=== PATIENT | male | born 1970 | race African-American/Black ===

== ENCOUNTER 2017-04-12 13:04 | Emergency (ER) | payer OTHER ==
[2017-04-12 13:10] VITALS: BP 145/93; PULSE 88; TEMP 98.5; BMI 51.1
--- NOTE | 2017-04-12 14:13 | PDOC ---
History of Present Illness - General Chief Complaint: Ear Problem Stated Complaint: EAR PROBLEM Time Seen by Provider: 04/12/17 13:57 History Source: Patient Exam Limitations: No Limitations - History of Present Illness Initial Comments: 04/12/17 14:08 And here with complaints of left ear fuzziness 2 days. Denies fevers, chills, runny nose or recent URI. States suffers from cerumen of systems and uses wash rag to try to disimpact ear. Timing/Duration: unsure Severity: mild Associated Symptoms: reports: denies symptoms Past History - Travel Traveled outside of the country in the last 30 days: No Close contact w/someone who was outside of country & ill: No - Past Medical History Allergies/Adverse Reactions: Allergies Allergy/AdvReac Type Severity Reaction Status Date / Time No Known Allergies Allergy Verified 04/12/17 13:06 Home Medications: Ambulatory Orders Albuterol Sulfate Inhaler - [Ventolin HFA Inhaler -] 2 inh PO Q4H PRN #1 inh 04/01 Carvedilol [Coreg -] 12.5 mg PO BID tablet 08/28/15 Furosemide Injection [Lasix Injection -] 40 mg IVPUSH BID@0600,1400 vial Heparin - 5,000 unit SQ TID vial 08/28/15 Polymyxin B Sulfate/Tmp [Polytrim Opthalmic Solution -] 1 drop OD Q3H drops Potassium Chloride [K-Dur -] 20 meq PO DAILY tablet.er 08/28/15 Anemia: No Asthma: No Cancer: No Cardiac Disorders: No CVA: No COPD: No CHF: No Dementia: No Diabetes: No GI Disorders: No Disorders: No HTN: Yes Hypercholesterolemia: No Liver Disease: No Seizures: No Thyroid Disease: No Other medical history: MORBIDE OBESTIY - Surgical History Abdominal Surgery: Yes (HERNIA 1997) Appendectomy: No Cardiac Surgery: No Cholecystectomy: No Lung Surgery: No Neurologic Surgery: No Orthopedic Surgery: No - Suicide/Smoking/Psychosocial Hx Smoking Status: No Smoking History: Never smoked Number of Cigarettes Smoked Daily: 0 Information on smoking cessation initiated: No Hx Alcohol Use: No Drug/Substance Use Hx: No Substance Use Type: None Hx Substance Use Treatment: No Review of Systems - Review of Systems Able to Perform ROS?: Yes Is the patient limited Venezuelan proficient: Yes Constitutional: Yes: Symptoms Reported, See HPI, Malaise HEENTM: Yes: Symptoms Reported, See HPI, Ear Pain, Ear Discharge Respiratory: Yes: See HPI. No: Symptoms reported, Cough Musculoskeletal: No: Symptoms Reported Integumentary: No: Symptoms Reported All Other Systems: Reviewed and Negative *Physical Exam - Vital Signs Last Vital Signs Temp Pulse Resp BP Pulse Ox 98.5 F 88 18 145/93 100 04/12/17 13:06 04/12/17 13:06 04/12/17 13:06 04/12/17 13:06 04/12/17 13:06 - Physical Exam General Appearance: Yes: Nourished, Appropriately Dressed. No: Apparent Distress HEENT: positive: EOMI, LUMZA, Normal ENT Inspection, Pharynx Normal. negative: TMs Normal (unable to visualize left TM due to cerumen no cysts) Neck: positive: Supple. negative: Tender, Lymphadenopathy (R), Lymphadenopathy (L) Respiratory/Chest: positive: Lungs Clear. negative: Chest Tender Gastrointestinal/Abdominal: positive: Soft. 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 Patient feels much improved *DC/Admit/Observation/Transfer Diagnosis at time of Disposition: Ceruminosis Qualifiers: Laterality: left Qualified Code(s): H61.22 - Impacted cerumen, left ear - Discharge Dispostion Disposition: HOME Condition at time of disposition: Stable Admit: No - Referrals Referrals: Jai Villegas MD [Primary Care Provider] - Philip Jackson MD [Staff Physician] - - Patient Instructions Printed Discharge Instructions: DI for Cerumen Impaction Additional Instructions: Do not use Q-tips, or any other small objects on the inner aspect of the ear canal - may only use Q-tips only on the outside to clean ears Ear wax may be packed by use of Q-tips to the inner canal and become hardened May use hydrogen peroxide 3 times a week to continued keep ear wax soft and able to expel Rinse in shower after hydrogen peroxide instillation to wash ear wax out [id number] preparations also assist in wax buildup Aloe up with private physician or ear nose and throat doctor as needed - Post Discharge Activity
== END 2017-04-12 14:33 | disposition home or self-care (01) ==
LOC: JERFT 13:04
PROC: 3E1B78Z Irrigation of Ear using Irrigating Substance, Via Natural or Artificial Opening (ICD-10-PCS; principal; 2017-04-12)
DX: H61.22 Impacted cerumen, left ear (principal); I10 Essential (primary) hypertension; E66.01 Morbid (severe) obesity due to excess calories; Z68.43 Body mass index [BMI] 50.0-59.9, adult
CPT/HCPCS: 99281-25

== ENCOUNTER 2018-12-05 11:06 | Inpatient (IN) | payer SELFPAY ==
[2018-12-05] MEDS: ALBUTEROL SO4 2.5/IPRATROPIUM 0.5 INH SOL 3 ML VIAL.NEB. NEB SCH (12:26)
[2018-12-05] MEDS ORDERED: ALBUTEROL SO4 2.5/IPRATROPIUM 0.5 INH SOL 3 ML VIAL.NEB. NEB ONE (12:30)
--- NOTE | 2018-12-05 12:56 | PDOC ---
History of Present Illness - General Chief Complaint: Shortness of Breath Stated Complaint: SOB Time Seen by Provider: 12/05/18 11:57 - History of Present Illness Initial Comments: Idris Carter is a 48yo man with a PMH of morbid obesity, HITESH on CPAP, obesity hypoventilation syndrome, HTN, ?COPD who presents with worsening CHURCH. He reports that he woke yesterday morning with acute onset of shortness of breath, particularly when he tries to walk. He is unable to state how far he can walk today compared to his baseline, but he says he has been getting more SOB than normal. He says that he has breathing problems at baseline and uses CPAP overnight but does not have any respiratory medications. When asked, he endorses having an albuterol MDI at home but has never used it. Mr Carter denies any fever, chills, chest pain, nausea/vomiting, weight change or worsening LE edema though he reports chronic BLE edema (left always worse than right). Mr Carter is additionally unclear on whether he takes his home medications regularly. Past History - Past Medical History Allergies/Adverse Reactions: Allergies Allergy/AdvReac Type Severity Reaction Status Date / Time No Known Allergies Allergy Verified 04/12/17 13:06 Home Medications: Ambulatory Orders Carvedilol [Coreg -] 12.5 mg PO BID tablet 08/28/15 Amlodipine Besylate 5 mg PO DAILY 12/05/18 Furosemide Injection [Lasix Injection -] 40 mg PO BID 12/05/18 Anemia: No Asthma: No Cancer: No Cardiac Disorders: No CVA: No COPD: No CHF: No Dementia: No Diabetes: No GI Disorders: No Disorders: No HTN: Yes Hypercholesterolemia: No Liver Disease: No Seizures: No Thyroid Disease: No - Surgical History Abdominal Surgery: Yes (HERNIA 1997) Appendectomy: No Cardiac Surgery: No Cholecystectomy: No Lung Surgery: No Neurologic Surgery: No Orthopedic Surgery: No - Immunization History Immunization Up to Date: No - Psycho Social/Smoking Cessation Hx Smoking Status: No Smoking History: Never smoked Have you smoked in the past 12 months: No Number of Cigarettes Smoked Daily: 0 Information on smoking cessation initiated: No Hx Alcohol Use: No Drug/Substance Use Hx: No Substance Use Type: None Hx Substance Use Treatment: No Review of Systems - Review of Systems Comments:: General: No fevers, no chills, no weight or appetite change, no malaise HEENT: No changes in vision, no changes in hearing, no congestion, no sore throat CV: No chest pain, no palpitations, + LE edema, + CHURCH Pulm: + SOB, +HITESH GI: No nausea or vomiting, no change in bowel habits, no melena : No frequency, no urgency, no dysuria Musc: No back pain, no joint swelling, no recent injury Skin: No rash, no lesions, no erythema Endo: No excessive thirst, no heat/cold intolerance Heme: No unusual bruising or bleeding, no swollen glands Neuro: No syncope, no numbness/tingling, no focal weakness Vasc: No claudication Psych: No recent change in mood, no SI or HI *Physical Exam - Vital Signs Last Vital Signs Temp Pulse Resp BP Pulse Ox 98.4 F 102 H 28 H 184/117 H 91 L 12/05/18 11:45 12/05/18 11:45 12/05/18 11:45 12/05/18 11:45 12/05/18 11:45 - Physical Exam Comments: General: Morbidly obese, in moderate distress HEENT: PERRL, EOMI, MMM, voice normal Cards: Mildly tachycardic, no murmur appreciated Pulm: Tachypnic on 3L by NC. Very distant lung sounds Abd: Soft, nontender, obese. Well healed midline scar Ext: 3+ BLE pitting edema, L>R. Moves all extremities. WWP Neuro: A&Ox3, CN grossly intact, normal speech, motor/sensory grossly intact and symmetric Psych: Mood appropriate to situation ED Treatment Course - LABORATORY CBC & Chemistry Diagram: 12/05/18 12:30 12/05/18 12:30 - RADIOLOGY Radiology Studies Ordered: Category Date Time Status CHEST X-RAY PORTABLE* [RAD] Stat Radiology 12/05/18 12:21 Ordered Medical Decision Making - Medical Decision Making 12/05/18 12:55 Idris Carter is a 48yo man with a PMH of morbid obesity, HITESH on CPAP, obesity hypoventilation syndrome, HTN, ?COPD who presents with worsening CHURCH that started acutely when he woke yesterday morning. - Ddx includes CHF exacerbation, COPD exacerbation, ACS, viral illness, worsening obesity hypoventilation, medication noncompliance - CBC, CMP, trop, BNP, CXR, EGK - Duoneb - Cardiac monitoring - Supplemental O2 - ABG to evaluate for significant hypoxia, hypercapnea 12/05/18 13:57 - CBC, CMP unremarkable. Trop negative - EKG with sinus tachycardia at 105, left axis, normal intervals, left anterior facicular block. No significant t-wave or ST changes - ABG to be completed - Given LE edema, tachycardia, and SOB, will obtain BLE duplex and d-dimer to evaluate for PE 12/05/18 16:57 - ABG with slight acidosis at pH 7.33, CO2 66, O2 59 on 3L suppelemtal O2 - D-dimer mildly elevated at 700 - Duplex pending - Plan to give lovenox empirically as CT cannot be completed. Pharmacy contacted for dosing 12/05/18 18:20 - Per pharmacy, lovenox dosing is baseld on actual body weight. 200mg lovenox ordered - 40mg IV lasix, 10mg IV labetalol ordered for HTN to 215/120. Outpatient pharmacy reports pt has not picked up his amlodipine 5mg since August, will give home dose - Will admit to telemetry due to hypoxia, possible V/Q scan 12/05/18 19:[address] out [address] to Dr Martell for the remainder of his ED care. Discussed with Elli Saravia and Emory Chavez PGY2 Discharge - Discharge Information Problems reviewed: Yes Clinical Impression/Diagnosis: Acute and chronic respiratory failure Qualifiers: Respiratory failure complication: hypoxia and hypercapnia Qualified Code(s): J96.21 - Acute and chronic respiratory failure with hypoxia Condition: Stable - Admission Yes - Follow up/Referral - Patient Discharge Instructions - Post Discharge Activity
--- NOTE | 2018-12-05 13:00 | PDOC ---
Documentation entered by Yolanda Nation SCRIBE, acting as scribe for Yury Saravia MD. Yury Saravia MD: This documentation has been prepared by the Rios ruibo Adrianna, SCRIBE, under my direction and personally reviewed by me in its entirety. I confirm that the documentation accurately reflects all work, treatment, procedures, and medical decision making performed by me. Attending Attestation - Resident Resident Name: KathyJeanette - ED Attending Attestation I have performed the following: I have examined & evaluated the patient, The case was reviewed & discussed with the resident, I agree w/resident's findings & plan, Exceptions are as noted - HPI HPI: The patient is a 48 year old male, with a significant PMH of morbid obesity, obstructive sleep apnea (wears CPAP at night at home ), obesity hypoventilation syndrome, and hypertension, who presents to the ED for evaluation of shortness of breath for 2 days. Patient reports feeling increasingly more short of breath yesterday. He notes he can typically walk one block before feeling short of breath, but yesterday could not walk for more than half a block. He endorses dyspnea on exertion (feels okay at rest) and orthopnea (needs to sleep with 2 pillows, no change in the past 2 days). He has bilateral lower extremity edema at baseline (L>R), but denies any increase in swelling. Patient reports mild chest pain yesterday that was brief and self-resolved. Patient measured his O2 and saw that it was low, so he came to the ED for further evaluation. Denies fever, chills, runny nose, productive cough, nausea, vomit, diarrhea, weight gain, or recent travel. Allergies: NKA, NKDA Surgical History: Abdominal hernia repair Social History: Denies EtOH, tobacco, or illicit drug use PCP: NOS - Physicial Exam PE: Vitals: Triage Vital signs reviewed General Appearance: +Morbidly obese. no acute distress, Cardiac: +Tachycardic. Regular rhythm, no murmurs, no rubs, no gallops, Lungs: +Breath sounds slightly decreased bilaterally, Abdomen: Soft, nondistended, normal bowel sounds, nontender to palpation Rectal: Exam deferred Extremities: +3+ pitting edema of the bilateral lower extremities, Full range of motion to all extremities, no cyanosis, clubbing, Skin: Warm and dry, no rashes or lesions, no petechiae Neuro: AOX3; Cranial Nerves 2-12 grossly c intact, Strength intact to all extremities Sensation intact to all extremities, Psych: normal mood, normal affect - Medical Decision Making 48 year old male, with history of morbid obesity, obstructive sleep apnea ( wears CPAP at night at home ), obesity hypoventilation syndrome, and hypertension, presents with shortness of breath for 2 days. Plan: labs, duo neb, chest X-Ray, EKG, reassess 12/05/18 16:46 Morbid obesity with hypoxia and hypoventilatory syndrome we will start patient on BiPAP d-dimer sent very mildly elevated low suspicion for PE patient unable to obtain CTA given weight can consider VQ scan tomorrow Heart Score/ECG Review - ECG Impressions Comment:: EKG performed at 11:21:56 demonstrates rate of 105bpm, sinus tachycardia with premature atrial complexes. Additional findings include: Possible left atrial enlargement, left anterior fascicular block ED Treatment Course - LABORATORY CBC & Chemistry Diagram: 12/07/18 06:10 12/07/18 06:10 - ADDITIONAL ORDERS Additional order review: Laboratory Results 12/05/18 12/05/18 12/05/18 14:00 14:00 12:30 D-Dimer 728 H Anticoagulation Therapy No Result Required. Puncture Site Right radial ABG pH 7.33 L ABG pCO2 at Pt Temp 66.5 H ABG pO2 at Pt Temp 59.0 L ABG HCO3 34.3 H ABG O2 Sat (Measured) 86.6 L ABG O2 Content 16.0 ABG Base Excess 6.6 H Ramses Test Positive O2 Delivery Device No Result Required. Oxygen Flow Rate No Vent Mode No Result Required. Vent Rate No Result Required. Mechanical Rate No Result Required. Pressure Support Vent No Result Required. Sodium 141 Potassium 3.9 Chloride 102 Carbon Dioxide 32 Anion Gap 7 L BUN 12.9 Creatinine 0.7 Est GFR (CKD-EPI)AfAm 127.53 Est GFR (CKD-EPI)NonAf 110.04 Random Glucose 91 Calcium 8.8 Magnesium Total Bilirubin 0.5 AST 21 ALT 20 Alkaline Phosphatase 91 Creatine Kinase Troponin I B-Natriuretic Peptide Total Protein 8.2 Albumin 3.4 12/05/18 12:30 D-Dimer Anticoagulation Therapy Puncture Site ABG pH ABG pCO2 at Pt Temp ABG pO2 at Pt Temp ABG HCO3 ABG O2 Sat (Measured) ABG O2 Content ABG Base Excess Ramses Test O2 Delivery Device Oxygen Flow Rate Vent Mode Vent Rate Mechanical Rate Pressure Support Vent Sodium Potassium Chloride Carbon Dioxide Anion Gap BUN Creatinine Est GFR (CKD-EPI)AfAm Est GFR (CKD-EPI)NonAf Random Glucose Calcium Magnesium 2.0 Total Bilirubin AST ALT Alkaline Phosphatase Creatine Kinase 129 Troponin I 0.02 B-Natriuretic Peptide 392.9 H Total Protein Albumin 12/05/18 12:30 RBC 6.01 H MCV 77.6 L MCHC 29.6 L RDW 17.0 H MPV 9.3 Neutrophils % 78.0 Lymphocytes % 13.5 D Monocytes % 6.6 Eosinophils % 1.2 D Basophils % 0.7 - RADIOLOGY Radiograph Interpretation: EXAM#: TYPE/EXAM: RESULT: [id number] RAD/CHEST X-RAY PORTABLE* Chest single view portable Indication: Shortness of breath Impression: Limited expiratory study as discussed above. Consider follow-up imaging with a better inspiratory effort. Reported By: Ravi Dailey MD 12/05/18 14:44 - Medications Given in the ED: ED Medications Discontinued Medications Generic Name Dose Route Start Last Admin Trade Name Freq PRN Reason Stop Dose Admin Albuterol/Ipratropium 1 amp 12/05/18 12:30 12/05/18 12:26 Duoneb - NEB 12/05/18 13:16 1 amp Q15M EUNICE Administration
[2018-12-05 13:01] LABS: BASO % 0.7 % (0-2.0); EOS % 1.2 % (0-4.5); HEMATOCRIT 46.6 % (35.4-49); HEMOGLOBIN 13.8 GM/dL (11.7-16.9); LYMPH % 13.5 % (8-40); MCHC 29.6 g/dl (32.0-35.9); MEAN CELL VOLUME 77.6 fl (80-96); MEAN PLT VOLUME 9.3 fl (7.5-11.1); MONO % 6.6 % (3.8-10.2); PLATELET COUNT 216 K/MM3 (134-434); RBC 6.01 M/mm3 (4.00-5.60); WHITE BLOOD COUNT 6.8 K/mm3 (4.0-10.0)
[2018-12-05 13:11] LABS: N-TERMINAL BNP 392.9 pg/ml (5-125)
[2018-12-05 13:15] LABS: ALBUMIN 3.4 g/dl (3.4-5.0); BILIRUBIN,TOTAL 0.5 mg/dL (0.2-1); BLOOD UREA NITROGEN 12.9 mg/dL (7-18); CALCIUM 8.8 mg/dL (8.5-10.1); CREATININE 0.7 mg/dL (0.55-1.3); POTASSIUM 3.9 mmol/L (3.5-5.1); TOT PROT 8.2 g/dl (6.4-8.2)
[2018-12-05 14:12] LABS: ARTERIAL BLD GAS O2 SATURATION 86.6 % (95-98); ARTERIAL BLOOD GAS BASE EXCESS 6.6 meq/l (-2-2); ARTERIAL BLOOD GAS PCO2 66.5 mmHg (35-45); ARTERIAL BLOOD GAS pH 7.33 (7.35-7.45)
[2018-12-05 14:17] LABS: ALLENS TEST POSITIVE
[2018-12-05] MEDS ORDERED: FUROSEMIDE 40 MG/4 ML INJECTABLE VIAL IVPUSH ONE (17:37)
[2018-12-05] MEDS ORDERED: LABETALOL HCL 5 MG/1 ML (100MG/20 ML VIAL) IVPUSH ONE (17:38)
[2018-12-05] MEDS ORDERED: amLODIPine BESYLATE 5 MG TABLET (FP) PO ONE (18:27)
[2018-12-05] MEDS ORDERED: ENOXAPARIN NA (PORCINE) 120 MG/0.8 ML DISP.SYRIN SQ SCH (18:30)
[2018-12-05] MEDS ORDERED: FUROSEMIDE 40 MG/4 ML INJECTABLE VIAL ONE (19:02)
[2018-12-05] MEDS ORDERED: ENOXAPARIN NA (PORCINE) 100 MG/1 ML DISP.SYRIN SQ ONE (19:02)
[2018-12-05] MEDS ORDERED: amLODIPine BESYLATE 5 MG TABLET (FP) ONE (19:02)
[2018-12-05] MEDS ORDERED: LABETALOL HCL 5 MG/1 ML (200MG/40ML VIAL) IVPB ONE (19:02)
--- NOTE | 2018-12-05 19:31 | PN ---
Teaching Attending Note Name of Resident: Marina Tate ATTENDING PHYSICIAN STATEMENT I saw and evaluated the patient. I reviewed the resident's note and discussed the case with the resident. I agree with the resident's findings and plan as documented. SUBJECTIVE: Patient is a 48 year old man with a PMH of Morbid obesity, Abdominal hernia repair, Obstructive sleep apnea (wears CPAP at night at home ), Obesity- hypoventilation syndrome, Intubated in 08/2015 (for respiratory failure) and Hypertension (nonadherent to medications) who presents to the ER with shortness of breath for 2 days. Patient reports feeling increasingly more short of breath yesterday. He notes he can typically walk one block before feeling short of breath, but yesterday could not walk for more than half a block. He has dyspnea on exertion (feels okay at rest) and orthopnea (needs to sleep with 2 pillows, no change in the past 2 days). He has bilateral lower extremity edema at baseline (L>R), but denies any increase in swelling. Patient reports mild chest pain yesterday that was brief and self-resolved. Patient measured his O2 and saw that it was low. Denies alcohol, tobacco, or illicit drug use. 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 Has FH of CVA and COPD. No obvious recent sick contacts. Denies fever, chills, runny nose, productive cough, nausea, vomit , diarrhea, weight gain, or recent travel. OBJECTIVE: Alert Vital Signs Period Temp Pulse Resp BP Sys/Deluca Pulse Ox Last 24 Hr 98.2 F-98.8 F 60-105 20-28 141-191/91-117 79-100 HEENT: No Jaundice, eye redness or discharge, PERRLA, EOMI. Normocephalic, atraumatic. External ears are normal and hearing is grossly intact. No nasal discharge. Neck: Supple, nontender. No palpable adenopathy or thyromegaly. No JVD Chest: Good effort. Diminished breath sounds. Clear to percussion. Heart: Regular. No S3, rub or murmur Abdomen: Not distended, soft, nontender and no HSM. No rebound or guarding. Normal bowel sounds. Ext: Peripheral pulses intact. Leg edema. Skin: Warm and dry. No petechiae, rash or ecchymosis. Neuro: Alert. Oriented x3. CN 2-12 grossly intact. Sensation grossly intact in all four extremities and DTR are symmetric. Psych: Appropriate mood and affect. Good insight. Current Medications Generic Name Dose Route Start Last Admin Trade Name Latonya PRN Reason Stop Dose Admin Enoxaparin Sodium 200 mg 12/05/18 18:30 12/05/18 19:15 Lovenox - SQ 200 mg ONCE EUNICE Administration Home Medications Medication Instructions Recorded Carvedilol [Coreg -] 12.5 mg PO BID tablet 08/28/15 Amlodipine Besylate 5 mg PO DAILY 12/05/18 Furosemide Injection [Lasix 40 mg PO BID 12/05/18 Injection -] Abnormal Lab Results 12/05/18 12/05/18 12/05/18 12:30 12:30 12:30 RBC 6.01 H MCV 77.6 L MCH 23.0 L MCHC 29.6 L RDW 17.0 H D-Dimer ABG pH ABG pCO2 at Pt Temp ABG pO2 at Pt Temp ABG HCO3 ABG O2 Sat (Measured) ABG Base Excess Anion Gap 7 L B-Natriuretic Peptide 392.9 H 12/05/18 12/05/18 14:00 14:00 RBC MCV MCH MCHC RDW D-Dimer 728 H ABG pH 7.33 L ABG pCO2 at Pt Temp 66.5 H ABG pO2 at Pt Temp 59.0 L ABG HCO3 34.3 H ABG O2 Sat (Measured) 86.6 L ABG Base Excess 6.6 H Anion Gap B-Natriuretic Peptide ASSESSMENT AND PLAN: 1. COPD exacerbation - Findings consistent with COPD associated with his OHS and HITESH. Needs confirmation with outpatient PFTs and sleep study. CXR shows cardiomegaly, wide mediastinum, pulmonary vascular congestion and obscured left costophrenic angle. Leg doppler scan didnot show DVT. ECHO from 08/25/15 showed normal LV size, normal LV systolic function and mild concentric LV hypertrophy; the right ventricle was not visualized. Will treat with duoneb/ventolin, solumedrol, symbicort and azithromycin and reduce O2 to 2L/min. EKG shows sinus tachycardia with PAC, LAE, LAFB and no changes of ischemia and initial troponin is negative. Started on full dose Lovenox by the ER staff for possible pulmonary embolism, pending V/Q scan (Patient too big for CT scan machine). Will consult pulmonary and strive to get V/Q scan early in the morning before continuing full dose lovenox. Leg edema may be related to venous stasis, increased vascular permeability and/or hypercarbia-induced renal salt retention. Will repeat ECHO and focus on appropriate care of his underlying pulmonary disease. In the meantime will encourage leg elevation, dietary salt restriction and possibly compression stockings. Will continue comprehensive care for all of patients comorbid conditions. 2. Hypertensive urgency - Patient got Lasix 40 mg IV, Labetalol 10 mg IV and Amlodipine 5 mg PO in the ER - BP improved to systolic of 160 mmHg. Will hold amlodipine and add HCTZ 12.5 q am and Minoxidil 5 mg bid and Lisinopril 20 mg HS. Revise regimen to ensure [id number] excellent BP control and corrections counselor patient on the injurious effects of uncontrolled hypertension. Nonpharmacologic measures to control hypertension like weight loss, salt restriction and exercise discussed. Importance of adherence to treatment regimen and attainment of normotension emphasized. 3. Morbid Obesity Counseled on the risks associated with obesity. Will provide patient all the necessary assistance, counseling and positive reinforcement to facilitate weight loss. Consult edge polisher. 4. DVT prophylaxis - On full dose Lovenox empirically for PE. 5. Advance directives - Full code
[2018-12-05] MEDS ORDERED: LABETALOL HCL INJECTION 1,000 MG in SODIUM CHLORIDE 800 ML IV SCH (20:15)
--- NOTE | 2018-12-05 21:17 | PDOC ---
*Physical Exam - Vital Signs Last Vital Signs Temp Pulse Resp BP Pulse Ox 98.4 F 81 28 H 162/100 92 L 12/05/18 11:45 12/05/18 21:13 12/05/18 20:50 12/05/18 21:13 12/05/18 20:50 ED Treatment Course - LABORATORY CBC & Chemistry Diagram: 12/05/18 12:30 12/05/18 12:30 - ADDITIONAL ORDERS Additional order review: Laboratory Results 12/05/18 12/05/18 12/05/18 14:00 14:00 12:30 D-Dimer 728 H Anticoagulation Therapy No Result Required. Puncture Site Right radial ABG pH 7.33 L ABG pCO2 at Pt Temp 66.5 H ABG pO2 at Pt Temp 59.0 L ABG HCO3 34.3 H ABG O2 Sat (Measured) 86.6 L ABG O2 Content 16.0 ABG Base Excess 6.6 H Ramses Test Positive O2 Delivery Device No Result Required. Oxygen Flow Rate No Vent Mode No Result Required. Vent Rate No Result Required. Mechanical Rate No Result Required. Pressure Support Vent No Result Required. Sodium 141 Potassium 3.9 Chloride 102 Carbon Dioxide 32 Anion Gap 7 L BUN 12.9 Creatinine 0.7 Est GFR (CKD-EPI)AfAm 127.53 Est GFR (CKD-EPI)NonAf 110.04 Random Glucose 91 Calcium 8.8 Magnesium Total Bilirubin 0.5 AST 21 ALT 20 Alkaline Phosphatase 91 Creatine Kinase Troponin I B-Natriuretic Peptide Total Protein 8.2 Albumin 3.4 12/05/18 12:30 D-Dimer Anticoagulation Therapy Puncture Site ABG pH ABG pCO2 at Pt Temp ABG pO2 at Pt Temp ABG HCO3 ABG O2 Sat (Measured) ABG O2 Content ABG Base Excess Ramses Test O2 Delivery Device Oxygen Flow Rate Vent Mode Vent Rate Mechanical Rate Pressure Support Vent Sodium Potassium Chloride Carbon Dioxide Anion Gap BUN Creatinine Est GFR (CKD-EPI)AfAm Est GFR (CKD-EPI)NonAf Random Glucose Calcium Magnesium 2.0 Total Bilirubin AST ALT Alkaline Phosphatase Creatine Kinase 129 Troponin I 0.02 B-Natriuretic Peptide 392.9 H Total Protein Albumin 12/05/18 12:30 RBC 6.01 H MCV 77.6 L MCHC 29.6 L RDW 17.0 H MPV 9.3 Neutrophils % 78.0 Lymphocytes % 13.5 D Monocytes % 6.6 Eosinophils % 1.2 D Basophils % 0.7 - Medications Given in the ED: ED Medications Discontinued Medications Generic Name Dose Route Start Last Admin Trade Name Latonya PRN Reason Stop Dose Admin Albuterol/Ipratropium 1 amp 12/05/18 12:30 12/05/18 12:26 Duoneb - NEB 12/05/18 13:16 1 amp Q15M EUNICE Administration Amlodipine Besylate 5 mg 12/05/18 18:27 12/05/18 19:15 Norvasc - PO 12/05/18 18:28 5 mg ONCE ONE Administration Furosemide 40 mg 12/05/18 17:37 12/05/18 19:15 Lasix Injection - IVPUSH 12/05/18 17:38 40 mg ONCE ONE Administration Labetalol HCl 1,000 mg/ Sodium 1,000 mls @ 120 mls/hr 12/05/18 20:15 21:13 Chloride IV 0 mg/min TITR EUNICE 0 mls/hr Infusion 2 MG/MIN Labetalol HCl 10 mg 12/05/18 17:38 12/05/18 19:15 Normodyne Injection - IVPUSH 12/05/18 17:39 10 mg ONCE ONE Administration Discharge - Discharge Information Problems reviewed: Yes Clinical Impression/Diagnosis: Acute and chronic respiratory failure Qualifiers: Respiratory failure complication: hypoxia and hypercapnia Qualified Code(s): J96.21 - Acute and chronic respiratory failure with hypoxia Condition: Stable - Follow up/Referral - Patient Discharge Instructions - Post Discharge Activity
[2018-12-05] MEDS ORDERED: ALBUTEROL SO4 2.5/IPRATROPIUM 0.5 INH SOL 3 ML VIAL.NEB. NEB PRN (21:48)
[2018-12-05] MEDS ORDERED: ALBUTEROL SO4 0.083% IH SOL 2.5 MG/3 ML VIAL.NEB. NEB PRN (21:48)
[2018-12-05] MEDS ORDERED: AZITHROMYCIN 250 MG TABLET PO ONE (21:51)
[2018-12-05] MEDS: LISINOPRIL 20 MG TABLET (FP) PO SCH ×2 (21:55→22:11)
[2018-12-05] MEDS ORDERED: methylPREDNISolone NA SUCC 40 MG/1 ML VIAL ONE (22:48)
[2018-12-05] MEDS ORDERED: AZITHROMYCIN 250 MG TABLET ONE (22:48)
[2018-12-05] MEDS: MINOXIDIL 2.5 MG TABLET PO SCH ×2 (22:54→22:59)
[2018-12-05] MEDS: methylPREDNISolone NA SUCC 40 MG/1 ML VIAL IVPUSH SCH (22:55)
[2018-12-05] MEDS: BUDESONIDE/FORMETEROL FUMARATE 160/4.5 mcg INHALER IH SCH (22:55)
--- NOTE | 2018-12-05 22:59 | HP ---
CHIEF COMPLAINT: SOB PCP: Dr. Villegas HISTORY OF PRESENT ILLNESS: Mr. Carter is a 48 year old man with a past medical history of morbid obesity (BMI 55.5kg), HITESH (has CPAP at home), obesity hypoventilation syndrome, HTN, and questionable COPD (patient denies carrying this diagnosis). The patient states that he woke up yesterday morning and felt more short of breath than usual. He was becoming short of breath walking down the path to his house and climbing the steps to enter his home, this is unusual for him. He is not short of breath at rest. The patient did not take any inhalers or medications to try and relieve his symptoms. Exertion makes the SOB worse and rest makes it better. The patient endorses having LE edema and orthopnea but states that there have been no changes in the amount of swelling in his legs or the number of pillows he uses to sleep. The patient states that 3 years ago he came to [facility] and was transferred to [place] to be evaluated for CHF and COPD, he reports that they "cleared" him of these diagnoses but can't recall what studies were done. He denies ever having a sleep study but acknowledges that we recommended he get one last time he was here. He reports Dr. Villegas had prescribed him an albuterol inhaler and amlodipine 5mg PO BID but he denies taking both of these medications. 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 ER course was notable for: (1) 10 IVpush Labetolol (2) 40 IVpush Lasix (3) EKG with sinus tachycardia (105) and premature atrial complexes, QTc 457, TWI in V1 V2 Recent Travel: denies PAST MEDICAL HISTORY: morbid obesity (BMI 55.5kg), HITESH (has CPAP at home), obesity hypoventilation syndrome, HTN, and questionable COPD (patient denies carrying this diagnosis) PAST SURGICAL HISTORY: ventral hernia repair in 1997 Social History: Smoking: denies, never smoked Alcohol: denies Drugs: denies Allergies No Known Allergies Allergy (Verified 04/12/17 13:06) HOME MEDICATIONS: Home Medications Medication Instructions Recorded Carvedilol [Coreg -] 12.5 mg PO BID tablet 08/28/15 Amlodipine Besylate 5 mg PO DAILY 12/05/18 Furosemide Injection [Lasix 40 mg PO BID 12/05/18 Injection -] REVIEW OF SYSTEMS CONSTITUTIONAL: Absent: fever, chills, diaphoresis, generalized weakness, malaise, loss of appetite, weight change HEENT: Absent: rhinorrhea, nasal congestion, throat pain, throat swelling, difficulty swallowing, mouth swelling, ear pain, eye pain, visual changes CARDIOVASCULAR: chest pain- patient reported CP but when asked to point to where points to L flank, states it was "throbbing" and self resolved Absent: syncope, palpitations, irregular heart rate, lightheadedness, peripheral edema RESPIRATORY: shortness of breath, dyspnea with exertion, orthopnea, Absent: cough, wheezing, stridor, hemoptysis GASTROINTESTINAL: Absent: abdominal pain, abdominal distension, nausea, vomiting, diarrhea, constipation, melena, hematochezia GENITOURINARY: Absent: dysuria, frequency, urgency, hesitancy, hematuria, flank pain, genital pain MUSCULOSKELETAL: Absent: myalgia, arthralgia, joint swelling, back pain, neck pain SKIN: Absent: rash, itching, pallor HEMATOLOGIC/IMMUNOLOGIC: Absent: easy bleeding, easy bruising, lymphadenopathy, frequent infections ENDOCRINE: Absent: unexplained weight gain, unexplained weight loss, heat intolerance, cold intolerance NEUROLOGIC: Absent: headache, focal weakness or paresthesias, dizziness, unsteady gait, seizure, mental status changes, bladder or bowel incontinence PSYCHIATRIC: Absent: anxiety, depression, suicidal or homicidal ideation, hallucinations. PHYSICAL EXAMINATION Vital Signs - 24 hr 12/05/18 12/05/18 12/05/18 11:12 11:18 11:45 Temperature 98.8 F 98.2 F 98.4 F Pulse Rate 60 105 H 102 H Pulse Rate [ 102 H Left Radial] Respiratory 20 20 28 H Rate Blood Pressure 141/91 191/117 H Blood Pressure 184/117 H [Left Arm] O2 Sat by Pulse 100 79 L 91 L Oximetry (%) 12/05/18 12/05/18 12/05/18 15:23 19:23 20:50 Temperature Pulse Rate Pulse Rate [ 91 H 92 H 91 H Left Radial] Respiratory 25 H 16 28 H Rate Blood Pressure Blood Pressure 188/122 H 215/122 H 195/110 H [Left Arm] O2 Sat by Pulse 91 L 92 L 92 L Oximetry (%) 12/05/18 12/05/18 12/05/18 21:02 21:13 22:37 Temperature Pulse Rate 87 82 Pulse Rate [ 75 Left Radial] Respiratory 19 Rate Blood Pressure 162/100 160/90 Blood Pressure 161/90 [Left Arm] O2 Sat by Pulse 93 L Oximetry (%) GENERAL: Awake, alert, and fully oriented, in no acute distress, breathing comfortably on 3LNC HEAD: Normal with no signs of trauma. EYES: Pupils equal, round and reactive to light, extraocular movements intact, sclera anicteric, conjunctiva clear. No lid lag. EARS, NOSE, THROAT: Ears normal, nares patent, oropharynx clear without exudates. Moist mucous membranes. NECK: Normal range of motion, supple without lymphadenopathy, JVD, or masses. LUNGS: Breath sounds equal, clear to auscultation bilaterally. No wheezes, and no crackles. No accessory muscle use. HEART: Regular rate and rhythm, normal S1 and S2 without murmur. ABDOMEN: Obese, Soft, nontender, not distended, normoactive bowel sounds, no guarding, no rebound, no masses, ventral midline scar MUSCULOSKELETAL: Normal range of motion at all joints. No bony deformities or tenderness. No CVA tenderness. UPPER EXTREMITIES: 2+ pulses, warm, well-perfused. No peripheral edema. Sensation intact bilaterally, 5/5 strength LOWER EXTREMITIES: 2+ pulses, warm, well-perfused. No calf tenderness.2+ peripheral edema to the knee, sensation intact bilaterally 5/5 strength bilaterally NEUROLOGICAL: Cranial nerves II-XII intact. Normal speech. PSYCHIATRIC: Cooperative. Good eye contact. Appropriate mood and affect. SKIN: Warm, dry, normal turgor, venous stasis changes and extremely dry skin on lower extremities Laboratory Results - last 24 hr 12/05/18 12/05/18 12/05/18 12:30 12:30 12:30 WBC 6.8 RBC 6.01 H Hgb 13.8 Hct 46.6 MCV 77.6 L MCH 23.0 L MCHC 29.6 L RDW 17.0 H Plt Count 216 MPV 9.3 Absolute Neuts (auto) 5.3 Neutrophils % 78.0 Lymphocytes % 13.5 D Monocytes % 6.6 Eosinophils % 1.2 D Basophils % 0.7 Nucleated RBC % 0 D-Dimer Anticoagulation Therapy Puncture Site ABG pH ABG pCO2 at Pt Temp ABG pO2 at Pt Temp ABG HCO3 ABG O2 Sat (Measured) ABG O2 Content ABG Base Excess Ramses Test O2 Delivery Device Oxygen Flow Rate Vent Mode Vent Rate Mechanical Rate Pressure Support Vent Sodium 141 Potassium 3.9 Chloride 102 Carbon Dioxide 32 Anion Gap 7 L BUN 12.9 Creatinine 0.7 Est GFR (CKD-EPI)AfAm 127.53 Est GFR (CKD-EPI)NonAf 110.04 Random Glucose 91 Calcium 8.8 Magnesium 2.0 Total Bilirubin 0.5 AST 21 ALT 20 Alkaline Phosphatase 91 Creatine Kinase 129 Troponin I 0.02 B-Natriuretic Peptide 392.9 H Total Protein 8.2 Albumin 3.4 12/05/18 12/05/18 14:00 14:00 WBC RBC Hgb Hct MCV MCH MCHC RDW Plt Count MPV Absolute Neuts (auto) Neutrophils % Lymphocytes % Monocytes % Eosinophils % Basophils % Nucleated RBC % D-Dimer 728 H Anticoagulation Therapy No Result Required. Puncture Site Right radial ABG pH 7.33 L ABG pCO2 at Pt Temp 66.5 H ABG pO2 at Pt Temp 59.0 L ABG HCO3 34.3 H ABG O2 Sat (Measured) 86.6 L ABG O2 Content 16.0 ABG Base Excess 6.6 H Ramses Test Positive O2 Delivery Device No Result Required. Oxygen Flow Rate No Vent Mode No Result Required. Vent Rate No Result Required. Mechanical Rate No Result Required. Pressure Support Vent No Result Required. Sodium Potassium Chloride Carbon Dioxide Anion Gap BUN Creatinine Est GFR (CKD-EPI)AfAm Est GFR (CKD-EPI)NonAf Random Glucose Calcium Magnesium Total Bilirubin AST ALT Alkaline Phosphatase Creatine Kinase Troponin I B-Natriuretic Peptide Total Protein Albumin Imaging: CXR - cardiomegaly, wide mediastinum, pulmonary vascular congestion and obscured left costophrenic angle. Doppler bilateral LE- no DVT ASSESSMENT/PLAN: Mr. Carter is a 48 year old man with a past medical history of morbid obesity ( BMI 55.5kg), HITESH (has CPAP at home), obesity hypoventilation syndrome, HTN, and questionable COPD (patient denies carrying this diagnosis) presenting with 2 days of SOB and dyspnea on exertion and also found to have hypertensive urgency on admission. #Shortness of breath- differential diagnosis includes COPD associated with hypercapnia from obesity hypoventilation syndrome vs. PE. Patient's ABG with evidence of hypoxia (pH 7.33, PaCO2 66.5, PaO2 59), PE less likely as the PaCO2 is elevated and you would expected it to be decreased however still on differential given the patients tachycardic, tachypneic and has an elevated D- dimer to 728. - will treat for COPD exacerbation - solumedrol IVpush 40 q6hr - duonebs QID - ventolin Q4 PRN - Symbicort 160/4.5 BID - azithromycin 500 mg once then 250 mg PO DAILY - Consult Pulm, appreciate recommendations - Started on full dose Lovenox by the ER staff for possible pulmonary embolism - Patient not able to get CTA due to body habitus, consider V/Q scan, pending results of scan will decide on dosing of Lovenox (whether to continue 200 BID), will defer to pulm for decision making - PFTs inpatient vs outpatient, will defer to pulm - will require sleep study outpatient - Reduce O2 to 2LNC # Hypertensive urgency- Patient poorly compliant with home BP meds, does not take Amlodipine. Patient does have close follow up with PCP but did not seem to understand why the amlodipine was prescribed and stated this is why he hadn't taken it. - In ED BPs were in the 190s/117 and patient got: Lasix 40 mg IV, Labetalol 10 mg IV and Amlodipine 5 mg PO, BP improved to systolic of 160 mmHg - EKG shows sinus tachycardia with PAC, LAE, LAFB and no changes of ischemia - Patient without chest pains, initial troponin is negative. - Minoxidil 5 mg PO BID - HCTZ 12.5 AM - Lisinopril 20 HS - HOLD amlodipine # Leg Edema- may be related to his venous stasis or related to hypercarbia- induced renal salt retention (hypercapnia can cause dilation of precapillary sphincters causing a fall in peripheral vascular resistance which then results in sodium retention by the kidneys in an attempt to restore the circulating volume). - Last echo was in 2015, showed normal LV size, normal LV systolic function and mild concentric LV hypertrophy; the right ventricle was not visualized. - repeat echo - leg elevation, dietary salt restriction #FEN replete lytes prn sodium restricted diet #PPx DVT- SCD's for now, patient was given 200SQ lovenox for empric tx of PE, will need to discuss with pulm in AM if this treatment should be continued. Dispo: admit to telemetry, full code Visit type - Emergency Visit Emergency Visit: Yes ED Registration Date: 12/05/18 Care time: The patient presented to the Emergency Department on the above date and was hospitalized for further evaluation of their emergent condition. - New Patient This patient is new to me today: Yes Date on this admission: 12/06/18 - Critical Care Critical Care patient: No ATTENDING PHYSICIAN STATEMENT I saw and evaluated the patient. I reviewed the resident's note and discussed the case with the resident. I agree with the resident's findings and plan as documented. SUBJECTIVE: OBJECTIVE: ASSESSMENT AND PLAN:
[2018-12-06 02:22] VITALS: BMI 63.0
[2018-12-06] MEDS: methylPREDNISolone NA SUCC 40 MG/1 ML VIAL IVPUSH SCH ×2 (02:47→09:42)
[2018-12-06] MEDS: FUROSEMIDE 40 MG TABLET (FP) PO SCH ×2 (06:16→13:33)
[2018-12-06] MEDS: ALBUTEROL SO4 2.5/IPRATROPIUM 0.5 INH SOL 3 ML VIAL.NEB. NEB SCH ×4 (08:00→20:49)
[2018-12-06 08:05] LABS: ALBUMIN 3.2 g/dl (3.4-5.0); BILIRUBIN,TOTAL 0.5 mg/dL (0.2-1); BLOOD UREA NITROGEN 13.3 mg/dL (7-18); CALCIUM 8.4 mg/dL (8.5-10.1); CREATININE 0.8 mg/dL (0.55-1.3); MAGNESIUM 2.2 mg/dL (1.8-2.4); PHOSPHOROUS 5.3 mg/dL (2.5-4.9); TOT PROT 8.1 g/dl (6.4-8.2)
[2018-12-06] MEDS ORDERED: PT OWN MED DRAWER 7, Y5N ONE (09:11)
[2018-12-06 09:19] LABS: BASO % 0.2 % (0-2.0); HEMATOCRIT 46.2 % (35.4-49); HEMOGLOBIN 13.8 GM/dL (11.7-16.9); LYMPH % 8.5 % (8-40); MCHC 29.8 g/dl (32.0-35.9); MEAN CELL VOLUME 77.4 fl (80-96); MEAN PLT VOLUME 9.2 fl (7.5-11.1); MONO % 1.2 % (3.8-10.2); NEUT % 90.1 % (42.8-82.8); PLATELET COUNT 204 K/MM3 (134-434); RBC 5.97 M/mm3 (4.00-5.60); RDW 17.1 % (11.9-15.9); WHITE BLOOD COUNT 6.7 K/mm3 (4.0-10.0)
[2018-12-06] MEDS: MINOXIDIL 2.5 MG TABLET PO SCH (09:42)
[2018-12-06] MEDS: BUDESONIDE/FORMETEROL FUMARATE 160/4.5 mcg INHALER IH SCH ×2 (09:45→21:23)
--- NOTE | 2018-12-06 09:58 | EKG ---
Test Reason : Blood Pressure : / mmHG Vent. Rate : 105 BPM Atrial Rate : 105 BPM P-R Int : 178 ms QRS Dur : 088 ms QT Int : 346 ms P-R-T Axes : 056 -52 074 degrees QTc Int : 457 ms POOR DATA QUALITY, INTERPRETATION MAY BE ADVERSELY AFFECTED SINUS TACHYCARDIA WITH PREMATURE ATRIAL COMPLEXES POSSIBLE LEFT ATRIAL ENLARGEMENT LEFT ANTERIOR FASCICULAR BLOCK ABNORMAL ECG WHEN COMPARED WITH ECG OF 23-AUG-2015 09:18, PREMATURE ATRIAL COMPLEXES ARE NOW PRESENT LEFT ANTERIOR FASCICULAR BLOCK IS NOW PRESENT Confirmed by ROS GERARD, TAWNY ([id number]) on 12/06/2018 9:58:12 AM Referred By: Confirmed By:TAWNY SOMMER MD
[2018-12-06] MEDS ORDERED: HYDROCHLOROTHIAZIDE 12.5 MG CAPSULE (FP) PO SCH (10:00)
[2018-12-06] MEDS ORDERED: ENOXAPARIN NA (PORCINE) 120 MG/0.8 ML DISP.SYRIN SQ SCH ×2 (10:00→12:45)
[2018-12-06] MEDS ORDERED: FLU VACCINE QUAD 60 MCG/0.5 ML (MDV 19-20) IM ONE (10:00)
[2018-12-06] MEDS ORDERED: AZITHROMYCIN 250 MG TABLET PO SCH (10:00)
--- NOTE | 2018-12-06 11:36 | PN ---
Progress Note (short form) - Note Progress Note: PULMONARY CONSULTATION DICTATED 12/06/18 IMP ACUTE ON CHRONIC HYPOXEMIC/HYPERCAPNEIC RESPIRATORY FAILURE ? COPD OHS HITESH HYPERTENSIVE URGENCY ? CHF MORBID OBESITY ELEVATED D-DIMER PLAN NIPPV O2 ECHO INHALED BRONCHODILATORS DVT PROPHYLAXIS TITRATE BP MEDS BARIATRIC SURGERY EVALUATION F/U ABGS OUTPATIENT PFTS DIURETICS DAILY WT Problem List - Problems (1) Acute on chronic respiratory failure with hypoxia and hypercapnia Code(s): J96.21 - ACUTE AND CHRONIC RESPIRATORY FAILURE WITH HYPOXIA; J96.22 - ACUTE AND CHRONIC RESPIRATORY FAILURE WITH HYPERCAPNIA (2) Acute on chronic diastolic (congestive) heart failure Code(s): I50.33 - ACUTE ON CHRONIC DIASTOLIC (CONGESTIVE) HEART FAILURE (3) [place] cardiac risk >20% in next 10 years Code(s): Z91.89 - OT PERSONAL RISK FACTORS, NOT ELSEWHERE CLASSIFIED (4) Morbid obesity with BMI of 50.0-59.9, adult Code(s): Z68.43 - BODY MASS INDEX (BMI) 50.0-59.9, ADULT (5) Obesity hypoventilation syndrome Code(s): E66.2 - MORBID (SEVERE) OBESITY WITH ALVEOLAR HYPOVENTILATION (6) Obstructive sleep apnea Code(s): G47.33 - OBSTRUCTIVE SLEEP APNEA (ADULT) (PEDIATRIC) (7) Hypertensive urgency Code(s): I16.0 - HYPERTENSIVE URGENCY (8) Hypertensive urgency Code(s): I16.0 - HYPERTENSIVE URGENCY
--- NOTE | 2018-12-06 12:41 | DS ---
Physical Exam: SUBJECTIVE: Patient seen and examined OBJECTIVE: Vital Signs Period Temp Pulse Resp BP Sys/Deluca Pulse Ox Last 24 Hr 97.7 F-98.2 F 75-118 16-28 145-215/90-122 90-93 PHYSICAL EXAM GENERAL: The patient is awake, alert, and fully oriented, in no acute distress. Appears comfortable on 4L NC HEAD: NC/AT EYES: sclera anicteric, conjunctiva clear. ENT: Ears normal, nares patent, oropharynx clear without exudates, moist mucous membranes. NECK: Trachea midline, full range of motion, supple. LUNGS: Breath sounds equal, clear to auscultation bilaterally, no wheezes, no crackles, no accessory muscle use. Distant lung sounds due to auscultation. Large, obese chest wall HEART: Regular rate and rhythm, S1, S2 without murmur, rub or gallop. ABDOMEN: large-obese abd, well-healed midline surgical scar, soft, nontender, nondistended, no guarding, no rebound. EXTREMITIES: 2+ pulses, warm, well-perfused, no edema. NEUROLOGICAL: Cranial nerves II through XII grossly intact. Normal speech. PSYCH: Normal mood, normal affect. SKIN: Warm, dry, normal turgor, no rashes or lesions noted. LABS Laboratory Results - last 24 hr 12/05/18 12/05/18 12/05/18 12:30 12:30 12:30 WBC 6.8 RBC 6.01 H Hgb 13.8 Hct 46.6 MCV 77.6 L MCH 23.0 L MCHC 29.6 L RDW 17.0 H Plt Count 216 MPV 9.3 Absolute Neuts (auto) 5.3 Neutrophils % 78.0 Lymphocytes % 13.5 D Monocytes % 6.6 Eosinophils % 1.2 D Basophils % 0.7 Nucleated RBC % 0 D-Dimer Anticoagulation Therapy Puncture Site ABG pH ABG pCO2 at Pt Temp ABG pO2 at Pt Temp ABG HCO3 ABG O2 Sat (Measured) ABG O2 Content ABG Base Excess Ramses Test O2 Delivery Device Oxygen Flow Rate Vent Mode Vent Rate Mechanical Rate Pressure Support Vent Sodium 141 Potassium 3.9 Chloride 102 Carbon Dioxide 32 Anion Gap 7 L BUN 12.9 Creatinine 0.7 Est GFR (CKD-EPI)AfAm 127.53 Est GFR (CKD-EPI)NonAf 110.04 Random Glucose 91 Hemoglobin A1c % Calcium 8.8 Phosphorus Magnesium 2.0 Total Bilirubin 0.5 AST 21 ALT 20 Alkaline Phosphatase 91 Creatine Kinase 129 Troponin I 0.02 B-Natriuretic Peptide 392.9 H Total Protein 8.2 Albumin 3.4 12/05/18 12/05/18 12/06/18 14:00 14:00 05:45 WBC 6.7 RBC 5.97 H Hgb 13.8 Hct 46.2 MCV 77.4 L MCH 23.0 L MCHC 29.8 L RDW 17.1 H Plt Count 204 MPV 9.2 Absolute Neuts (auto) 6.1 Neutrophils % 90.1 H Lymphocytes % 8.5 D Monocytes % 1.2 L D Eosinophils % 0.0 D Basophils % 0.2 Nucleated RBC % 0 D-Dimer 728 H Anticoagulation Therapy No Result Required. Puncture Site Right radial ABG pH 7.33 L ABG pCO2 at Pt Temp 66.5 H ABG pO2 at Pt Temp 59.0 L ABG HCO3 34.3 H ABG O2 Sat (Measured) 86.6 L ABG O2 Content 16.0 ABG Base Excess 6.6 H Ramses Test Positive O2 Delivery Device No Result Required. Oxygen Flow Rate No Vent Mode No Result Required. Vent Rate No Result Required. Mechanical Rate No Result Required. Pressure Support Vent No Result Required. Sodium Potassium Chloride Carbon Dioxide Anion Gap BUN Creatinine Est GFR (CKD-EPI)AfAm Est GFR (CKD-EPI)NonAf Random Glucose Hemoglobin A1c % Calcium Phosphorus Magnesium Total Bilirubin AST ALT Alkaline Phosphatase Creatine Kinase Troponin I B-Natriuretic Peptide Total Protein Albumin 12/06/18 12/06/18 05:45 05:45 WBC RBC Hgb Hct MCV MCH MCHC RDW Plt Count MPV Absolute Neuts (auto) Neutrophils % Lymphocytes % Monocytes % Eosinophils % Basophils % Nucleated RBC % D-Dimer Anticoagulation Therapy Puncture Site ABG pH ABG pCO2 at Pt Temp ABG pO2 at Pt Temp ABG HCO3 ABG O2 Sat (Measured) ABG O2 Content ABG Base Excess Ramses Test O2 Delivery Device Oxygen Flow Rate Vent Mode Vent Rate Mechanical Rate Pressure Support Vent Sodium 140 Potassium 4.0 Chloride 100 Carbon Dioxide 35 H Anion Gap 5 L BUN 13.3 Creatinine 0.8 Est GFR (CKD-EPI)AfAm 120.72 Est GFR (CKD-EPI)NonAf 104.16 Random Glucose 134 H Hemoglobin A1c % < 3.5 L Calcium 8.4 L Phosphorus 5.3 H Magnesium 2.2 Total Bilirubin 0.5 AST 11 L ALT 20 Alkaline Phosphatase 88 Creatine Kinase Troponin I B-Natriuretic Peptide Total Protein 8.1 Albumin 3.2 L HOSPITAL COURSE: 48M w/ pmh of HTN, morbid obesity (BMI 63.1kg), HITESH(nightly CPAP), obesity hypoventilation syndrome presented to [facility]ED for complaint of increasing SOB, worsened with exertion. Endorses history of normal stress test, normal PFTs. Has been prescribed albuterol inhaler and amlodipine, but does not use it. Presented at the ED w/ HR 102bpm, BP 184/117, RR 28, pO2 77% on RA, 91% on 3L. BP increased to 215/120 w/o change in symptoms. Given 40mg IV lasix, 10mg IV labetalol w/o much change. Blood pressure improved to SBP 160s after receiving furosemide 40mg x2, minoxidil, norvasc. ABG was 7.33/66.5/59/34.3/86.6/6.6; SOB was addressed with solumedrol, albuterol. Oxygenation improved to low 90s with 3-4L NC. [place] significant for D-Dimer 728, BNP 392.9. Inability to rule- out PE due to inability for CT scanner or VQ scanner unable to accommodate a > 350 lb male. Vitals still tachy to 100s, O2 ~low 90s on 4L NC. Lovenox 200mg BID for empiric treatment of possible Pulmonary Embolism. Discussed case with patient and Dr Berry for transfer to [facility] for HLOC. Date of Admission:12/05/18 Date of Discharge: 12/06/18 Minutes to complete discharge: 20 Discharge Summary Problems reviewed: Yes Reason For Visit: ACUTE RESPIRATORY FAILURE WITH HYPERCAPNIA, Current Active Problems Acute and chronic respiratory failure (Acute) Acute on chronic respiratory failure with hypoxia and hypercapnia (Acute) Hypertensive urgency (Acute) Hypertensive urgency (Acute) Condition: Stable - Instructions Referrals: Mounika Christie MD [Primary Care Provider] - - Home Medications Comprehensive Discharge Medication List: Ambulatory Orders Carvedilol [Coreg -] 12.5 mg PO BID tablet 08/28/15 Amlodipine Besylate 5 mg PO DAILY 10/22/19 Furosemide Injection [Lasix Injection -] 40 mg PO BID 12/05/18 Problem List - Problems (1) Acute and chronic respiratory failure Code(s): J96.20 - ACUTE AND CHR RESP FAILURE, UNSP W HYPOXIA OR HYPERCAPNIA Qualifiers: Respiratory failure complication: hypoxia and hypercapnia Qualified Code(s) : J96.21 - Acute and chronic respiratory failure with hypoxia; J96.22 - Acute and chronic respiratory failure with hypercapnia (2) Acute on chronic respiratory failure with hypoxia and hypercapnia Code(s): J96.21 - ACUTE AND CHRONIC RESPIRATORY FAILURE WITH HYPOXIA; J96.22 - ACUTE AND CHRONIC RESPIRATORY FAILURE WITH HYPERCAPNIA (3) Hypertensive urgency Code(s): I16.0 - HYPERTENSIVE URGENCY (4) Acute hypercapnic respiratory failure Code(s): J96.02 - ACUTE RESPIRATORY FAILURE WITH HYPERCAPNIA (5) Morbid obesity with BMI of 50.0-59.9, adult Code(s): Z68.43 - BODY MASS INDEX (BMI) 50.0-59.9, ADULT (6) Obesity hypoventilation syndrome Code(s): E66.2 - MORBID (SEVERE) OBESITY WITH ALVEOLAR HYPOVENTILATION (7) Obstructive sleep apnea Code(s): G47.33 - OBSTRUCTIVE SLEEP APNEA (ADULT) (PEDIATRIC) This patient is new to me today: Yes Date on this admission: 12/06/18 Emergency Visit: No Critical Care patient: No - Discharge Referral Referred to [facility] Med [facility].C[facility] No ATTENDING PHYSICIAN STATEMENT I saw and evaluated the patient. I reviewed the resident's note and discussed the case with the resident. I agree with the resident's findings and plan as documented. SUBJECTIVE: OBJECTIVE: ASSESSMENT AND PLAN:
--- NOTE | 2018-12-06 13:11 | ECHO ---
Name: KHADIJAH COLLINS Exam:Adult Echocardiogram Study Date: 12/06/2018 11:03 AM Age: 48 yrs Reason For Study: EVALUATE EF FOR CHF Height: 76 in Weight: 456 lb BSA: 3.1 m2 MMode/2D Measurements & Calculations IVSd: 1.3 cm Ao root diam: 3.1 cm LVIDd: 6.0 cm LA dimension: 3.9 cm LVIDs: 4.0 cm LVPWd: 1.3 cm EDV(Teich): 177.4 ml LVOT diam: 2.2 cm ESV(Teich): 70.6 ml Doppler Measurements & Calculations MV E max yonatan: 85.8 cm/sec Ao V2 max: 132.8 cm/sec MV A max yonatan: 69.7 cm/sec Ao max P.1 mmHg MV E/A: 1.2 MV dec time: 0.07 sec KIRSTEN(V,D): 1.6 cm2 LV V1 max P.2 mmHg TR max yonatan: 261.6 cm/sec LV V1 max: 54.0 cm/sec TR max P.8 mmHg Procedure A two-dimensional transthoracic echocardiogram with color flow and Doppler was performed. The study w as technically difficult with many images being suboptimal in quality. Left Ventricle The left ventricle is not well visualized. The left ventricle is mildly dilated. There is moderate co ncentric left ventricular hypertrophy. The left ventricular ejection fraction is normal. Regional wall motion abnormalities cannot be excluded due to limited visualization. Right Ventricle The right ventricle is not well visualized. Atria The left atrium is borderline dilated. The right atrium is borderline dilated. Mitral Valve The mitral valve is not well visualized. No significant mitral valve stenosis. There is trace to mild mitral regurgitation. Tricuspid Valve The tricuspid valve is not well visualized. There is no tricuspid stenosis. There is moderate tricusp id regurgitation. Right ventricular systolic pressure is elevated at 30-40mmHg. Aortic Valve The aortic valve is not well visualized. No hemodynamically significant valvular aortic stenosis. No aortic regurgitation is present. Pulmonic Valve The pulmonic valve is not well visualized. Great Vessels The aortic root is normal size. Pericardium/Pleura There is no pericardial effusion. Interpretation Summary The study was technically difficult with many images being suboptimal in quality. The left ventricle is not well visualized. The right ventricle is not well visualized. The left atrium is borderline dilated. The right atrium is borderline dilated. The left ventricle is mildly dilated. There is moderate concentric left ventricular hypertrophy. The left ventricular ejection fraction is normal. Regional wall motion abnormalities cannot be excluded due to limited visualization. There is moderate tricuspid regurgitation. Right ventricular systolic pressure is elevated at 30-40mmHg. There is trace to mild mitral regurgitation. MD Nahum Terry 12/06/2018 01:10 PM
--- NOTE | 2018-12-06 13:58 | PN ---
Teaching Attending Note Name of Resident: Momo Solisung ATTENDING PHYSICIAN STATEMENT I saw and evaluated the patient. I reviewed the resident's note and discussed the case with the resident. I agree with the resident's findings and plan as documented. SUBJECTIVE: Feels well. SOB improving. No chest pain/cough/sputum/hemoptysis. No fever/chills. OBJECTIVE: Afebrile, Hemodynamically Stable. Last Vital Signs Temp Pulse Resp BP Pulse Ox 98.1 F 118 H 20 149/104 H 90 L 12/06/18 09:41 12/06/18 09:41 12/06/18 09:41 12/06/18 09:41 12/06/18 09:00 HEENT - [place], Normocephalic. Heart - S1 S2, RRR Lungs - clear to auscultation, no wheeze. Abdomen- High BMI. Soft, non-tender. Bowel Sounds normal. Extremities - chronic venous stasis. Laboratory Results - last 24 hr 12/05/18 12/05/18 12/06/18 14:00 14:00 05:45 WBC 6.7 RBC 5.97 H Hgb 13.8 Hct 46.2 MCV 77.4 L MCH 23.0 L MCHC 29.8 L RDW 17.1 H Plt Count 204 MPV 9.2 Absolute Neuts (auto) 6.1 Neutrophils % 90.1 H Lymphocytes % 8.5 D Monocytes % 1.2 L D Eosinophils % 0.0 D Basophils % 0.2 Nucleated RBC % 0 D-Dimer 728 H Anticoagulation Therapy No Result Required. Puncture Site Right radial ABG pH 7.33 L ABG pCO2 at Pt Temp 66.5 H ABG pO2 at Pt Temp 59.0 L ABG HCO3 34.3 H ABG O2 Sat (Measured) 86.6 L ABG O2 Content 16.0 ABG Base Excess 6.6 H Ramses Test Positive O2 Delivery Device No Result Required. Oxygen Flow Rate No Vent Mode No Result Required. Vent Rate No Result Required. Mechanical Rate No Result Required. Pressure Support Vent No Result Required. Sodium Potassium Chloride Carbon Dioxide Anion Gap BUN Creatinine Est GFR (CKD-EPI)AfAm Est GFR (CKD-EPI)NonAf Random Glucose Hemoglobin A1c % Calcium Phosphorus Magnesium Total Bilirubin AST ALT Alkaline Phosphatase Total Protein Albumin 12/06/18 12/06/18 05:45 05:45 WBC RBC Hgb Hct MCV MCH MCHC RDW Plt Count MPV Absolute Neuts (auto) Neutrophils % Lymphocytes % Monocytes % Eosinophils % Basophils % Nucleated RBC % D-Dimer Anticoagulation Therapy Puncture Site ABG pH ABG pCO2 at Pt Temp ABG pO2 at Pt Temp ABG HCO3 ABG O2 Sat (Measured) ABG O2 Content ABG Base Excess Ramses Test O2 Delivery Device Oxygen Flow Rate Vent Mode Vent Rate Mechanical Rate Pressure Support Vent Sodium 140 Potassium 4.0 Chloride 100 Carbon Dioxide 35 H Anion Gap 5 L BUN 13.3 Creatinine 0.8 Est GFR (CKD-EPI)AfAm 120.72 Est GFR (CKD-EPI)NonAf 104.16 Random Glucose 134 H Hemoglobin A1c % < 3.5 L Calcium 8.4 L Phosphorus 5.3 H Magnesium 2.2 Total Bilirubin 0.5 AST 11 L ALT 20 Alkaline Phosphatase 88 Total Protein 8.1 Albumin 3.2 L Current Medications Generic Name Dose Route Start Last Admin Trade Name Freq PRN Reason Stop Dose Admin Albuterol Sulfate 1 amp 12/05/18 21:48 Ventolin 0.083% Nebulizer Soln - NEB Q4H PRN SHORT OF BREATH/WHEEZING Albuterol/Ipratropium 1 amp 12/06/18 08:00 12/06/18 11:40 Duoneb - NEB Not Given RQID EUNICE Budesonide/Formoterol Fumarate 2 puff 12/05/18 22:00 12/06/18 09:45 Symbicort 160/4.5mcg - IH 2 puff BID EUNICE Administration Carvedilol 12.5 mg 12/06/18 22:00 Coreg - PO BID EUNICE Enoxaparin Sodium 200 mg 12/06/18 12:45 Lovenox - SQ BID EUNICE Furosemide 40 mg 12/06/18 06:00 12/06/18 13:33 Lasix - PO 40 mg BID@0600,1400 EUNICE Administration Hydrochlorothiazide 12.5 mg 12/06/18 10:00 12/06/18 09:42 Hctz - PO 12.5 mg DAILY EUNICE Administration Lisinopril 20 mg 12/05/18 21:24 12/05/18 22:11 Prinivil PO 20 mg HS EUNICE Administration Home Medications Medication Instructions Recorded Carvedilol [Coreg -] 12.5 mg PO BID tablet 08/28/15 Amlodipine Besylate 5 mg PO DAILY 12/05/18 Furosemide Injection [Lasix 40 mg PO BID 12/05/18 Injection -] ASSESSMENT/PLAN: 48 year old male with past medical history of morbid obesity (BMI 55.5kg), HITESH ( has CPAP at home), OHS, HTN, presented with 2 day history of SOB and dyspnea on exertion, found to have uncontrolled HTN. 1. Acute Hypoxic/Hypercapneic Respiratory Failure secondary to OHS/HITESH - BiPAP ordered. DDIMER elevated - PE to be excluded (must be transferred as patient's weight exceed CT Scan and NM capablities here at [facility]). Weight 518lb. Initially treated for COPD exac - will discontinue steroid and Abx as there is no sign of bronchospasm or infection. Pulm following. Lovenox treatment dose pending exclusion of PE Echo - mild concentric LVH, RVSP 30-40mmHg Will need sleep study and Spirometry as out-patient with Pulm follow up. On 2L via NC. 2. Hypertensive Urgency Non-compliant with Amlodipine. apparently on Coreg and Lasix chronically Started on Minoxidil, HCTZ, Lisinopril on admission - will discontinue Minoxidil and HCTZ, and continue Coreg and Lasix. BP monitoring on Tele. 3.Chronic Venous Stasis Duplex LEs - no DVT. Continue Lasix Needs transfer to tertiary care center for definitive PE study as equipment at [facility] not weight-compatible.
--- NOTE | 2018-12-06 16:44 | PN ---
Physical Exam: SUBJECTIVE: Patient seen and examined NAEON. Denies SOB. NC @4L Tolerating diet OBJECTIVE: Vital Signs Period Temp Pulse Resp BP Sys/Deluca Pulse Ox Last 24 Hr 97.7 F-98.2 F 75-118 16-28 145-215/87-122 90-93 GENERAL: The patient is awake, alert, and fully oriented, in no acute distress. Appears comfortable on 4L NC HEAD: NC/AT EYES: sclera anicteric, conjunctiva clear. ENT: Ears normal, nares patent, oropharynx clear without exudates, moist mucous membranes. NECK: Trachea midline, full range of motion, supple. LUNGS: Breath sounds equal, clear to auscultation bilaterally, no wheezes, no crackles, no accessory muscle use. Distant lung sounds due to auscultation. Large, obese chest wall HEART: Regular rate and rhythm, S1, S2 without murmur, rub or gallop. ABDOMEN: large-obese abd, well-healed midline surgical scar, soft, nontender, nondistended, no guarding, no rebound. EXTREMITIES: 2+ pulses, warm, well-perfused, no edema. NEUROLOGICAL: Cranial nerves II through XII grossly intact. Normal speech. PSYCH: Normal mood, normal affect. SKIN: Warm, dry, normal turgor, no rashes or lesions noted. Laboratory Results - last 24 hr 12/06/18 12/06/18 12/06/18 05:45 05:45 05:45 WBC 6.7 RBC 5.97 H Hgb 13.8 Hct 46.2 MCV 77.4 L MCH 23.0 L MCHC 29.8 L RDW 17.1 H Plt Count 204 MPV 9.2 Absolute Neuts (auto) 6.1 Neutrophils % 90.1 H Lymphocytes % 8.5 D Monocytes % 1.2 L D Eosinophils % 0.0 D Basophils % 0.2 Nucleated RBC % 0 Sodium 140 Potassium 4.0 Chloride 100 Carbon Dioxide 35 H Anion Gap 5 L BUN 13.3 Creatinine 0.8 Est GFR (CKD-EPI)AfAm 120.72 Est GFR (CKD-EPI)NonAf 104.16 Random Glucose 134 H Hemoglobin A1c % < 3.5 L Calcium 8.4 L Phosphorus 5.3 H Magnesium 2.2 Total Bilirubin 0.5 AST 11 L ALT 20 Alkaline Phosphatase 88 Total Protein 8.1 Albumin 3.2 L Active Medications Generic Name Dose Route Start Last Admin Trade Name Freq PRN Reason Stop Dose Admin Albuterol Sulfate 1 amp 12/05/18 21:48 Ventolin 0.083% Nebulizer Soln - NEB Q4H PRN SHORT OF BREATH/WHEEZING Albuterol/Ipratropium 1 amp 12/06/18 08:00 12/06/18 15:31 Duoneb - NEB 1 amp RQID EUNICE Administration Budesonide/Formoterol Fumarate 2 puff 12/05/18 22:00 12/06/18 09:45 Symbicort 160/4.5mcg - IH 2 puff BID EUNICE Administration Carvedilol 12.5 mg 12/06/18 22:00 Coreg - PO BID EUNICE Enoxaparin Sodium 200 mg 12/06/18 12:45 Lovenox - SQ BID EUNICE Furosemide 40 mg 12/06/18 06:00 12/06/18 13:33 Lasix - PO 40 mg BID@0600,1400 EUNICE Administration Lisinopril 20 mg 12/05/18 21:24 12/05/18 22:11 Prinivil PO 20 mg HS EUNICE Administration ASSESSMENT/PLAN: 48M with PMH of HTN, morbid obesity (BMI 63.1kg), HITESH(nightly CPAP), obesity hypoventilation syndrome presenting with 2 days of SOB and dyspnea on exertion and also found to have hypertensive urgency on admission. #Acute Hypoxic Hypercarbic Respiratory Failure --likely 2/2 acute excerbation of obesity hypoventional syndrome vs PE --symptomatically > ABG (pH 7.33, PaCO2 66.5, PaO2 59) > D-dimer 728 > BNP 392 > CTA chest --unable to obtain as CT cannot accommodate >350lbs > VQ Scan --unable to obtain as VQ scanner cannot accommodate >350lbs - s/p tx for COPD exacerbation(solumedrol, duonebs, ventolin, Symbicort, azithromycin) --stopped as pt has no signs of COPD - Consult Pulm: --echo --inhaled bronchodilators --fu ABGs --daily weight --outpt PFTs --supplemental O2 PRN --bariatric sx consult - Lovenox 200mg BID --for empiric PE tx - will require sleep study outpatient # Hypertensive urgency --resolved > EKG: sinus tachy > ED BPs: 190s/117 > troponin <0.02 - ED: s/p Lasix 40 mg IV, Labetalol 10 mg IV and Amlodipine 5 mg PO, BP improved to systolic of 160 mmHg - Minoxidil 5 mg PO BID, HCTZ 12.5 AM --dc'd - carvedilol 12.5mg, Lisinopril 20 HS, Furosemide 40mg BID - HOLD amlodipine --pt has not been taking at home # Leg Edema-- likely chronic - Last echo was in 2015, showed normal LV size, normal LV systolic function and mild concentric LV hypertrophy; the right ventricle was not visualized. > Echo(12/06/18): suboptimal study, mildly dilated LV, mod LVH, LVEF norm, RVSP 30-40mmHg > Venous duplex: neg for DVT, 4.7cm Left popliteal fossa cyst - leg elevation, dietary salt restriction #FEN replete lytes prn sodium restricted diet #PPx - SCDs - lovenox 200mg BID --empiric PE tx Dispo: admit to telemetry, full code Problem List - Problems (1) Acute and chronic respiratory failure Code(s): J96.20 - ACUTE AND CHR RESP FAILURE, UNSP W HYPOXIA OR HYPERCAPNIA Qualifiers: Respiratory failure complication: hypoxia and hypercapnia Qualified Code(s) : J96.21 - Acute and chronic respiratory failure with hypoxia; J96.22 - Acute and chronic respiratory failure with hypercapnia (2) Acute on chronic respiratory failure with hypoxia and hypercapnia Code(s): J96.21 - ACUTE AND CHRONIC RESPIRATORY FAILURE WITH HYPOXIA; J96.22 - ACUTE AND CHRONIC RESPIRATORY FAILURE WITH HYPERCAPNIA (3) Hypertensive urgency Code(s): I16.0 - HYPERTENSIVE URGENCY (4) Acute hypercapnic respiratory failure Code(s): J96.02 - ACUTE RESPIRATORY FAILURE WITH HYPERCAPNIA (5) Morbid obesity with BMI of 50.0-59.9, adult Code(s): Z68.43 - BODY MASS INDEX (BMI) 50.0-59.9, ADULT (6) Obesity hypoventilation syndrome Code(s): E66.2 - MORBID (SEVERE) OBESITY WITH ALVEOLAR HYPOVENTILATION (7) Obstructive sleep apnea Code(s): G47.33 - OBSTRUCTIVE SLEEP APNEA (ADULT) (PEDIATRIC) Visit type - Emergency Visit Emergency Visit: No - New Patient This patient is new to me today: No - Critical Care Critical Care patient: No ATTENDING PHYSICIAN STATEMENT I saw and evaluated the patient. I reviewed the resident's note and discussed the case with the resident. I agree with the resident's findings and plan as documented. SUBJECTIVE: OBJECTIVE: ASSESSMENT AND PLAN:
[2018-12-06] MEDS: ENOXAPARIN NA (PORCINE) 100 MG/1 ML DISP.SYRIN SQ SCH (21:23)
[2018-12-06] MEDS: LISINOPRIL 20 MG TABLET (FP) PO SCH (21:23)
[2018-12-06] MEDS: CARVEDILOL 12.5 MG TABLET (FP) PO SCH (21:23)
[2018-12-07] MEDS: FUROSEMIDE 40 MG TABLET (FP) PO SCH ×2 (05:53→14:03)
[2018-12-07 06:54] LABS: HEMATOCRIT 42.7 % (35.4-49); HEMOGLOBIN 12.7 GM/dL (11.7-16.9); MCH 23.3 pg (25.7-33.7); MCHC 29.9 g/dl (32.0-35.9); MEAN CELL VOLUME 78.1 fl (80-96); MEAN PLT VOLUME 8.7 fl (7.5-11.1); PLATELET COUNT 211 K/MM3 (134-434); RBC 5.47 M/mm3 (4.00-5.60); RDW 16.5 % (11.9-15.9); WHITE BLOOD COUNT 7.9 K/mm3 (4.0-10.0)
[2018-12-07] MEDS: ALBUTEROL SO4 2.5/IPRATROPIUM 0.5 INH SOL 3 ML VIAL.NEB. NEB SCH ×4 (07:20→20:00)
[2018-12-07 07:38] LABS: BLOOD UREA NITROGEN 22.4 mg/dL (7-18); CALCIUM 8.1 mg/dL (8.5-10.1); CREATININE 1.1 mg/dL (0.55-1.3); MAGNESIUM 2.4 mg/dL (1.8-2.4); PHOSPHOROUS 5.1 mg/dL (2.5-4.9); POTASSIUM 3.9 mmol/L (3.5-5.1)
[2018-12-07 09:34] LABS: ARTERIAL BLD GAS O2 SATURATION 88.2 % (95-98); ARTERIAL BLOOD GAS BASE EXCESS 9.8 meq/l (-2-2); ARTERIAL BLOOD GAS PO2 58.5 mmHg (80-100); ARTERIAL BLOOD GAS pH 7.33 (7.35-7.45)
[2018-12-07 09:39] LABS: ALLENS TEST POSITIVE
[2018-12-07 09:41] LABS: ARTERIAL BLOOD GAS PCO2 75.6 mmHg (35-45)
[2018-12-07] MEDS: ENOXAPARIN NA (PORCINE) 100 MG/1 ML DISP.SYRIN SQ SCH ×2 (09:57→22:21)
[2018-12-07] MEDS: CARVEDILOL 12.5 MG TABLET (FP) PO SCH ×2 (09:57→22:21)
[2018-12-07] MEDS: BUDESONIDE/FORMETEROL FUMARATE 160/4.5 mcg INHALER IH SCH ×2 (09:58→22:22)
--- NOTE | 2018-12-07 12:40 | PN ---
Physical Exam: SUBJECTIVE: Patient seen and examined NAEON. Denies SOB, chest pain, palpitations. On NC 3L. OBJECTIVE: Vital Signs Period Temp Pulse Resp BP Sys/Deluca Pulse Ox Last 24 Hr 97.5 F-98.6 F 93-115 16-19 111-150/60-87 91-98 GENERAL: The patient is awake, alert, and fully oriented, in no acute distress. Appears comfortable on 3L NC, pulse ox 92% HEAD: NC/AT EYES: sclera anicteric, conjunctiva clear. ENT: Ears normal, nares patent, oropharynx clear without exudates, moist mucous membranes. NECK: Trachea midline, full range of motion, supple. LUNGS: Breath sounds equal, clear to auscultation bilaterally, no wheezes, no crackles, no accessory muscle use. Distant lung sounds due to auscultation of large, obese chest wall HEART: Regular rate and rhythm, S1, S2 without murmur, rub or gallop. ABDOMEN: large-obese abd, well-healed midline surgical scar, soft, nontender, nondistended, no guarding, no rebound. EXTREMITIES: 2+ pulses, warm, well-perfused, no edema. NEUROLOGICAL: Cranial nerves II through XII grossly intact. Normal speech. PSYCH: Normal mood, normal affect. SKIN: Warm, dry, normal turgor, no rashes or lesions noted. Laboratory Results - last 24 hr 12/07/18 12/07/18 12/07/18 06:10 06:10 09:10 WBC 7.9 RBC 5.47 Hgb 12.7 Hct 42.7 MCV 78.1 L MCH 23.3 L MCHC 29.9 L RDW 16.5 H Plt Count 211 MPV 8.7 Anticoagulation Therapy No Result Required. Puncture Site Right radial ABG pH 7.33 L ABG pCO2 at Pt Temp 75.6 H* ABG pO2 at Pt Temp 58.5 L ABG HCO3 38.5 H ABG O2 Sat (Measured) 88.2 L ABG O2 Content 15.9 ABG Base Excess 9.8 H Ramses Test Positive O2 Delivery Device N/c Oxygen Flow Rate 4l Vent Mode No Result Required. Vent Rate No Result Required. Mechanical Rate No Result Required. Pressure Support Vent No Result Required. Sodium 141 Potassium 3.9 Chloride 99 Carbon Dioxide 38 H Anion Gap 4 L BUN 22.4 H Creatinine 1.1 Est GFR (CKD-EPI)AfAm 90.24 Est GFR (CKD-EPI)NonAf 77.86 Random Glucose 107 H Calcium 8.1 L Phosphorus 5.1 H Magnesium 2.4 Active Medications Generic Name Dose Route Start Last Admin Trade Name Freq PRN Reason Stop Dose Admin Albuterol Sulfate 1 amp 12/05/18 21:48 Ventolin 0.083% Nebulizer Soln - NEB Q4H PRN SHORT OF BREATH/WHEEZING Albuterol/Ipratropium 1 amp 12/06/18 08:00 12/07/18 11:24 Duoneb - NEB 1 amp RQID EUNICE Administration Budesonide/Formoterol Fumarate 2 puff 12/05/18 22:00 12/07/18 09:58 Symbicort 160/4.5mcg - IH 2 puff BID EUNICE Administration Carvedilol 12.5 mg 12/06/18 22:00 12/07/18 09:57 Coreg - PO 12.5 mg BID EUNICE Administration Enoxaparin Sodium 200 mg 12/06/18 12:45 12/07/18 09:57 Lovenox - SQ 200 mg BID EUNICE Administration Furosemide 40 mg 12/06/18 06:00 12/07/18 05:53 Lasix - PO 40 mg BID@0600,1400 EUNICE Administration Lisinopril 20 mg 12/05/18 21:24 12/06/18 21:23 Prinivil PO 20 mg HS EUNICE Administration Vital Signs Temp 98.2 F 12/07/18 09:56 Pulse 97 H 12/07/18 09:56 Resp 19 12/07/18 09:56 BP 126/65 12/07/18 09:56 Pulse Ox 98 12/07/18 07:46 Intake & Output 12/06/18 12/07/18 12/07/18 23:59 11:59 23:59 Intake Total 700 100 Output Total 1050 400 Balance -350 -300 Weight 234.961 kg Intake: Oral 700 100 Output: Urine 1050 400 Void 1050 400 Other: Voiding Method Urinal Urinal Bowel Movement No ASSESSMENT/PLAN: 48M with PMH of HTN, morbid obesity (BMI 63.1kg), HITESH(nightly CPAP), obesity hypoventilation syndrome presenting with 2 days of SOB and dyspnea on exertion and also found to have hypertensive urgency on admission. #Acute Hypoxic Hypercarbic Respiratory Failure --likely 2/2 PE vs acute excerbation of obesity hypoventional syndrome --symptomatically improved > ABG(12/05/18): 7.33/66.5/59/34.3/86.6/6.6 > ABG(12/07/18): 7.33/75.6/58.5/38.5/88.2/9.8 --worsened hypercarbia, worsened hypoxia > D-dimer 728 > BNP 392 > CTA chest --unable to obtain as CT cannot accommodate >350lbs > VQ Scan --unable to obtain as VQ scanner cannot accommodate >350lbs - s/p tx for COPD exacerbation(solumedrol, duonebs, ventolin, Symbicort, azithromycin) --stopped as pt has no signs of COPD - Consult Pulm: --echo --inhaled bronchodilators --fu ABGs --daily weight --supplemental O2 PRN --bariatric sx consult --outpt PFTs - Lovenox 200mg BID --for empiric PE tx - will require sleep study outpatient # Hypertensive urgency --resolved > EKG: sinus tachy > ED BPs: 190s/117 > troponin <0.02 - ED: s/p Lasix 40 mg IV, Labetalol 10 mg IV and Amlodipine 5 mg PO, BP improved to systolic of 160 mmHg - Minoxidil 5 mg PO BID, HCTZ 12.5 AM --dc'd - carvedilol 12.5mg, Lisinopril 20 HS, Furosemide 40mg BID - HOLD amlodipine --pt has not been taking at home # Leg Edema-- likely chronic - Last echo was in 2015, showed normal LV size, normal LV systolic function and mild concentric LV hypertrophy; the right ventricle was not visualized. > Echo(12/06/18): suboptimal study, mildly dilated LV, mod LVH, LVEF norm, RVSP 30-40mmHg > Venous duplex: neg for DVT, 4.7cm Left popliteal fossa cyst - leg elevation, dietary salt restriction # Chronic Morbid Obesity(BMI 63) > HbA1c < 3.5 - counseled on calorie-restricted diet when resolution of acute issues - counseled on bariatric surgery #FEN replete lytes prn cardiac diet #PPx - SCDs - lovenox 200mg BID --empiric PE tx Dispo: admit to telemetry, full code Problem List - Problems (1) Acute and chronic respiratory failure Code(s): J96.20 - ACUTE AND CHR RESP FAILURE, UNSP W HYPOXIA OR HYPERCAPNIA Qualifiers: Respiratory failure complication: hypoxia and hypercapnia Qualified Code(s) : J96.21 - Acute and chronic respiratory failure with hypoxia; J96.22 - Acute and chronic respiratory failure with hypercapnia (2) Acute on chronic respiratory failure with hypoxia and hypercapnia Code(s): J96.21 - ACUTE AND CHRONIC RESPIRATORY FAILURE WITH HYPOXIA; J96.22 - ACUTE AND CHRONIC RESPIRATORY FAILURE WITH HYPERCAPNIA (3) Hypertensive urgency Code(s): I16.0 - HYPERTENSIVE URGENCY (4) Acute hypercapnic respiratory failure Code(s): J96.02 - ACUTE RESPIRATORY FAILURE WITH HYPERCAPNIA (5) Morbid obesity with BMI of 50.0-59.9, adult Code(s): Z68.43 - BODY MASS INDEX (BMI) 50.0-59.9, ADULT (6) Obesity hypoventilation syndrome Code(s): E66.2 - MORBID (SEVERE) OBESITY WITH ALVEOLAR HYPOVENTILATION (7) Obstructive sleep apnea Code(s): G47.33 - OBSTRUCTIVE SLEEP APNEA (ADULT) (PEDIATRIC) Visit type - Emergency Visit Emergency Visit: No - New Patient This patient is new to me today: No - Critical Care Critical Care patient: No ATTENDING PHYSICIAN STATEMENT I saw and evaluated the patient. I reviewed the resident's note and discussed the case with the resident. I agree with the resident's findings and plan as documented. SUBJECTIVE: OBJECTIVE: ASSESSMENT AND PLAN:
--- NOTE | 2018-12-07 13:13 | PN ---
Progress Note (short form) - Note Progress Note: PULMONARY States breathing is improving. Denies chest pain or palpitations. Vital Signs Period Temp Pulse Resp BP Sys/Deluca Pulse Ox Last 24 Hr 97.5 F-98.6 F 93-115 16-19 111-150/60-87 91-98 Intake & Output 12/04/18 12/05/18 12/06/18 12/07/18 23:59 23:59 23:59 23:59 Intake Total 1130 100 Output Total 700 1050 400 Balance -700 80 -300 Weight 206.838 kg 234.961 kg 234.961 kg Gen: NAD at rest Heart: RRR Lung: distant breath sounds Abd: soft, nontender Ext: + edema CBC, BMP 12/07/18 06:10 12/07/18 06:10 Active Medications Albuterol Sulfate (Ventolin 0.083% Nebulizer Soln -) 1 amp NEB Q4H PRN PRN Reason: SHORT OF BREATH/WHEEZING Albuterol/Ipratropium (Duoneb -) 1 amp NEB RQID [facility] Last Admin: 12/07/18 11:24 Dose: 1 amp Budesonide/Formoterol Fumarate (Symbicort 160/4.5mcg -) 2 puff IH BID [facility] Last Admin: 12/07/18 09:58 Dose: 2 puff Carvedilol (Coreg -) 12.5 mg PO BID [facility] Last Admin: 12/07/18 09:57 Dose: 12.5 mg Enoxaparin Sodium (Lovenox -) 200 mg SQ BID [facility] Last Admin: 12/07/18 09:57 Dose: 200 mg Furosemide (Lasix -) 40 mg PO BID@0600,1400 [facility] Last Admin: 12/07/18 05:53 Dose: 40 mg Lisinopril (Prinivil) 20 mg PO HS [facility] Last Admin: 12/06/18 21:23 Dose: 20 mg A/P Acute on likely Chronic Hypoxic and Hypercapneic Respiratory Failure Acute on Chronic Diastolic Heart Failure Pulmonary HTN Morbid Obesity Obesity Hypoventilation Syndrome/Obstructive Sleep Apnea HTN - continue lasix - monitor urine output, creatinine - clinical picture, echocardiogram, rapid improvement with diuresis more consistent with decompensated CHF with underlying OHS/pulmonary HTN - can d/c anticoagulation - outpt PFTs, weight loss
--- NOTE | 2018-12-07 13:41 | PN ---
Teaching Attending Note Name of Resident: Momo Michel ATTENDING PHYSICIAN STATEMENT I saw and evaluated the patient. I reviewed the resident's note and discussed the case with the resident. I agree with the resident's findings and plan as documented. SUBJECTIVE: Feels well. SOB improving. No chest pain/cough/sputum/hemoptysis. No fever/chills. OBJECTIVE: Afebrile, Hemodynamically Stable. Last Vital Signs Temp Pulse Resp BP Pulse Ox 98.2 F 97 H 19 126/65 92 L 12/07/18 09:56 12/07/18 09:56 12/07/18 09:56 12/07/18 09:56 12/07/18 09:00 Heart - S1 S2, RRR Lungs - clear to auscultation, no wheeze. Abdomen- High BMI. Soft, non-tender. Bowel Sounds normal. Extremities - chronic venous stasis. Laboratory Results - last 24 hr 12/07/18 12/07/18 12/07/18 06:10 06:10 09:10 WBC 7.9 RBC 5.47 Hgb 12.7 Hct 42.7 MCV 78.1 L MCH 23.3 L MCHC 29.9 L RDW 16.5 H Plt Count 211 MPV 8.7 Anticoagulation Therapy No Result Required. Puncture Site Right radial ABG pH 7.33 L ABG pCO2 at Pt Temp 75.6 H* ABG pO2 at Pt Temp 58.5 L ABG HCO3 38.5 H ABG O2 Sat (Measured) 88.2 L ABG O2 Content 15.9 ABG Base Excess 9.8 H Ramses Test Positive O2 Delivery Device N/c Oxygen Flow Rate 4l Vent Mode No Result Required. Vent Rate No Result Required. Mechanical Rate No Result Required. Pressure Support Vent No Result Required. Sodium 141 Potassium 3.9 Chloride 99 Carbon Dioxide 38 H Anion Gap 4 L BUN 22.4 H Creatinine 1.1 Est GFR (CKD-EPI)AfAm 90.24 Est GFR (CKD-EPI)NonAf 77.86 Random Glucose 107 H Calcium 8.1 L Phosphorus 5.1 H Magnesium 2.4 Current Medications Generic Name Dose Route Start Last Admin Trade Name Freq PRN Reason Stop Dose Admin Albuterol Sulfate 1 amp 12/05/18 21:48 Ventolin 0.083% Nebulizer Soln - NEB Q4H PRN SHORT OF BREATH/WHEEZING Albuterol/Ipratropium 1 amp 12/06/18 08:00 12/07/18 11:24 Duoneb - NEB 1 amp RQID EUNICE Administration Budesonide/Formoterol Fumarate 2 puff 12/05/18 22:00 12/07/18 09:58 Symbicort 160/4.5mcg - IH 2 puff BID EUNICE Administration Carvedilol 12.5 mg 12/06/18 22:00 12/07/18 09:57 Coreg - PO 12.5 mg BID EUNICE Administration Enoxaparin Sodium 200 mg 12/06/18 12:45 12/07/18 09:57 Lovenox - SQ 200 mg BID EUNICE Administration Furosemide 40 mg 12/06/18 06:00 12/07/18 05:53 Lasix - PO 40 mg BID@0600,1400 EUNICE Administration Lisinopril 20 mg 12/05/18 21:24 12/06/18 21:23 Prinivil PO 20 mg HS EUNICE Administration Home Medications Medication Instructions Recorded Carvedilol [Coreg -] 12.5 mg PO BID tablet 08/28/15 Furosemide [Lasix -] 40 mg PO BID 12/06/18 Lisinopril [Prinivil] 20 mg PO HS tablet 12/06/18 ASSESSMENT/PLAN: 48 year old male with past medical history of morbid obesity (BMI 55.5kg), HITESH ( has CPAP at home), OHS, HTN, presented with 2 day history of SOB and dyspnea on exertion, found to have uncontrolled HTN. 1. Acute Hypoxic/Hypercapneic Respiratory Failure secondary to acute diastolic CHF + Pul HTN + OHS/HITESH - uses BiPAP at night. DDIMER elevated - PE to be excluded (must be transferred as patient's weight exceed CT Scan and NM capablities here at [facility]). Weight 518lb. Initially treated for COPD exac - will discontinue steroid and Abx as there is no sign of bronchospasm or infection. Pulm following. Continue Lasix diuresis. Lovenox treatment dose pending exclusion of PE Echo - mild concentric LVH, RVSP 30-40mmHg Will need sleep study and Spirometry as out-patient with Pulm follow up. On 2L via NC. 2. Hypertensive Urgency Non-compliant with Amlodipine. On Coreg and Lasix chronically - will continue. Started on Minoxidil, HCTZ, Lisinopril on admission - will discontinue Minoxidil and HCTZ, and continue Coreg and Lasix. BP monitoring on Tele. Needs renal function and K check next week (after starting RE-I) 3.Chronic Venous Stasis Duplex LEs - no DVT. Continue Lasix 4. Morbid Obesity, BMI 63.1 - counselled re: consideration of Bariatric Surgery and lifestyle modification. Needs transfer to tertiary care center for definitive PE study as equipment at [facility] not weight-compatible.
[2018-12-07] MEDS: LISINOPRIL 20 MG TABLET (FP) PO SCH (22:21)
[2018-12-07 23:32] VITALS: BP 130/66; PULSE 97; TEMP 98.1
--- NOTE | 2018-12-11 18:50 | CONS ---
PULMONARY CONSULTATION DATE OF CONSULTATION: 12/06/2018 REFERRING PHYSICIAN: Mynor Mckeon MD HISTORY: Patient is a 48-year-old male with a past medical history of morbid obesity with a BMI of greater than 55, obstructive sleep apnea on CPAP, obesity hypoventilation syndrome, pulmonary hypertension, hypertension, questionable COPD, likely CHF, RV dysfunction. Admitted to [facility] on December 05, 2018, with increasing shortness of breath and dyspnea on exertion. Patient states he woke up the day prior to admission and felt more short of breath than usual. He said he was developing shortness of breath while walking down the path in his house and climbing stairs, which is unusual for him. He denied any chest pains or palpitations. The patient did not take any medications to try to relieve the symptoms. He states that his exercise exertion made his shortness of breath worse and that rest makes it better. There is also increasing lower extremity edema and orthopnea. He states that apparently 3 years ago he came to [facility] and transferred to [place] for CHF, COPD. Patient was admitted with the above. On admission, he was started on labetalol. He was noted to have hypertensive urgency and placed on IV Lasix. He was also placed on BiPAP. Patient is a nonsmoker. There is no history of occupational exposure to chemicals or fumes. PAST MEDICAL HISTORY: Again, includes hypertension, morbid obesity, obstructive sleep apnea, obesity hypoventilation syndrome, pulmonary hypertension, RV dysfunction. REVIEW OF SYSTEMS: Positive orthopnea, positive dyspnea, no chest pain, no palpitations, positive lower extremity edema. MEDICATIONS: Prinivil, hydrochlorothiazide, Lasix, Lovenox, and Coreg. PHYSICAL EXAMINATION: General: Patient is a morbidly obese male awake and alert in no acute distress. Vital Signs: He is afebrile. Blood pressure 130/66, respiratory rate is 20, weight is 518 pounds, O2 saturation is 94% on 4 L. HEENT: Normocephalic, atraumatic. Neck: Supple. Heart: Regular S1, S2. Chest: Diminished breath sounds bilaterally. Abdomen: Soft. Bowel sounds are positive. Extremities: Bilateral lower extremity edema. LABORATORIES: WBC 6.8, hemoglobin 13.8, hematocrit 46.6 with a platelet count of 216. Blood gas 7.33, PCO2 of 66, PO2 of 59, bicarbonate of 34, and a saturation of 86 on unknown quantity of oxygen. Chemistries: BUN 12, creatinine 0.9. BNP is 392. Chest x-ray: No infiltrates and no effusions. IMPRESSION: Acute on chronic hypoxemic, hypercapnic respiratory failure secondary to: 1. Obesity hypoventilation syndrome. 2. Likely congestive heart failure. 3. Hypertensive urgency. 4. Obstructive sleep apnea. 5. Questionable chronic obstructive pulmonary disease. 6. Morbid obesity. 7. Elevated D-dimer, nonspecific. PLAN: PPV as needed as well as hour of sleep. Supplemental O2. Echocardiogram. Inhaled bronchodilators. DVT prophylaxis. Titrate BP medications. Bariatric surgery evaluation. Follow up with arterial blood gases, diuretics, and daily weights. EVE BACH M.D. [id number]
== END 2018-12-07 23:43 | disposition short-term general hospital (02) | DRG 115 ==
LOC: JER 11:06 → JERBED 18:25 → J4S 12-06 01:44
PROVIDERS: ADMIT Internal Medicine
DX: G47.33 Obstructive sleep apnea (adult) (pediatric) (principal); E66.2 Morbid (severe) obesity with alveolar hypoventilation; I11.0 Hypertensive heart disease with heart failure; J96.21 Acute and chronic respiratory failure with hypoxia; J96.22 Acute and chronic respiratory failure with hypercapnia; I27.20 Pulmonary hypertension, unspecified; I16.0 Hypertensive urgency; Z68.44 Body mass index [BMI] 60.0-69.9, adult; I50.31 Acute diastolic (congestive) heart failure
CPT/HCPCS: 36415; 36600; 71045-TC-FY; 80048; 80053; 82550; 82803; 83036; 83735; 83880; 84100; 84484; 85025; 85027; 85379; 93005; 93010; 93306-TC; 93970-TC; 94640; 94660; 99285-25; J7030; Q2036

== ENCOUNTER 2019-03-15 10:42 | Inpatient (IN) | payer SELFPAY ==
--- NOTE | 2019-03-15 12:18 | PDOC ---
*Physical Exam - Vital Signs Last Vital Signs Temp Pulse Resp BP Pulse Ox 98.5 F 101 H 26 H 183/83 H 83 L 03/15/19 11:06 03/15/19 11:03/15/19 11:03/15/19 11:03/15/19 11:06 - Physical Exam General Appearance: Yes: Moderate Distress, Obese (Morbidly), Other (Patient on Bi-Pap) HEENT: positive: EOMI, LUZMA, Normal ENT Inspection, Normal Voice, Rhinorrhea. negative: Tonsillar Exudate Neck: positive: Supple. negative: Decreased range of motion Respiratory/Chest: positive: Respiratory Distress, Decreased Breath Sounds, Wheezing Cardiovascular: positive: Regular Rhythm, Regular Rate, S1, S2 Vascular Pulses: Dorsalis-Pedis (R): 1+, Doralis-Pedis (L): 1+ Gastrointestinal/Abdominal: positive: Normal Bowel Sounds, Soft Rectal Exam: positive: deferred Lymphatic: negative: Adenopathy Musculoskeletal: positive: Normal Inspection. negative: CVA Tenderness Extremity: positive: Normal Capillary Refill, Normal Inspection, Normal Range of Motion Integumentary: positive: Normal Color, Dry, Warm Neurologic: positive: nurses' association counselor II-XII NML intact, Fully Oriented, Alert, Normal Mood/ Affect, Normal Response, Motor Strength / ED Treatment Course - LABORATORY CBC & Chemistry Diagram: 03/15/19 12:00 03/15/19 12:00 Medical Decision Making - Medical Decision Making Idris Carter is a 48yo man with a PMH of morbid obesity, HITESH on CPAP, obesity hypoventilation syndrome, HTN, ?COPD who presents with respiratory distress and increased work of breathing, subjective body aches, chills, an states he thinks he has the flu and that it is making it very hard for him to walk or breath. Vital Signs Temp Pulse Resp BP Pulse Ox 98.5 F 101 H 26 H 183/83 H 83 L 03/15/19 11:03/15/19 11:03/15/19 11:03/15/19 11:03/15/19 11:06 DDx IBNLT: ACS, PNA, heart hailure, COPD exacerbation, Influenza, electrolyte/ metabolic disturbance, respiratory failure Plan: Labs, CXR, flu swab, Bipap, duoneb, ekg, re-assess Flu: Negative EKG: Sinus Tachycardia rate of 103, narrow complexes, normal axis, Right atrial hyprtrophy (P morphology in V1), no ST elevations or depressions, no Q waves, no evidence of A-fib, QTc 476, ND 176 CXR: Increased congestive changes Labs: Elevated BNP re-assessment: This patient's story seems very consistent with a heart failure exacerbation. 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 He presented today in respiratory distress with elevated BP, elevated BNP, swollen extremities, and increased fluid in his b/l lungs. Plan: Lasix, BiPap, admit to telemetry for heart failure as he is in respiratory distress much more so than baseline. Dispo: Telemetry - Spoke with Dr. Minler who accepts patient for admission Discharge - Discharge Information Problems reviewed: Yes Clinical Impression/Diagnosis: Morbid obesity, Respiratory distress Heart failure Qualifiers: Heart failure type: unspecified Heart failure chronicity: unspecified Qualified Code(s): I50.9 - Heart failure, unspecified Condition: Stable - Admission Yes - Follow up/Referral Referrals: ON STAFF,NOT [Primary Care Provider] - - Patient Discharge Instructions - Post Discharge Activity
[2019-03-15] MEDS ORDERED: ALBUTEROL SO4 2.5/IPRATROPIUM 0.5 INH SOL 3 ML VIAL.NEB. NEB ONE ×2 (12:20→13:08)
[2019-03-15] MEDS: ALBUTEROL SO4 2.5/IPRATROPIUM 0.5 INH SOL 3 ML VIAL.NEB. NEB SCH ×4 (12:26→13:14)
[2019-03-15 12:51] LABS: BILIRUBIN,TOTAL 0.5 mg/dL (0.2-1); BLOOD UREA NITROGEN 14.2 mg/dL (7-18); CALCIUM 7.6 mg/dL (8.5-10.1); CREATININE 0.8 mg/dL (0.55-1.3); POTASSIUM 3.5 mmol/L (3.5-5.1); TOT PROT 7.6 g/dl (6.4-8.2)
--- NOTE | 2019-03-15 12:59 | PDOC ---
Documentation entered by Nicola Meneses SCRIBE, acting as scribe for Radha Soto MD. Radha Soto MD: This documentation has been prepared by the Gideon rubio Nirvannie, SCRIBE, under my direction and personally reviewed by me in its entirety. I confirm that the documentation accurately reflects all work, treatment, procedures, and medical decision making performed by me. History of Present Illness - General Chief Complaint: Respiratory Distress Stated Complaint: COLD SYMPTOMS Time Seen by Provider: 03/15/19 11:25 - History of Present Illness Initial Comments: 03/15/19 12:14 The patient is a 48 year old male with a significant past medical history of morbid obesity, respiratory failure, HTN obstructive sleep apnea (wears CPAP at night at home ), obesity hypoventilation syndrome, who presents to the ED with SOB, cough with brown sputum for 7 days. He endorses body aches, chills, SOB with minimal exertion, and paroxysmal nocturnal dyspnea. Patient he was admitted on 12/05/18 for SOB and was transferred to [facility] for further evaluation and was discharged without any pertinent findings. He was admitted to [facility] 2012 in the ICU for an episode of bilateral pneumonia and experienced altered mental status. He denies any nausea, vomiting, chest pain, bowel/ urinary changes, and dizziness or lower extremity edema. Past History - Past Medical History Allergies/Adverse Reactions: Allergies Allergy/AdvReac Type Severity Reaction Status Date / Time No Known Allergies Allergy Verified 03/15/19 11:04 Home Medications: Ambulatory Orders Furosemide [Lasix -] 40 mg PO BID 12/06/18 Carvedilol [Coreg -] 25 mg PO BID 03/15/19 Lisinopril [Prinivil] 10 mg PO BID 03/15/19 Naproxen 500 mg PO BID 03/15/19 Anemia: No Asthma: No Cancer: No Cardiac Disorders: No CVA: No COPD: No CHF: No Dementia: No Diabetes: No GI Disorders: No Disorders: No HTN: Yes Hypercholesterolemia: No Liver Disease: No Seizures: No Thyroid Disease: No - Surgical History Abdominal Surgery: Yes (HERNIA 1997) Appendectomy: No Cardiac Surgery: No Cholecystectomy: No Lung Surgery: No Neurologic Surgery: No Orthopedic Surgery: No - Immunization History Immunization Up to Date: No - Psycho Social/Smoking Cessation Hx Smoking Status: No Smoking History: Unknown if ever smoked Have you smoked in the past 12 months: No Number of Cigarettes Smoked Daily: 0 Hx Alcohol Use: No Drug/Substance Use Hx: No Substance Use Type: None Hx Substance Use Treatment: No Review of Systems - Review of Systems Comments:: 03/15/19 12:34 GENERAL/CONSTITUTIONAL: + chills + body aches No weakness. HEAD, EYES, EARS, NOSE AND THROAT: No change in vision. No ear pain or discharge. No sore throat. CARDIOVASCULAR: +chest pain + shortness of breath +hypertension RESPIRATORY: +shortness of breath +cough with brown sputum, No wheezing, or hemoptysis. GASTROINTESTINAL: No nausea, vomiting, diarrhea or constipation. GENITOURINARY: No dysuria, frequency, or change in urination. MUSCULOSKELETAL: No joint or muscle swelling or pain. No neck or back pain. SKIN: No rash NEUROLOGIC: No headache, vertigo, loss of consciousness, or change in strength/ sensation. ENDOCRINE: No increased thirst. No abnormal weight change. HEMATOLOGIC/LYMPHATIC: No anemia, easy bleeding, or history of blood clots. ALLERGIC/IMMUNOLOGIC: No hives or skin allergy. *Physical Exam - Vital Signs Last Vital Signs Temp Pulse Resp BP Pulse Ox 98.5 F 101 H 26 H 183/83 H 83 L 03/15/19 11:06 03/15/19 11:06 03/15/19 11:06 03/15/19 11:06 03/15/19 11:06 - Physical Exam 03/15/19 12:35 GENERAL: + moderate respiratory distress, + speaking in 3-4 word sentences, Awake, alert, and fully oriented HEAD: No signs of trauma EYES: PERRLA, EOMI, sclera anicteric, conjunctiva clear ENT: Auricles normal inspection, hearing grossly normal, nares patent, oropharynx clear without exudates. Moist mucosa NECK: Normal ROM, supple, no lymphadenopathy, JVD, or masses LUNGS: +decreased breath sounds with diffuse wheezing with the at the apices, no crackles HEART: Regular rate and rhythm, normal S1 and S2, no murmurs, rubs or gallops EXTREMITIES: Normal range of motion, no edema. No clubbing or cyanosis. No cords, erythema, or tenderness NEUROLOGICAL: Cranial nerves II through XII grossly intact. SKIN: Warm, Dry, normal turgor, no rashes or lesions noted. ED Treatment Course - LABORATORY CBC & Chemistry Diagram: 03/16/19 05:40 03/16/19 05:40 - ADDITIONAL ORDERS Additional order review: Laboratory Results 03/15/19 03/15/19 12:00 12:00 Sodium 141 Potassium 3.5 Chloride 103 Carbon Dioxide 34 H Anion Gap 4 L BUN 14.2 Creatinine 0.8 Est GFR (CKD-EPI)AfAm 120.72 Est GFR (CKD-EPI)NonAf 104.16 Random Glucose 106 Calcium 7.6 L Total Bilirubin 0.5 AST 23 ALT 29 Alkaline Phosphatase 78 Creatine Kinase 327 H Troponin I 0.02 B-Natriuretic Peptide 532.8 H Total Protein 7.6 Albumin 3.0 L - RADIOLOGY Radiology Studies Ordered: Category Date Time Status CHEST X-RAY PORTABLE* [RAD] Stat Radiology 03/15/19 11:35 Completed - Medications Given in the ED: ED Medications Discontinued Medications Generic Name Dose Route Start Last Admin Trade Name Freq PRN Reason Stop Dose Admin Albuterol/Ipratropium 1 amp 03/15/19 11:45 03/15/19 12:28 Duoneb - NEB 03/15/19 12:31 1 amp Q15M EUNICE Administration Medical Decision Making - Critical Care Time Total Critical Care Time (minutes): 30 Critical Care Statement: The care of this patient involved high complexity decision making to prevent further life threatening deterioration of the patient 's condition and/or to evaluate & treat vital organ system(s) failure or risk of failure. - Medical Decision Making 03/15/19 12:55 pt presents to the Ed complaining of a 4 day history of worsening shortness of breath and cough productive of brown sputum. Extremely short of breath and hypoxic on ED arrival, without a baseline O2 requirement. Greatly improved on bipap. Differential includes PNA, flu, CHF, less likely sarcoid or other pulmonary disease. Will check labs and CXR, treat with nebs and reassess. Will admit to medicine for continued management. Discharge - Discharge Information Problems reviewed: Yes Clinical Impression/Diagnosis: Morbid obesity, Respiratory distress Heart failure Qualifiers: Heart failure type: unspecified Heart failure chronicity: unspecified Qualified Code(s): I50.9 - Heart failure, unspecified Condition: Stable - Admission Yes - Follow up/Referral - Patient Discharge Instructions - Post Discharge Activity
[2019-03-15] MEDS ORDERED: FUROSEMIDE 40 MG/4 ML INJECTABLE VIAL IVPUSH ONE (13:01)
[2019-03-15 13:08] LABS: INR 1.22 (0.83-1.09); PROTHROMBIN TIME (PATIENT) 14.4 SEC (9.7-13.0)
[2019-03-15] MEDS ORDERED: FUROSEMIDE 40 MG/4 ML INJECTABLE VIAL ONE (13:08)
[2019-03-15 13:11] LABS: ACTIVATED PTT 36.7 SECONDS (25.2-36.5)
[2019-03-15 13:37] LABS: BASO % 0.6 % (0-2.0); HEMATOCRIT 46.5 % (35.4-49); HEMOGLOBIN 13.8 GM/dL (11.7-16.9); LYMPH % 14.7 % (8-40); MCHC 29.6 g/dl (32.0-35.9); MEAN CELL VOLUME 77.8 fl (80-96); MEAN PLT VOLUME 9.6 fl (7.5-11.1); MONO % 10.3 % (3.8-10.2); NEUT % 74.4 % (42.8-82.8); PLATELET COUNT 206 K/MM3 (134-434); RBC 5.98 M/mm3 (4.00-5.60); RDW 17.1 % (11.9-15.9); WHITE BLOOD COUNT 7.5 K/mm3 (4.0-10.0)
--- NOTE | 2019-03-15 14:25 | CON.ID ---
Consult Consult Specialty:: infectious diseases Referred by:: Dr Bowie Reason for Consultation:: pneumonia - History of Present Illness Chief Complaint: sob History of Present Illness: The patient is a 48 year old male with a significant past medical history of morbid obesity, respiratory failure, HTN obstructive sleep apnea (reports compliance with CPAP at night at home), obesity hypoventilation syndrome, diastolic dysfunction, pulm HTN with h/o failure who presents to the ED with SOB , cough with brown sputum, body aches, chills, SOB with minimal exertion, orthopnea and paroxysmal nocturnal dyspnea. patient is currently on bipap - History Source History Provided By: Patient Limitations to Obtaining History: No Limitations - Past Medical History Cardio/Vascular: Yes: HTN Pulmonary: Yes: Sleep Apnea - Past Surgical History Past Surgical History: Yes: Hernia Repair - Alcohol/Substance Use Hx Alcohol Use: No History of Substance Use: reports: None - Smoking History Smoking history: Unknown if ever smoked Have you smoked in the past 12 months: No Aproximately how many cigarettes per day: 0 - Social History Usual Living Arrangement: Alone ADL: Independent History of Recent Travel: No Home Medications - Allergies Allergies/Adverse Reactions: Allergies Allergy/AdvReac Type Severity Reaction Status Date / Time No Known Allergies Allergy Verified 03/15/19 11:04 - Home Medications Home Medications: Ambulatory Orders Furosemide [Lasix -] 40 mg PO BID 12/06/18 Carvedilol [Coreg -] 25 mg PO BID 03/15/19 Lisinopril [Prinivil] 10 mg PO BID 03/15/19 Naproxen 500 mg PO BID 03/15/19 Review of Systems - Review of Systems Constitutional: reports: No Symptoms Eyes: reports: No Symptoms HENT: reports: No Symptoms Neck: reports: No Symptoms Cardiovascular: reports: No Symptoms Respiratory: reports: SOB, SOB on Exertion Gastrointestinal: reports: No Symptoms Genitourinary: reports: No Symptoms Musculoskeletal: reports: No Symptoms Integumentary: reports: No Symptoms Neurological: reports: No Symptoms Endocrine: reports: No Symptoms Hematology/Lymphatic: reports: No Symptoms Psychiatric: reports: No Symptoms Physical Exam Vital Signs: Vital Signs Temperature 98.5 F 03/15/19 11:06 Pulse Rate 101 H 03/15/19 11:06 Respiratory Rate 26 H 03/15/19 11:06 Blood Pressure 183/83 H 01/30/20 11:06 O2 Sat by Pulse Oximetry (%) 83 L 03/15/19 11:06 Constitutional: Yes: Calm, Mild Distress, Obese (morbid obesity) Eyes: Yes: Conjunctiva Clear HENT: Yes: Atraumatic, Normocephalic Neck: Yes: Supple, Trachea Midline Cardiovascular: Yes: Regular Rate and Rhythm Respiratory: Yes: On BiPap, Poor Air Entry (bases) Gastrointestinal: Yes: Normal Bowel Sounds, Soft Musculoskeletal: Yes: WNL Extremities: Yes: Other (dermatitis changes) Neurological: Yes: Alert, Oriented Psychiatric: Yes: Alert, Oriented Labs: CBC, BMP 03/15/19 12:00 03/15/19 12:00 Imaging - Results Chest X-ray: Report Reviewed, Image Reviewed Assessment/Plan Problem List - Problems (1) Acute on chronic diastolic (congestive) heart failure Code(s): I50.33 - ACUTE ON CHRONIC DIASTOLIC (CONGESTIVE) HEART FAILURE (2) Acute on chronic respiratory failure with hypoxia and hypercapnia Code(s): J96.21 - ACUTE AND CHRONIC RESPIRATORY FAILURE WITH HYPOXIA; J96.22 - ACUTE AND CHRONIC RESPIRATORY FAILURE WITH HYPERCAPNIA (3) Hypertensive urgency Code(s): I16.0 - HYPERTENSIVE URGENCY (4) Morbid obesity with BMI of 50.0-59.9, adult Code(s): Z68.43 - BODY MASS INDEX (BMI) 50.0-59.9, ADULT (5) Obesity hypoventilation syndrome Code(s): E66.2 - MORBID (SEVERE) OBESITY WITH ALVEOLAR HYPOVENTILATION (6) Obstructive sleep apnea Code(s): G47.33 - OBSTRUCTIVE SLEEP APNEA (ADULT) (PEDIATRIC) 7 r/o pneumonia plan close watch i am going to initiate abx if patient remains stable will deescalte them resp support rest as per the team
--- NOTE | 2019-03-15 14:39 | EKG ---
Test Reason : Blood Pressure : / mmHG Vent. Rate : 103 BPM Atrial Rate : 103 BPM P-R Int : 176 ms QRS Dur : 090 ms QT Int : 364 ms P-R-T Axes : 036 008 081 degrees QTc Int : 476 ms POOR DATA QUALITY, INTERPRETATION MAY BE ADVERSELY AFFECTED SINUS TACHYCARDIA POSSIBLE LEFT ATRIAL ENLARGEMENT BORDERLINE ECG WHEN COMPARED WITH ECG OF 05-DEC-2018 11:21, PREMATURE ATRIAL COMPLEXES ARE NO LONGER PRESENT LEFT ANTERIOR FASCICULAR BLOCK IS NO LONGER PRESENT Confirmed by VALENTÍN YADAV MD ([id number]) on 03/15/2019 2:39:02 PM Referred By: Confirmed By:VALENTÍN YADAV MD
[2019-03-15] MEDS ORDERED: CEFEPIME 1 GM/100 ML BAG IVPB ONE ×2 (15:45→15:47)
[2019-03-15] MEDS: CEFEPIME 1 GM in DEXTROSE 5%-WATER 100 ML IVPB SCH ×2 (15:54→20:37)
--- NOTE | 2019-03-15 17:26 | CON.CARD ---
Consult Consult Specialty:: Cardiology Referred by:: Hospitalist Medicine Reason for Consultation:: Dyspnea - History of Present Illness Chief Complaint: Dyspnea History of Present Illness: The patient is a 48 year old male with a significant past medical history of morbid obesity, respiratory failure, HTN obstructive sleep apnea (reports compliance with CPAP at night at home), obesity hypoventilation syndrome, diastolic dysfunction, pulm HTN with h/o failure who presents to the ED with SOB , cough with brown sputum, body aches, chills, SOB with minimal exertion, orthopnea and paroxysmal nocturnal dyspnea. - History Source History Provided By: Medical Record Limitations to Obtaining History: Clinical Condition - Past Medical History Cardio/Vascular: Yes: HTN Pulmonary: Yes: Sleep Apnea - Past Surgical History Past Surgical History: Yes: Hernia Repair - Alcohol/Substance Use Hx Alcohol Use: No History of Substance Use: reports: None - Smoking History Smoking history: Unknown if ever smoked Have you smoked in the past 12 months: No Aproximately how many cigarettes per day: 0 - Social History Usual Living Arrangement: Alone ADL: Independent History of Recent Travel: No Home Medications - Allergies Allergies/Adverse Reactions: Allergies Allergy/AdvReac Type Severity Reaction Status Date / Time No Known Allergies Allergy Verified 03/15/19 11:04 - Home Medications Home Medications: Ambulatory Orders Furosemide [Lasix -] 40 mg PO BID 12/06/18 Carvedilol [Coreg -] 25 mg PO BID 03/15/19 Lisinopril [Prinivil] 10 mg PO BID 03/15/19 Naproxen 500 mg PO BID 03/15/19 Review of Systems - Review of Systems Cardiovascular: reports: Edema Respiratory: reports: Exercise Intolerance, SOB on Exertion Vital Signs: Vital Signs Temperature 98.5 F 03/15/19 11:06 Pulse Rate 101 H 03/15/19 11:06 Respiratory Rate 26 H 03/15/19 11:06 Blood Pressure 183/83 H 03/15/19 11:06 O2 Sat by Pulse Oximetry (%) 94 L 03/15/19 16:52 Constitutional: Yes: No Distress, Calm Neck: Yes: Supple Respiratory: Yes: Regular, Diminished Gastrointestinal: Yes: Normal Bowel Sounds, Soft, Abdomen, Obese Cardiovascular: Yes: Regular Rate and Rhythm JVD: No Carotid Bruit: No Heart Sounds: Yes: S1, S2 Edema: Yes Edema: LLE: 2+, RLE: 2+ - Other Data Labs, Other Data: CBC, BMP 03/15/19 12:00 03/15/19 12:00 INR, PTT INR 1.22 (0.83-1.09) H 03/15/19 11:15 Troponin, BNP 03/15/19 03/15/19 12:00 12:00 Troponin I 0.02 B-Natriuretic Peptide 532.8 H Troponin, BNP 03/15/19 03/15/19 12:00 12:00 Troponin I 0.02 B-Natriuretic Peptide 532.[address] @ 103 LAE Prior Cardiac Procedures: Cardiac Catheterization Ejection Fraction %: LVEF > or = 40 % Imaging - Results Chest X-ray: Report Reviewed (Congestion, bilateral pleural effusion) Problem List - Problems (1) Acute on chronic diastolic (congestive) heart failure Code(s): I50.33 - ACUTE ON CHRONIC DIASTOLIC (CONGESTIVE) HEART FAILURE (2) Acute on chronic respiratory failure with hypoxia and hypercapnia Code(s): J96.21 - ACUTE AND CHRONIC RESPIRATORY FAILURE WITH HYPOXIA; J96.22 - ACUTE AND CHRONIC RESPIRATORY FAILURE WITH HYPERCAPNIA (3) Hypertensive urgency Code(s): I16.0 - HYPERTENSIVE URGENCY (4) Morbid obesity with BMI of 50.0-59.9, adult Code(s): Z68.43 - BODY MASS INDEX (BMI) 50.0-59.9, ADULT (5) Obesity hypoventilation syndrome Code(s): E66.2 - MORBID (SEVERE) OBESITY WITH ALVEOLAR HYPOVENTILATION (6) Obstructive sleep apnea Code(s): G47.33 - OBSTRUCTIVE SLEEP APNEA (ADULT) (PEDIATRIC) Assessment/Plan 11/26/2018 Echo: Mildly dilated cLVH normal LV fxn, mild TR RVSP 30-40 mmHg, tr- mild MR 08/18/2015 R&LHc: Nonobstructive CAD, severe pulm HTN, elevated LVEDP 27 mmHg, elevated pcwp 26 mmHg, PAP 58/25/40 1. Acute on likely Chronic Hypoxic and Hypercapneic Respiratory Failure 2. Acute on Chronic Diastolic Heart Failure with Pulmonary HTN and pleural effusions 3. Morbid Obesity 4. Obesity Hypoventilation Syndrome/Obstructive Sleep Apnea 5. HTN heart disease with urgency P:1. IV diuresis with monitor diuretic response, renal fxn and electrolytes 2. Carvedilol 25 bid, lasix 40 bid, lisinopril 10 bid, trilogy bipap, home O2, NSAIDs avoidance 3. Thank you for consultative opportunity
--- NOTE | 2019-03-15 18:50 | HP ---
48 year old AA Male h/o morbid obesity, HITESH/OHS on CPAP, HTN, HFpEF, chronic leg edema, presents with worsening SOB, productive cough and nocturnal dyspnea. Patient endorses having come up with a "chest cold" about 4-5 days ago, a/w cough, SOB, green-yellowish sputum production and subjective fever/chills, and this morning his SOB worsened and ET markedly reduced. Patient endorses compliance w/ CPAP machine for his HITESH/OHS, however has been drinking a lot of fluids over the past week. Patient endorses chronic leg edema, but is not wearing his compression stockings. Last admission was [facility] about 3 months ago, where he was treated for CHFE and ?PE was sent to [facility] for CTPE (due to our CT scan machine not accommodating him due to weight >350lbs) where they did not find pulmonary embolism. PE GA sitting up in bed, wearing BiPAP FFM, speaking in full sentences, morbidly obese HEENT NC/AT, no nasal flaring, neck supple, increased neck fat, EOMI Chest B/L crackles, distant breath sounds due to body habitus CVS S1, S2+, RRR, distant heart sounds Abd morbidly obese, grossly soft, NT, no guarding Ext 3+ tense, pitting edema without skin breaks or signs of infection, no calf tenderness Vital Signs - 24 hr 03/15/19 03/15/19 03/15/19 11:06 12:10 16:52 Temperature 98.5 F Pulse Rate 101 H Respiratory 26 H Rate Blood Pressure 183/83 H O2 Sat by Pulse 83 L 96 94 L Oximetry (%) 03/15/19 17:00 Temperature Pulse Rate Respiratory Rate Blood Pressure O2 Sat by Pulse 92 L Oximetry (%) Laboratory Results - last 24 hr 03/15/19 03/15/19 03/15/19 11:15 12:00 12:00 WBC 7.5 RBC 5.98 H Hgb 13.8 Hct 46.5 MCV 77.8 L MCH 23.0 L MCHC 29.6 L RDW 17.1 H Plt Count 206 MPV 9.6 D Absolute Neuts (auto) 5.6 Neutrophils % 74.4 Lymphocytes % 14.7 D Monocytes % 10.3 H D Eosinophils % 0.0 Basophils % 0.6 Nucleated RBC % 0 PT with INR 14.40 H INR 1.22 H PTT (Actin FS) 36.7 H Sodium 141 Potassium 3.5 Chloride 103 Carbon Dioxide 34 H Anion Gap 4 L BUN 14.2 Creatinine 0.8 Est GFR (CKD-EPI)AfAm 120.72 Est GFR (CKD-EPI)NonAf 104.16 Random Glucose 106 Lactic Acid Calcium 7.6 L Total Bilirubin 0.5 AST 23 ALT 29 Alkaline Phosphatase 78 Creatine Kinase 327 H Creatine Kinase Index 0.5 CK-MB (CK-2) 1.8 Troponin I 0.02 B-Natriuretic Peptide Total Protein 7.6 Albumin 3.0 L Influenza A (Rapid) Influenza B (Rapid) 03/15/19 03/15/19 03/15/19 12:00 12:00 12:00 WBC RBC Hgb Hct MCV MCH MCHC RDW Plt Count MPV Absolute Neuts (auto) Neutrophils % Lymphocytes % Monocytes % Eosinophils % Basophils % Nucleated RBC % PT with INR INR PTT (Actin FS) Sodium Potassium Chloride Carbon Dioxide Anion Gap BUN Creatinine Est GFR (CKD-EPI)AfAm Est GFR (CKD-EPI)NonAf Random Glucose Lactic Acid 0.8 Calcium Total Bilirubin AST ALT Alkaline Phosphatase Creatine Kinase Creatine Kinase Index CK-MB (CK-2) Troponin I B-Natriuretic Peptide 532.8 H Total Protein Albumin Influenza A (Rapid) Negative Influenza B (Rapid) Negative Home Medications Medication Instructions Recorded Furosemide [Lasix -] 40 mg PO BID 12/06/18 Carvedilol [Coreg -] 25 mg PO BID 03/15/19 Lisinopril [Prinivil] 10 mg PO BID 03/15/19 Naproxen 500 mg PO BID 03/15/19 Current Medications Generic Name Dose Route Start Last Admin Trade Name Freq PRN Reason Stop Dose Admin Carvedilol 25 mg 03/15/19 22:00 Coreg - PO BID EUNICE Furosemide 40 mg 03/16/19 06:00 Lasix Injection - IVPUSH BID@0600,1500 EUNICE Heparin Sodium (Porcine) 5,000 unit 03/15/19 22:00 Heparin - SQ TID EUNICE Cefepime HCl 1 gm/ Dextrose 100 mls @ 200 mls/hr 03/15/19 14:30 03/15/19 15: 54 IVPB 200 mls/hr Q8H-IV EUNICE Administration Protocol Azithromycin 500 mg in 250 mls @ 250 mls/hr 03/15/19 18:45 Zithromax 500mg Ivpb (Pre-Docked) IVPB DAILY [facility] Lisinopril 10 mg 03/16/19 10:00 Prinivil PO DAILY EUNICE A/P: 48 year old AA Male h/o morbid obesity, HITESH/OHS on CPAP, HTN, HFpEF, chronic leg edema, presents with worsening SOB, productive cough and nocturnal dyspnea and clinical features suggestive of CHFE with possible underlying PNA. Acute hypoxemic and hypercapneic respiratory failure requiring BiPAP secondary to underlying bilateral PNA, fluid overload state, may also be suboptimal BiPAP use for his HITESH/OHS Cont. Cefepime/Azithro in view of admission to [facility] within 90 days, send Flu/RSV/Legionella/Strep, sputum cx Cont. BiPAP PRN and BiPAP QHS ID consult: Dr Anthony Pulmonary consult: Dr Peters Diastolic heart failure with acute exacerbation IV Lasix 40mg BID, fluid restriction, Na restriction, last Echo technically difficult due to body habitus BNP 500s falsely low due to morbid obesity Restart BB, RE, monitor lytes Cardiology consult: Dr Whitehead HTN restart home BP meds HITESH/OHS Chronic retainer, serum HCO3 34, will eventually need PFTs for evaluation for restrictive lung disease due to body habitus BiPAP PRN and overnight, will eventually need bariatric weight loss surgery counseled patient on diet/exercise and calorie restriction Pulmonary evaluation DVT ppx: Lovenox SC FEN: no IVF, daily chem, Na restricted diet Visit type - Emergency Visit Emergency Visit: Yes ED Registration Date: 03/15/19 Care time: The patient presented to the Emergency Department on the above date and was hospitalized for further evaluation of their emergent condition. - New Patient This patient is new to me today: Yes Date on this admission: 03/15/19 - Critical Care Critical Care patient: No
[2019-03-15] MEDS ORDERED: AZITHROMYCIN IVPB 500 MG/250 ML BAG IVPB ONE (20:01)
[2019-03-15] MEDS: AZITHROMYCIN IVPB 500 MG/250 ML BAG IVPB SCH (20:10)
[2019-03-15] MEDS ORDERED: NITROGLYCERIN SUBLINGUAL 1/150 0.4 MG TAB SL ONE (20:19)
[2019-03-15] MEDS: CARVEDILOL 25 MG TABLET (FP) PO SCH (22:36)
[2019-03-15] MEDS: HEPARIN NA (PORCINE) 5,000 UNITS/ML 1ML VIAL SQ SCH (22:37)
[2019-03-16] MEDS ORDERED: DEXTROSE 5%-WATER 100 ML IVPB ONE ×2 (03:02→09:59)
[2019-03-16] MEDS ORDERED: CEFEPIME HCL 1 GM VIAL (RESTRICTED TO ID) ONE ×2 (03:02→09:58)
[2019-03-16] MEDS: CEFEPIME 1 GM in DEXTROSE 5%-WATER 100 ML IVPB SCH ×2 (03:23→10:14)
[2019-03-16] MEDS: HEPARIN NA (PORCINE) 5,000 UNITS/ML 1ML VIAL SQ SCH ×3 (06:52→22:33)
[2019-03-16] MEDS: FUROSEMIDE 40 MG/4 ML INJECTABLE VIAL IVPUSH SCH ×2 (06:52→15:10)
[2019-03-16 07:34] LABS: BASO % 0.6 % (0-2.0); EOS % 0.2 % (0-4.5); HEMATOCRIT 44.7 % (35.4-49); HEMOGLOBIN 13.1 GM/dL (11.7-16.9); LYMPH % 20.1 % (8-40); MCHC 29.2 g/dl (32.0-35.9); MEAN CELL VOLUME 78.7 fl (80-96); MEAN PLT VOLUME 9.3 fl (7.5-11.1); NEUT % 69.1 % (42.8-82.8); PLATELET COUNT 167 K/MM3 (134-434); RBC 5.68 M/mm3 (4.00-5.60); RDW 17.7 % (11.9-15.9)
[2019-03-16 08:08] LABS: ALBUMIN 2.7 g/dl (3.4-5.0); BILIRUBIN,TOTAL 0.5 mg/dL (0.2-1); BLOOD UREA NITROGEN 14.2 mg/dL (7-18); CALCIUM 7.6 mg/dL (8.5-10.1); CREATININE 0.7 mg/dL (0.55-1.3); POTASSIUM 3.6 mmol/L (3.5-5.1); TOT PROT 6.9 g/dl (6.4-8.2)
[2019-03-16] MEDS ORDERED: LISINOPRIL 10 MG TABLET (FP) PO SCH ×2 (10:00→22:00)
--- NOTE | 2019-03-16 10:01 | PN ---
Progress Note, Physician History of Present Illness: SOB, cough with brown sputum, SOB minimal exertion, orthopnea and paroxysmal nocturnal dyspnea slowly improving with diuresis. - Current Medication List Current Medications: Active Medications Carvedilol (Coreg -) 25 mg PO BID [facility] Last Admin: 03/15/19 22:36 Dose: 25 mg Furosemide (Lasix Injection -) 40 mg IVPUSH BID@0600,1500 [facility] Last Admin: 03/16/19 06:52 Dose: 40 mg Heparin Sodium (Porcine) (Heparin -) 5,000 unit SQ TID [facility] Last Admin: 03/16/19 06:52 Dose: 5,000 unit Cefepime HCl 1 gm/ Dextrose 100 mls @ 200 mls/hr IVPB Q8H-IV EUNICE; Protocol Last Admin: 03/16/19 03:23 Dose: 200 mls/hr Azithromycin (Zithromax 500mg Ivpb (Pre-Docked)) 500 mg in 250 mls @ 250 mls/ hr IVPB DAILY [facility] Last Admin: 03/15/19 20:10 Dose: 250 mls/hr Lisinopril (Prinivil) 10 mg PO DAILY [facility] - Objective Vital Signs: Vital Signs Temperature 98.1 F 03/16/19 02:00 Pulse Rate 72 03/16/19 05:53 Respiratory Rate 24 H 03/16/19 05:53 Blood Pressure 141/77 03/16/19 05:53 O2 Sat by Pulse Oximetry (%) 95 03/16/19 00:31 Constitutional: Yes: No Distress, Calm Neck: Yes: Supple Cardiovascular: Yes: Regular Rate and Rhythm, Other (Distant) Respiratory: Yes: Regular, Diminished, On Nasal O2 Gastrointestinal: Yes: Normal Bowel Sounds, Soft, Abdomen, Obese Edema: Yes Edema: LLE: 1+, RLE: 1+ Labs: CBC, BMP 03/16/19 05:40 03/16/19 05:40 INR, PTT INR 1.22 (0.83-1.09) H 03/15/19 11:15 - ....Imaging Chest X-ray: Report Reviewed (Bilateral pulmonary vascular congestion / pleural effusion / atelectasis) EKG: Report Reviewed (Tele: NSR) Problem List - Problems (1) Acute on chronic diastolic (congestive) heart failure Code(s): I50.33 - ACUTE ON CHRONIC DIASTOLIC (CONGESTIVE) HEART FAILURE (2) Acute on chronic respiratory failure with hypoxia and hypercapnia Code(s): J96.21 - ACUTE AND CHRONIC RESPIRATORY FAILURE WITH HYPOXIA; J96.22 - ACUTE AND CHRONIC RESPIRATORY FAILURE WITH HYPERCAPNIA (3) Hypertensive urgency Code(s): I16.0 - HYPERTENSIVE URGENCY (4) Morbid obesity with BMI of 50.0-59.9, adult Code(s): Z68.43 - BODY MASS INDEX (BMI) 50.0-59.9, ADULT (5) Obesity hypoventilation syndrome Code(s): E66.2 - MORBID (SEVERE) OBESITY WITH ALVEOLAR HYPOVENTILATION (6) Obstructive sleep apnea Code(s): G47.33 - OBSTRUCTIVE SLEEP APNEA (ADULT) (PEDIATRIC) Assessment/Plan 11/26/2018 Echo: Mildly dilated cLVH normal LV fxn, mild TR RVSP 30-40 mmHg, tr- mild MR 08/18/2015 R&LHc: Nonobstructive CAD, severe pulm HTN, elevated LVEDP 27 mmHg, elevated pcwp 26 mmHg, PAP 58/25/40 1. Acute on likely Chronic Hypoxic and Hypercapneic Respiratory Failure 2. Acute on Chronic Diastolic Heart Failure with Pulmonary HTN and pleural effusions 3. Morbid Obesity 4. Obesity Hypoventilation Syndrome/Obstructive Sleep Apnea 5. HTN heart disease with urgency P:1. IV diuresis with monitor diuretic response, renal fxn and electrolytes 2. Carvedilol 25 bid, lasix 40 bid, lisinopril 10 bid, trilogy bipap, home O2, NSAIDs avoidance 3. Monitor off abx 4. Eventual referral to bariatric surgery
[2019-03-16] MEDS: CARVEDILOL 25 MG TABLET (FP) PO SCH ×2 (10:14→22:32)
--- NOTE | 2019-03-16 11:36 | PN ---
Progress Note, Physician History of Present Illness: feels better breathing better on nasal canula - Current Medication List Current Medications: Active Medications Carvedilol (Coreg -) 25 mg PO BID [facility] Last Admin: 03/16/19 10:14 Dose: 25 mg Furosemide (Lasix Injection -) 40 mg IVPUSH BID@0600,1500 [facility] Last Admin: 03/16/19 06:52 Dose: 40 mg Heparin Sodium (Porcine) (Heparin -) 5,000 unit SQ TID [facility] Last Admin: 03/16/19 06:52 Dose: 5,000 unit Cefepime HCl 1 gm/ Dextrose 100 mls @ 200 mls/hr IVPB Q8H-IV [facility]; Protocol Last Admin: 03/16/19 10:14 Dose: 200 mls/hr Azithromycin (Zithromax 500mg Ivpb (Pre-Docked)) 500 mg in 250 mls @ 250 mls/ hr IVPB DAILY [facility] Last Admin: 03/15/19 20:10 Dose: 250 mls/hr Lisinopril (Prinivil) 10 mg PO DAILY [facility] Last Admin: 03/16/19 10:14 Dose: 10 mg - Objective Vital Signs: Vital Signs Temperature 98.1 F 03/16/19 02:00 Pulse Rate 72 03/16/19 05:53 Respiratory Rate 24 H 03/16/19 05:53 Blood Pressure 141/77 03/16/19 05:53 O2 Sat by Pulse Oximetry (%) 95 03/16/19 00:31 Constitutional: Yes: No Distress, Calm Cardiovascular: Yes: S1, S2 Respiratory: Yes: Regular, On BiPap, On Nasal O2, Poor Air Entry Gastrointestinal: Yes: Normal Bowel Sounds, Soft Musculoskeletal: Yes: WNL Extremities: Yes: WNL Neurological: Yes: Alert, Oriented Psychiatric: Yes: Alert, Oriented Labs: CBC, BMP 03/16/19 05:40 03/16/19 05:40 INR, PTT INR 1.22 (0.83-1.09) H 03/15/19 11:15 Assessment/Plan Problem List - Problems (1) Acute on chronic diastolic (congestive) heart failure Code(s): I50.33 - ACUTE ON CHRONIC DIASTOLIC (CONGESTIVE) HEART FAILURE (2) Acute on chronic respiratory failure with hypoxia and hypercapnia Code(s): J96.21 - ACUTE AND CHRONIC RESPIRATORY FAILURE WITH HYPOXIA; J96.22 - ACUTE AND CHRONIC RESPIRATORY FAILURE WITH HYPERCAPNIA (3) Hypertensive urgency Code(s): I16.0 - HYPERTENSIVE URGENCY (4) Morbid obesity with BMI of 50.0-59.9, adult Code(s): Z68.43 - BODY MASS INDEX (BMI) 50.0-59.9, ADULT (5) Obesity hypoventilation syndrome Code(s): E66.2 - MORBID (SEVERE) OBESITY WITH ALVEOLAR HYPOVENTILATION (6) Obstructive sleep apnea Code(s): G47.33 - OBSTRUCTIVE SLEEP APNEA (ADULT) (PEDIATRIC) 7 r/o pneumonia plan monitor off of abx await for cx report resp support rest as per the team
[2019-03-16] MEDS: AZITHROMYCIN IVPB 500 MG/250 ML BAG IVPB SCH (11:59)
--- NOTE | 2019-03-16 11:59 | PN ---
Teaching Attending Note Name of Resident: Yamilet Ruano ATTENDING PHYSICIAN STATEMENT I saw and evaluated the patient. I reviewed the resident's note and discussed the case with the resident. I agree with the resident's findings and plan as documented. SUBJECTIVE: Feeling less SOB. No CP/fever/chills. OBJECTIVE: Afebrile, Hemodynamically Stable. Last Vital Signs Temp Pulse Resp BP Pulse Ox 98.1 F 72 24 H 141/77 95 % on 2L via NC 03/16/19 02:00 03/16/19 05:53 03/16/19 05:53 03/16/19 05:53 03/16/19 00:31 HEENT - Atraumatic, Normocephalic. Heart - S1 S2, RRR Lungs - decreased air entry bilaterally, basal crackles. Abdomen - High BMI. Soft, non-tender. Bowel Sounds normal. Extremities - chronic edema/venous stasis with dermatitis and chronic skin changes. Laboratory Results - last 24 hr 03/15/19 03/15/19 03/15/19 11:15 12:00 12:00 WBC 7.5 RBC 5.98 H Hgb 13.8 Hct 46.5 MCV 77.8 L MCH 23.0 L MCHC 29.6 L RDW 17.1 H Plt Count 206 MPV 9.6 D Absolute Neuts (auto) 5.6 Neutrophils % 74.4 Lymphocytes % 14.7 D Monocytes % 10.3 H D Eosinophils % 0.0 Basophils % 0.6 Nucleated RBC % 0 PT with INR 14.40 H INR 1.22 H PTT (Actin FS) 36.7 H Sodium 141 Potassium 3.5 Chloride 103 Carbon Dioxide 34 H Anion Gap 4 L BUN 14.2 Creatinine 0.8 Est GFR (CKD-EPI)AfAm 120.72 Est GFR (CKD-EPI)NonAf 104.16 Random Glucose 106 Lactic Acid Calcium 7.6 L Iron TIBC Iron Saturation Unsaturated IBC Ferritin Total Bilirubin 0.5 AST 23 ALT 29 Alkaline Phosphatase 78 Creatine Kinase 327 H Creatine Kinase Index 0.5 CK-MB (CK-2) 1.8 Troponin I 0.02 B-Natriuretic Peptide Total Protein 7.6 Albumin 3.0 L Influenza A (Rapid) Influenza B (Rapid) RSV Rapid 03/15/19 03/15/19 03/15/19 12:00 12:00 12:00 WBC RBC Hgb Hct MCV MCH MCHC RDW Plt Count MPV Absolute Neuts (auto) Neutrophils % Lymphocytes % Monocytes % Eosinophils % Basophils % Nucleated RBC % PT with INR INR PTT (Actin FS) Sodium Potassium Chloride Carbon Dioxide Anion Gap BUN Creatinine Est GFR (CKD-EPI)AfAm Est GFR (CKD-EPI)NonAf Random Glucose Lactic Acid 0.8 Calcium Iron TIBC Iron Saturation Unsaturated IBC Ferritin Total Bilirubin AST ALT Alkaline Phosphatase Creatine Kinase Creatine Kinase Index CK-MB (CK-2) Troponin I B-Natriuretic Peptide 532.8 H Total Protein Albumin Influenza A (Rapid) Negative Influenza B (Rapid) Negative RSV Rapid 03/15/19 03/16/19 03/16/19 20:02 05:40 05:40 WBC 6.0 RBC 5.68 H Hgb 13.1 Hct 44.7 MCV 78.7 L MCH 23.0 L MCHC 29.2 L RDW 17.7 H Plt Count 167 MPV 9.3 Absolute Neuts (auto) 4.2 Neutrophils % 69.1 Lymphocytes % 20.1 D Monocytes % 10.0 Eosinophils % 0.2 D Basophils % 0.6 Nucleated RBC % 0 PT with INR INR PTT (Actin FS) Sodium 141 Potassium 3.6 Chloride 101 Carbon Dioxide 35 H Anion Gap 5 L BUN 14.2 Creatinine 0.7 Est GFR (CKD-EPI)AfAm 127.53 Est GFR (CKD-EPI)NonAf 110.04 Random Glucose 91 Lactic Acid Calcium 7.6 L Iron TIBC Iron Saturation Unsaturated IBC Ferritin Total Bilirubin 0.5 AST 17 ALT 24 Alkaline Phosphatase 70 Creatine Kinase Creatine Kinase Index CK-MB (CK-2) Troponin I B-Natriuretic Peptide Total Protein 6.9 Albumin 2.7 L Influenza A (Rapid) Influenza B (Rapid) RSV Rapid Negative 03/16/19 05:40 WBC RBC Hgb Hct MCV MCH MCHC RDW Plt Count MPV Absolute Neuts (auto) Neutrophils % Lymphocytes % Monocytes % Eosinophils % Basophils % Nucleated RBC % PT with INR INR PTT (Actin FS) Sodium Potassium Chloride Carbon Dioxide Anion Gap BUN Creatinine Est GFR (CKD-EPI)AfAm Est GFR (CKD-EPI)NonAf Random Glucose Lactic Acid Calcium Iron 26 L TIBC 254 Iron Saturation 10 L Unsaturated IBC 228 Ferritin 48.6 Total Bilirubin AST ALT Alkaline Phosphatase Creatine Kinase Creatine Kinase Index CK-MB (CK-2) Troponin I B-Natriuretic Peptide Total Protein Albumin Influenza A (Rapid) Influenza B (Rapid) RSV Rapid Current Medications Generic Name Dose Route Start Last Admin Trade Name Latonya PRN Reason Stop Dose Admin Carvedilol 25 mg 03/15/19 22:00 03/16/19 10:14 Coreg - PO 25 mg BID EUNICE Administration Furosemide 40 mg 03/16/19 06:00 03/16/19 06:52 Lasix Injection - IVPUSH 40 mg BID@0600,1500 [facility] Administration Heparin Sodium (Porcine) 5,000 unit 03/15/19 22:00 03/16/19 06:52 Heparin - SQ 5,000 unit TID EUNICE Administration Azithromycin 500 mg in 250 mls @ 250 mls/hr 03/15/19 18:45 03/15/19 20:10 Zithromax 500mg Ivpb (Pre-Docked) IVPB 250 mls/hr DAILY [facility] Administration Lisinopril 10 mg 03/16/19 10:00 03/16/19 10:14 Prinivil PO 10 mg DAILY [facility] Administration Home Medications Medication Instructions Recorded Furosemide [Lasix -] 40 mg PO BID 12/06/18 Carvedilol [Coreg -] 25 mg PO BID 03/15/19 Lisinopril [Prinivil] 10 mg PO BID 03/15/19 Naproxen 500 mg PO BID 03/15/19 ASSESSMENT/PLAN: 48 year old Male with morbid obesity, HITESH/OHS on CPAP, HTN, Chronic Diastolic CHF, chronic venous stasis/lymphedema, presents with worsening SOB, productive cough and orthopnea. 1. Acute Hypoxic and Hypercapneic Respiratory Failure secondary to Acute on Chronic Diastolic CHF Transitioned from BiPAP to O2 via NC. Continue IV lasix diuresis Nunez weight, IOs Cardiology following. Initial concern for underlying Pneumonia, seen by ID, Abx on hold pending further observation. Patient remains afebrile, without leukocytosis. Will monitor. Flu/RSV negative. Blood, Sputum Cx pending 2. HITESH/OHS - on BiPAP at night - continue. Pulmonary follow up as out-patient. 3. HTN - Continue Coreg, Lisinopril. 4. Morbid Obesity - offered referral for Bariatric Surgery. 5. Microcytosis. No anemia. No evidence of blood loss. Iron level 26/Iron sat 10 %. Will start Iron supplementation. Iron deficiency work up as an out-patient. DVT Px - Heparin SQ.
[2019-03-16] MEDS ORDERED: DOCUSATE SODIUM 100 MG CAPSULE (FP) PO PRN (12:29)
--- NOTE | 2019-03-16 13:33 | CON.PULM ---
Consult Consult Specialty:: PULM/CCM Referred by:: Hospitalist Reason for Consultation:: OSAS / SOB - History of Present Illness Chief Complaint: SOB History of Present Illness: 48 M, morbid obesity, HITESH/OHS on CPAP (details not known: sound like home testing was performed), (?) PE, HTN, HFpEF, and chronic leg edema. Admitted via the ER due to progressive SOB, productive cough and nocturnal dyspnea. No travel history or sick contacts. No hemoptysis. CXR: Bilateral pulmonary vascular congestion / pleural effusion / atelectasis - History Source History Provided By: Patient Limitations to Obtaining History: No Limitations - Past Medical History Cardio/Vascular: Yes: HTN Pulmonary: Yes: Bronchitis, Pneumonia, Pulmonary Embolus, Sleep Apnea. No: Asthma, Cancer, COPD, O2 Dependent, Previously Intubated, Pulmonary Fibrosis - Past Surgical History Past Surgical History: Yes: Hernia Repair - Alcohol/Substance Use Hx Alcohol Use: No History of Substance Use: reports: None - Smoking History Smoking history: Unknown if ever smoked Have you smoked in the past 12 months: No Aproximately how many cigarettes per day: 0 - Social History Usual Living Arrangement: Alone ADL: Independent History of Recent Travel: No Home Medications - Allergies Allergies/Adverse Reactions: Allergies Allergy/AdvReac Type Severity Reaction Status Date / Time No Known Allergies Allergy Verified 03/15/19 11:04 - Home Medications Home Medications: Ambulatory Orders Furosemide [Lasix -] 40 mg PO BID 12/06/18 Carvedilol [Coreg -] 25 mg PO BID 03/15/19 Lisinopril [Prinivil] 10 mg PO BID 03/15/19 Naproxen 500 mg PO BID 03/15/19 Review of Systems - Review of Systems Constitutional: reports: Malaise. denies: Chills, Fever, Night Sweats, Unintentional Wgt. Loss Eyes: reports: No Symptoms HENT: reports: No Symptoms Neck: reports: No Symptoms Cardiovascular: reports: Edema, Shortness of Breath. denies: Chest Pain, Palpitations Respiratory: reports: Cough, Orthopnea, Snoring, SOB, SOB on Exertion. denies: Hemoptysis, Wheezing Gastrointestinal: reports: No Symptoms Genitourinary: reports: No Symptoms Breasts: reports: No Symptoms Reported Musculoskeletal: reports: Back Pain Integumentary: reports: Pruritis Neurological: reports: No Symptoms Endocrine: reports: No Symptoms Hematology/Lymphatic: reports: No Symptoms Psychiatric: reports: No Symptoms Physical Exam Vital Sings: Vital Signs Temperature 98.1 F 03/16/19 02:00 Pulse Rate 80 03/16/19 10:00 Respiratory Rate 22 H 03/16/19 10:00 Blood Pressure 160/83 03/16/19 10:00 O2 Sat by Pulse Oximetry (%) 94 L 03/16/19 09:00 Constitutional: Yes: No Distress Eyes: Yes: Conjunctiva Clear, EOM Intact HENT: Yes: Atraumatic, Normocephalic Neck: Yes: Supple, Trachea Midline Cardiovascular: Yes: Regular Rate and Rhythm Respiratory: Yes: Cough, Diminished, On Nasal O2, Rales, Rhonchi, SOB, SOB on Exertion, Tachypnea. No: Accessory Muscle Use, Stridor, Wheezes ...Inspection: Yes: WNL ...Clubbing: No Gastrointestinal: Yes: Normal Bowel Sounds, Soft, Abdomen, Obese Renal/: Yes: WNL Musculoskeletal: Yes: WNL Extremities: Yes: Cool Edema: Yes Peripheral Pulses WNL: Yes Integumentary: Yes: Venous Stasis Changes Neurological: Yes: WNL, Alert, Oriented ...Motor Strength: WNL Psychiatric: Yes: WNL, Alert, Oriented Labs: CBC, BMP 03/16/19 05:40 03/16/19 05:40 Imaging - Results Chest X-ray: Report Reviewed, Image Reviewed Problem List - Problems (1) Pulmonary vascular congestion Code(s): R09.89 - OTH SYMPTOMS AND SIGNS INVOLVING THE CIRC AND RESP SYSTEMS (2) Atelectasis Code(s): J98.11 - ATELECTASIS (3) Morbid obesity Code(s): E66.01 - MORBID (SEVERE) OBESITY DUE TO EXCESS CALORIES (4) Hypertension Code(s): I10 - ESSENTIAL (PRIMARY) HYPERTENSION (5) Morbid obesity with BMI of 50.0-59.9, adult Code(s): Z68.43 - BODY MASS INDEX (BMI) 50.0-59.9, ADULT (6) Obesity hypoventilation syndrome Code(s): E66.2 - MORBID (SEVERE) OBESITY WITH ALVEOLAR HYPOVENTILATION (7) Obstructive sleep apnea Code(s): G47.33 - OBSTRUCTIVE SLEEP APNEA (ADULT) (PEDIATRIC) Assessment/Plan Agree with ID to monitor off ABX Supplemental O2 as needed Lasix NIPPV support QHS and PRN (support can be increased if needed) Daily weights Will follow Thank you. Dr Peters
--- NOTE | 2019-03-16 16:02 | PN ---
Physical Exam: SUBJECTIVE: Patient seen and examined. No acute events overnight. Patient denies chest pain, fevers, abd pain, sick contacts. OBJECTIVE: Vital Signs Period Temp Pulse Resp BP Sys/Deluca Pulse Ox Last 24 Hr 98.0 F-98.6 F 72-88 19-24 139-179/77-114 92-100 GENERAL: The patient is awake, alert, and fully oriented, in no acute distress. HEAD: Normal with no signs of trauma. EYES: EOMI, no scleral icterus ENT: MMM NECK: Trachea midline, full range of motion, supple. LUNGS: diminished breath sounds bilaterally, no wheezing, no accessory muscle use HEART: Regular rate and rhythm, S1, S2 without murmur, rub or gallop. ABDOMEN: Soft, nontender, nondistended, normoactive bowel sounds. morbidly obese EXTREMITIES: 2+ pulses, warm, well-perfused, no edema. NEUROLOGICAL: Normal speech, gait not observed. no facial droop PSYCH: Normal mood, normal affect. SKIN: Warm, dry, normal turgor, no rashes or lesions noted Laboratory Results - last 24 hr 03/15/19 03/16/19 03/16/19 20:02 05:40 05:40 WBC 6.0 RBC 5.68 H Hgb 13.1 Hct 44.7 MCV 78.7 L MCH 23.0 L MCHC 29.2 L RDW 17.7 H Plt Count 167 MPV 9.3 Absolute Neuts (auto) 4.2 Neutrophils % 69.1 Lymphocytes % 20.1 D Monocytes % 10.0 Eosinophils % 0.2 D Basophils % 0.6 Nucleated RBC % 0 Sodium 141 Potassium 3.6 Chloride 101 Carbon Dioxide 35 H Anion Gap 5 L BUN 14.2 Creatinine 0.7 Est GFR (CKD-EPI)AfAm 127.53 Est GFR (CKD-EPI)NonAf 110.04 Random Glucose 91 Calcium 7.6 L Iron TIBC Iron Saturation Unsaturated IBC Ferritin Total Bilirubin 0.5 AST 17 ALT 24 Alkaline Phosphatase 70 Total Protein 6.9 Albumin 2.7 L RSV Rapid Negative 03/16/19 05:40 WBC RBC Hgb Hct MCV MCH MCHC RDW Plt Count MPV Absolute Neuts (auto) Neutrophils % Lymphocytes % Monocytes % Eosinophils % Basophils % Nucleated RBC % Sodium Potassium Chloride Carbon Dioxide Anion Gap BUN Creatinine Est GFR (CKD-EPI)AfAm Est GFR (CKD-EPI)NonAf Random Glucose Calcium Iron 26 L TIBC 254 Iron Saturation 10 L Unsaturated IBC 228 Ferritin 48.6 Total Bilirubin AST ALT Alkaline Phosphatase Total Protein Albumin RSV Rapid Active Medications Generic Name Dose Route Start Last Admin Trade Name Latonya PRN Reason Stop Dose Admin Carvedilol 25 mg 03/15/19 22:00 03/16/19 10:14 Coreg - PO 25 mg BID EUNICE Administration Docusate Sodium 100 mg 03/16/19 12:29 Colace - PO BID PRN CONSTIPATION Ferrous Sulfate 325 mg 03/16/19 17:30 Feosol - PO BIDWM EUNICE Furosemide 40 mg 03/16/19 06:00 03/16/19 15:10 Lasix Injection - IVPUSH 40 mg BID@0600,1500 EUNICE Administration Heparin Sodium (Porcine) 5,000 unit 03/15/19 22:00 03/16/19 15:10 Heparin - SQ 5,000 unit TID EUNICE Administration Lisinopril 10 mg 03/16/19 22:00 Prinivil PO BID [facility] ASSESSMENT/PLAN: 48 year old AA Male h/o morbid obesity, HITESH/OHS on CPAP, HTN, HFpEF, chronic leg edema, presents with worsening SOB, productive cough and nocturnal dyspnea and clinical features suggestive of CHF with possible underlying PNA. #Acute Hypoxic and Hypercapneic respiratory failure 2/2 acute on chronic CHF - BiPAP overnight as needed - O2 nasal cannula as needed to maintain SpO2 >90% - monitor daily weights, I&Os - Cardiology consulted (Dr. Whitehead) - Coreg 25mg BID, Lisinopril 10mg BID - ID consulted (Dr. Anthony) - can monitor off abx - Flu/RSV negative - Blood, Sputum cx pending. negative to date #Microcytic anemia - Hgb within normal limits - Iron level at 26. Started on iron supplementation #HITESH/OHS - continue BiPAP at night as needed - Pulmonary consulted (Dr. Peters) #HTN - Coreg 25mg BID, Lisinopril 10mg BID - Patient on Lisinopril 20mg BID at home as per pharmacy #Morbid Obesity - Refer to Bariatric surgery on discharge #Prophylaxis - Heparin #FEN - monitor and replete as needed - no IVF indicated - sodium controlled diet #Disposition - continue IV diuresis Visit type - Emergency Visit Emergency Visit: Yes ED Registration Date: 03/15/19 Care time: The patient presented to the Emergency Department on the above date and was hospitalized for further evaluation of their emergent condition. - New Patient This patient is new to me today: Yes Date on this admission: 03/16/19 - Critical Care Critical Care patient: No ATTENDING PHYSICIAN STATEMENT I saw and evaluated the patient. I reviewed the resident's note and discussed the case with the resident. I agree with the resident's findings and plan as documented. SUBJECTIVE: OBJECTIVE: ASSESSMENT AND PLAN:
[2019-03-16] MEDS: FERROUS SO4 325 MG TABLET (FP) PO SCH (18:03)
[2019-03-16] MEDS ORDERED: LISINOPRIL 20 MG TABLET (FP) PO SCH (22:00)
[2019-03-16] MEDS ORDERED: CARVEDILOL 12.5 MG TABLET (FP) PO SCH (22:00)
[2019-03-16] MEDS: LISINOPRIL 10 MG TABLET (FP) PO SCH (22:32)
[2019-03-17] MEDS: HEPARIN NA (PORCINE) 5,000 UNITS/ML 1ML VIAL SQ SCH ×3 (06:05→21:02)
[2019-03-17] MEDS: FUROSEMIDE 40 MG/4 ML INJECTABLE VIAL IVPUSH SCH ×2 (06:05→14:04)
--- NOTE | 2019-03-17 09:46 | PN ---
Progress Note, Physician History of Present Illness: The patient is a 48 year old male with a significant past medical history of morbid obesity, respiratory failure, HTN obstructive sleep apnea (reports compliance with CPAP at night at home), obesity hypoventilation syndrome, diastolic dysfunction, pulm HTN with h/o failure who presents to the ED with SOB , cough with brown sputum, body aches, chills, SOB with minimal exertion, orthopnea and paroxysmal nocturnal dyspnea. - Current Medication List Current Medications: Active Medications Carvedilol (Coreg -) 25 mg PO BID [facility] Last Admin: 03/16/19 22:32 Dose: 25 mg Docusate Sodium (Colace -) 100 mg PO BID PRN PRN Reason: CONSTIPATION Ferrous Sulfate (Feosol -) 325 mg PO BIDWM [facility] Last Admin: 03/16/19 18:03 Dose: 325 mg Furosemide (Lasix Injection -) 40 mg IVPUSH BID@0600,1500 [facility] Last Admin: 03/17/19 06:05 Dose: 40 mg Heparin Sodium (Porcine) (Heparin -) 5,000 unit SQ TID [facility] Last Admin: 03/17/19 06:05 Dose: 5,000 unit Lisinopril (Prinivil) 10 mg PO BID [facility] Last Admin: 03/16/19 22:32 Dose: 10 mg - Objective Vital Signs: Vital Signs Temperature 98.1 F 03/17/19 06:00 Pulse Rate 85 03/17/19 06:00 Respiratory Rate 20 03/17/19 06:00 Blood Pressure 150/80 03/17/19 06:00 O2 Sat by Pulse Oximetry (%) 95 03/17/19 08:19 Eyes: Yes: WNL, Conjunctiva Clear, EOM Intact HENT: Yes: WNL, Atraumatic, Normocephalic Neck: Yes: WNL, Supple, Trachea Midline Cardiovascular: Yes: WNL, Regular Rate and Rhythm Respiratory: Yes: Diminished Gastrointestinal: Yes: WNL, Normal Bowel Sounds Genitourinary: Yes: WNL Musculoskeletal: Yes: WNL Extremities: Yes: WNL Edema: Yes Integumentary: Yes: WNL Neurological: Yes: WNL, Alert, Oriented ...Motor Strength: WNL Psychiatric: Yes: WNL Labs: CBC, BMP 03/16/19 05:40 03/16/19 05:40 INR, PTT INR 1.22 (0.83-1.09) H 03/15/19 11:15 Assessment/Plan - Problems (1) Acute on chronic diastolic (congestive) heart failure Code(s): I50.33 - ACUTE ON CHRONIC DIASTOLIC (CONGESTIVE) HEART FAILURE (2) Acute on chronic respiratory failure with hypoxia and hypercapnia Code(s): J96.21 - ACUTE AND CHRONIC RESPIRATORY FAILURE WITH HYPOXIA; J96.22 - ACUTE AND CHRONIC RESPIRATORY FAILURE WITH HYPERCAPNIA (3) Hypertensive urgency Code(s): I16.0 - HYPERTENSIVE URGENCY (4) Morbid obesity with BMI of 50.0-59.9, adult Code(s): Z68.43 - BODY MASS INDEX (BMI) 50.0-59.9, ADULT (5) Obesity hypoventilation syndrome Code(s): E66.2 - MORBID (SEVERE) OBESITY WITH ALVEOLAR HYPOVENTILATION (6) Obstructive sleep apnea Code(s): G47.33 - OBSTRUCTIVE SLEEP APNEA (ADULT) (PEDIATRIC) Assessment/Plan 11/26/2018 Echo: Mildly dilated cLVH normal LV fxn, mild TR RVSP 30-40 mmHg, tr- mild MR 08/18/2015 R&LHc: Nonobstructive CAD, severe pulm HTN, elevated LVEDP 27 mmHg, elevated pcwp 26 mmHg, PAP 58/25/40 1. Acute on likely Chronic Hypoxic and Hypercapneic Respiratory Failure 2. Acute on Chronic Diastolic Heart Failure with Pulmonary HTN and pleural effusions 3. Morbid Obesity 4. Obesity Hypoventilation Syndrome/Obstructive Sleep Apnea 5. HTN heart disease with urgency P:1. IV diuresis with monitor diuretic response, renal fxn and electrolytes 2. Carvedilol 25 bid, lasix 40 bid, lisinopril 10 bid, trilogy bipap, home O2, NSAIDs avoidance 3. Monitor off abx 4. Eventual referral to bariatric surgery 5. DVT PLX coverage for dr. Whitehead
[2019-03-17] MEDS: LISINOPRIL 10 MG TABLET (FP) PO SCH ×2 (10:23→21:02)
[2019-03-17] MEDS: FERROUS SO4 325 MG TABLET (FP) PO SCH ×2 (10:23→18:29)
[2019-03-17] MEDS: CARVEDILOL 25 MG TABLET (FP) PO SCH ×2 (10:23→21:02)
[2019-03-17] MEDS ORDERED: ALBUTEROL SO4 2.5/IPRATROPIUM 0.5 INH SOL 3 ML VIAL.NEB. NEB ONE (11:27)
--- NOTE | 2019-03-17 12:00 | PN ---
Teaching Attending Note Name of Resident: Aurelio Hawkins ATTENDING PHYSICIAN STATEMENT I saw and evaluated the patient. I reviewed the resident's note and discussed the case with the resident. I agree with the resident's findings and plan as documented. SUBJECTIVE: Improving, less dyspneic. No CP/fever/chills. OBJECTIVE: Afebrile, Hemodynamically Stable. Last Vital Signs Temp Pulse Resp BP Pulse Ox 98.0 F 87 20 159/78 93 L om 3L via NC 03/17/19 10:03/17/19 10:03/17/19 10:03/17/19 10:03/17/19 09:00 Heart - S1 S2, RRR Lungs - decreased air entry bilaterally, wheeze. Abdomen - High BMI. Soft, non-tender. Bowel Sounds normal. Extremities - chronic edema/venous stasis with dermatitis and chronic skin changes LEs. Current Medications Generic Name Dose Route Start Last Admin Trade Name Freq PRN Reason Stop Dose Admin Carvedilol 25 mg 03/16/19 22:00 03/17/19 10:23 Coreg - PO 25 mg BID EUNICE Administration Docusate Sodium 100 mg 03/16/19 12:29 Colace - PO BID PRN CONSTIPATION Ferrous Sulfate 325 mg 03/16/19 17:30 03/17/19 10:23 Feosol - PO 325 mg BIDWM EUNICE Administration Furosemide 40 mg 03/16/19 06:00 03/17/19 06:05 Lasix Injection - IVPUSH 40 mg BID@0600,1500 EUNICE Administration Heparin Sodium (Porcine) 5,000 unit 03/15/19 22:00 03/17/19 06:05 Heparin - SQ 5,000 unit TID EUNICE Administration Lisinopril 10 mg 03/16/19 22:00 03/17/19 10:23 Prinivil PO 10 mg BID EUNICE Administration Home Medications Medication Instructions Recorded Furosemide [Lasix -] 40 mg PO BID 12/06/18 Carvedilol [Coreg -] 12.5 mg PO BID 03/15/19 Lisinopril [Prinivil] 20 mg PO BID 03/15/19 ASSESSMENT/PLAN: 48 year old Male with morbid obesity, HITESH/OHS on CPAP, HTN, Chronic Diastolic CHF, chronic venous stasis/lymphedema, presents with worsening SOB, productive cough and orthopnea. 1. Acute Hypoxic and Hypercapneic Respiratory Failure secondary to Acute on Chronic Diastolic CHF Transitioned from BiPAP to O2 via NC. BiPAP at night Continue IV lasix diuresis. BD Nebs. Nunze weight, IOs Cardiology following. Initial concern for underlying Pneumonia, seen by ID, Abx on hold pending further observation. Patient remains afebrile, without leukocytosis. Will monitor. Flu/RSV negative. Blood, Sputum Cx negative. 2. HITESH/OHS - on BiPAP at night - continue. Pulmonary follow up as out-patient. 3. HTN - Continue Coreg, Lisinopril. 4. Morbid Obesity - offered referral for Bariatric Surgery. 5. Microcytosis. No anemia. No evidence of blood loss. Iron level 26/Iron sat 10 %. Started on Iron supplementation. Iron deficiency work up by GI as an out- patient. DVT Px - Heparin SQ.
[2019-03-17 12:10] LABS: HEMATOCRIT 46.3 % (35.4-49); HEMOGLOBIN 13.4 GM/dL (11.7-16.9); MCH 22.8 pg (25.7-33.7); MCHC 28.9 g/dl (32.0-35.9); MEAN PLT VOLUME 8.8 fl (7.5-11.1); PLATELET COUNT 225 K/MM3 (134-434); RBC 5.86 M/mm3 (4.00-5.60); WHITE BLOOD COUNT 5.5 K/mm3 (4.0-10.0)
[2019-03-17 12:35] LABS: BLOOD UREA NITROGEN 14.1 mg/dL (7-18); CALCIUM 8.2 mg/dL (8.5-10.1); CREATININE 0.7 mg/dL (0.55-1.3); MAGNESIUM 2.2 mg/dL (1.8-2.4); POTASSIUM 3.8 mmol/L (3.5-5.1)
--- NOTE | 2019-03-17 14:22 | PN ---
Physical Exam: SUBJECTIVE: Patient seen and examined at bedside. Feeling somewhat better OBJECTIVE: Vital Signs Period Temp Pulse Resp BP Sys/Deluca Pulse Ox Last 24 Hr 97.9 F-98.6 F 80-90 20-21 138-162/66-92 93-95 Gen: NAD, AAOx3, pulse ox 93% on 4L HEENT: NCAT, EMOI, moist membranes Cardio: rrr, normal s1s2, no mrg Pulm: late expiratory wheeze diffusely Abd: obese, soft, nontender Ext: 2+ edema b/l ? chronic Laboratory Results - last 24 hr 03/17/19 03/17/19 11:03 11:03 WBC 5.5 RBC 5.86 H Hgb 13.4 Hct 46.3 MCV 79.0 L MCH 22.8 L MCHC 28.9 L RDW 17.0 H Plt Count 225 D MPV 8.8 Sodium 140 Potassium 3.8 Chloride 93 L Carbon Dioxide 43 H Anion Gap 4 L BUN 14.1 Creatinine 0.7 Est GFR (CKD-EPI)AfAm 127.53 Est GFR (CKD-EPI)NonAf 110.04 Random Glucose 92 Calcium 8.2 L Magnesium 2.2 Active Medications Generic Name Dose Route Start Last Admin Trade Name Freq PRN Reason Stop Dose Admin Carvedilol 25 mg 03/16/19 22:00 03/17/19 10:23 Coreg - PO 25 mg BID EUNICE Administration Docusate Sodium 100 mg 03/16/19 12:29 Colace - PO BID PRN CONSTIPATION Ferrous Sulfate 325 mg 03/16/19 17:30 03/17/19 10:23 Feosol - PO 325 mg BIDWM EUNICE Administration Furosemide 40 mg 03/16/19 06:00 03/17/19 14:04 Lasix Injection - IVPUSH 40 mg BID@0600,1500 EUNICE Administration Heparin Sodium (Porcine) 5,000 unit 03/15/19 22:00 03/17/19 14:04 Heparin - SQ 5,000 unit TID EUNICE Administration Lisinopril 10 mg 03/16/19 22:00 03/17/19 10:23 Prinivil PO 10 mg BID EUNICE Administration ASSESSMENT/PLAN: Pt is a 48 y/o M with PMH morbid obesity, HITESH/OHS on CPAP, HTN, HFpEF, chronic leg edema, who presented with worsening SOB and cough. He is being treated for respiratory failure and acute on chronic CHF. Resp failure -on NC 4L (sat 93%) -breathing comfortably -persistent wheeze -nebs CHF -with b/l pedal edema -unclear if chronic due to body habitus -c/w lasix HITESH/[place]wick[place] -c/w bilevel HS HTN -c/w carvedelol, lisinopril Obesity -offered bariatric surgery -counseled on lifestyle DVT ppx -hep subQ Visit type - Emergency Visit Emergency Visit: No - New Patient This patient is new to me today: Yes Date on this admission: 03/17/19 - Critical Care Critical Care patient: No ATTENDING PHYSICIAN STATEMENT I saw and evaluated the patient. I reviewed the resident's note and discussed the case with the resident. I agree with the resident's findings and plan as documented. SUBJECTIVE: OBJECTIVE: ASSESSMENT AND PLAN:
--- NOTE | 2019-03-17 14:44 | PN ---
Progress Note (short form) - Note Progress Note: PULMONARY States breathing slightly better today. No chest pain or cough. Vital Signs Period Temp Pulse Resp BP Sys/Deluca Pulse Ox Last 24 Hr 97.9 F-98.1 F 80-90 20-20 138-162/66-92 93-95 Intake & Output 03/14/19 03/15/19 03/16/19 03/17/19 23:59 23:59 23:59 23:59 Intake Total 580 100 Output Total 2300 Balance -1720 100 Weight 232.149 kg 231.151 kg 227.477 kg Gen: NAD at rest Heart: RRR Lung: decreased breath sounds at the bases Abd: soft, nontender Ext: distal edema CBC, BMP 03/17/19 11:03 03/17/19 11:03 Active Medications Carvedilol (Coreg -) 25 mg PO BID [facility] Last Admin: 03/17/19 10:23 Dose: 25 mg Docusate Sodium (Colace -) 100 mg PO BID PRN PRN Reason: CONSTIPATION Ferrous Sulfate (Feosol -) 325 mg PO BIDWM [facility] Last Admin: 03/17/19 10:23 Dose: 325 mg Furosemide (Lasix Injection -) 40 mg IVPUSH BID@0600,1500 [facility] Last Admin: 03/17/19 14:04 Dose: 40 mg Heparin Sodium (Porcine) (Heparin -) 5,000 unit SQ TID [facility] Last Admin: 03/17/19 14:04 Dose: 5,000 unit Lisinopril (Prinivil) 10 mg PO BID [facility] Last Admin: 03/17/19 10:23 Dose: 10 mg A/P Acute on Chronic Hypoxic Respiratory Failure Acute on Chronic Diastolic Heart FAilure Pulmonary HTN Obstructive Sleep Apnea/Obesity Hypoventilation Syndrome Morbid Obesity HTN - continue lasix - monitor urine output, creatinine - O2 to keep SpO2 >90% - CPAP at night - DVT prophylaxis
--- NOTE | 2019-03-17 14:45 | PN ---
Progress Note, Physician History of Present Illness: Pt is alert, afebrile, appears comfortable. c/o SOB still but no distress noted. - Current Medication List Current Medications: Active Medications Carvedilol (Coreg -) [address] [facility] Last Admin: 03/17/19 10:23 Dose: 25 mg Docusate Sodium (Colace -) 100 mg PO BID PRN PRN Reason: CONSTIPATION Ferrous Sulfate (Feosol -) [address] [facility] Last Admin: 03/17/19 10:23 Dose: 325 mg Furosemide (Lasix Injection -) 40 mg IVPUSH BID@0600,1500 [facility] Last Admin: 03/17/19 14:04 Dose: 40 mg Heparin Sodium (Porcine) (Heparin -) 5,[address] [facility] Last Admin: 03/17/19 14:04 Dose: 5,000 unit Lisinopril (Prinivil) [address] [facility] Last Admin: 03/17/19 10:23 Dose: 10 mg - Objective Vital Signs: Vital Signs Temperature 98.0 F 03/17/19 10:00 Pulse Rate 87 03/17/19 10:00 Respiratory Rate 03/17/19 10:00 Blood Pressure 159/78 03/17/19 10:00 O2 Sat by Pulse Oximetry (%) 95 03/17/19 12:13 Constitutional: Yes: No Distress, Calm Eyes: Yes: Conjunctiva Clear Cardiovascular: Yes: Regular Rate and Rhythm Respiratory: Yes: Diminished (slightly), On Nasal O2 Gastrointestinal: Yes: Normal Bowel Sounds, Soft, Abdomen, Obese Genitourinary: Yes: WNL Extremities: Yes: WNL Integumentary: Yes: WNL Neurological: Yes: Alert, Oriented Labs: CBC, BMP 03/17/19 11:03 03/17/19 11:03 INR, PTT INR 1.22 (0.83-1.09) H 03/15/19 11:15 Laboratory Last Values WBC 5.5 K/mm3 (4.0-10.0) 03/17/19 11:03 RBC 5.86 M/mm3 (4.00-5.60) H 03/17/19 11:03 Hgb 13.4 GM/dL (11.7-16.9) 03/17/19 11:03 Hct 46.3 % (35.4-49) 03/17/19 11:03 MCV 79.0 fl (80-96) L 03/17/19 11:03 MCH 22.8 pg (25.7-33.7) L 03/17/19 11:03 MCHC 28.9 g/dl (32.0-35.9) L 03/17/19 11:03 RDW 17.0 % (11.9-15.9) H 03/17/19 11:03 Plt Count 225 K/MM3 (134-434) D 03/17/19 11:03 MPV 8.8 fl (7.5-11.1) 03/17/19 11:03 Absolute Neuts (auto) 4.2 K/mm3 (1.5-8.0) 03/16/19 05:40 Neutrophils % 69.1 % (42.8-82.8) 03/16/19 05:40 Lymphocytes % 20.1 % (8-40) D 03/16/19 05:40 Monocytes % 10.0 % (3.8-10.2) 03/16/19 05:40 Eosinophils % 0.2 % (0-4.5) D 03/16/19 05:40 Basophils % 0.6 % (0-2.0) 03/16/19 05:40 Nucleated RBC % 0 % (0-0) 03/16/19 05:40 PT with INR 14.40 SEC (9.7-13.0) H 03/15/19 11:15 INR 1.22 (0.83-1.09) H 03/15/19 11:15 PTT (Actin FS) 36.7 SECONDS (25.2-36.5) H 03/15/19 11:15 Sodium 140 mmol/L (136-145) 03/17/19 11:03 Potassium 3.8 mmol/L (3.5-5.1) 03/17/19 11:03 Chloride 93 mmol/L (98-107) L 03/17/19 11:03 Carbon Dioxide 43 mmol/L (21-32) H 03/17/19 11:03 Anion Gap 4 MMOL/L (8-16) L 03/17/19 11:03 BUN 14.1 mg/dL (7-18) 03/17/19 11:03 Creatinine 0.7 mg/dL (0.55-1.3) 03/17/19 11:03 Est GFR (CKD-EPI)AfAm 127.53 03/17/19 11:03 Est GFR (CKD-EPI)NonAf 110.04 03/17/19 11:03 Random Glucose 92 mg/dL (74-106) 03/17/19 11:03 Lactic Acid 0.8 mmol/L (0.4-2.0) 03/15/19 12:00 Calcium 8.2 mg/dL (8.5-10.1) L 03/17/19 11:03 Magnesium 2.2 mg/dL (1.8-2.4) 03/17/19 11:03 Iron 26 ug/dL (50-175) L 03/16/19 05:40 TIBC 254 ug/dL (250-450) 03/16/19 05:40 Iron Saturation 10 % (17.5-39) L 03/16/19 05:40 Unsaturated IBC 228 ug/dL (200-275) 03/16/19 05:40 Ferritin 48.6 ng/ml (8-388) 03/16/19 05:40 Total Bilirubin 0.5 mg/dL (0.2-1) 03/16/19 05:40 AST 17 U/L (15-37) 03/16/19 05:40 ALT 24 U/L (13-61) 03/16/19 05:40 Alkaline Phosphatase 70 U/L (45-117) 03/16/19 05:40 Creatine Kinase 327 U/L (26-308) H 03/15/19 12:00 Creatine Kinase Index 0.5 % (0.0-5.0) 03/15/19 12:00 CK-MB (CK-2) 1.8 ng/mL (0.5-3.6) 03/15/19 12:00 Troponin I 0.02 ng/ml (0.00-0.05) 03/15/19 12:00 B-Natriuretic Peptide 532.8 pg/ml (5-125) H 03/15/19 12:00 Total Protein 6.9 g/dl (6.4-8.2) 03/16/19 05:40 Albumin 2.7 g/dl (3.4-5.0) L 01/31/20 05:40 Influenza A (Rapid) Negative (Negative) 03/15/19 12:00 Influenza B (Rapid) Negative (Negative) 03/15/19 12:00 RSV Rapid Negative (Negative) 03/15/19 20:02 - ....Imaging Chest X-ray: Report Reviewed Assessment/Plan Acute respiratory failure Acute on Chronic CHF HTN Morbid obesity HITESH -- pt is alert, afebrile, without leukocytosis -- no acute distress noted -- continue monitor off of antibiotics
[2019-03-18] MEDS: HEPARIN NA (PORCINE) 5,000 UNITS/ML 1ML VIAL SQ SCH ×3 (05:16→22:10)
[2019-03-18] MEDS: FUROSEMIDE 40 MG/4 ML INJECTABLE VIAL IVPUSH SCH ×2 (05:17→14:29)
--- NOTE | 2019-03-18 09:56 | PN ---
Progress Note, Physician History of Present Illness: The patient is a 48 year old male with a significant past medical history of morbid obesity, respiratory failure, HTN obstructive sleep apnea (reports compliance with CPAP at night at home), obesity hypoventilation syndrome, diastolic dysfunction, pulm HTN with h/o failure who presents to the ED with SOB , cough with brown sputum, body aches, chills, SOB with minimal exertion, orthopnea and paroxysmal nocturnal dyspnea. - Current Medication List Current Medications: Active Medications Carvedilol (Coreg -) 25 mg PO BID [facility] Last Admin: 03/17/19 21:02 Dose: 25 mg Docusate Sodium (Colace -) 100 mg PO BID PRN PRN Reason: CONSTIPATION Ferrous Sulfate (Feosol -) 325 mg PO BIDWM [facility] Last Admin: 03/17/19 18:29 Dose: 325 mg Furosemide (Lasix Injection -) 40 mg IVPUSH BID@0600,1500 [facility] Last Admin: 03/18/19 05:17 Dose: 40 mg Heparin Sodium (Porcine) (Heparin -) 5,000 unit SQ TID [facility] Last Admin: 03/18/19 05:16 Dose: 5,000 unit Lisinopril (Prinivil) 10 mg PO BID [facility] Last Admin: 03/17/19 21:02 Dose: 10 mg - Objective Vital Signs: Vital Signs Temperature 98.0 F 03/18/19 06:46 Pulse Rate 70 03/18/19 06:46 Respiratory Rate 20 03/18/19 06:46 Blood Pressure 134/74 03/18/19 06:46 O2 Sat by Pulse Oximetry (%) 95 03/18/19 08:10 Eyes: Yes: WNL, Conjunctiva Clear, EOM Intact HENT: Yes: WNL, Atraumatic, Normocephalic Neck: Yes: WNL, Supple, Trachea Midline Cardiovascular: Yes: WNL, Regular Rate and Rhythm Respiratory: Yes: WNL, Regular, CTA Bilaterally Gastrointestinal: Yes: WNL, Normal Bowel Sounds Genitourinary: Yes: WNL Musculoskeletal: Yes: WNL Edema: Yes Integumentary: Yes: WNL Neurological: Yes: WNL, Alert, Oriented ...Motor Strength: WNL Psychiatric: Yes: WNL Labs: CBC, BMP 03/17/19 11:03 03/17/19 11:03 INR, PTT INR 1.22 (0.83-1.09) H 03/15/19 11:15 Assessment/Plan - Problems (1) Acute on chronic diastolic (congestive) heart failure Code(s): I50.33 - ACUTE ON CHRONIC DIASTOLIC (CONGESTIVE) HEART FAILURE (2) Acute on chronic respiratory failure with hypoxia and hypercapnia Code(s): J96.21 - ACUTE AND CHRONIC RESPIRATORY FAILURE WITH HYPOXIA; J96.22 - ACUTE AND CHRONIC RESPIRATORY FAILURE WITH HYPERCAPNIA (3) Hypertensive urgency Code(s): I16.0 - HYPERTENSIVE URGENCY (4) Morbid obesity with BMI of 50.0-59.9, adult Code(s): Z68.43 - BODY MASS INDEX (BMI) 50.0-59.9, ADULT (5) Obesity hypoventilation syndrome Code(s): E66.2 - MORBID (SEVERE) OBESITY WITH ALVEOLAR HYPOVENTILATION (6) Obstructive sleep apnea Code(s): G47.33 - OBSTRUCTIVE SLEEP APNEA (ADULT) (PEDIATRIC) Assessment/Plan 11/26/2018 Echo: Mildly dilated cLVH normal LV fxn, mild TR RVSP 30-40 mmHg, tr- mild MR 08/18/2015 R&LHc: Nonobstructive CAD, severe pulm HTN, elevated LVEDP 27 mmHg, elevated pcwp 26 mmHg, PAP 58/25/40 1. Acute on likely Chronic Hypoxic and Hypercapneic Respiratory Failure 2. Acute on Chronic Diastolic Heart Failure with Pulmonary HTN and pleural effusions 3. Morbid Obesity 4. Obesity Hypoventilation Syndrome/Obstructive Sleep Apnea 5. HTN heart disease with urgency P:1. IV diuresis with monitor diuretic response, renal fxn and electrolytes 2. Carvedilol 25 bid, lasix 40 bid, lisinopril 10 bid, trilogy bipap, home O2, NSAIDs avoidance 3. Monitor off abx 4. Eventual referral to bariatric surgery 5. DVT PLX coverage for dr. Whitehead
[2019-03-18] MEDS: CARVEDILOL 25 MG TABLET (FP) PO SCH ×2 (10:17→22:10)
[2019-03-18] MEDS: LISINOPRIL 10 MG TABLET (FP) PO SCH ×2 (10:17→22:10)
[2019-03-18] MEDS: FERROUS SO4 325 MG TABLET (FP) PO SCH ×2 (10:18→17:31)
--- NOTE | 2019-03-18 12:59 | PN ---
Progress Note (short form) - Note Progress Note: SUBJECTIVE: Improving, less dyspneic. No CP/fever/chills. OBJECTIVE: Afebrile, Hemodynamically Stable. Last Vital Signs Temp Pulse Resp BP Pulse Ox 98.0 F 70 20 134/74 95 03/18/19 06:46 03/18/19 06:46 03/18/19 06:46 03/18/19 06:46 03/18/19 08:10 Heart - S1 S2, RRR Lungs - air entry improved/wheeze improving. Abdomen - High BMI. Soft, non-tender. Bowel Sounds normal. Extremities - chronic edema/venous stasis with dermatitis and chronic skin changes LEs. Current Medications Generic Name Dose Route Start Last Admin Trade Name Freq PRN Reason Stop Dose Admin Carvedilol 25 mg 03/16/19 22:00 03/18/19 10:17 Coreg - PO 25 mg BID [facility] Administration Docusate Sodium 100 mg 03/16/19 12:29 03/18/19 10:17 Colace - PO 100 mg BID PRN Administration CONSTIPATION Ferrous Sulfate 325 mg 03/16/19 17:30 03/18/19 10:18 Feosol - PO 325 mg BIDWM [facility] Administration Furosemide 40 mg 03/16/19 06:00 03/18/19 05:17 Lasix Injection - IVPUSH 40 mg BID@0600,1500 [facility] Administration Heparin Sodium (Porcine) 5,000 unit 03/15/19 22:00 03/18/19 05:16 Heparin - SQ 5,000 unit TID [facility] Administration Lisinopril 10 mg 03/16/19 22:00 03/18/19 10:17 Prinivil PO 10 mg BID [facility] Administration Home Medications Medication Instructions Recorded Furosemide [Lasix -] 40 mg PO BID 12/06/18 Carvedilol [Coreg -] 12.5 mg PO BID 03/15/19 Lisinopril [Prinivil] 20 mg PO BID 03/15/19 ASSESSMENT/PLAN: 48 year old Male with morbid obesity, HITESH/OHS on CPAP, HTN, Chronic Diastolic CHF, chronic venous stasis/lymphedema, presents with worsening SOB, productive cough and orthopnea. 1. Acute Hypoxic and Hypercapneic Respiratory Failure secondary to Acute on Chronic Diastolic CHF Continue IV lasix diuresis. BD Nebs. 10lb weight loss recorded. Daily weight, I/Os Wean off O2. BiPAP at night Cardiology following. Initial concern for underlying Pneumonia, seen by ID, Abx on hold pending further observation. Patient remains afebrile, without leukocytosis. Will monitor. Flu/RSV negative. Blood/Sputum Cx negative. 2. HITESH/OHS - on BiPAP at night - continue. Pulmonary follow up as out-patient. 3. HTN - Continue Coreg, Lisinopril. 4. Morbid Obesity - offered referral for Bariatric Surgery. 5. Microcytosis. No anemia. No evidence of blood loss. Iron level 26/Iron sat 10 %. Started on Iron supplementation. Iron deficiency work up by GI as an out- patient. DVT Px - Heparin SQ. Visit type - Emergency Visit Emergency Visit: Yes ED Registration Date: 03/15/19 Care time: The patient presented to the Emergency Department on the above date and was hospitalized for further evaluation of their emergent condition. - New Patient This patient is new to me today: No - Critical Care Critical Care patient: No - Discharge Referral Referred to [facility] No
[2019-03-18 13:08] VITALS: BMI 61.0
--- NOTE | 2019-03-18 13:23 | PN ---
Progress Note (short form) - Note Progress Note: PULMONARY States breathing slightly better today. No chest pain or cough. Vital Signs Period Temp Pulse Resp BP Sys/Deluca Pulse Ox Last 24 Hr 97.4 F-99.5 F 70-83 20-22 134-152/63-75 95-96 Gen: NAD at rest Heart: RRR Lung: decreased breath sounds at the bases Abd: soft, nontender Ext: distal edema CBC, BMP 03/17/19 11:03 03/17/19 11:03 Active Medications Carvedilol (Coreg -) 25 mg PO BID [facility] Last Admin: 03/18/19 10:17 Dose: 25 mg Docusate Sodium (Colace -) 100 mg PO BID PRN PRN Reason: CONSTIPATION Last Admin: 03/18/19 10:17 Dose: 100 mg Ferrous Sulfate (Feosol -) 325 mg PO BIDWM [facility] Last Admin: 03/18/19 10:18 Dose: 325 mg Furosemide (Lasix Injection -) 40 mg IVPUSH BID@0600,1500 [facility] Last Admin: 03/18/19 05:17 Dose: 40 mg Heparin Sodium (Porcine) (Heparin -) 5,000 unit SQ TID [facility] Last Admin: 03/18/19 05:16 Dose: 5,000 unit Lisinopril (Prinivil) 10 mg PO BID [facility] Last Admin: 03/18/19 10:17 Dose: 10 mg A/P Acute on Chronic Hypoxic Respiratory Failure Acute on Chronic Diastolic Heart FAilure Pulmonary HTN Obstructive Sleep Apnea/Obesity Hypoventilation Syndrome Morbid Obesity HTN - continue lasix - monitor urine output, creatinine - O2 to keep SpO2 >90% - CPAP at night - DVT prophylaxis
--- NOTE | 2019-03-18 14:19 | PN ---
Progress Note, Physician History of Present Illness: Pt is alert and states he is less SOB than yesterday. Has no cough/CP. Yesterday had temp of 99.5F but has been afebrile since. - Current Medication List Current Medications: Active Medications Carvedilol (Coreg -) 25 mg PO BID [facility] Last Admin: 03/18/19 10:17 Dose: 25 mg Docusate Sodium (Colace -) 100 mg PO BID PRN PRN Reason: CONSTIPATION Last Admin: 03/18/19 10:17 Dose: 100 mg Ferrous Sulfate (Feosol -) 325 mg PO BIDWM [facility] Last Admin: 03/18/19 10:18 Dose: 325 mg Furosemide (Lasix Injection -) 40 mg IVPUSH BID@0600,1500 [facility] Last Admin: 03/18/19 05:17 Dose: 40 mg Heparin Sodium (Porcine) (Heparin -) 5,000 unit SQ TID [facility] Last Admin: 03/18/19 05:16 Dose: 5,000 unit Lisinopril (Prinivil) 10 mg PO BID [facility] Last Admin: 03/18/19 10:17 Dose: 10 mg - Objective Vital Signs: Vital Signs Temperature 97.9 F 03/18/19 10:00 Pulse Rate 86 03/18/19 10:00 Respiratory Rate 03/18/19 10:00 Blood Pressure 146/86 03/18/19 10:00 O2 Sat by Pulse Oximetry (%) 96 03/18/19 09:00 Constitutional: Yes: No Distress, Calm Eyes: Yes: Conjunctiva Clear Cardiovascular: Yes: Regular Rate and Rhythm Respiratory: Yes: Diminished Gastrointestinal: Yes: Normal Bowel Sounds, Soft, Abdomen, Obese Genitourinary: Yes: WNL Integumentary: Yes: WNL Neurological: Yes: Alert, Oriented Labs: CBC, BMP 03/17/19 11:03 03/17/19 11:03 INR, PTT INR 1.22 (0.83-1.09) H 03/15/19 11:15 Microbiology 03/15/19 11:15 Blood - Peripheral Venous Blood Culture - Preliminary NO GROWTH OBTAINED AFTER 72 HOURS, INCUBATION TO CONTINUE FOR 2 DAYS. 03/15/19 11:15 Blood - Peripheral Venous Blood Culture - Preliminary NO GROWTH OBTAINED AFTER 72 HOURS, INCUBATION TO CONTINUE FOR 2 DAYS. 03/16/19 17:59 Urine - Urine Clean Catch Legionella Antigen - Final 03/16/19 17:59 Urine - Urine Clean Catch Streptococcus pneumoniae Antigen ( M - Final Assessment/Plan Acute respiratory failure Acute on Chronic CHF HTN Morbid obesity HITESH -- pt with less SOB, without distress -- afebrile today -- continue monitor off of antibiotics
[2019-03-19] MEDS: HEPARIN NA (PORCINE) 5,000 UNITS/ML 1ML VIAL SQ SCH ×3 (05:57→22:26)
[2019-03-19] MEDS: FUROSEMIDE 40 MG/4 ML INJECTABLE VIAL IVPUSH SCH ×2 (05:57→16:00)
[2019-03-19 07:46] LABS: BASO % 0.6 % (0-2.0); EOS % 0.7 % (0-4.5); HEMATOCRIT 44.8 % (35.4-49); HEMOGLOBIN 13.2 GM/dL (11.7-16.9); LYMPH % 18.8 % (8-40); MCHC 29.5 g/dl (32.0-35.9); MEAN CELL VOLUME 77.9 fl (80-96); MEAN PLT VOLUME 8.6 fl (7.5-11.1); MONO % 8.7 % (3.8-10.2); NEUT % 71.2 % (42.8-82.8); PLATELET COUNT 236 K/MM3 (134-434); RBC 5.75 M/mm3 (4.00-5.60); RDW 16.7 % (11.9-15.9); WHITE BLOOD COUNT 5.5 K/mm3 (4.0-10.0)
[2019-03-19 07:54] LABS: BLOOD UREA NITROGEN 15.5 mg/dL (7-18); CALCIUM 8.4 mg/dL (8.5-10.1); CREATININE 0.7 mg/dL (0.55-1.3); POTASSIUM 3.9 mmol/L (3.5-5.1)
[2019-03-19] MEDS: LISINOPRIL 10 MG TABLET (FP) PO SCH ×2 (10:15→22:26)
[2019-03-19] MEDS: CARVEDILOL 25 MG TABLET (FP) PO SCH ×2 (10:15→22:26)
[2019-03-19] MEDS: FERROUS SO4 325 MG TABLET (FP) PO SCH ×2 (10:15→17:20)
--- NOTE | 2019-03-19 10:33 | PN ---
Progress Note, Physician Chief Complaint: Events noted Not in distress History of Present Illness: Patient was seen and examined. Awake and alert. Chart was reviewed Denies chest pain or palpitations Tolerating therapy. Denies shortness of breath this am - Current Medication List Current Medications: Active Medications Carvedilol (Coreg -) [address] [facility] Last Admin: 03/19/19 10:15 Dose: 25 mg Docusate Sodium (Colace -) 100 mg PO BID PRN PRN Reason: CONSTIPATION Last Admin: 03/18/19 10:17 Dose: 100 mg Ferrous Sulfate (Feosol -) [address] [facility] Last Admin: 03/19/19 10:15 Dose: 325 mg Furosemide (Lasix Injection -) 40 mg IVPUSH BID@0600,1500 [facility] Last Admin: 03/19/19 05:57 Dose: 40 mg Heparin Sodium (Porcine) (Heparin -) 5,[address] [facility] Last Admin: 03/19/19 05:57 Dose: 5,000 unit Lisinopril (Prinivil) [address] [facility] Last Admin: 03/19/19 10:15 Dose: 10 mg - Objective Vital Signs: Vital Signs Temperature 99.5 F 03/19/19 01:56 Pulse Rate 80 03/19/19 06:00 Respiratory Rate 20 03/19/19 06:00 Blood Pressure 153/90 03/19/19 06:00 O2 Sat by Pulse Oximetry (%) 92 L 03/18/19 21:00 Eyes: Yes: PERRL HENT: Yes: Atraumatic Neck: Yes: Supple Cardiovascular: Yes: Regular Rate and Rhythm, S1, S2 Respiratory: Yes: Diminished Gastrointestinal: Yes: Normal Bowel Sounds, Soft, Abdomen, Obese. No: Tenderness Edema: Yes Additional Findings/Remarks: - Review of Systems Constitutional: denies: Chills, Fever Cardiovascular: reports: Shortness of Breath. denies: Chest Pain, Palpitations Respiratory: reports: Cough, SOB, SOB on Exertion. denies: Hemoptysis, Orthopnea, PND Gastrointestinal: denies: Abdominal Pain, Constipation, Diarrhea, Melena, Nausea , Rectal Bleeding, Vomiting Musculoskeletal: denies: Back Pain, Joint Pain Neurological: denies: Dizziness, Headache, Seizure, Syncope Labs: CBC, BMP 03/19/19 05:20 02/03/20 05:20 Problem List - Problems (1) Morbid obesity Code(s): E66.01 - MORBID (SEVERE) OBESITY DUE TO EXCESS CALORIES (2) Acute and chronic respiratory failure Code(s): J96.20 - ACUTE AND CHR RESP FAILURE, UNSP W HYPOXIA OR HYPERCAPNIA Qualifiers: Respiratory failure complication: hypoxia and hypercapnia Qualified Code(s) : J96.21 - Acute and chronic respiratory failure with hypoxia; J96.22 - Acute and chronic respiratory failure with hypercapnia (3) Acute hypercapnic respiratory failure Code(s): J96.02 - ACUTE RESPIRATORY FAILURE WITH HYPERCAPNIA (4) Acute on chronic diastolic (congestive) heart failure Code(s): I50.33 - ACUTE ON CHRONIC DIASTOLIC (CONGESTIVE) HEART FAILURE (5) Acute on chronic respiratory failure with hypoxia and hypercapnia Code(s): J96.21 - ACUTE AND CHRONIC RESPIRATORY FAILURE WITH HYPOXIA; J96.22 - ACUTE AND CHRONIC RESPIRATORY FAILURE WITH HYPERCAPNIA (6) Hypertension Code(s): I10 - ESSENTIAL (PRIMARY) HYPERTENSION (7) Obesity hypoventilation syndrome Code(s): E66.2 - MORBID (SEVERE) OBESITY WITH ALVEOLAR HYPOVENTILATION (8) Obstructive sleep apnea Code(s): G47.33 - OBSTRUCTIVE SLEEP APNEA (ADULT) (PEDIATRIC) Assessment/Plan 1. Acute on Chronic Hypoxic and Hypercapneic Respiratory Failure 2. Acute on Chronic Diastolic Heart Failure with Pulmonary HTN and pleural effusions 3. Morbid Obesity 4. Obesity Hypoventilation Syndrome/Obstructive Sleep Apnea 5. HTN PLAN: 1. IV diuresis (IV Furosemide 40 mg BID) with monitor renal function and electrolytes 2. Carvedilol 25 mg BID and Lisinopril 10 mg BID 3. Bipap and home O2 4. Eventual referral to bariatric surgery Further plans are to follow Riley Ashby MD
--- NOTE | 2019-03-19 12:22 | PN ---
Progress Note (short form) - Note Progress Note: States breathing feels better today. No chest pain or cough. Did not use NIPPV overnight. Intake & Output 03/16/19 03/17/19 03/18/19 03/19/19 23:59 23:59 23:59 23:59 Intake Total 580 670 364 Output Total 2300 2200 400 1000 Balance -1720 -1530 -36 -1000 Weight 509 lb 9.6 oz 501 lb 8 oz 501 lb 498 lb 11.2 oz Last Vital Signs Temp Pulse Resp BP Pulse Ox 99.5 F 80 20 153/90 92 L 03/19/19 01:56 03/19/19 06:00 03/19/19 06:00 03/19/19 06:00 03/18/19 21:00 Active Medications Carvedilol (Coreg -) 25 mg PO BID [facility] Last Admin: 03/19/19 10:15 Dose: 25 mg Docusate Sodium (Colace -) 100 mg PO BID PRN PRN Reason: CONSTIPATION Last Admin: 03/18/19 10:17 Dose: 100 mg Ferrous Sulfate (Feosol -) 325 mg PO BIDWM [facility] Last Admin: 03/19/19 10:15 Dose: 325 mg Furosemide (Lasix Injection -) 40 mg IVPUSH BID@0600,1500 [facility] Last Admin: 03/19/19 05:57 Dose: 40 mg Heparin Sodium (Porcine) (Heparin -) 5,000 unit SQ TID [facility] Last Admin: 03/19/19 05:57 Dose: 5,000 unit Lisinopril (Prinivil) 10 mg PO BID [facility] Last Admin: 03/19/19 10:15 Dose: 10 mg Gen: NAD at rest Heart: RRR Lung: decreased breath sounds at the bases Abd: soft, nontender Ext: distal edema Laboratory Results - last 24 hr 03/19/19 03/19/19 05:20 05:20 WBC 5.5 RBC 5.75 H Hgb 13.2 Hct 44.8 MCV 77.9 L MCH 23.0 L MCHC 29.5 L RDW 16.7 H Plt Count 236 MPV 8.6 Absolute Neuts (auto) 3.9 Neutrophils % 71.2 Lymphocytes % 18.8 Monocytes % 8.7 Eosinophils % 0.7 D Basophils % 0.6 Nucleated RBC % 0 Sodium 141 Potassium 3.9 Chloride 91 L Carbon Dioxide 44 H Anion Gap 5 L BUN 15.5 Creatinine 0.7 Est GFR (CKD-EPI)AfAm 127.53 Est GFR (CKD-EPI)NonAf 110.04 Random Glucose 92 Calcium 8.4 L A/P Acute on Chronic Hypoxic Respiratory Failure Acute on Chronic Diastolic Heart FAilure Pulmonary HTN Obstructive Sleep Apnea/Obesity Hypoventilation Syndrome Morbid Obesity HTN - Lasix - monitor urine output, creatinine - O2 to keep SpO2 >90% - CPAP at night encouraged - DVT prophylaxis Dr Peters Problem List - Problems (1) Pulmonary vascular congestion Code(s): R09.89 - OTH SYMPTOMS AND SIGNS INVOLVING THE CIRC AND RESP SYSTEMS (2) Atelectasis Code(s): J98.11 - ATELECTASIS (3) Morbid obesity Code(s): E66.01 - MORBID (SEVERE) OBESITY DUE TO EXCESS CALORIES (4) Hypertension Code(s): I10 - ESSENTIAL (PRIMARY) HYPERTENSION (5) Morbid obesity with BMI of 50.0-59.9, adult Code(s): Z68.43 - BODY MASS INDEX (BMI) 50.0-59.9, ADULT (6) Obesity hypoventilation syndrome Code(s): E66.2 - MORBID (SEVERE) OBESITY WITH ALVEOLAR HYPOVENTILATION (7) Obstructive sleep apnea Code(s): G47.33 - OBSTRUCTIVE SLEEP APNEA (ADULT) (PEDIATRIC)
--- NOTE | 2019-03-19 12:29 | PN ---
Teaching Attending Note Name of Resident: Yamilet Ruano ATTENDING PHYSICIAN STATEMENT I saw and evaluated the patient. I reviewed the resident's note and discussed the case with the resident. I agree with the resident's findings and plan as documented. SUBJECTIVE: Improving, less dyspneic. No CP/fever/chills. OBJECTIVE: Afebrile, Hemodynamically Stable. Reported desaturation to mid-80s on RA. Last Vital Signs Temp Pulse Resp BP Pulse Ox 99.5 F 80 20 153/90 92 L 03/19/19 01:56 03/19/19 06:00 03/19/19 06:00 03/19/19 06:00 03/18/19 21:00 Heart - S1 S2, RRR Lungs - air entry improved/wheeze improved Abdomen - High BMI. Soft, non-tender. Bowel Sounds normal. Extremities - chronic edema/venous stasis with dermatitis and chronic skin changes LEs. Laboratory Results - last 24 hr 03/19/19 03/19/19 05:20 05:20 WBC 5.5 RBC 5.75 H Hgb 13.2 Hct 44.8 MCV 77.9 L MCH 23.0 L MCHC 29.5 L RDW 16.7 H Plt Count 236 MPV 8.6 Absolute Neuts (auto) 3.9 Neutrophils % 71.2 Lymphocytes % 18.8 Monocytes % 8.7 Eosinophils % 0.7 D Basophils % 0.6 Nucleated RBC % 0 Sodium 141 Potassium 3.9 Chloride 91 L Carbon Dioxide 44 H Anion Gap 5 L BUN 15.5 Creatinine 0.7 Est GFR (CKD-EPI)AfAm 127.53 Est GFR (CKD-EPI)NonAf 110.04 Random Glucose 92 Calcium 8.4 L Current Medications Generic Name Dose Route Start Last Admin Trade Name Freq PRN Reason Stop Dose Admin Carvedilol 25 mg 03/16/19 22:00 03/19/19 10:15 Coreg - PO 25 mg BID [facility] Administration Docusate Sodium 100 mg 03/16/19 12:29 03/18/19 10:17 Colace - PO 100 mg BID PRN Administration CONSTIPATION Ferrous Sulfate 325 mg 03/16/19 17:30 03/19/19 10:15 Feosol - PO 325 mg BIDWM [facility] Administration Furosemide 40 mg 03/16/19 06:00 03/19/19 05:57 Lasix Injection - IVPUSH 40 mg BID@0600,1500 [facility] Administration Heparin Sodium (Porcine) 5,000 unit 03/15/19 22:00 03/19/19 05:57 Heparin - SQ 5,000 unit TID [facility] Administration Lisinopril 10 mg 03/16/19 22:00 03/19/19 10:15 Prinivil PO 10 mg BID [facility] Administration Home Medications Medication Instructions Recorded Furosemide [Lasix -] 40 mg PO BID 12/06/18 Carvedilol [Coreg -] 12.5 mg PO BID 03/15/19 Lisinopril [Prinivil] 20 mg PO BID 03/15/19 ASSESSMENT/PLAN: 48 year old Male with morbid obesity, HITESH/OHS on CPAP, HTN, Chronic Diastolic CHF, chronic venous stasis/lymphedema, presents with worsening SOB, productive cough and orthopnea. 1. Acute Hypoxic and Hypercapneic Respiratory Failure secondary to Acute on Chronic Diastolic CHF On IV lasix diuresis. BD Nebs. 13lb weight loss recorded. Daily weight, I/Os BiPAP at night SpO2 mid-80s on RA reported - will repeat CXR and request Resp Tx for Pre-/post- SpO2. Cardiology following. Will discuss with Pulm re: plan for discharge home with increased home dose Lasix, with or without supplemental O2. Initial concern for underlying Pneumonia, seen by ID, Abx stopped. He remains afebrile, without leukocytosis. Will monitor. Flu/RSV negative. Blood/Sputum Cx negative. 2. HITESH/OHS - on BiPAP at night - continue. Pulmonary follow up as out-patient. 3. HTN - Continue Coreg, Lisinopril. 4. Morbid Obesity - offered referral for Bariatric Surgery. 5. Microcytosis. No anemia. No evidence of blood loss. Iron level 26/Iron sat 10 %. Started on Iron supplementation. Iron deficiency work up by GI as an out- patient. DVT Px - Heparin SQ.
--- NOTE | 2019-03-19 14:51 | PN ---
Physical Exam: SUBJECTIVE: Patient seen and examined. No acute events overnight. Patient states that he feels ok but still congested. Denies SOB, abd pain, chest pain, fever, chills. OBJECTIVE: Vital Signs Period Temp Pulse Resp BP Sys/Deluca Pulse Ox Last 24 Hr 98.2 F-99.5 F 80-92 20-20 139-154/82-90 80-92 GENERAL: The patient is awake, alert, and fully oriented, in no acute distress. HEAD: Normal with no signs of trauma. EYES: EOMI, no ptosis, no scleral icterus ENT: MMM NECK: Trachea midline, full range of motion, supple. LUNGS: difficulty to auscultate due to body habitus, decreased breath sounds on auscultation, no accessory muscle use HEART: RRR, Normal S1, S2. no murmur noted ABDOMEN: Soft, nontender, normoactive bowel sounds, no guarding. obese EXTREMITIES: 2+ pulses, warm, well-perfused, no edema. NEUROLOGICAL: Normal speech, gait not observed, no facial droop PSYCH: Normal mood, normal affect. SKIN: Warm, dry, normal turgor, no rashes or lesions noted Laboratory Results - last 24 hr 03/19/19 03/19/19 05:20 05:20 WBC 5.5 RBC 5.75 H Hgb 13.2 Hct 44.8 MCV 77.9 L MCH 23.0 L MCHC 29.5 L RDW 16.7 H Plt Count 236 MPV 8.6 Absolute Neuts (auto) 3.9 Neutrophils % 71.2 Lymphocytes % 18.8 Monocytes % 8.7 Eosinophils % 0.7 D Basophils % 0.6 Nucleated RBC % 0 Sodium 141 Potassium 3.9 Chloride 91 L Carbon Dioxide 44 H Anion Gap 5 L BUN 15.5 Creatinine 0.7 Est GFR (CKD-EPI)AfAm 127.53 Est GFR (CKD-EPI)NonAf 110.04 Random Glucose 92 Calcium 8.4 L Active Medications Generic Name Dose Route Start Last Admin Trade Name Freq PRN Reason Stop Dose Admin Carvedilol 25 mg 03/16/19 22:00 03/19/19 10:15 Coreg - PO 25 mg BID [facility] Administration Docusate Sodium 100 mg 03/16/19 12:29 03/18/19 10:17 Colace - PO 100 mg BID PRN Administration CONSTIPATION Ferrous Sulfate 325 mg 03/16/19 17:30 03/19/19 10:15 Feosol - PO 325 mg BIDWM [facility] Administration Furosemide 40 mg 03/16/19 06:00 03/19/19 05:57 Lasix Injection - IVPUSH 40 mg BID@0600,1500 [facility] Administration Heparin Sodium (Porcine) 5,000 unit 03/15/19 22:00 03/19/19 13:13 Heparin - SQ 5,000 unit TID [facility] Administration Lisinopril 10 mg 03/16/19 22:00 03/19/19 10:15 Prinivil PO 10 mg BID [facility] Administration ASSESSMENT/PLAN: 48 year old AA Male h/o morbid obesity, HITESH/OHS on CPAP, HTN, HFpEF, chronic leg edema, presents with worsening SOB, productive cough and nocturnal dyspnea and clinical features suggestive of CHF. #Acute Hypoxic and Hypercapneic respiratory failure 2/2 acute on chronic CHF - BiPAP overnight as needed - O2 nasal cannula as needed to maintain SpO2 >90% - monitor daily weights, I&Os - 13 lbs weight loss noted - Cardiology consulted (Dr. Whitehead) - Coreg 25mg BID, Lisinopril 10mg BID, Lasix 40mg IV BID - ID consulted (Dr. Anthony) - can monitor off abx. afebrile, WBC within normal limits - Flu/RSV negative - Blood, Sputum cx pending. negative to date - patient failed pre/post. Pre SpO2 - 82%, post SpO2 92% on 6L O2 #Microcytic anemia - Hgb within normal limits - Iron level at 26. Started on iron supplementation - outpatient GI workup for iron deficiency #HITESH/OHS - continue BiPAP at night as needed - Pulmonary consulted (Dr. Peters) - continue diuresis #HTN - Coreg 25mg BID, Lisinopril 10mg BID - Patient on Lisinopril 20mg BID at home as per pharmacy #Morbid Obesity - Refer to Bariatric surgery on discharge #Prophylaxis - Heparin #FEN - monitor and replete as needed - no IVF indicated - sodium controlled diet #Disposition - continue IV diuresis. Patient failed pre/post, will need home O2. As per social and political studies professor, patient does not have insurance and will be difficult to set up with high home O2 needs. Visit type - Emergency Visit Emergency Visit: Yes ED Registration Date: 03/15/19 Care time: The patient presented to the Emergency Department on the above date and was hospitalized for further evaluation of their emergent condition. - New Patient This patient is new to me today: No - Critical Care Critical Care patient: No ATTENDING PHYSICIAN STATEMENT I saw and evaluated the patient. I reviewed the resident's note and discussed the case with the resident. I agree with the resident's findings and plan as documented. SUBJECTIVE: OBJECTIVE: ASSESSMENT AND PLAN:
--- NOTE | 2019-03-19 16:12 | PN ---
Progress Note, Physician History of Present Illness: stable doing well on nasal canula says minimal cough - Current Medication List Current Medications: Active Medications Carvedilol (Coreg -) 25 mg PO BID [facility] Last Admin: 03/19/19 10:15 Dose: 25 mg Docusate Sodium (Colace -) 100 mg PO BID PRN PRN Reason: CONSTIPATION Last Admin: 03/18/19 10:17 Dose: 100 mg Ferrous Sulfate (Feosol -) 325 mg PO BIDWM [facility] Last Admin: 03/19/19 10:15 Dose: 325 mg Furosemide (Lasix Injection -) 40 mg IVPUSH BID@0600,1500 [facility] Last Admin: 03/19/19 05:57 Dose: 40 mg Heparin Sodium (Porcine) (Heparin -) 5,000 unit SQ TID [facility] Last Admin: 03/19/19 13:13 Dose: 5,000 unit Lisinopril (Prinivil) 10 mg PO BID [facility] Last Admin: 03/19/19 10:15 Dose: 10 mg - Objective Vital Signs: Vital Signs Temperature 98.2 F 03/19/19 14:20 Pulse Rate 86 03/19/19 14:20 Respiratory Rate 16 03/19/19 14:20 Blood Pressure 129/67 03/19/19 14:20 O2 Sat by Pulse Oximetry (%) 92 L 03/19/19 12:58 Constitutional: Yes: No Distress, Calm, Obese Cardiovascular: Yes: S1, S2 Respiratory: Yes: Regular, CTA Bilaterally, On BiPap, On Nasal O2 Gastrointestinal: Yes: Normal Bowel Sounds, Soft Musculoskeletal: Yes: WNL Extremities: Yes: WNL Psychiatric: Yes: Alert, Oriented Labs: CBC, BMP 03/19/19 05:20 03/19/19 05:20 INR, PTT INR 1.22 (0.83-1.09) H 03/15/19 11:15 Assessment/Plan Problem List - Problems (1) Acute on chronic diastolic (congestive) heart failure Code(s): I50.33 - ACUTE ON CHRONIC DIASTOLIC (CONGESTIVE) HEART FAILURE (2) Acute on chronic respiratory failure with hypoxia and hypercapnia Code(s): J96.21 - ACUTE AND CHRONIC RESPIRATORY FAILURE WITH HYPOXIA; J96.22 - ACUTE AND CHRONIC RESPIRATORY FAILURE WITH HYPERCAPNIA (3) Hypertensive urgency Code(s): I16.0 - HYPERTENSIVE URGENCY (4) Morbid obesity with BMI of 50.0-59.9, adult Code(s): Z68.43 - BODY MASS INDEX (BMI) 50.0-59.9, ADULT (5) Obesity hypoventilation syndrome Code(s): E66.2 - MORBID (SEVERE) OBESITY WITH ALVEOLAR HYPOVENTILATION (6) Obstructive sleep apnea Code(s): G47.33 - OBSTRUCTIVE SLEEP APNEA (ADULT) (PEDIATRIC) 7 r/o pneumonia plan continue current mgmt resp support rest as per the team
[2019-03-20] MEDS: FUROSEMIDE 40 MG/4 ML INJECTABLE VIAL IVPUSH SCH ×2 (06:49→15:27)
[2019-03-20] MEDS: HEPARIN NA (PORCINE) 5,000 UNITS/ML 1ML VIAL SQ SCH ×3 (06:49→22:13)
[2019-03-20] MEDS: FERROUS SO4 325 MG TABLET (FP) PO SCH ×2 (08:43→18:00)
[2019-03-20] MEDS: LISINOPRIL 10 MG TABLET (FP) PO SCH ×2 (09:19→22:13)
[2019-03-20] MEDS: CARVEDILOL 25 MG TABLET (FP) PO SCH ×2 (09:19→22:13)
[2019-03-20] MEDS ORDERED: FUROSEMIDE 40 MG/4 ML INJECTABLE VIAL IVPUSH ONE (10:30)
--- NOTE | 2019-03-20 10:54 | PN ---
Progress Note, Physician Chief Complaint: Events noted Not in distress History of Present Illness: Patient was seen and examined. Awake and alert. Chart was reviewed Denies chest pain or palpitations Tolerating therapy. Denies shortness of breath this am - Current Medication List Current Medications: Active Medications Carvedilol (Coreg -) 25 mg PO BID [facility] Last Admin: 03/20/19 09:19 Dose: 25 mg Docusate Sodium (Colace -) 100 mg PO BID PRN PRN Reason: CONSTIPATION Last Admin: 03/18/19 10:17 Dose: 100 mg Ferrous Sulfate (Feosol -) 325 mg PO BIDWM [facility] Last Admin: 03/20/19 08:43 Dose: 325 mg Furosemide (Lasix Injection -) 40 mg IVPUSH BID@0600,1500 [facility] Last Admin: 03/20/19 06:49 Dose: 40 mg Furosemide (Lasix Injection -) 40 mg IVPUSH ONCE ONE Stop: 03/20/19 10:31 Heparin Sodium (Porcine) (Heparin -) 5,000 unit SQ TID [facility] Last Admin: 03/20/19 06:49 Dose: 5,000 unit Lisinopril (Prinivil) 10 mg PO BID [facility] Last Admin: 03/20/19 09:19 Dose: 10 mg - Objective Vital Signs: Vital Signs Temperature 99.4 F 03/20/19 06:00 Pulse Rate 85 03/20/19 09:21 Respiratory Rate 20 03/20/19 09:21 Blood Pressure 161/78 03/20/19 09:21 O2 Sat by Pulse Oximetry (%) 93 L 03/20/19 09:00 HENT: Yes: Atraumatic Neck: Yes: Supple Cardiovascular: Yes: Regular Rate and Rhythm, S1, S2 Respiratory: Yes: Diminished Gastrointestinal: Yes: Normal Bowel Sounds, Soft, Abdomen, Obese. No: Tenderness Edema: Yes Additional Findings/Remarks: - Review of Systems Constitutional: denies: Chills, Fever Cardiovascular: reports: Shortness of Breath. denies: Chest Pain, Palpitations Respiratory: reports: Cough, SOB, SOB on Exertion. denies: Hemoptysis, Orthopnea, PND Gastrointestinal: denies: Abdominal Pain, Constipation, Diarrhea, Melena, Nausea , Rectal Bleeding, Vomiting Musculoskeletal: denies: Back Pain, Joint Pain Neurological: denies: Dizziness, Headache, Seizure, Syncope Labs: CBC, BMP 03/19/19 05:20 03/19/19 05:20 INR, PTT INR 1.22 (0.83-1.09) H 03/15/19 11:15 Problem List - Problems (1) Morbid obesity Code(s): E66.01 - MORBID (SEVERE) OBESITY DUE TO EXCESS CALORIES (2) Acute and chronic respiratory failure Code(s): J96.20 - ACUTE AND CHR RESP FAILURE, UNSP W HYPOXIA OR HYPERCAPNIA Qualifiers: Respiratory failure complication: hypoxia and hypercapnia Qualified Code(s) : J96.21 - Acute and chronic respiratory failure with hypoxia; J96.22 - Acute and chronic respiratory failure with hypercapnia (3) Acute hypercapnic respiratory failure Code(s): J96.02 - ACUTE RESPIRATORY FAILURE WITH HYPERCAPNIA (4) Acute on chronic diastolic (congestive) heart failure Code(s): I50.33 - ACUTE ON CHRONIC DIASTOLIC (CONGESTIVE) HEART FAILURE (5) Acute on chronic respiratory failure with hypoxia and hypercapnia Code(s): J96.21 - ACUTE AND CHRONIC RESPIRATORY FAILURE WITH HYPOXIA; J96.22 - ACUTE AND CHRONIC RESPIRATORY FAILURE WITH HYPERCAPNIA (6) Hypertension Code(s): I10 - ESSENTIAL (PRIMARY) HYPERTENSION (7) Obesity hypoventilation syndrome Code(s): E66.2 - MORBID (SEVERE) OBESITY WITH ALVEOLAR HYPOVENTILATION (8) Obstructive sleep apnea Code(s): G47.33 - OBSTRUCTIVE SLEEP APNEA (ADULT) (PEDIATRIC) Assessment/Plan 1. Acute on Chronic Hypoxic and Hypercapneic Respiratory Failure 2. Acute on Chronic Diastolic Heart Failure with Pulmonary HTN and pleural effusions 3. Morbid Obesity 4. Obesity Hypoventilation Syndrome/Obstructive Sleep Apnea 5. HTN PLAN: 1. Diuresis (Currently on IV Furosemide 40 mg BID, but may switch to PO 40 mg BID) with monitor renal function and electrolytes 2. Carvedilol 25 mg BID and Lisinopril 10 mg BID 3. Bipap and home O2 4. Eventual referral to bariatric surgery Further plans are to follow Riley Ashby MD
--- NOTE | 2019-03-20 14:21 | PN ---
Progress Note, Physician History of Present Illness: stable no new issues - Current Medication List Current Medications: Active Medications Carvedilol (Coreg -) 25 mg PO BID [facility] Last Admin: 03/20/19 09:19 Dose: 25 mg Docusate Sodium (Colace -) 100 mg PO BID PRN PRN Reason: CONSTIPATION Last Admin: 03/18/19 10:17 Dose: 100 mg Ferrous Sulfate (Feosol -) 325 mg PO BIDWM [facility] Last Admin: 03/20/19 08:43 Dose: 325 mg Furosemide (Lasix Injection -) 40 mg IVPUSH BID@0600,1500 [facility] Last Admin: 03/20/19 06:49 Dose: 40 mg Heparin Sodium (Porcine) (Heparin -) 5,000 unit SQ TID [facility] Last Admin: 03/20/19 13:24 Dose: 5,000 unit Lisinopril (Prinivil) 10 mg PO BID [facility] Last Admin: 03/20/19 09:19 Dose: 10 mg - Objective Vital Signs: Vital Signs Temperature 99.4 F 03/20/19 06:00 Pulse Rate 85 03/20/19 09:21 Respiratory Rate 20 03/20/19 09:21 Blood Pressure 161/78 03/20/19 09:21 O2 Sat by Pulse Oximetry (%) 93 L 03/20/19 09:00 Constitutional: Yes: No Distress, Calm, Obese Cardiovascular: Yes: S1, S2 Respiratory: Yes: On BiPap, On Nasal O2 Gastrointestinal: Yes: Normal Bowel Sounds, Soft Musculoskeletal: Yes: WNL Extremities: Yes: WNL Neurological: Yes: Alert, Oriented Psychiatric: Yes: Alert, Oriented Labs: CBC, BMP 03/19/19 05:20 03/19/19 05:20 INR, PTT INR 1.22 (0.83-1.09) H 03/15/19 11:15 Assessment/Plan Problem List - Problems (1) Acute on chronic diastolic (congestive) heart failure Code(s): I50.33 - ACUTE ON CHRONIC DIASTOLIC (CONGESTIVE) HEART FAILURE (2) Acute on chronic respiratory failure with hypoxia and hypercapnia Code(s): J96.21 - ACUTE AND CHRONIC RESPIRATORY FAILURE WITH HYPOXIA; J96.22 - ACUTE AND CHRONIC RESPIRATORY FAILURE WITH HYPERCAPNIA (3) Hypertensive urgency Code(s): I16.0 - HYPERTENSIVE URGENCY (4) Morbid obesity with BMI of 50.0-59.9, adult Code(s): Z68.43 - BODY MASS INDEX (BMI) 50.0-59.9, ADULT (5) Obesity hypoventilation syndrome Code(s): E66.2 - MORBID (SEVERE) OBESITY WITH ALVEOLAR HYPOVENTILATION (6) Obstructive sleep apnea Code(s): G47.33 - OBSTRUCTIVE SLEEP APNEA (ADULT) (PEDIATRIC) 7 r/o pneumonia plan continue current mgmt resp support rest as per the team
--- NOTE | 2019-03-20 14:44 | PN ---
Progress Note (short form) - Note Progress Note: States breathing feels better today. No chest pain or cough. Did not use NIPPV overnight. Intake & Output 03/17/19 03/18/19 03/19/19 03/20/19 23:59 23:59 23:59 23:59 Intake Total 670 364 400 310 Output Total 2200 400 3400 1600 Balance -1530 -36 -3000 -1290 Weight 501 lb 8 oz 501 lb 498 lb 11.2 oz 497 lb 12.8 oz Last Vital Signs Temp Pulse Resp BP Pulse Ox 99.4 F 85 20 161/78 93 L 03/20/19 06:00 03/20/19 09:21 03/20/19 09:21 03/20/19 09:21 03/20/19 09:00 Active Medications Carvedilol (Coreg -) 25 mg PO BID [facility] Last Admin: 03/20/19 09:19 Dose: 25 mg Docusate Sodium (Colace -) 100 mg PO BID PRN PRN Reason: CONSTIPATION Last Admin: 03/18/19 10:17 Dose: 100 mg Ferrous Sulfate (Feosol -) 325 mg PO BIDWM [facility] Last Admin: 03/20/19 08:43 Dose: 325 mg Furosemide (Lasix Injection -) 40 mg IVPUSH BID@0600,1500 [facility] Last Admin: 03/20/19 06:49 Dose: 40 mg Heparin Sodium (Porcine) (Heparin -) 5,000 unit SQ TID [facility] Last Admin: 03/20/19 13:24 Dose: 5,000 unit Lisinopril (Prinivil) 10 mg PO BID [facility] Last Admin: 03/20/19 09:19 Dose: 10 mg Gen: NAD at rest Heart: RRR Lung: decreased breath sounds at the bases Abd: soft, nontender Ext: distal edema A/P Acute on Chronic Hypoxic Respiratory Failure Acute on Chronic Diastolic Heart FAilure Pulmonary HTN Obstructive Sleep Apnea/Obesity Hypoventilation Syndrome Morbid Obesity HTN - Lasix - monitor urine output, creatinine - O2 to keep SpO2 >90% - CPAP at night encouraged - DVT prophylaxis - Patient qualifies for supplemental oxygen therapy Dr Peters Problem List - Problems (1) Pulmonary vascular congestion Code(s): R09.89 - OTH SYMPTOMS AND SIGNS INVOLVING THE CIRC AND RESP SYSTEMS (2) Atelectasis Code(s): J98.11 - ATELECTASIS (3) Morbid obesity Code(s): E66.01 - MORBID (SEVERE) OBESITY DUE TO EXCESS CALORIES (4) Hypertension Code(s): I10 - ESSENTIAL (PRIMARY) HYPERTENSION (5) Morbid obesity with BMI of 50.0-59.9, adult Code(s): Z68.43 - BODY MASS INDEX (BMI) 50.0-59.9, ADULT (6) Obesity hypoventilation syndrome Code(s): E66.2 - MORBID (SEVERE) OBESITY WITH ALVEOLAR HYPOVENTILATION (7) Obstructive sleep apnea Code(s): G47.33 - OBSTRUCTIVE SLEEP APNEA (ADULT) (PEDIATRIC)
--- NOTE | 2019-03-20 15:18 | PN ---
Physical Exam: SUBJECTIVE: Patient seen and examined. No acute events overnight. Discussed need for home O2 which patient agrees with. Denies chest pain, abd pain, SOB, chills, fever. OBJECTIVE: Vital Signs Period Temp Pulse Resp BP Sys/Deluca Pulse Ox Last 24 Hr 98.7 F-99.4 F 85-91 18-20 126-162/64-90 90-95 GENERAL: The patient is awake, alert, and fully oriented, in no acute distress. HEAD: Normal with no signs of trauma. EYES: EOMI, no ptosis, no scleral icterus ENT: MMM NECK: Trachea midline, full range of motion, supple. LUNGS: difficulty to auscultate due to body habitus, decreased breath sounds on auscultation, no accessory muscle use HEART: RRR, Normal S1, S2. no murmur noted ABDOMEN: Soft, nontender, normoactive bowel sounds, no guarding. obese EXTREMITIES: 2+ pulses, warm, well-perfused, no edema. NEUROLOGICAL: Normal speech, gait not observed, no facial droop PSYCH: Normal mood, normal affect. SKIN: Warm, dry, normal turgor, no rashes or lesions noted Active Medications Generic Name Dose Route Start Last Admin Trade Name Freq PRN Reason Stop Dose Admin Carvedilol 25 mg 03/16/19 22:00 03/20/19 09:19 Coreg - PO 25 mg BID [facility] Administration Docusate Sodium 100 mg 03/16/19 12:29 03/18/19 10:17 Colace - PO 100 mg BID PRN Administration CONSTIPATION Ferrous Sulfate 325 mg 03/16/19 17:30 03/20/19 08:43 Feosol - PO 325 mg BIDWM [facility] Administration Furosemide 40 mg 03/16/19 06:00 03/20/19 06:49 Lasix Injection - IVPUSH 40 mg BID@0600,1500 [facility] Administration Heparin Sodium (Porcine) 5,000 unit 03/15/19 22:00 03/20/19 13:24 Heparin - SQ 5,000 unit TID [facility] Administration Lisinopril 10 mg 03/16/19 22:00 03/20/19 09:19 Prinivil PO 10 mg BID [facility] Administration ASSESSMENT/PLAN: 48 year old AA Male h/o morbid obesity, HITESH/OHS on CPAP, HTN, HFpEF, chronic leg edema, presented with worsening SOB, productive cough and nocturnal dyspnea and clinical features suggestive of CHF. #Acute Hypoxic and Hypercapneic respiratory failure 2/2 acute on chronic CHF - BiPAP overnight as needed - O2 nasal cannula as needed to maintain SpO2 >90% - monitor daily weights, I&Os - 15 lbs weight loss noted - Cardiology consulted (Dr. Whitehead) - Coreg 25mg BID, Lisinopril 10mg BID, Lasix 40mg IV BID - Extra Lasix 40mg IV x1 given today - ID consulted (Dr. Anthony) - can monitor off abx. afebrile, WBC within normal limits - Flu/RSV negative - Blood, Sputum cx pending. negative to date - patient failed pre/post. Pre SpO2 - 82%, post SpO2 92% on 6L O2 #Microcytic anemia - Hgb within normal limits - Iron level at 26. Started on iron supplementation - outpatient GI workup for iron deficiency #HITESH/OHS - continue BiPAP at night as needed - Pulmonary consulted (Dr. Peters) - continue diuresis #HTN - Coreg 25mg BID, Lisinopril 10mg BID - Patient on Lisinopril 20mg BID at home as per pharmacy #Morbid Obesity - Refer to Bariatric surgery on discharge #Prophylaxis - Heparin #FEN - monitor and replete as needed - no IVF indicated - sodium controlled diet #Disposition - continue IV diuresis. Patient failed pre/post, will need home O2. As per social media content specialist, patient discussed home O2 setup with sales service representative from [facility] as patient does not have insurance Visit type - Emergency Visit Emergency Visit: Yes ED Registration Date: 03/15/19 Care time: The patient presented to the Emergency Department on the above date and was hospitalized for further evaluation of their emergent condition. - New Patient This patient is new to me today: No - Critical Care Critical Care patient: No ATTENDING PHYSICIAN STATEMENT I saw and evaluated the patient. I reviewed the resident's note and discussed the case with the resident. I agree with the resident's findings and plan as documented. SUBJECTIVE: OBJECTIVE: ASSESSMENT AND PLAN:
[2019-03-21] MEDS: FUROSEMIDE 40 MG/4 ML INJECTABLE VIAL IVPUSH SCH (06:30)
[2019-03-21] MEDS: HEPARIN NA (PORCINE) 5,000 UNITS/ML 1ML VIAL SQ SCH ×2 (06:30→13:56)
--- NOTE | 2019-03-21 07:45 | PN ---
Teaching Attending Note Name of Resident: Yamilet Ruano ATTENDING PHYSICIAN STATEMENT I saw and evaluated the patient. I reviewed the resident's note and discussed the case with the resident. I agree with the resident's findings and plan as documented. Considering [facility] [place] referral with Dr. Dillon; no new complaints 10 sys ROS done and negartive aside from HPI NAD AAO resting in bed HR wnl, +s1/2 NT ND +BS CN2-12 wnl, no FND MP-3, thick neck A/P: Continue on O2, pending pre and post. Stable off abx. Likely pickwickian conmponent. Symptoms improved. Can likely be discharged home within 24 hours. I agree with the resident note as documented.
--- NOTE | 2019-03-21 08:21 | PN ---
Teaching Attending Note Name of Resident: Yamilet Ruano ATTENDING PHYSICIAN STATEMENT I saw and evaluated the patient. I reviewed the resident's note and discussed the case with the resident. I agree with the resident's findings and plan as documented. Seen and examined; please see resident note for further historical information. I personally verified all [place]ppola historical information and exam findings. Personally interpreted all imaging and diagnostics and reviewed appropriate consults. I reviewed all labs and vital signs as per resident note and EMR as documented. I agree with the above assessment and plan unless supplemented by myself in the following. Continued on Lasix 40 mg twice daily, Coreg 25 twice daily lisinopril 10 mg twice daily. Being discharged home with BiPAP and home O2. He will require bariatric surgery evaluation as an outpatient by Dr. Nash which was made. He is complaint free this morning and is in good spirits and is anticipating discharge home. We discussed the matter with bilingual social worker and all services as detailed were made available. All of his questions were answered and he has benefited maximally from hospitalization. We will discharge him home. 10 item review of systems completed and is negative aside from as discussed in the subjective data in my own/the resident documentation. VS, labs, imaging reviewed NAD, AAO, resting comfortably in bed. RRR s1/2 no mgr Normal muscle tone, moves all 5 extremities with normal apparent strength Neck is supple, trachea midline, no sherrell LN Lungs CTAB with sym expansion NT ND +BS no sherrell organomegaly CN2-12 wnl; no FND NC AT EOMI PERRLA Normal mood, appropriate behavior, euthymic affect No skin breakdown or rashes noted Diagnostics reviewed from hospitalization, as detailed in the EMR. Agree with discharge planning and hospital course as per the resident note. Discharge home, full code
--- NOTE | 2019-03-21 09:01 | PN ---
Progress Note (short form) - Note Progress Note: States breathing feels overall better. No chest pain or cough. NIPPV was discontinued. Intake & Output 03/18/19 03/19/19 03/20/19 03/21/19 23:59 23:59 23:59 23:59 Intake Total 364 400 660 100 Output Total 400 3400 2000 500 Balance -36 -3000 -1340 -400 Weight 501 lb 498 lb 11.2 oz 497 lb 12.8 oz 491 lb Last Vital Signs Temp Pulse Resp BP Pulse Ox 98 F 98 H 20 148/70 95 03/21/19 06:00 03/21/19 06:00 03/21/19 06:00 03/21/19 06:00 03/20/19 23:15 Active Medications Carvedilol (Coreg -) 25 mg PO BID [facility] Last Admin: 03/20/19 22:13 Dose: 25 mg Docusate Sodium (Colace -) 100 mg PO BID PRN PRN Reason: CONSTIPATION Last Admin: 03/18/19 10:17 Dose: 100 mg Ferrous Sulfate (Feosol -) 325 mg PO BIDWM [facility] Last Admin: 03/20/19 18:00 Dose: 325 mg Furosemide (Lasix -) 40 mg PO BID@0600,1400 [facility] Heparin Sodium (Porcine) (Heparin -) 5,000 unit SQ TID [facility] Last Admin: 03/21/19 06:30 Dose: 5,000 unit Lisinopril (Prinivil) 10 mg PO BID [facility] Last Admin: 03/20/19 22:13 Dose: 10 mg Gen: NAD at rest Heart: RRR Lung: decreased breath sounds at the bases Abd: soft, nontender Ext: distal edema A/P Acute on Chronic Hypoxic Respiratory Failure Acute on Chronic Diastolic Heart FAilure Pulmonary HTN Obstructive Sleep Apnea/Obesity Hypoventilation Syndrome Morbid Obesity HTN - Lasix - monitor urine output, creatinine - O2 to keep SpO2 >90% - CPAP at night encouraged - DVT prophylaxis - Patient qualifies for supplemental oxygen therapy Dr Peters Problem List - Problems (1) Pulmonary vascular congestion Code(s): R09.89 - OTH SYMPTOMS AND SIGNS INVOLVING THE CIRC AND RESP SYSTEMS (2) Atelectasis Code(s): J98.11 - ATELECTASIS (3) Morbid obesity Code(s): E66.01 - MORBID (SEVERE) OBESITY DUE TO EXCESS CALORIES (4) Hypertension Code(s): I10 - ESSENTIAL (PRIMARY) HYPERTENSION (5) Morbid obesity with BMI of 50.0-59.9, adult Code(s): Z68.43 - BODY MASS INDEX (BMI) 50.0-59.9, ADULT (6) Obesity hypoventilation syndrome Code(s): E66.2 - MORBID (SEVERE) OBESITY WITH ALVEOLAR HYPOVENTILATION (7) Obstructive sleep apnea Code(s): G47.33 - OBSTRUCTIVE SLEEP APNEA (ADULT) (PEDIATRIC)
[2019-03-21] MEDS: LISINOPRIL 10 MG TABLET (FP) PO SCH (09:28)
[2019-03-21] MEDS: FERROUS SO4 325 MG TABLET (FP) PO SCH (09:28)
[2019-03-21] MEDS: CARVEDILOL 25 MG TABLET (FP) PO SCH (09:28)
--- NOTE | 2019-03-21 10:58 | DS ---
Physical Exam: SUBJECTIVE: Patient seen and examined. States that he has spoken with billing representative from [facility] regarding home O2. Explained follow up recommendations. No acute events overnight. OBJECTIVE: Vital Signs Period Temp Pulse Resp BP Sys/Deluca Pulse Ox Last 24 Hr 97 F-98.7 F 89-102 20-22 117-149/59-77 91-95 PHYSICAL EXAM GENERAL: The patient is awake, alert, and fully oriented, in no acute distress. HEAD: Normal with no signs of trauma. EYES: EOMI, no ptosis, no scleral icterus ENT: MMM NECK: Trachea midline, full range of motion, supple. LUNGS: difficulty to auscultate due to body habitus, decreased breath sounds on auscultation, no accessory muscle use HEART: RRR, Normal S1, S2. no murmur noted ABDOMEN: Soft, nontender, normoactive bowel sounds, no guarding. obese EXTREMITIES: 2+ pulses, warm, well-perfused, no edema. NEUROLOGICAL: Normal speech, gait not observed, no facial droop PSYCH: Normal mood, normal affect. SKIN: Warm, dry, normal turgor, no rashes or lesions noted LABS HOSPITAL COURSE: Date of Admission:03/15/19 Date of Discharge: 03/21/19 48 year old AA Male h/o morbid obesity, HITESH/OHS on CPAP, HTN, HFpEF, chronic leg edema, presented with worsening SOB, productive cough and nocturnal dyspnea and clinical features suggestive of CHF. Patient was started on IV Lasix 40mg BID with good effect. Noted to have a 15+ lb weight loss and improvement in his respiratory status. Patient was transitioned back to PO lasix. He was seen by ID and decision was made to monitor off abx due to low concern for bacterial infection. Negative for flu, RSV. Blood cultures negative. Pre, Post exam was done by Respiratory which patient failed and confirmed need for home O2. SpO2 on room air was 80% and patient required 6L O2 to get to 91% SpO2 post exercise. As patient does not have insurance he spoke with a billing representative from [facility] about self pay for home O2 which was arranged. Patient given follow up referrals for Dr. Trevino, GI, Aradavid, Bariatric surgery, Dr. Peters , Pulmonology and Dr. Whitehead, Cardiology. Iron levels noted to be low during admission and patient started on supplementation and given prescription to continue iron supplements. Stable for discharge with appropriate follow up instructions given. Minutes to complete discharge: 36 Discharge Summary Problems reviewed: Yes Reason For Visit: MORBID OBESITY,HEART FAILURE,RESP DISTRESS Current Active Problems Atelectasis (Acute) Pulmonary vascular congestion (Acute) Respiratory distress (Acute) Heart failure (Chronic) Morbid obesity (Chronic) Condition: Improved - Instructions Diet, Activity, Other Instructions: You presented to the hospital due to cough and shortness of breath. You were in respiratory distress secondary to exacerbation of heart failure. You were treated with IV Lasix with improvement as this helped excrete excess fluid from your body. You were seen by Pulmonology and Cardiology while admitted and we recommend following up with them after discharge. Your oxygen saturation on room air was noted to be low and you have been set up with home oxygen therapy. Medication changes: 1. START Iron supplements 325mg twice daily with meals for low iron levels. Iron supplements may cause constipation, you may use stool softeners to help with constipation. Follow up with the following physicians: 1. Please follow up with your primary care provider within one week of discharge for further management of your medical conditions and to discuss the oxygen therapy and medications you were started on while admitted. 2. Recommended to follow up with Dr. Nash, Bariatric surgery, within 1-2 weeks of discharge to discuss options to help you lose weight. 3. Recommended to follow up with Dr. Trevino, Gastroenterology within 1 week of discharge as you were found to have low iron levels when you were admitted. We recommend following up with gastroenterology for further workup as to why your iron levels are low. 4. Recommended to follow up with Dr. Peters, Pulmonology, within 1 week of discharge. 5. Recommended to follow up with Dr. Whitehead, Cardiology, within 1 week of discharge to discuss your cardiovascular health and medical conditions. Activity and Diet 1. Please monitor your diet as you need to consume a diet with less salt and fats. 2. Continue to use your CPAP machine at night. Continue all your other medications as prescribed Please return to the ER if you have any signs or symptoms of chest pain, shortness of breath, uncontrollable fever, chills, nausea, vomiting, numbness, tingling, or weakness in any part of your body, changes in vision, or slurred speech. Please return to the ER if symptoms persist, worsen, or new symptoms arise. Referrals: Vance Nash MD [Staff Physician] - ON STAFF,NOT [Primary Care Provider] - Nikhil Peters MD [Staff Physician] - Talha Whitehead MD [Staff Physician] - Disposition: HOME - Home Medications Comprehensive Discharge Medication List: Ambulatory Orders Furosemide [Lasix -] 40 mg PO BID 12/06/18 Carvedilol [Coreg -] 12.5 mg PO BID 03/15/19 Lisinopril [Prinivil] 20 mg PO BID 03/15/19 Ferrous Sulfate [Feosol] 325 mg PO BIDWM 30 Days #60 ud 03/21/19 This patient is new to me today: No Emergency Visit: Yes ED Registration Date: 03/15/19 Care time: The patient presented to the Emergency Department on the above date and was hospitalized for further evaluation of their emergent condition. Critical Care patient: No - Discharge Referral Referred to [facility] No ATTENDING PHYSICIAN STATEMENT I saw and evaluated the patient. I reviewed the resident's note and discussed the case with the resident. I agree with the resident's findings and plan as documented. SUBJECTIVE: OBJECTIVE: ASSESSMENT AND PLAN:
--- NOTE | 2019-03-21 11:28 | PN ---
Progress Note, Physician History of Present Illness: SOB, cough, orthopnea and paroxysmal nocturnal dyspnea resolved to baseline with diuresis. - Current Medication List Current Medications: Active Medications Carvedilol (Coreg -) 25 mg PO BID [facility] Last Admin: 03/21/19 09:28 Dose: 25 mg Docusate Sodium (Colace -) 100 mg PO BID PRN PRN Reason: CONSTIPATION Last Admin: 03/18/19 10:17 Dose: 100 mg Ferrous Sulfate (Feosol -) 325 mg PO BIDWM [facility] Last Admin: 03/21/19 09:28 Dose: 325 mg Furosemide (Lasix -) 40 mg PO BID@0600,1400 [facility] Heparin Sodium (Porcine) (Heparin -) 5,000 unit SQ TID [facility] Last Admin: 03/21/19 06:30 Dose: 5,000 unit Lisinopril (Prinivil) 10 mg PO BID [facility] Last Admin: 03/21/19 09:28 Dose: 10 mg - Objective Vital Signs: Vital Signs Temperature 98 F 03/21/19 06:00 Pulse Rate 102 H 03/21/19 08:45 Respiratory Rate 03/21/19 06:00 Blood Pressure 148/70 03/21/19 06:00 O2 Sat by Pulse Oximetry (%) 91 L 03/21/19 08:45 Constitutional: Yes: No Distress, Calm Neck: Yes: Supple Cardiovascular: Yes: Regular Rate and Rhythm Respiratory: Yes: Regular, Diminished, On Nasal O2 Gastrointestinal: Yes: Normal Bowel Sounds, Soft, Abdomen, Obese Edema: Yes Edema: LLE: Trace, RLE: Trace Labs: CBC, BMP 03/19/19 05:20 03/19/19 05:20 INR, PTT INR 1.22 (0.83-1.09) H 03/15/19 11:15 - ....Imaging EKG: Report Reviewed (Tele: SR) Problem List - Problems (1) Acute on chronic diastolic (congestive) heart failure Code(s): I50.33 - ACUTE ON CHRONIC DIASTOLIC (CONGESTIVE) HEART FAILURE (2) Acute on chronic respiratory failure with hypoxia and hypercapnia Code(s): J96.21 - ACUTE AND CHRONIC RESPIRATORY FAILURE WITH HYPOXIA; J96.22 - ACUTE AND CHRONIC RESPIRATORY FAILURE WITH HYPERCAPNIA (3) Hypertensive urgency Code(s): I16.0 - HYPERTENSIVE URGENCY (4) Morbid obesity with BMI of 50.0-59.9, adult Code(s): Z68.43 - BODY MASS INDEX (BMI) 50.0-59.9, ADULT (5) Obesity hypoventilation syndrome Code(s): E66.2 - MORBID (SEVERE) OBESITY WITH ALVEOLAR HYPOVENTILATION (6) Obstructive sleep apnea Code(s): G47.33 - OBSTRUCTIVE SLEEP APNEA (ADULT) (PEDIATRIC) Assessment/Plan 11/26/2018 Echo: Mildly dilated cLVH normal LV fxn, mild TR RVSP 30-40 mmHg, tr- mild MR 08/18/2015 R&LHc: Nonobstructive CAD, severe pulm HTN, elevated LVEDP 27 mmHg, elevated pcwp 26 mmHg, PAP 58/25/40 1. Acute on Chronic Hypoxic and Hypercapneic Respiratory Failure 2. Acute on Chronic Diastolic Heart Failure with Pulmonary HTN and pleural effusions 3. Morbid Obesity 4. Obesity Hypoventilation Syndrome/Obstructive Sleep Apnea 5. HTN PLAN: 1. Furosemide 40 mg po BID with monitor renal function and electrolytes 2. Carvedilol 25 mg BID and Lisinopril 10 mg BID 3. Bipap and home O2 4. Eventual referral to bariatric surgery 5. D/c planning with f/u in office
--- NOTE | 2019-03-21 13:12 | PN ---
Progress Note, Physician History of Present Illness: stable no new issues - Current Medication List Current Medications: Active Medications Carvedilol (Coreg -) 25 mg PO BID [facility] Last Admin: 03/21/19 09:28 Dose: 25 mg Docusate Sodium (Colace -) 100 mg PO BID PRN PRN Reason: CONSTIPATION Last Admin: 03/18/19 10:17 Dose: 100 mg Ferrous Sulfate (Feosol -) 325 mg PO BIDWM [facility] Last Admin: 03/21/19 09:28 Dose: 325 mg Furosemide (Lasix -) 40 mg PO BID@0600,1400 [facility] Heparin Sodium (Porcine) (Heparin -) 5,000 unit SQ TID [facility] Last Admin: 03/21/19 06:30 Dose: 5,000 unit Lisinopril (Prinivil) 10 mg PO BID [facility] Last Admin: 03/21/19 09:28 Dose: 10 mg - Objective Vital Signs: Vital Signs Temperature 98 F 03/21/19 09:00 Pulse Rate 85 03/21/19 09:00 Respiratory Rate 20 03/21/19 09:00 Blood Pressure 143/66 03/21/19 09:00 O2 Sat by Pulse Oximetry (%) 92 L 03/21/19 09:00 Constitutional: Yes: No Distress, Calm, Obese Cardiovascular: Yes: Regular Rate and Rhythm Respiratory: Yes: Regular, CTA Bilaterally, On Nasal O2 Gastrointestinal: Yes: Normal Bowel Sounds, Soft Musculoskeletal: Yes: WNL Extremities: Yes: WNL Psychiatric: Yes: Alert, Oriented Labs: CBC, BMP 03/19/19 05:20 03/19/19 05:20 INR, PTT INR 1.22 (0.83-1.09) H 03/15/19 11:15 Assessment/Plan Problem List - Problems (1) Acute on chronic diastolic (congestive) heart failure Code(s): I50.33 - ACUTE ON CHRONIC DIASTOLIC (CONGESTIVE) HEART FAILURE (2) Acute on chronic respiratory failure with hypoxia and hypercapnia Code(s): J96.21 - ACUTE AND CHRONIC RESPIRATORY FAILURE WITH HYPOXIA; J96.22 - ACUTE AND CHRONIC RESPIRATORY FAILURE WITH HYPERCAPNIA (3) Hypertensive urgency Code(s): I16.0 - HYPERTENSIVE URGENCY (4) Morbid obesity with BMI of 50.0-59.9, adult Code(s): Z68.43 - BODY MASS INDEX (BMI) 50.0-59.9, ADULT (5) Obesity hypoventilation syndrome Code(s): E66.2 - MORBID (SEVERE) OBESITY WITH ALVEOLAR HYPOVENTILATION (6) Obstructive sleep apnea Code(s): G47.33 - OBSTRUCTIVE SLEEP APNEA (ADULT) (PEDIATRIC) 7 r/o pneumonia plan continue current mgmt resp support rest as per the team
[2019-03-21 13:58] VITALS: BP 119/54; PULSE 86; TEMP 98.2
[2019-03-21] MEDS ORDERED: FUROSEMIDE 40 MG TABLET (FP) PO SCH (14:00)
== END 2019-03-21 15:07 | disposition home or self-care (01) | DRG 194 ==
LOC: JER 10:42 → JERBED 13:29 → J4W 21:32 → UNDODISIN 03-19 16:40
PROVIDERS: ATTEND Internal Medicine
DX: I11.0 Hypertensive heart disease with heart failure (principal); J96.21 Acute and chronic respiratory failure with hypoxia; I50.33 Acute on chronic diastolic (congestive) heart failure; J96.22 Acute and chronic respiratory failure with hypercapnia; I16.0 Hypertensive urgency; E66.01 Morbid (severe) obesity due to excess calories; Z68.43 Body mass index [BMI] 50.0-59.9, adult; G47.33 Obstructive sleep apnea (adult) (pediatric); I27.20 Pulmonary hypertension, unspecified; J98.11 Atelectasis; D50.9 Iron deficiency anemia, unspecified
CPT/HCPCS: 36415; 71045-TC-FY; 71046-TC-FY; 80048; 80053; 82550; 82553; 82728; 83540; 83550; 83605; 83735; 83880; 84484; 85025; 85027; 85610; 85730; 87040; 87804; 87807; 87899; 93005; 93010; 94640; 94660; 94761; 97116-GP; 97161-GP; 99285-25; J1644

== ENCOUNTER 2019-08-20 12:28 | Inpatient (IN) | payer SELFPAY ==
[2019-08-20 14:14] LABS: ARTERIAL BLD GAS O2 SATURATION 97.2 mmHg (95-98); ARTERIAL BLOOD GAS BASE EXCESS 2.1 mmol/L (-2-2); ARTERIAL BLOOD GAS PO2 112.4 mmHg (80-100)
--- NOTE | 2019-08-20 14:18 | PDOC ---
Attending Attestation - Resident Resident Name: Carmenza Andinohan - ED Attending Attestation I have performed the following: I have examined & evaluated the patient, The case was reviewed & discussed with the resident, I agree w/resident's findings & plan - HPI HPI: 08/20/19 14:19 49 year old AA Male h/o morbid obesity, HITESH/OHS on CPAP, HTN, HFpEF, chronic leg edema, presented with worsening SOB, and was found to be saturating in the 50s o n RA with a BP of 211/106. States he checked his oxygen sat at home and it was in the 50s-60, and no higher than 80, so he drove to the ED. At baseline, unable to lay flat in bed. Baseline has exercise tolerance of perhaps one block, now less than that. Does not weigh himself, but thinks he may have gained some weight since the beginning of the pandemic. Does not think his legs are more swollen than baseline. Denies f/c, cough, congestion, n/v, diarrhea, sick contacts, attendance at indoor gatherings, recent travel. Denies chest pain, blurry vision, or urinary symptoms. 08/20/19 16:24 - Physicial Exam PE: 08/20/19 14:14 General: awake and alert, mod respiratory distress, morbidly obese HEENT: NCAT, PERRL, EOMI, clear conjunctiva, anicteric, moist mucous membranes, clear oropharynx, no oral lesions.. Neck: neck supple, FROM Resp: mod respiratory distress, decreased breath sounds bilaterally, poor inspiratory effort, tachypneic. on NRB. CVS: RRR, no murmurs, 2+ peripheral pulses throughout, no peripheral edema Abdomen: soft, NTND, no rebound or guarding. obese. large vertical midline scar Back: nontender, normal inspection and ROM] MSK: no edema, HANSEN x4, ROM intact. No clubbing or cyanosis. normal bulk and tone. Extremities: no calf tenderness; enlarged BLE Neuro: alert, oriented appropriately; no focal neurologic deficits Skin: warm and well perfused, cap refill <2 sec, normal color for ethnicity. 08/20/19 16:25 08/20/19 16:26 - Critical Care Time Total Critical Care Time: 40 (acute respiratory failure) Critical Care Statement: The care of this patient involved high complexity decision making to prevent further life threatening deterioration of the patien t's condition and/or to evaluate & treat vital organ system(s) failure or risk of failure. - Medical Decision Making 08/20/19 14:15 Vital Signs Temp Pulse Resp BP Pulse Ox 99.0 F 82 30 H 211/106 H 92 L 08/20/19 12:29 08/20/19 12:29 08/20/19 12:29 08/20/19 12:29 08/20/19 12:29 vitals reviewed +hypertensive tachypneic sats initially 60s on RA placed on NRB, improved to >94% DDx SOB: ACS, PE, PTX, CHF, COPD exac, pulmonary edema, pleurisy, pneumonia, viral syndrome. effusion. anemia, electrolyte/metabolic derangements. Considered but clinically doubt based on HPI and PE: Low suspicion for pulmonary embolism or dissection. Interpreted by ED Physician: CXR (1 view): cardiiomegaly - pulmonary vascular congestion. bones appear intact and structures normal alignment, no free air under diaphragm, no pneumothorax. EKG NSR 98 bpm, no interval abnormalities, narrow QRS, ST and T wave segments and morphology normal. Nonspecific T wave abnormalities, unchanged from prior labs and lytes unremarkable. neg trop ABG with CO2 retention, co2 level 80s - needs bipap for ventilation. blow off CO2. covid testing IV lasix for diuresis, usually 40mg BID. will give lasix 40mg IV now. stable on playground monitor now. Plan for admit telemetry for CHF/fluid overload. r/o covid 19 08/20/19 16:28 Discharge - Discharge Information Problems reviewed: Yes Clinical Impression/Diagnosis: Pulmonary vascular congestion, Acute respiratory failure, Acute and chronic respiratory failure, CHF (congestive heart failure), Suspected COVID-19 virus infection Heart failure Qualifiers: Heart failure type: unspecified Heart failure chronicity: unspecified Qualified Code(s): I50.9 - Heart failure, unspecified Condition: Guarded - Admission Yes - Follow up/Referral - Patient Discharge Instructions - Post Discharge Activity
[2019-08-20] MEDS ORDERED: FUROSEMIDE 40 MG/4 ML INJECTABLE VIAL IVPUSH ONE (14:20)
[2019-08-20 14:38] LABS: PLATELET COUNT 207 K/MM3 (134-434); WHITE BLOOD COUNT 6.5 K/mm3 (4.0-10.0)
[2019-08-20 14:49] LABS: BASO % 0.6 % (0-2.0); EOS % 0.6 % (0-4.5); HEMATOCRIT 48.5 % (35.4-49); HEMOGLOBIN 13.9 GM/dL (11.7-16.9); LYMPH % 16.5 % (8-40); MCH 22.9 pg (25.7-33.7); MCHC 28.6 g/dl (32.0-35.9); MEAN CELL VOLUME 80.1 fl (80-96); MEAN PLT VOLUME 9.1 fl (7.5-11.1); NEUT % 74.3 % (42.8-82.8); RBC 6.05 M/mm3 (4.00-5.60); RDW 16.4 % (11.9-15.9)
[2019-08-20 14:55] LABS: INR 1.17 (0.83-1.09); PROTHROMBIN TIME (PATIENT) 13.8 SEC (9.7-13.0)
[2019-08-20 14:58] LABS: ACTIVATED PTT 31.4 SECONDS (25.2-36.5); VENOUS BASE EXCESS 4.6 mmol/L (-2-2); VENOUS O2 SATURATION 97.2 % (70-80); VENOUS PH 7.25 (7.310-7.410)
[2019-08-20 15:00] LABS: VENOUS PCO2 82.9 mmHg (38-52)
--- NOTE | 2019-08-20 15:10 | PDOC ---
History of Present Illness <Misty Ortiz - Last Filed: 08/20/19 16:29> - General History Source: Patient Exam Limitations: No Limitations - History of Present Illness Initial Comments: 49yo M w/P<H morbid obesity, HITESH on CPAP, HTN, HFpEF, OA, chronic leg edema who presented to the ED for several days of worsening shortness of breath, and was found to be saturating in the 50s on RA with a BP of 211/106. States he checked his oxygen sat at home and it was in the 50s-60, and no higher than 80, so he drove to the ED. At baseline, unable to lay flat in bed. Baseline has exercise tolerance of perhaps one block, now less than that. Does not weigh himself, but thinks he may have gained some weight since the beginning of the pandemic. Does not think his legs are more swollen than baseline. Denies f/c, cough, congestion, n/v, diarrhea, sick contacts, attendance at indoor gatherings, recent travel. Denies chest pain, blurry vision, or urinary symptoms. PMH: as above PSH: ventral hernia 1997 Meds: lisinopril 10mg daily, furosemide 40mg BID, carvedilol, ibuprofen. Allergies: none SH: never smoker, denies alc/drug use FH: non-contributory PCP: Jai Patel <Junito Andino - Last Filed: 08/20/19 18:34> - General Chief Complaint: Respiratory Stated Complaint: DIFFICULTY BREATHING Time Seen by Provider: 08/20/19 12:47 Past History <Misty Ortiz - Last Filed: 08/20/19 16:29> - Medical History Anemia: No Asthma: No Cancer: No Cardiac Disorders: No CVA: No COPD: No CHF: No Dementia: No Diabetes: No GI Disorders: No Disorders: No HTN: Yes Hypercholesterolemia: No Liver Disease: No Seizures: No Thyroid Disease: No - Surgical History Abdominal Surgery: Yes (HERNIA 1997) Appendectomy: No Cardiac Surgery: No Cholecystectomy: No Lung Surgery: No Neurologic Surgery: No Orthopedic Surgery: No - Immunization History Immunization Up to Date: No - Psycho-Social/Smoking History Smoking Status: No Smoking History: Unknown if ever smoked Have you smoked in the past 12 months: No Number of Cigarettes Smoked Daily: 0 - Substance Abuse Hx (Audit-C & DAST Scrn) How often the patient has a drink containing alcohol: Never Score: In Men: 4 or > Positive; In Women: 3 or > Positive: 0 Screen Result (Pos requires Nsg. Audit-10AR): Negative In the last yr the pt used illegal drug/Rx for NonMed reason: No Score: Yes response is considered Positive: 0 Screen Result (Positive result requires Nsg. DAST-10): Negative <Junito Andino - Last Filed: 08/20/19 18:34> - Medical History Allergies/Adverse Reactions: Allergies Allergy/AdvReac Type Severity Reaction Status Date / Time No Known Allergies Allergy Verified 03/15/19 11:04 Home Medications: Ambulatory Orders Furosemide [Lasix -] 40 mg PO BID 12/06/18 Ferrous Sulfate [Feosol] 325 mg PO BIDWM 30 Days #60 ud 03/21/19 Carvedilol 25 mg PO BID 08/20/19 Lisinopril 10 mg PO DAILY 08/20/19 Review of Systems - Review of Systems Constitutional: No: Chills, Fever HEENTM: No: Eye Pain, Blurred Vision Respiratory: Yes: Shortness of Breath. No: Cough Cardiac (ROS): No: Chest Pain, Chest Tightness ABD/GI: No: Nausea, Vomiting : No: Burning, Dysuria, Hematuria, Pain Musculoskeletal: No: Muscle Pain Integumentary: No: Rash Neurological: No: Headache Psychiatric: No: Anxiety, Depression Endocrine: No: Excessive Sweating <Junito Andino - Last Filed: 08/20/19 18:34> *Physical Exam - Vital Signs Last Vital Signs Temp Pulse Resp BP Pulse Ox 99.0 F 85 30 H 211/106 H 97 08/20/19 12:29 08/20/19 15:47 08/20/19 12:29 08/20/19 12:29 08/20/19 15:47 <Misty Ortiz - Last Filed: 08/20/19 16:29> - Vital Signs Last Vital Signs Temp Pulse Resp BP Pulse Ox 99.0 F 82 30 H 211/106 H 92 L 08/20/19 12:29 08/20/19 12:29 08/20/19 12:29 08/20/19 12:29 08/20/19 12:29 - Physical Exam General Appearance: Yes: Obese HEENT: positive: EOMI, LUZMA Neck: positive: Supple Respiratory/Chest: positive: Lungs Clear, Normal Breath Sounds, Respiratory Distress, Decreased Breath Sounds. negative: Crackles, Rhonchi, Wheezing Cardiovascular: positive: Regular Rhythm, Regular Rate Gastrointestinal/Abdominal: positive: Soft. negative: Tender Musculoskeletal: positive: Normal Inspection Extremity: positive: Pedal Edema (2+ LE edema b/l L>R at least to upper calf with chronic skin changes) Neurologic: positive: Fully Oriented, Alert <Junito Andino - Last Filed: 08/20/19 18:34> ED Treatment Course - LABORATORY CBC & Chemistry Diagram: 08/20/19 13:15 08/20/19 13:15 - ADDITIONAL ORDERS Additional order review: Laboratory Results 08/20/19 08/20/19 08/20/19 13:26 13:15 13:15 PT with INR INR PTT (Actin FS) Anticoagulation Therapy No Result Required. Puncture Site Left radial Patient Temperature No Result Required. ABG pH 7.250 L ABG pCO2 73.60 H* ABG pO2 112.4 H ABG HCO3 31.6 H ABG O2 Sat (Measured) 97.2 ABG O2 Content No Result Required. ABG Base Excess 2.1 H Ramses Test No Result Required. VBG pH 7.250 L POC VBG pCO2 82.9 H* POC VBG pO2 113.1 H VBG HCO3 35.5 H VBG O2 Sat (Raul) 97.2 H VBG Base Excess 4.6 H Patient On Oxygen Yes O2 Delivery Device No Result Required. Oxygen Flow Rate 100 Vent Mode No Result Required. Vent Rate No Result Required. Mechanical Rate No Result Required. PEEP No Result Required. Pressure Support Vent No Result Required. Sodium Potassium Chloride Carbon Dioxide Anion Gap BUN Creatinine Est GFR (CKD-EPI)AfAm Est GFR (CKD-EPI)NonAf Random Glucose Lactic Acid Calcium Ferritin Total Bilirubin Direct Bilirubin AST ALT Alkaline Phosphatase LD Total Creatine Kinase Troponin I C-Reactive Protein B-Natriuretic Peptide 423.6 H Total Protein Albumin 08/20/19 08/20/19 08/20/19 13:15 13:15 13:15 PT with INR 13.80 H INR 1.17 H PTT (Actin FS) 31.4 Anticoagulation Therapy Puncture Site Patient Temperature ABG pH ABG pCO2 ABG pO2 ABG HCO3 ABG O2 Sat (Measured) ABG O2 Content ABG Base Excess Ramses Test VBG pH POC VBG pCO2 POC VBG pO2 VBG HCO3 VBG O2 Sat (Raul) VBG Base Excess Patient On Oxygen O2 Delivery Device Oxygen Flow Rate Vent Mode Vent Rate Mechanical Rate PEEP Pressure Support Vent Sodium 145 Potassium 3.5 Chloride 102 Carbon Dioxide 34 H Anion Gap 8 BUN 14.0 Creatinine 0.9 Est GFR (CKD-EPI)AfAm 114.21 Est GFR (CKD-EPI)NonAf 98.54 Random Glucose 98 Lactic Acid 0.7 Calcium 8.3 L Ferritin 21.8 Total Bilirubin 0.8 Direct Bilirubin 0.2 AST 15 ALT 23 Alkaline Phosphatase 80 LD Total 259 H Creatine Kinase 118 Troponin I < 0.02 C-Reactive Protein 3.5 H B-Natriuretic Peptide Total Protein 7.9 Albumin 3.3 L 08/20/19 13:15 RBC 6.05 H MCV 80.1 MCHC 28.6 L RDW 16.4 H MPV 9.1 Neutrophils % 74.3 Lymphocytes % 16.5 Monocytes % 8.0 Eosinophils % 0.6 Basophils % 0.6 - Medications Given in the ED: ED Medications Discontinued Medications Generic Name Dose Route Start Last Admin Trade Name Freq PRN Reason Stop Dose Admin Furosemide 40 mg 08/20/19 14:20 08/20/19 14:24 Lasix Injection - IVPUSH 08/20/19 14:21 40 mg ONCE ONE Administration <Misty Ortiz - Last Filed: 08/20/19 16:29> - LABORATORY CBC & Chemistry Diagram: 08/20/19 13:15 08/20/19 13:15 - ADDITIONAL ORDERS Additional order review: Laboratory Results 08/20/19 08/20/19 08/20/19 13:26 13:15 13:15 PT with INR INR PTT (Actin FS) Anticoagulation Therapy No Result Required. Puncture Site Left radial Patient Temperature No Result Required. ABG pH 7.250 L ABG pCO2 73.60 H* ABG pO2 112.4 H ABG HCO3 31.6 H ABG O2 Sat (Measured) 97.2 ABG O2 Content No Result Required. ABG Base Excess 2.1 H Ramses Test No Result Required. VBG pH 7.250 L POC VBG pCO2 82.9 H* POC VBG pO2 113.1 H VBG HCO3 35.5 H VBG O2 Sat (Raul) 97.2 H VBG Base Excess 4.6 H Patient On Oxygen Yes O2 Delivery Device No Result Required. Oxygen Flow Rate 100 Vent Mode No Result Required. Vent Rate No Result Required. Mechanical Rate No Result Required. PEEP No Result Required. Pressure Support Vent No Result Required. Lactic Acid 0.7 08/20/19 13:15 PT with INR 13.80 H INR 1.17 H PTT (Actin FS) 31.4 Anticoagulation Therapy Puncture Site Patient Temperature ABG pH ABG pCO2 ABG pO2 ABG HCO3 ABG O2 Sat (Measured) ABG O2 Content ABG Base Excess Ramses Test VBG pH POC VBG pCO2 POC VBG pO2 VBG HCO3 VBG O2 Sat (Raul) VBG Base Excess Patient On Oxygen O2 Delivery Device Oxygen Flow Rate Vent Mode Vent Rate Mechanical Rate PEEP Pressure Support Vent Lactic Acid - Medications Given in the ED: ED Medications Discontinued Medications Generic Name Dose Route Start Last Admin Trade Name Freq PRN Reason Stop Dose Admin Furosemide 40 mg 08/20/19 14:20 08/20/19 14:24 Lasix Injection - IVPUSH 08/20/19 14:21 40 mg ONCE ONE Administration <Junito Andino - Last Filed: 08/20/19 18:34> Medical Decision Making - Critical Care Time Total Critical Care Time (minutes): 40 (acute respiratory failure) Critical Care Statement: The care of this patient involved high complexity decision making to prevent further life threatening deterioration of the patient's condition and/or to evaluate & treat vital organ system(s) failure or risk of failure. <Misty Ortiz - Last Filed: 08/20/19 16:29> - Medical Decision Making 49yo M w/P<H morbid obesity, HITESH on CPAP, HTN, HFpEF, OA, chronic leg edema who presented to the ED for several days of worsening shortness of breath, and was found to be saturating in the 50s on RA with a BP of 211/106. Sat quickly came up on non-rebreather, but CO2 was in 80s, so started on Bipap. Given history of HFpEF, chronic LE edema, and CXR findings, symptoms likely attributable to HF exacerbation. Differential also includes covid or other respiratory pathology. -EKG, CXR, labs -Bipap -furosemide 40mg IV -admit to tele Spoke to Dr. Donte Ford who accepted the admission EKG: no ischemic changes CXR: possible fluid overload and cardiomegaly Labs: CO2 retention on ABG -continue Bipap 08/20/19 18:33 <Junito Andino - Last Filed: 08/20/19 18:34> Discharge <Misty Ortiz - Last Filed: 08/20/19 16:29> - Discharge Information Problems reviewed: Yes - Admission Yes <Junito Andino - Last Filed: 08/20/19 18:34> - Discharge Information Clinical Impression/Diagnosis: Pulmonary vascular congestion, Acute respiratory failure, Acute and chronic respiratory failure, CHF (congestive heart failure), Suspected COVID-19 virus infection Heart failure Qualifiers: Heart failure type: unspecified Heart failure chronicity: unspecified Qualified Code(s): I50.9 - Heart failure, unspecified Condition: Guarded
--- NOTE | 2019-08-20 15:16 | EKG ---
Test Reason : Blood Pressure : / mmHG Vent. Rate : 098 BPM Atrial Rate : 098 BPM P-R Int : 182 ms QRS Dur : 098 ms QT Int : 356 ms P-R-T Axes : 017 112 -02 degrees QTc Int : 454 ms POOR DATA QUALITY, INTERPRETATION MAY BE ADVERSELY AFFECTED NORMAL SINUS RHYTHM POSSIBLE LEFT ATRIAL ENLARGEMENT RIGHT AXIS DEVIATION Poor R progresssion ABNORMAL ECG WHEN COMPARED WITH ECG OF 15-MAR-2019 11:15, [place] has changed Poor R progression now present Confirmed by Abimbola Tamayo ([id number]) on 08/20/2019 3:16:41 PM Referred By: Confirmed By:Abimbola Tamayo
[2019-08-20 15:51] LABS: LDH 259 U/L (87-246)
[2019-08-20 15:52] LABS: ALBUMIN 3.3 g/dl (3.4-5.0); ALK PHOS 80 U/L (45-117); ANION GAP 8 MMOL/L (8-16); BILIRUBIN,DIRECT 0.2 mg/dL (0.0-0.2); BILIRUBIN,TOTAL 0.8 mg/dL (0.2-1); CALCIUM 8.3 mg/dL (8.5-10.1); CHLORIDE 102 mmol/L (98-107); CO2 34 mmol/L (21-32); CREATININE 0.9 mg/dL (0.55-1.3); GLUCOSE,RANDOM 98 mg/dL (74-106); POTASSIUM 3.5 mmol/L (3.5-5.1); SGOT/AST 15 U/L (15-37); SGPT/ALT 23 U/L (13-61); SODIUM 145 mmol/L (136-145); TOT PROT 7.9 g/dl (6.4-8.2)
[2019-08-20] MEDS ORDERED: ENOXAPARIN NA (PORCINE) 40 MG/0.4 ML DISP.SYRIN SQ SCH (16:39)
[2019-08-20] MEDS ORDERED: FUROSEMIDE 40 MG/4 ML INJECTABLE VIAL ONE (16:44)
[2019-08-20] MEDS ORDERED: ENOXAPARIN NA (PORCINE) 40 MG/0.4 ML DISP.SYRIN SQ ONE (16:44)
--- NOTE | 2019-08-20 17:05 | HP ---
CHIEF COMPLAINT: worsening sob, hypoxia PCP: Dr. Villegas HISTORY OF PRESENT ILLNESS: 49 AA Male h/o morbid obesity, HITESH/OHS on CPAP, HTN, HFpEF, chronic leg edema, presents with worsening SOB, and was found to be saturating in the 50s on RA with a BP of 211/106. Pt states he has been worsening sob for the past 2-3 days, and has noticed that his home pulse ox levels have been fluctuating between 30s- 50s. Of note, he was recently hospitalized on Feb 2019 for acute CHF exacerbation and was supposed to have home oxygen set up, however due to insurance issues, he never received the oxygen. He was also advised to follow up with cardio and pulm but was not able to do so either. Pt states he has been compliant with his medications, and has "for the most part" been using his CPAP at night. Also admits to some weight gain and worsening LE edema, L > R. Denies campos/d, n/v, chest pain, abd pain, urinary/bowel symptoms. ER course was notable for: (1) Initial BP 211/106, RR 30, satting ~50s on RA; Placed on NRB then BiPaP with improvement to 97% (2) ABG showed pH 7.25, pCO2 73.6, pO2 112.4 (post O2 therapy) (3) IV Lasix 40 given x1 Recent Travel: Denies PAST MEDICAL HISTORY: As per HPI PAST SURGICAL HISTORY: ventral hernia repair (1997) Social History: Smoking: Denies Alcohol: Denies Drugs: Denies Family History: Brother: DM Allergies No Known Allergies Allergy (Verified 03/15/19 11:04) HOME MEDICATIONS: Home Medications Medication Instructions Recorded Furosemide [Lasix -] 40 mg PO BID 12/06/18 Ferrous Sulfate [Feosol] 325 mg PO BIDWM 30 Days #60 ud 03/21/19 Carvedilol 25 mg PO BID 08/20/19 Lisinopril 10 mg PO DAILY 08/20/19 REVIEW OF SYSTEMS CONSTITUTIONAL: Absent: fever, chills, diaphoresis, generalized weakness, malaise, loss of appetite, weight change HEENT: Absent: rhinorrhea, nasal congestion, throat pain, throat swelling, difficulty swallowing, mouth swelling, ear pain, eye pain, visual changes CARDIOVASCULAR: peripheral edema, L >R Absent: chest pain, syncope, palpitations, irregular heart rate, lightheadedness, RESPIRATORY: shortness of breath, dyspnea with exertion Absent: cough, orthopnea, wheezing, stridor, hemoptysis GASTROINTESTINAL: Absent: abdominal pain, abdominal distension, nausea, vomiting, diarrhea, constipation, melena, hematochezia GENITOURINARY: Absent: dysuria, frequency, urgency, hesitancy, hematuria, flank pain, genital pain MUSCULOSKELETAL: Absent: myalgia, arthralgia, joint swelling, back pain, neck pain SKIN: Absent: rash, itching, pallor HEMATOLOGIC/IMMUNOLOGIC: Absent: easy bleeding, easy bruising, lymphadenopathy, frequent infections ENDOCRINE: Absent: unexplained weight gain, unexplained weight loss, heat intolerance, cold intolerance NEUROLOGIC: Absent: headache, focal weakness or paresthesias, dizziness, unsteady gait, seizure, mental status changes, bladder or bowel incontinence PSYCHIATRIC: Absent: anxiety, depression, suicidal or homicidal ideation, hallucinations. PHYSICAL EXAMINATION Vital Signs - 24 hr 08/20/19 08/20/19 12:29 15:47 Temperature 99.0 F Pulse Rate 82 85 Respiratory 30 H Rate Blood Pressure 211/106 H O2 Sat by Pulse 92 L 97 Oximetry (%) GENERAL: Lethargic, in NAD. Easily arousable to verbal stimuli. AAOx3. HEENT: AT/NC. EOMI. MMM. NECK: No JVD. LUNGS: Decreased breath sounds throughout; mild bibasilar crackles noted. No wheezes noted. HEART: RRR. Normal S1, S2. No murmurs noted. ABDOMEN: Morbidly obese. Soft, NT/ND. Normoactive BS in all 4 Q's. No rebound tenderness/guarding. MUSCULOSKELETAL: Normal range of motion at all joints. No bony deformities or tenderness. No CVA tenderness. EXTREMITIES: 2+ pitting edema b/l. NEUROLOGICAL: Cranial nerves II-XII intact. Normal speech. PSYCHIATRIC: Cooperative. Good eye contact. Appropriate mood and affect. SKIN: Warm, dry, normal turgor, no rashes or lesions noted, normal capillary refill. Laboratory Results - last 24 hr 08/20/19 08/20/19 08/20/19 13:15 13:15 13:15 WBC 6.5 RBC 6.05 H Hgb 13.9 Hct 48.5 MCV 80.1 MCH 22.9 L MCHC 28.6 L RDW 16.4 H Plt Count 207 MPV 9.1 Absolute Neuts (auto) 4.8 Neutrophils % 74.3 Lymphocytes % 16.5 Monocytes % 8.0 Eosinophils % 0.6 Basophils % 0.6 Nucleated RBC % 0 PT with INR 13.80 H INR 1.17 H PTT (Actin FS) 31.4 Anticoagulation Therapy Puncture Site Patient Temperature ABG pH ABG pCO2 ABG pO2 ABG HCO3 ABG O2 Sat (Measured) ABG O2 Content ABG Base Excess Ramses Test VBG pH POC VBG pCO2 POC VBG pO2 VBG HCO3 VBG O2 Sat (Raul) VBG Base Excess Patient On Oxygen O2 Delivery Device Oxygen Flow Rate Vent Mode Vent Rate Mechanical Rate PEEP Pressure Support Vent Sodium 145 Potassium 3.5 Chloride 102 Carbon Dioxide 34 H Anion Gap 8 BUN 14.0 Creatinine 0.9 Est GFR (CKD-EPI)AfAm 114.21 Est GFR (CKD-EPI)NonAf 98.54 Random Glucose 98 Lactic Acid Calcium 8.3 L Ferritin 21.8 Total Bilirubin 0.8 Direct Bilirubin 0.2 AST 15 ALT 23 Alkaline Phosphatase 80 LD Total 259 H Creatine Kinase 118 Troponin I < 0.02 C-Reactive Protein 3.5 H B-Natriuretic Peptide Total Protein 7.9 Albumin 3.3 L 08/20/19 08/20/19 08/20/19 13:15 13:15 13:15 WBC RBC Hgb Hct MCV MCH MCHC RDW Plt Count MPV Absolute Neuts (auto) Neutrophils % Lymphocytes % Monocytes % Eosinophils % Basophils % Nucleated RBC % PT with INR INR PTT (Actin FS) Anticoagulation Therapy Puncture Site Patient Temperature ABG pH ABG pCO2 ABG pO2 ABG HCO3 ABG O2 Sat (Measured) ABG O2 Content ABG Base Excess Ramses Test VBG pH 7.250 L POC VBG pCO2 82.9 H* POC VBG pO2 113.1 H VBG HCO3 35.5 H VBG O2 Sat (Raul) 97.2 H VBG Base Excess 4.6 H Patient On Oxygen O2 Delivery Device Oxygen Flow Rate Vent Mode Vent Rate Mechanical Rate PEEP Pressure Support Vent Sodium Potassium Chloride Carbon Dioxide Anion Gap BUN Creatinine Est GFR (CKD-EPI)AfAm Est GFR (CKD-EPI)NonAf Random Glucose Lactic Acid 0.7 Calcium Ferritin Total Bilirubin Direct Bilirubin AST ALT Alkaline Phosphatase LD Total Creatine Kinase Troponin I C-Reactive Protein B-Natriuretic Peptide 423.6 H Total Protein Albumin 08/20/19 13:26 WBC RBC Hgb Hct MCV MCH MCHC RDW Plt Count MPV Absolute Neuts (auto) Neutrophils % Lymphocytes % Monocytes % Eosinophils % Basophils % Nucleated RBC % PT with INR INR PTT (Actin FS) Anticoagulation Therapy No Result Required. Puncture Site Left radial Patient Temperature No Result Required. ABG pH 7.250 L ABG pCO2 73.60 H* ABG pO2 112.4 H ABG HCO3 31.6 H ABG O2 Sat (Measured) 97.2 ABG O2 Content No Result Required. ABG Base Excess 2.1 H Ramses Test No Result Required. VBG pH POC VBG pCO2 POC VBG pO2 VBG HCO3 VBG O2 Sat (Raul) VBG Base Excess Patient On Oxygen Yes O2 Delivery Device No Result Required. Oxygen Flow Rate 100 Vent Mode No Result Required. Vent Rate No Result Required. Mechanical Rate No Result Required. PEEP No Result Required. Pressure Support Vent No Result Required. Sodium Potassium Chloride Carbon Dioxide Anion Gap BUN Creatinine Est GFR (CKD-EPI)AfAm Est GFR (CKD-EPI)NonAf Random Glucose Lactic Acid Calcium Ferritin Total Bilirubin Direct Bilirubin AST ALT Alkaline Phosphatase LD Total Creatine Kinase Troponin I C-Reactive Protein B-Natriuretic Peptide Total Protein Albumin ASSESSMENT/PLAN: 49 AA Male h/o morbid obesity, HITESH/OHS on CPAP, HTN, HFpEF, chronic leg edema, presents with worsening SOB, and was found to be hypoxic and hypertensive, admitted for acute CHF exacerbation. #Acute Hypoxic/Hypercapneic Respiratory Failure; likely multifactorial 2/2 acute CHF exacerbation, OHS/HITESH -Initial O2 ~50s, improved to 97% on NIPPV; will cont NIPPV. Repeat ABG in AM -ABG showed pH 7.25, with elevated pCO2 73.6 likely 2/2 respiratory acidosis given OHS/HITESH, noncompliance with BiPAP -CXR showed +pulmonary congestion; IV Lasix 40 mg given x1 -Cardio consulted -Pulm consulted -Will continue with IV Lasix 40 mg IV BID -Echo ordered -Admit to tele -Daily weights/monitor I&Os #HITESH/OHS; Cont NIPPV at night. Pulm consulted. Will need outpatient pulm follow up upon d/c. #HTN; Uncontrolled. Cont home meds: Coreg 25 BID, will increase home Lisinopril to 10 BID (pt states he takes 10 QD, however he was discharged on 20 BID during last admission) -Cont to monitor BP #Prophylaxis DVT: Lovenox #FEN -no IVf -recheck lytes in AM -Sodium-controlled diet Dispo -admit to tele -COVID test pending Visit type - Emergency Visit Emergency Visit: Yes ED Registration Date: 08/20/19 Care time: The patient presented to the Emergency Department on the above date and was hospitalized for further evaluation of their emergent condition. - New Patient This patient is new to me today: No - Critical Care Critical Care patient: No ATTENDING PHYSICIAN STATEMENT I saw and evaluated the patient. I reviewed the resident's note and discussed the case with the resident. I agree with the resident's findings and plan as documented. SUBJECTIVE: OBJECTIVE: ASSESSMENT AND PLAN:
--- NOTE | 2019-08-20 17:26 | PN ---
Teaching Attending Note Name of Resident: Adelaida Diane ATTENDING PHYSICIAN STATEMENT I saw and evaluated the patient. I reviewed the resident's note and discussed the case with the resident. I agree with the resident's findings and plan as documented. SUBJECTIVE: HISTORY OF PRESENT ILLNESS: 49 AA Male h/o morbid obesity, HITESH/OHS on CPAP, HTN, HFpEF, chronic leg edema, presents with worsening SOB, and was found to be saturating in the 50s on RA with a BP of 211/106. Pt states he has been worsening sob for the past 2-3 days, and has noticed that his home pulse ox levels have been fluctuating between 30s- 50s. Of note, he was recently hospitalized on Feb 2019 for acute CHF exacerbation and was supposed to have home oxygen set up, however due to insurance issues, he never received the oxygen. He was also advised to follow up with cardio and pulm but was not able to do so either. Pt states he has been compliant with his medications, and has "for the most part" been using his CPAP at night. Also admits to some weight gain and worsening LE edema, L > R. Denies campos/d, n/v, chest pain, abd pain, urinary/bowel symptoms. OBJECTIVE:/e is comfortable nad alwert awake oriented 3, neck supple no jvd cvs s1/s2/0 chest bibasilar craackles, distant breath sounds abd soft nt no bs+ ext 2 + edema, neuro non focal, ASSESSMENT AND PLAN: 49 AA Male h/o morbid obesity, HITESH/OHS on CPAP, HTN, HFpEF, chronic leg edema, presents with worsening SOB, and was found to be hypoxic and hypertensive, admitted for acute CHF exacerbation. 1.Acute Hypoxic/Hypercapneic Respiratory Failure; likely multifactorial 2/2 acute CHF exacerbation, OHS/HITESH -o2 in 50s improved with bipap, and also with lasix, -ABG showed pH 7.25, with elevated pCO2, likely 2/2 respiratory acidosis mild pulm congestion on the cxr, -Cardio consulted -Pulm consulted -Will continue with IV Lasix 40 mg IV BID supplement K , -Echo ordered -Admit to tele -Daily weights/monitor I&Os 2.HITESH/OHS; Cont NIPPV at night. 3. HTN; Uncontrolled. Cont home meds: Coreg 25 BID, will increase home Lisinopril to 20 BID -Cont to monitor BP ox
[2019-08-20] MEDS ORDERED: POTASSIUM CHLORIDE TABS 20 MEQ TABLET.ER (FP) PO SCH (17:45)
[2019-08-20] MEDS ORDERED: POTASSIUM CHLORIDE TABS 20 MEQ TABLET.ER (FP) PO ONE (18:05)
[2019-08-20 19:02] LABS: ARTERIAL BLD GAS O2 SATURATION 81.2 mmHg (95-98); ARTERIAL BLOOD GAS BASE EXCESS 4.8 mmol/L (-2-2); ARTERIAL BLOOD GAS PO2 54.2 mmHg (80-100); ARTERIAL BLOOD GAS pH 7.247 (7.350-7.450)
[2019-08-20 19:04] LABS: ALLENS TEST POSITIVE
[2019-08-20 20:26] LABS: EPI CELLS 7 /uL (0-25.1); HYALINE CASTS 1 /uL (0-3.1); PH,URINE 5.5 (5.0-8.0); URINE APPEARANCE CLEAR; URINE BACTERIA 31 /uL (0-1359); URINE BILIRUBIN NEGATIVE (NEGATIVE); URINE COLOR YELLOW; URINE GLUCOSE (UA) NEGATIVE (NEGATIVE); URINE KETONE NEGATIVE (NEGATIVE); URINE LEUK ESTERASE NEGATIVE (NEGATIVE); URINE NITRITE NEGATIVE (NEGATIVE); URINE PROTEIN 2+ (NEGATIVE); URINE RBC 6 /uL (0-23.9); URINE WBC 4 /uL (0-25.8)
[2019-08-20] MEDS ORDERED: LISINOPRIL 10 MG TABLET (FP) PO SCH (22:00)
[2019-08-20] MEDS ORDERED: CARVEDILOL 25 MG TABLET (FP) PO SCH (22:00)
[2019-08-20] MEDS ORDERED: LISINOPRIL 20 MG TABLET (FP) PO SCH (22:00)
[2019-08-21] MEDS ORDERED: FUROSEMIDE 40 MG/4 ML INJECTABLE VIAL IVPUSH SCH ×2 (06:00→14:00)
[2019-08-21 06:54] LABS: BASO % 0.4 % (0-2.0); EOS % 0.1 % (0-4.5); HEMATOCRIT 48.9 % (35.4-49); HEMOGLOBIN 13.8 GM/dL (11.7-16.9); LYMPH % 12.7 % (8-40); MCH 23.3 pg (25.7-33.7); MCHC 28.3 g/dl (32.0-35.9); MEAN CELL VOLUME 82.6 fl (80-96); MONO % 7.5 % (3.8-10.2); NEUT % 79.3 % (42.8-82.8); PLATELET COUNT 211 K/MM3 (134-434); RBC 5.92 M/mm3 (4.00-5.60); RDW 17.3 % (11.9-15.9); WHITE BLOOD COUNT 7.9 K/mm3 (4.0-10.0)
--- NOTE | 2019-08-21 07:03 | PN ---
Progress Note (short form) - Note Progress Note: Rapid response called overhead at 0643. Team arrived at bedside. Pt found to be responsive only to painful stimuli, sternal rub. Pt was offered BiPAP overnight but refused, was placed on 6L NC. Vitals: O2 92% on 6L NC, 133/83, HR 71, 98.8F Physical Exam: Gen: A&O x 0 Lung: Diminished breath sounds B/L CV: RRR Extremities: Significant leg edema Plan: Likely secondary to hypercapnic respiratory failure. -Started on BiPAP -O2 improved to 95% -Fingerstick glucose 151 -ABG ordered -CBC, CMP stat ordered - D-dimer stat ordered - Suggested to start on remdesevir; COVID pending -ICU consulted and accepted -Transferred to ICU
[2019-08-21 07:18] LABS: ALBUMIN 3.3 g/dl (3.4-5.0); BILIRUBIN,TOTAL 0.6 mg/dL (0.2-1); CALCIUM 8.4 mg/dL (8.5-10.1); CREATININE 0.9 mg/dL (0.55-1.3); MAGNESIUM 2.6 mg/dL (1.8-2.4); PHOSPHOROUS 6.6 mg/dL (2.5-4.9); POTASSIUM 3.8 mmol/L (3.5-5.1); TOT PROT 8.1 g/dl (6.4-8.2)
--- NOTE | 2019-08-21 07:32 | PN ---
Progress Note (short form) - Note Progress Note: PULMONARY CONSULTATION DICTATED 08/21/19
--- NOTE | 2019-08-21 07:34 | CONSULT ---
Consultation: REQUESTING PROVIDER: Dr. Licona CONSULT REQUEST: We have been asked to medically evaluate this patient for respiratory failure. HISTORY OF PRESENT ILLNESS: Pt is a 49 y/o male with morbid obesity, HITESH/OHS on CPAP, HTN, HFpEF, and chronic leg edema who presented to [facility] yesterday after 2-3 days shortness of breath and being hypoxic to 50s at home. He was admitted for acute hypoxic/hypcapneic respiratory failure. Today, pt was found somnolent, only responsive to sternal rub after being on NC overnight and refusing BiPAP. A rapid response was called, and pt was started on BiPAP. We were asked to evaluate pt for respiratory failure. REVIEW OF SYSTEMS: unable to assess given pt's lethargy PHYSICAL EXAMINATION Vital Signs - 24 hr 08/20/19 08/20/19 08/20/19 12:29 15:47 18:05 Temperature 99.0 F Pulse Rate 82 85 Pulse Rate [ 68 Left Radial] Respiratory 30 H 20 Rate Blood Pressure 211/106 H Blood Pressure 172/97 H [Right Arm] O2 Sat by Pulse 95 97 100 Oximetry (%) 08/20/19 08/20/19 08/20/19 20:05 21:00 22:00 Temperature 98.4 F Pulse Rate 85 Pulse Rate [ Left Radial] Respiratory 20 20 Rate Blood Pressure 156/105 H Blood Pressure [Right Arm] O2 Sat by Pulse 98 99 98 Oximetry (%) 08/21/19 08/21/19 08/21/19 00:45 02:00 06:00 Temperature 98.1 F 98.0 F Pulse Rate 88 79 Pulse Rate [ Left Radial] Respiratory 19 18 Rate Blood Pressure 169/99 141/95 Blood Pressure [Right Arm] O2 Sat by Pulse 99 Oximetry (%) GENERAL: Somnolent, responsive to sternal rub. HEAD: Normal with no signs of trauma. EYES: Pupils equal, round and reactive to light, extraocular movements intact, conjunctiva clear. EARS, NOSE, THROAT: Ears normal, nares patent, moist mucous membranes. NECK: No JVD. LUNGS: Clear to auscultation anteriorly. No accessory muscle use. on BiPAP. HEART: Regular rate and rhythm, no murmur appreciated. ABDOMEN: Obese, soft, nontender, not distended, normoactive bowel sounds. UPPER EXTREMITIES: Warm, well-perfused. No peripheral edema. LOWER EXTREMITIES: Warm, well-perfused. +1 pitting edema to mid shins b/l. NEUROLOGICAL: Unable to assess. PSYCHIATRIC: Unable to assess. SKIN: Warm, dry, normal turgor. Laboratory Results - last 24 hr 08/20/19 08/20/19 08/20/19 13:15 13:15 13:15 WBC 6.5 RBC 6.05 H Hgb 13.9 Hct 48.5 MCV 80.1 MCH 22.9 L MCHC 28.6 L RDW 16.4 H Plt Count 207 MPV 9.1 Absolute Neuts (auto) 4.8 Neutrophils % 74.3 Lymphocytes % 16.5 Monocytes % 8.0 Eosinophils % 0.6 Basophils % 0.6 Nucleated RBC % 0 PT with INR 13.80 H INR 1.17 H PTT (Actin FS) 31.4 Anticoagulation Therapy Puncture Site Patient Temperature ABG pH ABG pCO2 ABG pO2 ABG HCO3 ABG O2 Sat (Measured) ABG O2 Content ABG Base Excess Ramses Test VBG pH POC VBG pCO2 POC VBG pO2 VBG HCO3 VBG O2 Sat (Raul) VBG Base Excess Patient On Oxygen O2 Delivery Device Oxygen Flow Rate Vent Mode Vent Rate Mechanical Rate PEEP Pressure Support Vent Sodium 145 Potassium 3.5 Chloride 102 Carbon Dioxide 34 H Anion Gap 8 BUN 14.0 Creatinine 0.9 Est GFR (CKD-EPI)AfAm 114.21 Est GFR (CKD-EPI)NonAf 98.54 POC Glucometer Random Glucose 98 Lactic Acid Calcium 8.3 L Ferritin 21.8 Total Bilirubin 0.8 Direct Bilirubin 0.2 AST 15 ALT 23 Alkaline Phosphatase 80 LD Total 259 H Creatine Kinase 118 Troponin I < 0.02 C-Reactive Protein 3.5 H B-Natriuretic Peptide Total Protein 7.9 Albumin 3.3 L Urine Color Urine Appearance Urine pH Ur Specific [place] Urine Protein Urine Glucose (UA) Urine Ketones Urine Blood Urine Nitrite Urine Bilirubin Urine Urobilinogen Ur Leukocyte Esterase Urine WBC (Auto) Urine RBC (Auto) Urine Casts (Auto) U Epithel Cells (Auto) Urine Bacteria (Auto) 08/20/19 08/20/19 08/20/19 13:15 13:15 13:15 WBC RBC Hgb Hct MCV MCH MCHC RDW Plt Count MPV Absolute Neuts (auto) Neutrophils % Lymphocytes % Monocytes % Eosinophils % Basophils % Nucleated RBC % PT with INR INR PTT (Actin FS) Anticoagulation Therapy Puncture Site Patient Temperature ABG pH ABG pCO2 ABG pO2 ABG HCO3 ABG O2 Sat (Measured) ABG O2 Content ABG Base Excess Ramses Test VBG pH 7.250 L POC VBG pCO2 82.9 H* POC VBG pO2 113.1 H VBG HCO3 35.5 H VBG O2 Sat (Raul) 97.2 H VBG Base Excess 4.6 H Patient On Oxygen O2 Delivery Device Oxygen Flow Rate Vent Mode Vent Rate Mechanical Rate PEEP Pressure Support Vent Sodium Potassium Chloride Carbon Dioxide Anion Gap BUN Creatinine Est GFR (CKD-EPI)AfAm Est GFR (CKD-EPI)NonAf POC Glucometer Random Glucose Lactic Acid 0.7 Calcium Ferritin Total Bilirubin Direct Bilirubin AST ALT Alkaline Phosphatase LD Total Creatine Kinase Troponin I C-Reactive Protein B-Natriuretic Peptide 423.6 H Total Protein Albumin Urine Color Urine Appearance Urine pH Ur Specific [place] Urine Protein Urine Glucose (UA) Urine Ketones Urine Blood Urine Nitrite Urine Bilirubin Urine Urobilinogen Ur Leukocyte Esterase Urine WBC (Auto) Urine RBC (Auto) Urine Casts (Auto) U Epithel Cells (Auto) Urine Bacteria (Auto) 08/20/19 08/20/19 08/20/19 13:26 18:43 20:05 WBC RBC Hgb Hct MCV MCH MCHC RDW Plt Count MPV Absolute Neuts (auto) Neutrophils % Lymphocytes % Monocytes % Eosinophils % Basophils % Nucleated RBC % PT with INR INR PTT (Actin FS) Anticoagulation Therapy No Result Required. No Result Required. Puncture Site Left radial Right radial Patient Temperature No Result Required. No Result Required. ABG pH 7.250 L 7.247 L ABG pCO2 73.60 H* 83.20 H* ABG pO2 112.4 H 54.2 L ABG HCO3 31.6 H 35.4 H ABG O2 Sat (Measured) 97.2 81.2 L ABG O2 Content No Result Required. No Result Required. ABG Base Excess 2.1 H 4.8 H Ramses Test No Result Required. Positive VBG pH POC VBG pCO2 POC VBG pO2 VBG HCO3 VBG O2 Sat (Raul) VBG Base Excess Patient On Oxygen Yes Yes O2 Delivery Device No Result Required. N/c Oxygen Flow Rate 100 6 lpm Vent Mode No Result Required. No Result Required. Vent Rate No Result Required. No Result Required. Mechanical Rate No Result Required. No Result Required. PEEP No Result Required. No Result Required. Pressure Support Vent No Result Required. No Result Required. Sodium Potassium Chloride Carbon Dioxide Anion Gap BUN Creatinine Est GFR (CKD-EPI)AfAm Est GFR (CKD-EPI)NonAf POC Glucometer Random Glucose Lactic Acid Calcium Ferritin Total Bilirubin Direct Bilirubin AST ALT Alkaline Phosphatase LD Total Creatine Kinase Troponin I C-Reactive Protein B-Natriuretic Peptide Total Protein Albumin Urine Color Yellow Urine Appearance Clear Urine pH 5.5 Ur Specific [place] 1.016 Urine Protein 2+ H Urine Glucose (UA) Negative Urine Ketones Negative Urine Blood Negative Urine Nitrite Negative Urine Bilirubin Negative Urine Urobilinogen 1.0 Ur Leukocyte Esterase Negative Urine WBC (Auto) 4 Urine RBC (Auto) 6 Urine Casts (Auto) 1 U Epithel Cells (Auto) 7 Urine Bacteria (Auto) 31 08/20/19 08/21/19 20:15 06:47 WBC RBC Hgb Hct MCV MCH MCHC RDW Plt Count MPV Absolute Neuts (auto) Neutrophils % Lymphocytes % Monocytes % Eosinophils % Basophils % Nucleated RBC % PT with INR INR PTT (Actin FS) Anticoagulation Therapy Puncture Site Patient Temperature ABG pH ABG pCO2 ABG pO2 ABG HCO3 ABG O2 Sat (Measured) ABG O2 Content ABG Base Excess Ramses Test VBG pH POC VBG pCO2 POC VBG pO2 VBG HCO3 VBG O2 Sat (Raul) VBG Base Excess Patient On Oxygen O2 Delivery Device Oxygen Flow Rate Vent Mode Vent Rate Mechanical Rate PEEP Pressure Support Vent Sodium Potassium Chloride Carbon Dioxide Anion Gap BUN Creatinine Est GFR (CKD-EPI)AfAm Est GFR (CKD-EPI)NonAf POC Glucometer 151 Random Glucose Lactic Acid Calcium Ferritin Total Bilirubin Direct Bilirubin AST ALT Alkaline Phosphatase LD Total Creatine Kinase 121 Troponin I < 0.02 C-Reactive Protein B-Natriuretic Peptide Total Protein Albumin Urine Color Urine Appearance Urine pH Ur Specific [place] Urine Protein Urine Glucose (UA) Urine Ketones Urine Blood Urine Nitrite Urine Bilirubin Urine Urobilinogen Ur Leukocyte Esterase Urine WBC (Auto) Urine RBC (Auto) Urine Casts (Auto) U Epithel Cells (Auto) Urine Bacteria (Auto) Active Medications Generic Name Dose Route Start Last Admin Trade Name Freq PRN Reason Stop Dose Admin Carvedilol 25 mg 08/20/19 22:00 08/20/19 22:32 Coreg - PO 25 mg BID EUNICE Administration Chlorhexidine Gluconate 1 applic 07/07/20 22:00 Hibiclens For Decolonization - TP HS EUNICE Enoxaparin Sodium 40 mg 08/20/19 16:39 08/20/19 17:27 Lovenox - SQ 40 mg DAILY EUNICE Administration Furosemide 40 mg 08/21/19 06:00 Lasix Injection - IVPUSH BID@0600,1400 EUNICE Lisinopril 20 mg 08/20/19 22:00 08/20/19 22:32 Prinivil PO 20 mg BID EUNICE Administration Mupirocin 1 applic 08/21/19 10:00 Bactroban Ointment (For Decolonization) - NS 08/26/19 09:59 BID EUNICE Potassium Chloride 20 meq 08/20/19 17:45 08/20/19 18:07 K-Dur - PO 20 meq DAILY EUNICE Administration ASSESSMENT/PLAN: Pt is a 49 y/o male with morbid obesity, HITESH/OHS on CPAP, HTN, HFpEF, and chronic leg edema who presented to [facility] yesterday after 2-3 days shortness of breath and being hypoxic to 50s at home. He was admitted for acute hypoxic/hypcapneic respiratory failure. Today, pt was found somnolent, only responsive to sternal rub after being on NC overnight and refusing BiPAP. A rapid response was called, and pt was started on BiPAP. We were asked to evaluate pt for respiratory failure. #neuro -minimally responsive at rapid response but improved mentation after BiPAP -monitor status #cardio -hemodynamically stable -HFpEF -uncontrolled HTN -carvedilol BID -Lasix 40mg IV BID -lisinopril 20MG BID -spironolactone 25mg bid -echo -cardiology following #pulm -acute hypoxic/hypercapneic respiratory failure -HITESH/OHS on CPAP at night -pt became obtunded after refusing BiPAP overnight, was placed on BiPAP after calling rapid response -mentating better, continue BiPAP -d-dimer ordered -CXR -COVID pending -albuterol Q4H PRN #renal -hyperphosphatemia -hypermagnesemia -normal Cr -potassium supplement -monitor labs DVT Ppx Lovenox FEN no standing IV fluids monitor Phos, Mg NPO except meds, consider advancing diet tomorrow when more alert Dispo: ICU We will continue to follow the patient. Thank you for this consultative opportunity. FULL CODE Visit type - Emergency Visit Emergency Visit: Yes ED Registration Date: 08/20/19 Care time: The patient presented to the Emergency Department on the above date and was hospitalized for further evaluation of their emergent condition. - New Patient This patient is new to me today: Yes Date on this admission: 08/21/19 - Critical Care Critical Care patient: Yes Total Critical Care Time (in minutes): 40 Critical Care Statement: The care of this patient involved high complexity decision making to prevent further life threatening deterioration of the patient's condition and/or to evaluate & treat vital organ system(s) failure or risk of failure. ATTENDING PHYSICIAN STATEMENT I saw and evaluated the patient. I reviewed the resident's note and discussed the case with the resident. I agree with the resident's findings and plan as documented. SUBJECTIVE: OBJECTIVE: ASSESSMENT AND PLAN:
[2019-08-21 07:54] LABS: ARTERIAL BLD GAS O2 SATURATION 91.6 mmHg (95-98); ARTERIAL BLOOD GAS BASE EXCESS 2.3 mmol/L (-2-2); ARTERIAL BLOOD GAS PO2 90.8 mmHg (80-100)
[2019-08-21 07:57] LABS: ALLENS TEST POSITIVE
[2019-08-21 07:58] LABS: VENT RATE 24
[2019-08-21 08:02] LABS: ARTERIAL BLOOD GAS pH 7.053 (7.350-7.450)
[2019-08-21 08:05] LABS: ALBUMIN 3.3 g/dl (3.4-5.0); ALK PHOS 86 U/L (45-117); ANION GAP 7 MMOL/L (8-16); BILIRUBIN,TOTAL 0.5 mg/dL (0.2-1); CALCIUM 8.3 mg/dL (8.5-10.1); CHLORIDE 101 mmol/L (98-107); CO2 36 mmol/L (21-32); CREATININE 0.9 mg/dL (0.55-1.3); GLUCOSE,RANDOM 133 mg/dL (74-106); MAGNESIUM 2.6 mg/dL (1.8-2.4); PHOSPHOROUS 6.6 mg/dL (2.5-4.9); POTASSIUM 3.8 mmol/L (3.5-5.1); SGOT/AST 17 U/L (15-37); SGPT/ALT 23 U/L (13-61); SODIUM 144 mmol/L (136-145); TOT PROT 8.1 g/dl (6.4-8.2)
--- NOTE | 2019-08-21 08:10 | PN ---
Physical Exam: SUBJECTIVE: Patient seen and examined OBJECTIVE: Vital Signs Period Temp Pulse Resp BP Sys/Deluca Pulse Ox Last 24 Hr 98.0 F-99.0 F 68-88 18-30 141-211/95-106 92-100 GENERAL: The patient is awake, alert, and fully oriented, in no acute distress. HEAD: Normal with no signs of trauma. EYES: PERRL, extraocular movements intact, sclera anicteric, conjunctiva clear. No ptosis. ENT: Ears normal, nares patent, oropharynx clear without exudates, moist mucous membranes. NECK: Trachea midline, full range of motion, supple. LUNGS: Breath sounds equal, clear to auscultation bilaterally, no wheezes, no crackles, no accessory muscle use. HEART: Regular rate and rhythm, S1, S2 without murmur, rub or gallop. ABDOMEN: Soft, nontender, nondistended, normoactive bowel sounds, no guarding, no rebound, no hepatosplenomegaly, no masses. EXTREMITIES: 2+ pulses, warm, well-perfused, no edema. NEUROLOGICAL: Cranial nerves II through XII grossly intact. Normal speech, gait not observed. PSYCH: Normal mood, normal affect. SKIN: Warm, dry, normal turgor, no rashes or lesions noted Laboratory Results - last 24 hr 08/20/19 08/20/19 08/20/19 13:15 13:15 13:15 WBC 6.5 RBC 6.05 H Hgb 13.9 Hct 48.5 MCV 80.1 MCH 22.9 L MCHC 28.6 L RDW 16.4 H Plt Count 207 MPV 9.1 Absolute Neuts (auto) 4.8 Neutrophils % 74.3 Lymphocytes % 16.5 Monocytes % 8.0 Eosinophils % 0.6 Basophils % 0.6 Nucleated RBC % 0 PT with INR 13.80 H INR 1.17 H PTT (Actin FS) 31.4 Anticoagulation Therapy Puncture Site Patient Temperature ABG pH ABG pCO2 ABG pO2 ABG HCO3 ABG O2 Sat (Measured) ABG O2 Content ABG Base Excess Ramses Test VBG pH POC VBG pCO2 POC VBG pO2 VBG HCO3 VBG O2 Sat (Raul) VBG Base Excess Patient On Oxygen O2 Delivery Device Oxygen Flow Rate Vent Mode Vent Rate Mechanical Rate PEEP Pressure Support Vent Sodium 145 Potassium 3.5 Chloride 102 Carbon Dioxide 34 H Anion Gap 8 BUN 14.0 Creatinine 0.9 Est GFR (CKD-EPI)AfAm 114.21 Est GFR (CKD-EPI)NonAf 98.54 POC Glucometer Random Glucose 98 Lactic Acid Calcium 8.3 L Phosphorus Magnesium Ferritin 21.8 Total Bilirubin 0.8 Direct Bilirubin 0.2 AST 15 ALT 23 Alkaline Phosphatase 80 LD Total 259 H Creatine Kinase 118 Troponin I < 0.02 C-Reactive Protein 3.5 H B-Natriuretic Peptide Total Protein 7.9 Albumin 3.3 L Urine Color Urine Appearance Urine pH Ur Specific [place] Urine Protein Urine Glucose (UA) Urine Ketones Urine Blood Urine Nitrite Urine Bilirubin Urine Urobilinogen Ur Leukocyte Esterase Urine WBC (Auto) Urine RBC (Auto) Urine Casts (Auto) U Epithel Cells (Auto) Urine Bacteria (Auto) 08/20/19 08/20/19 08/20/19 13:15 13:15 13:15 WBC RBC Hgb Hct MCV MCH MCHC RDW Plt Count MPV Absolute Neuts (auto) Neutrophils % Lymphocytes % Monocytes % Eosinophils % Basophils % Nucleated RBC % PT with INR INR PTT (Actin FS) Anticoagulation Therapy Puncture Site Patient Temperature ABG pH ABG pCO2 ABG pO2 ABG HCO3 ABG O2 Sat (Measured) ABG O2 Content ABG Base Excess Ramses Test VBG pH 7.250 L POC VBG pCO2 82.9 H* POC VBG pO2 113.1 H VBG HCO3 35.5 H VBG O2 Sat (Raul) 97.2 H VBG Base Excess 4.6 H Patient On Oxygen O2 Delivery Device Oxygen Flow Rate Vent Mode Vent Rate Mechanical Rate PEEP Pressure Support Vent Sodium Potassium Chloride Carbon Dioxide Anion Gap BUN Creatinine Est GFR (CKD-EPI)AfAm Est GFR (CKD-EPI)NonAf POC Glucometer Random Glucose Lactic Acid 0.7 Calcium Phosphorus Magnesium Ferritin Total Bilirubin Direct Bilirubin AST ALT Alkaline Phosphatase LD Total Creatine Kinase Troponin I C-Reactive Protein B-Natriuretic Peptide 423.6 H Total Protein Albumin Urine Color Urine Appearance Urine pH Ur Specific [place] Urine Protein Urine Glucose (UA) Urine Ketones Urine Blood Urine Nitrite Urine Bilirubin Urine Urobilinogen Ur Leukocyte Esterase Urine WBC (Auto) Urine RBC (Auto) Urine Casts (Auto) U Epithel Cells (Auto) Urine Bacteria (Auto) 08/20/19 08/20/19 08/20/19 13:26 18:43 20:05 WBC RBC Hgb Hct MCV MCH MCHC RDW Plt Count MPV Absolute Neuts (auto) Neutrophils % Lymphocytes % Monocytes % Eosinophils % Basophils % Nucleated RBC % PT with INR INR PTT (Actin FS) Anticoagulation Therapy No Result Required. No Result Required. Puncture Site Left radial Right radial Patient Temperature No Result Required. No Result Required. ABG pH 7.250 L 7.247 L ABG pCO2 73.60 H* 83.20 H* ABG pO2 112.4 H 54.2 L ABG HCO3 31.6 H 35.4 H ABG O2 Sat (Measured) 97.2 81.2 L ABG O2 Content No Result Required. No Result Required. ABG Base Excess 2.1 H 4.8 H Ramses Test No Result Required. Positive VBG pH POC VBG pCO2 POC VBG pO2 VBG HCO3 VBG O2 Sat (Raul) VBG Base Excess Patient On Oxygen Yes Yes O2 Delivery Device No Result Required. N/c Oxygen Flow Rate 100 6 lpm Vent Mode No Result Required. No Result Required. Vent Rate No Result Required. No Result Required. Mechanical Rate No Result Required. No Result Required. PEEP No Result Required. No Result Required. Pressure Support Vent No Result Required. No Result Required. Sodium Potassium Chloride Carbon Dioxide Anion Gap BUN Creatinine Est GFR (CKD-EPI)AfAm Est GFR (CKD-EPI)NonAf POC Glucometer Random Glucose Lactic Acid Calcium Phosphorus Magnesium Ferritin Total Bilirubin Direct Bilirubin AST ALT Alkaline Phosphatase LD Total Creatine Kinase Troponin I C-Reactive Protein B-Natriuretic Peptide Total Protein Albumin Urine Color Yellow Urine Appearance Clear Urine pH 5.5 Ur Specific [place] 1.016 Urine Protein 2+ H Urine Glucose (UA) Negative Urine Ketones Negative Urine Blood Negative Urine Nitrite Negative Urine Bilirubin Negative Urine Urobilinogen 1.0 Ur Leukocyte Esterase Negative Urine WBC (Auto) 4 Urine RBC (Auto) 6 Urine Casts (Auto) 1 U Epithel Cells (Auto) 7 Urine Bacteria (Auto) 31 08/20/19 08/21/19 08/21/19 20:15 05:32 05:32 WBC 7.9 RBC 5.92 H Hgb 13.8 Hct 48.9 MCV 82.6 MCH 23.3 L MCHC 28.3 L RDW 17.3 H Plt Count 211 MPV 9.0 Absolute Neuts (auto) 6.2 Neutrophils % 79.3 Lymphocytes % 12.7 D Monocytes % 7.5 Eosinophils % 0.1 D Basophils % 0.4 Nucleated RBC % 1 H PT with INR INR PTT (Actin FS) Anticoagulation Therapy Puncture Site Patient Temperature ABG pH ABG pCO2 ABG pO2 ABG HCO3 ABG O2 Sat (Measured) ABG O2 Content ABG Base Excess Ramses Test VBG pH POC VBG pCO2 POC VBG pO2 VBG HCO3 VBG O2 Sat (Raul) VBG Base Excess Patient On Oxygen O2 Delivery Device Oxygen Flow Rate Vent Mode Vent Rate Mechanical Rate PEEP Pressure Support Vent Sodium 145 Potassium 3.8 Chloride 101 Carbon Dioxide 39 H Anion Gap 5 L BUN 16.0 Creatinine 0.9 Est GFR (CKD-EPI)AfAm 114.21 Est GFR (CKD-EPI)NonAf 98.54 POC Glucometer Random Glucose 134 H Lactic Acid Calcium 8.4 L Phosphorus 6.6 H Magnesium 2.6 H Ferritin Total Bilirubin 0.6 Direct Bilirubin AST 15 ALT 23 Alkaline Phosphatase 86 LD Total Creatine Kinase 121 Troponin I < 0.02 C-Reactive Protein B-Natriuretic Peptide Total Protein 8.1 Albumin 3.3 L Urine Color Urine Appearance Urine pH Ur Specific [place] Urine Protein Urine Glucose (UA) Urine Ketones Urine Blood Urine Nitrite Urine Bilirubin Urine Urobilinogen Ur Leukocyte Esterase Urine WBC (Auto) Urine RBC (Auto) Urine Casts (Auto) U Epithel Cells (Auto) Urine Bacteria (Auto) 08/21/19 08/21/19 08/21/19 05:32 06:47 07:00 WBC RBC Hgb Hct MCV MCH MCHC RDW Plt Count MPV Absolute Neuts (auto) Neutrophils % Lymphocytes % Monocytes % Eosinophils % Basophils % Nucleated RBC % PT with INR INR PTT (Actin FS) Anticoagulation Therapy No Result Required. Puncture Site Right radial Patient Temperature No Result Required. ABG pH 7.053 L* ABG pCO2 138.90 H* ABG pO2 90.8 ABG HCO3 37.8 H ABG O2 Sat (Measured) 91.6 L ABG O2 Content No Result Required. ABG Base Excess 2.3 H Ramses Test Positive VBG pH POC VBG pCO2 POC VBG pO2 VBG HCO3 VBG O2 Sat (Raul) VBG Base Excess Patient On Oxygen Yes O2 Delivery Device Bipap Oxygen Flow Rate 60% Vent Mode No Result Required. Vent Rate 24 Mechanical Rate No Result Required. PEEP No Result Required. Pressure Support Vent 22/10 Sodium 144 Potassium 3.8 Chloride 101 Carbon Dioxide 36 H Anion Gap 7 L BUN 16.0 Creatinine 0.9 Est GFR (CKD-EPI)AfAm 114.21 Est GFR (CKD-EPI)NonAf 98.54 POC Glucometer 151 Random Glucose 133 H Lactic Acid Calcium 8.3 L Phosphorus 6.6 H Magnesium 2.6 H Ferritin Total Bilirubin 0.5 Direct Bilirubin AST 17 ALT 23 Alkaline Phosphatase 86 LD Total Creatine Kinase 108 Troponin I < 0.02 C-Reactive Protein B-Natriuretic Peptide Total Protein 8.1 Albumin 3.3 L Urine Color Urine Appearance Urine pH Ur Specific [place] Urine Protein Urine Glucose (UA) Urine Ketones Urine Blood Urine Nitrite Urine Bilirubin Urine Urobilinogen Ur Leukocyte Esterase Urine WBC (Auto) Urine RBC (Auto) Urine Casts (Auto) U Epithel Cells (Auto) Urine Bacteria (Auto) Active Medications Generic Name Dose Route Start Last Admin Trade Name Freq PRN Reason Stop Dose Admin Carvedilol 25 mg 08/20/19 22:00 08/20/19 22:32 Coreg - PO 25 mg BID EUNICE Administration Chlorhexidine Gluconate 1 applic 08/21/19 22:00 Hibiclens For Decolonization - TP HS EUNICE Enoxaparin Sodium 40 mg 08/20/19 16:39 08/20/19 17:27 Lovenox - SQ 40 mg DAILY EUNICE Administration Furosemide 40 mg 08/21/19 06:00 Lasix Injection - IVPUSH BID@0600,1400 EUNICE Lisinopril 20 mg 08/20/19 22:00 08/20/19 22:32 Prinivil PO 20 mg BID EUNICE Administration Mupirocin 1 applic 08/21/19 10:00 Bactroban Ointment (For Decolonization) - NS 08/26/19 09:59 BID EUNICE Potassium Chloride 20 meq 08/20/19 17:45 08/20/19 18:07 K-Dur - PO 20 meq DAILY EUNICE Administration ASSESSMENT/PLAN: ATTENDING PHYSICIAN STATEMENT I saw and evaluated the patient. I reviewed the resident's note and discussed the case with the resident. I agree with the resident's findings and plan as documented. SUBJECTIVE: OBJECTIVE: ASSESSMENT AND PLAN:
[2019-08-21] MEDS ORDERED: FUROSEMIDE 40 MG/4 ML INJECTABLE VIAL ONE (09:07)
[2019-08-21] MEDS ORDERED: FUROSEMIDE 40 MG/4 ML INJECTABLE VIAL IVPUSH ONE (09:21)
[2019-08-21] MEDS: LISINOPRIL 20 MG TABLET (FP) PO SCH ×2 (09:36→21:07)
[2019-08-21] MEDS: CARVEDILOL 25 MG TABLET (FP) PO SCH ×2 (09:36→21:07)
[2019-08-21] MEDS: ENOXAPARIN NA (PORCINE) 40 MG/0.4 ML DISP.SYRIN SQ SCH (09:41)
[2019-08-21] MEDS: MUPIROCIN 2% TOPICAL OINTMENT FOR DECOLONIZATION NS SCH ×2 (09:41→21:08)
[2019-08-21 09:57] LABS: ARTERIAL BLD GAS O2 SATURATION 81.7 mmHg (95-98); ARTERIAL BLOOD GAS BASE EXCESS 1.9 mmol/L (-2-2); ARTERIAL BLOOD GAS PO2 60.6 mmHg (80-100)
[2019-08-21 10:00] LABS: VENT MODE ST; VENT RATE 26
[2019-08-21] MEDS ORDERED: MUPIROCIN 2% TOPICAL OINTMENT FOR DECOLONIZATION NS SCH (10:00)
[2019-08-21] MEDS ORDERED: POTASSIUM CHLORIDE TABS 20 MEQ TABLET.ER (FP) PO SCH (10:00)
--- NOTE | 2019-08-21 12:15 | PN ---
Teaching Attending Note Name of Resident: Didi Paz ATTENDING PHYSICIAN STATEMENT I saw and evaluated the patient. I reviewed the resident's note and discussed the case with the resident. I agree with the resident's findings and plan as documented. SUBJECTIVE: Pt seen and examined in the ICU. Remains on BiPAP, somnolent but arousable. Falls asleep easily. No fevers recorded. OBJECTIVE: Vital Signs Period Temp Pulse Resp BP Sys/Deluca Pulse Ox Last 24 Hr 96.6 F-99.0 F 68-88 12-30 129-211/73-106 92-100 Intake & Output 08/18/19 08/19/19 08/20/19 08/21/19 23:59 23:59 23:59 23:59 Intake Total 250 Output Total 1100 Balance -850 Weight 243.488 kg 225.3 kg Gen: somnolent but arousable on BiPAP Heart: RRR Lung: distant breath sounds Abd: soft, nontender Ext: + edema CBC, BMP 08/21/19 05:32 08/21/19 05:32 ABG Results ABG pH 7.150 (7.350-7.450) L* 08/21/19 09:30 ABG HCO3 34.9 mmol/L (22-27) H 08/21/19 09:30 ABG O2 Sat (Measured) 81.7 mmHg (95-98) L 08/21/19 09:30 ABG O2 Content No Result Required. 08/21/19 09:30 ABG Base Excess 1.9 mmol/L (-2-2) 08/21/19 09:30 Active Medications Carvedilol (Coreg -) 25 mg PO BID COUNT INCLUDES THE [facility] Last Admin: 08/21/19 09:36 Dose: Not Given Documented by: Chlorhexidine Gluconate (Hibiclens For Decolonization -) 1 applic TP HS COUNT INCLUDES THE [facility] Enoxaparin Sodium (Lovenox -) 40 mg SQ DAILY COUNT INCLUDES THE [facility] Last Admin: 08/21/19 09:41 Dose: 40 mg Documented by: Furosemide (Lasix Injection -) 40 mg IVPUSH BID@0600,1400 EUNICE Lisinopril (Prinivil) 20 mg PO BID COUNT INCLUDES THE [facility] Last Admin: 08/21/19 09:36 Dose: Not Given Documented by: Mupirocin (Bactroban Ointment (For Decolonization) -) 1 applic NS BID COUNT INCLUDES THE [facility] Stop: 08/26/19 09:59 Last Admin: 08/21/19 09:41 Dose: 1 applic Documented by: Potassium Chloride (K-Dur -) 20 meq PO DAILY COUNT INCLUDES THE [facility] Last Admin: 08/21/19 09:36 Dose: Not Given Documented by: ASSESSMENT AND PLAN: Acute on Chronic Hypoxic and Hypercapneic Respiratory Failure Acute on Chronic Diastolic Heart Failure Pulmonary HTN Morbid Obesity HITESH/OHS HTN - IV lasix - monitor urine output, creatinine - received empiric antibiotics - f/u cultures, serologies - O2 to keep SpO2 88-92% - inhaled bronchodilators - BiPAP - monitor ABG - DVT prophylaxis - continue ICU monitoring for tenuous respiratory status critical care time spent in reviewing chart, evaluating patient and formulating plan 35 min
--- NOTE | 2019-08-21 13:18 | CON.CARD ---
Cardiology Consult (text) - Consultation Consultation Note: Chief Complaint: Events noted, notes reviewed, patient seen earlier today in the intensive care unit upon transfer from telemetry for altered mental status/unre sponsiveness, most likely related to acute hypercapnic respiratory failure, patient currently is on a BiPAP- lethargic but arousable History of Present Illness: Seen and examined in the ICU. Full consult dictated Medications: Current Medications Generic Name Dose Route Start Last Admin Trade Name Frerenae PRN Reason Stop Dose Admin Carvedilol 25 mg 08/21/19 10:00 08/21/19 09:36 Coreg - PO Not Given BID EUNICE Chlorhexidine Gluconate 1 applic 08/21/19 22:00 Hibiclens For Decolonization - TP HS EUNICE Enoxaparin Sodium 40 mg 08/21/19 10:00 08/21/19 09:41 Lovenox - SQ 40 mg DAILY EUNICE Administration Furosemide 40 mg 08/21/19 09:19 Lasix Injection - IVPUSH BID@0600,1400 EUNICE Lisinopril 20 mg 08/21/19 10:00 08/21/19 09:36 Prinivil PO Not Given BID EUNICE Mupirocin 1 applic 08/21/19 10:00 08/21/19 09:41 Bactroban Ointment (For Decolonization) - NS 08/26/19 09:59 1 applic BID EUNICE Administration Potassium Chloride 20 meq 08/21/19 10:00 08/21/19 09:36 K-Dur - PO Not Given DAILY EUNICE Review of Systems - Review of Systems Constitutional: denies: Fever or Chills Cardiovascular: As noted above Respiratory: denies: Cough or Sputum Production Gastrointestinal: denies: Nausea, Vomiting, Diarrhea, Constipation, Abdominal Pain Neurological: denies: Headaches Vital Signs: Last Vital Signs Temp Pulse Resp BP Pulse Ox 96.6 F L 75 11 161/89 96 08/21/19 10:00 08/21/19 12:00 08/21/19 12:00 08/21/19 12:00 08/21/19 12:35 Last Vital Signs Temp Pulse Resp BP Pulse Ox 97.7 F 74 20 164/77 98 08/21/19 06:00 08/21/19 06:00 08/21/19 06:00 08/21/19 06:00 08/21/19 04:50 Intake & Output 08/18/19 08/19/19 08/20/19 08/21/19 23:59 23:59 23:59 23:59 Intake Total 10 Balance 10 Weight 210 lb 210 lb Neck: Supple Negative JVD No Bruit Respiratory: Diminished breath sounds at the bases bilaterally Cardiovascular: S1 S2 Regular Rate and Rhythm Gastrointestinal: Soft Benign Normal Bowel Sounds Ext: 1-2+ Bilateral Edema, Chronic Venous Stasis Changes Labs: CBC, BMP 08/21/19 05:32 08/21/19 05:32 Troponin, BNP 08/20/19 08/20/19 08/20/19 13:15 13:15 20:15 Troponin I < 0.02 < 0.02 B-Natriuretic Peptide 423.6 H 08/21/19 05:32 Troponin I < 0.02 B-Natriuretic Peptide Hepatic Panel Total Bilirubin 0.5 mg/dL (0.2-1) 08/21/19 05:32 Total Bilirubin 0.6 mg/dL (0.2-1) 08/21/19 05:32 Direct Bilirubin 0.2 mg/dL (0.0-0.2) 08/20/19 13:15 AST 15 U/L (15-37) 08/21/19 05:32 AST 17 U/L (15-37) 08/21/19 05:32 ALT 23 U/L (13-61) 08/21/19 05:32 ALT 23 U/L (13-61) 08/21/19 05:32 Alkaline Phosphatase 86 U/L (45-117) 08/21/19 05:32 Alkaline Phosphatase 86 U/L (45-117) 08/21/19 05:32 Albumin 3.3 g/dl (3.4-5.0) L 08/21/19 05:32 Albumin 3.3 g/dl (3.4-5.0) L 08/21/19 05:32 INR, PTT INR 1.17 (0.83-1.09) H 08/20/19 13:15 ABG Results ABG pH 7.150 (7.350-7.450) L* 08/21/19 09:30 ABG HCO3 34.9 mmol/L (22-27) H 08/21/19 09:30 ABG O2 Sat (Measured) 81.7 mmHg (95-98) L 08/21/19 09:30 ABG O2 Content No Result Required. 08/21/19 09:30 ABG Base Excess 1.9 mmol/L (-2-2) 08/21/19 09:30 Assessment/Plan ASSESSMENT: 1. Acute on chronic hypoxic/hypercapnic respiratory failure 2. Acute on chronic class II-III [place] Heart [employer] classification left ventricular failure related to diastolic left ventricular dysfunction 3. Coronary artery disease angina pectoris 4. Hypertensive cardiovascular disease with history of hypertensive urgency 5. Obstructive sleep apnea 6. Obesity hypoventilation syndrome with pulmonary hypertension 7. Morbid obesity PLAN: 1. Continue Coreg 2. Continue Lisinopril and dose titration as needed and as tolerated 3. Continue IV Lasix therapy with close monitoring of renal function and electrolytes 4. Recommend the addition of Aldactone therapy with close monitoring of renal function and electrolytes 5. BiPAP management as per the critical care team 6. Eventual outpatient follow-up in our office post discharge Stephen Gerber M.D.
[2019-08-21] MEDS: FUROSEMIDE 40 MG/4 ML INJECTABLE VIAL IVPUSH SCH (14:20)
--- NOTE | 2019-08-21 17:49 | CONS ---
DATE OF CONSULTATION: 08/21/2019 REQUESTING PHYSICIAN: Hospitalist Service. CHIEF COMPLAINT: Respiratory distress evaluation of cardiovascular status. HISTORY OF PRESENT ILLNESS: A 49-year-old morbidly obese man of - [place] descent known to our service from a recent hospitalization, known history of coronary artery disease, angina pectoris, diastolic left ventricular dysfunction with chronic class 1 to 2 [place] Heart Association classification left ventricular failure, hypertensive cardiovascular disease with intermittent hypertensive urgency, advanced obstructive sleep apnea, obesity, hypoventilation syndrome with pulmonary hypertension, who presented to [facility] with increasing dyspnea and increasing bilateral lower extremity edema. Patient in addition reported orthopnea but denied any past nocturnal dyspnea. Early a.m. this morning, patient had acute respiratory distress and was transferred to the intensive care unit. Seen with BiPAP in position, lethargic, but easily arousable. PAST MEDICAL HISTORY: Coronary artery disease, angina pectoris, diastolic left ventricular dysfunction with chronic class 1 to 2 [place] Heart [employer] classification left ventricular failure, hypertensive cardiovascular disease, advanced obstructive sleep apnea, obesity hypoventilation syndrome with pulmonary hypertension. SOCIAL HISTORY: Denies smoking. FAMILY HISTORY: Positive coronary artery disease. ALLERGIES: None reported. MEDICATION: Medical therapy currently includes: 1. Coreg 25 mg twice a day. 2. Lovenox 40 mg subcutaneously once daily. 3. Lasix 40 mg IV push twice daily. 4. Lisinopril 20 mg twice daily. 5. Potassium 20 mEq once daily. REVIEW OF SYSTEMS: Head and neck: Denies headache, photophobia, blurring of vision. Respiratory: No cough or sputum production. Cardiovascular: As noted above. Gastrointestinal: No nausea, vomiting, diarrhea, abdominal discomfort. Genitourinary: No symptoms reported. Musculoskeletal: No symptoms reported. PHYSICAL EXAMINATION: Vital signs: Blood pressure is 161/89 mmHg, respiratory rate is 75 beats per minute. Head/Neck: Pupils equally reactive to light and accommodation. Extraocular muscles are intact. Anicteric sclerae. JVD cannot be elicited. Chest: Diminished breath sounds at the bases bilaterally. Cardiovascular: S1, S2 regular. Distant. No murmurs appreciated. Abdomen: Protuberant. Soft, benign. Normoactive bowel sounds. Extremities: 1 to 2+ bilateral edema. Chronic venous stasis changes were noted. LABORATORY: CBC revealed a white cell count of 7.9, hemoglobin 13.8, platelet count 211. Basic metabolic profile revealed sodium 145, potassium 3.8, BUN 16, creatinine 0.9, glucose 134. Troponin less than 0.02, BNP 423.6. ASSESSMENT: 1. Acute on chronic hypoxic, hypercapnic respiratory failure related to number 2. 2. Acute on chronic class 2 to 3 [place] Heart Association classification left ventricular failure related to diastolic left ventricular dysfunction. 3. Coronary artery disease, angina pectoris. 4. Hypertensive cardiovascular disease with history of hypertensive urgency. 5. Advanced obstructive sleep apnea. 6. Advanced obesity hypoventilation syndrome with pulmonary hypertension. 7. Morbid obesity. RECOMMENDATION: 1. Continue Coreg therapy. 2. Continue lisinopril therapy and dose titration as needed and as tolerated. 3. Continue intravenous Lasix therapy with close monitoring of renal function, electrolytes. 4. Recommend the addition of Aldactone therapy with close monitoring of renal function and electrolytes, potassium supplementation therapy discontinuation. 5. BiPAP management as per the critical care team. 6. Eventual followup in our office post discharge for additional outpatient cardiovascular evaluation. Thank you for the kind referral. LUIS ANTONIO CHEN M.D. [id number] MTDD
--- NOTE | 2019-08-21 18:21 | ECHO ---
Version: 1 Name: KHADIJAH COLLINS Exam: Adult Echocardiogram Study Date: 08/21/2019, 2:31 PM Age: 49 Years MMode/2D Measurements & Calculations IVSd: 1.64 cm LVIDs: 4.3 cm LVIDd: 6.1 cm LVPWd: 1.56 cm ACS: 2.6 cm Ao root diam: 4.0 cm LVOT diam: 2.7 cm LA dimension: 3.9 cm Doppler Measurements & Calculations MV E max jarrett: 69.1 cm/sec Med E/e': 12.3 MV A max jarrett: 61.2 cm/sec Med Peak E' Jarrett: 5.6 cm/sec MV E/A: 1.13 Lat E/e': 16.1 Lat Peak E' Jarrett: 4.3 cm/sec Ao max P.4 mmHg KIRSTEN(I,D): 3.7 cm Ao mean P.5 mmHg LV V1 mean: 40.4 cm/sec Ao V2 max: 104.5 cm/sec LV V1 mean P.76 mmHg Left Ventricle Mild to moderate concentric LVH with normal LV function. EF 58%. Right Ventricle The right ventricle is normal in size and function. Atria Normal left and right atrial size and function. Mitral Valve The mitral valve is normal in structure and function. Tricuspid Valve The tricuspid valve is normal in structure and function. Aortic Valve The aortic valve is normal in structure and function. Pulmonic Valve The pulmonic valve is normal in structure and function. Great Vessels The aortic root is normal size. Pericardium/Pleura There is no pericardial effusion. Tech Comments TDS due to morbid obesity. Scanned supine, on BiPAP. Summary Statements Mild to moderate concentric LVH with normal LV function. EF 58%. The right ventricle is normal in size and function. Normal left and right atrial size and function. The mitral valve is normal in structure and function. The tricuspid valve is normal in structure and function. The aortic valve is normal in structure and function. MD Jai Espinal 08/21/2019, 6:21 PM Ordering Physician: Adelaida Diane Referring Physician: ADELAIDA DIANE Performed By: Catina Yun
[2019-08-21] MEDS: SPIRONOLACTONE 25 MG TABLET PO SCH (21:07)
[2019-08-21] MEDS: CHLORHEXIDINE GLUCONATE 4% CLEANSER FOR DECOLONIZATION TP SCH (21:08)
[2019-08-21] MEDS ORDERED: CHLORHEXIDINE GLUCONATE 4% CLEANSER FOR DECOLONIZATION TP SCH (22:00)
[2019-08-21] MEDS ORDERED: ALBUTEROL SO4 0.083% IH SOL 2.5 MG/3 ML VIAL.NEB. NEB PRN (22:08)
[2019-08-22] MEDS: FUROSEMIDE 40 MG/4 ML INJECTABLE VIAL IVPUSH SCH ×2 (05:53→14:30)
[2019-08-22 06:34] LABS: BASO % 0.3 % (0-2.0); EOS % 0.1 % (0-4.5); HEMOGLOBIN 13.5 GM/dL (11.7-16.9); MCH 23.3 pg (25.7-33.7); MCHC 28.8 g/dl (32.0-35.9); MEAN CELL VOLUME 80.8 fl (80-96); MEAN PLT VOLUME 8.5 fl (7.5-11.1); MONO % 7.6 % (3.8-10.2); PLATELET COUNT 174 K/MM3 (134-434); RBC 5.82 M/mm3 (4.00-5.60); RDW 16.6 % (11.9-15.9); WHITE BLOOD COUNT 8.2 K/mm3 (4.0-10.0)
[2019-08-22 07:03] LABS: ALBUMIN 2.8 g/dl (3.4-5.0); BILIRUBIN,TOTAL 0.6 mg/dL (0.2-1); CALCIUM 8.1 mg/dL (8.5-10.1); CREATININE 0.8 mg/dL (0.55-1.3); MAGNESIUM 2.1 mg/dL (1.8-2.4); PHOSPHOROUS 3.8 mg/dL (2.5-4.9); POTASSIUM 3.4 mmol/L (3.5-5.1)
[2019-08-22] MEDS ORDERED: POTASSIUM CHLORIDE ORAL LIQUID 20 MEQ/15 ML PO ONE (08:11)
[2019-08-22] MEDS: KCL 10 MEQ IVPB 10 MEQ/100 ML INFUS.BAG IVPB SCH ×3 (09:09→12:44)
[2019-08-22] MEDS: SPIRONOLACTONE 25 MG TABLET PO SCH ×2 (10:10→21:46)
[2019-08-22] MEDS: ENOXAPARIN NA (PORCINE) 40 MG/0.4 ML DISP.SYRIN SQ SCH (10:11)
[2019-08-22] MEDS: CARVEDILOL 25 MG TABLET (FP) PO SCH ×2 (10:13→21:45)
[2019-08-22] MEDS ORDERED: PT OWN MED DRAWER 7, Y5N ONE (10:13)
[2019-08-22] MEDS: MUPIROCIN 2% TOPICAL OINTMENT FOR DECOLONIZATION NS SCH ×2 (10:14→21:46)
[2019-08-22] MEDS: LISINOPRIL 20 MG TABLET (FP) PO SCH ×2 (10:14→21:46)
--- NOTE | 2019-08-22 11:41 | PN ---
Teaching Attending Note Name of Resident: Digna Jorgensen ATTENDING PHYSICIAN STATEMENT I saw and evaluated the patient. I reviewed the resident's note and discussed the case with the resident. I agree with the resident's findings and plan as documented. SUBJECTIVE: Pt seen and examined in the ICU. Mental status improving, now on HFOT. No fevers recorded. Diuresed well with lasix yesterday. OBJECTIVE: Vital Signs Period Temp Pulse Resp BP Sys/Deluca Pulse Ox Last 24 Hr 96.8 F-98.5 F 75-98 11-20 130-172/79-94 87-96 Intake & Output 08/19/19 08/20/19 08/21/19 08/22/19 23:59 23:59 23:59 23:59 Intake Total 300 10 Output Total 4250 900 Balance -3950 -890 Weight 243.488 kg 233 kg 233 kg Gen: more alert, awake Heart: RRR Lung: distant breath sounds Abd: soft, nontender Ext: + edema CBC, BMP 08/22/19 06:13 08/22/19 06:13 Active Medications Albuterol Sulfate (Ventolin 0.083% Nebulizer Soln -) 1 amp NEB Q6H PRN PRN Reason: SHORT OF BREATH/WHEEZING Carvedilol (Coreg -) 25 mg PO BID [facility] Last Admin: 08/22/19 10:13 Dose: 25 mg Documented by: Chlorhexidine Gluconate (Hibiclens For Decolonization -) 1 applic TP HS [facility] Last Admin: 08/21/19 21:08 Dose: 1 applic Documented by: Enoxaparin Sodium (Lovenox -) 40 mg SQ DAILY [facility] Last Admin: 08/22/19 10:11 Dose: 40 mg Documented by: Furosemide (Lasix Injection -) 40 mg IVPUSH BID@0600,1400 [facility] Last Admin: 08/22/19 05:53 Dose: 40 mg Documented by: Potassium Chloride (Potassium Chloride 10 Meq Premix Ivpb -) 10 meq in 100 mls @ 100 mls/hr IVPB Q60M [facility] Stop: 08/22/19 12:29 Last Admin: 08/22/19 09:09 Dose: 100 mls/hr Documented by: Lisinopril (Prinivil) 20 mg PO BID [facility] Last Admin: 08/22/19 10:14 Dose: 20 mg Documented by: Mupirocin (Bactroban Ointment (For Decolonization) -) 1 applic NS BID [facility] Stop: 08/26/19 09:59 Last Admin: 08/22/19 10:14 Dose: 1 applic Documented by: Spironolactone (Aldactone -) 25 mg PO BID [facility] Last Admin: 08/22/19 10:10 Dose: 25 mg Documented by: ASSESSMENT AND PLAN: Acute on Chronic Hypoxic and Hypercapneic Respiratory Failure Acute on Chronic Diastolic Heart Failure Pulmonary HTN Morbid Obesity HITESH/OHS HTN - continue lasix, aldactone - monitor urine output, creatinine - replete lytes - received empiric antibiotics - f/u cultures, serologies - O2 to keep SpO2 88-92% - inhaled bronchodilators - BiPAP as needed - monitor ABG - DVT prophylaxis - can monitor on telemetry
--- NOTE | 2019-08-22 13:24 | PN ---
Progress Note, Physician History of Present Illness: Mental status improving, now on HFOT, Bipap overnight. No fevers recorded. Diuresed well with lasix and spironolactone with improvement in BP control. - Current Medication List Current Medications: Active Medications Albuterol Sulfate (Ventolin 0.083% Nebulizer Soln -) 1 amp NEB Q6H PRN PRN Reason: SHORT OF BREATH/WHEEZING Carvedilol (Coreg -) 25 mg PO BID [facility] Last Admin: 08/22/19 10:13 Dose: 25 mg Documented by: Chlorhexidine Gluconate (Hibiclens For Decolonization -) 1 applic TP HS [facility] Last Admin: 08/21/19 21:08 Dose: 1 applic Documented by: Enoxaparin Sodium (Lovenox -) 40 mg SQ DAILY [facility] Last Admin: 08/22/19 10:11 Dose: 40 mg Documented by: Furosemide (Lasix Injection -) 40 mg IVPUSH BID@0600,1400 [facility] Last Admin: 08/22/19 05:53 Dose: 40 mg Documented by: Lisinopril (Prinivil) 20 mg PO BID [facility] Last Admin: 08/22/19 10:14 Dose: 20 mg Documented by: Mupirocin (Bactroban Ointment (For Decolonization) -) 1 applic NS BID [facility] Stop: 08/26/19 09:59 Last Admin: 08/22/19 10:14 Dose: 1 applic Documented by: Spironolactone (Aldactone -) 25 mg PO BID [facility] Last Admin: 08/22/19 10:10 Dose: 25 mg Documented by: - Objective Vital Signs: Vital Signs Temperature 97.6 F 08/22/19 12:00 Pulse Rate 85 08/22/19 12:00 Respiratory Rate 93 H 08/22/19 12:00 Blood Pressure 136/110 H 08/22/19 12:00 O2 Sat by Pulse Oximetry (%) 95 08/22/19 08:15 Constitutional: Yes: No Distress, Calm Neck: Yes: Supple Cardiovascular: Yes: Regular Rate and Rhythm Respiratory: Yes: On BiPap, SOB Gastrointestinal: Yes: Normal Bowel Sounds, Soft, Abdomen, Obese Edema: Yes Labs: CBC, BMP 08/22/19 06:13 08/22/19 06:13 INR, PTT INR 1.17 (0.83-1.09) H 08/20/19 13:15 - ....Imaging Chest X-ray: Report Reviewed (Bilateral congestion mildly improved) EKG: Report Reviewed (Tele: SR) Problem List - Problems (1) Acute on chronic diastolic (congestive) heart failure Code(s): I50.33 - ACUTE ON CHRONIC DIASTOLIC (CONGESTIVE) HEART FAILURE (2) Acute on chronic respiratory failure with hypoxia and hypercapnia Code(s): J96.21 - ACUTE AND CHRONIC RESPIRATORY FAILURE WITH HYPOXIA; J96.22 - ACUTE AND CHRONIC RESPIRATORY FAILURE WITH HYPERCAPNIA (3) Hypertensive urgency Code(s): I16.0 - HYPERTENSIVE URGENCY (4) Morbid obesity with BMI of 50.0-59.9, adult Code(s): Z68.43 - BODY MASS INDEX (BMI) 50.0-59.9, ADULT (5) Obesity hypoventilation syndrome Code(s): E66.2 - MORBID (SEVERE) OBESITY WITH ALVEOLAR HYPOVENTILATION (6) Obstructive sleep apnea Code(s): G47.33 - OBSTRUCTIVE SLEEP APNEA (ADULT) (PEDIATRIC) Assessment/Plan 08/21/2019 Echo: Mild-mod cLVH with LVEF 58%, normal RV size and fxn 1. Acute on chronic hypoxic/hypercapnic respiratory failure 2. Acute on chronic class II-III [place] [employer] classification left ventricular failure related to diastolic left ventricular dysfunction 3. Coronary artery disease angina pectoris 4. Hypertensive cardiovascular disease with history of hypertensive urgency 5. Obstructive sleep apnea 6. Obesity hypoventilation syndrome with pulmonary hypertension 7. Morbid obesity PLAN: 1. Continue Coreg 25 bid 2. Continue Lisinopril 20 bid dose titration as tolerated 3. Continue IV Lasix therapy with close monitoring of renal function and electrolytes 4. Agree with addition of Aldactone 25 bid with close monitoring of renal function and electrolytes 5. BiPAP and HFO2 as per the critical care team 6. Eventual outpatient follow-up in our office post discharge 7. DVT prophylaxis
--- NOTE | 2019-08-22 14:00 | PN ---
Physical Exam: TRANSFER NOTE SUBJECTIVE: Patient seen and examined, was on Bipap overnight. Is occasionally on high flow but tends to desaturates down to the high 80s. Otherwise he is speaking in full sentences and would like to eat and drink. Urine output 4250 OBJECTIVE: Vital Signs Period Temp Pulse Resp BP Sys/Deluca Pulse Ox Last 24 Hr 96.8 F-98.5 F 78-98 15-93 130-172/79-110 87-96 GENERAL: Somnolent, responsive to sternal rub. HEAD: Normal with no signs of trauma. EYES: Pupils equal, round and reactive to light, extraocular movements intact, conjunctiva clear. EARS, NOSE, THROAT: Ears normal, nares patent, moist mucous membranes. NECK: No JVD. LUNGS: Clear to auscultation anteriorly. No accessory muscle use. on BiPAP. HEART: Regular rate and rhythm, no murmur appreciated. ABDOMEN: Obese, soft, nontender, not distended, normoactive bowel sounds. UPPER EXTREMITIES: Warm, well-perfused. No peripheral edema. LOWER EXTREMITIES: Warm, well-perfused. +1 pitting edema to mid shins b/l. NEUROLOGICAL: Unable to assess. PSYCHIATRIC: Unable to assess. SKIN: Warm, dry, normal turgor. Laboratory Results - last 24 hr 08/22/19 08/22/19 06:13 06:13 WBC 8.2 RBC 5.82 H Hgb 13.5 Hct 47.0 MCV 80.8 MCH 23.3 L MCHC 28.8 L RDW 16.6 H Plt Count 174 MPV 8.5 Absolute Neuts (auto) 7.0 Neutrophils % 85.0 H Lymphocytes % 7.0 L D Monocytes % 7.6 Eosinophils % 0.1 Basophils % 0.3 Nucleated RBC % 0 Sodium 146 H Potassium 3.4 L Chloride 97 L Carbon Dioxide 44 H Anion Gap 5 L BUN 15.0 Creatinine 0.8 Est GFR (CKD-EPI)AfAm 119.88 Est GFR (CKD-EPI)NonAf 103.43 Random Glucose 83 Calcium 8.1 L Phosphorus 3.8 Magnesium 2.1 Total Bilirubin 0.6 AST 14 L ALT 20 Alkaline Phosphatase 75 Total Protein 7.0 Albumin 2.8 L Active Medications Generic Name Dose Route Start Last Admin Trade Name Freq PRN Reason Stop Dose Admin Albuterol Sulfate 1 amp 08/21/19 22:08 Ventolin 0.083% Nebulizer Soln - NEB Q6H PRN SHORT OF BREATH/WHEEZING Carvedilol 25 mg 08/21/19 10:00 08/22/19 10:13 Coreg - PO 25 mg BID EUNICE Administration Chlorhexidine Gluconate 1 applic 08/21/19 22:00 08/21/19 21:08 Hibiclens For Decolonization - TP 1 applic HS EUNICE Administration Enoxaparin Sodium 40 mg 08/21/19 10:00 08/22/19 10:11 Lovenox - SQ 40 mg DAILY EUNICE Administration Furosemide 40 mg 08/21/19 09:19 08/22/19 05:53 Lasix Injection - IVPUSH 40 mg BID@0600,1400 EUNICE Administration Lisinopril 20 mg 08/21/19 10:00 08/22/19 10:14 Prinivil PO 20 mg BID EUNICE Administration Mupirocin 1 applic 08/21/19 10:00 08/22/19 10:14 Bactroban Ointment (For Decolonization) - NS 08/26/19 09:59 1 applic BID EUNICE Administration Spironolactone 25 mg 08/21/19 22:00 08/22/19 10:10 Aldactone - PO 25 mg BID EUNICE Administration ASSESSMENT/PLAN: 49 y/o male with PMHx morbid obesity, HITESH/OHS on CPAP, HTN, HFpEF, and chronic leg edema who presented to [facility] after 2-3 days shortness of breath and being hypoxic to 50s at home. He was admitted for acute hypoxic/hypcapneic respiratory failure. Pt was admitted to [facility], and shortly after found somnolent, only responsive to sternal rub after refusing Bipap. A rapid response was called, pt was placed on BiPAP and transferred to the ICU. ABG revealed respiratory acidosis with hypercarbia. Patient's mental status improved on Bipap. patient continued all of his home cardiac meds; patient was evaluated by cardiology and started on spironolactone. Echo was completed (EF 58%, please refer to report). Patient's HTN has improved, and other VS have Vital signs have remained stable. Electrolytes were repleted. Patient is stable for transfer to [facility]. Visit type - Emergency Visit Emergency Visit: Yes ED Registration Date: 08/20/19 Care time: The patient presented to the Emergency Department on the above date and was hospitalized for further evaluation of their emergent condition. - New Patient This patient is new to me today: No - Critical Care Critical Care patient: Yes Total Critical Care Time (in minutes): 36 Critical Care Statement: The care of this patient involved high complexity decision making to prevent further life threatening deterioration of the patient's condition and/or to evaluate & treat vital organ system(s) failure or risk of failure. ATTENDING PHYSICIAN STATEMENT I saw and evaluated the patient. I reviewed the resident's note and discussed the case with the resident. I agree with the resident's findings and plan as documented. SUBJECTIVE: OBJECTIVE: ASSESSMENT AND PLAN:
[2019-08-22] MEDS: CHLORHEXIDINE GLUCONATE 4% CLEANSER FOR DECOLONIZATION TP SCH (21:46)
[2019-08-23] MEDS: FUROSEMIDE 40 MG/4 ML INJECTABLE VIAL IVPUSH SCH ×2 (06:24→14:30)
[2019-08-23 09:05] LABS: BASO % 0.4 % (0-2.0); EOS % 0.3 % (0-4.5); HEMATOCRIT 46.2 % (35.4-49); HEMOGLOBIN 13.3 GM/dL (11.7-16.9); LYMPH % 11.6 % (8-40); MCHC 28.8 g/dl (32.0-35.9); MEAN CELL VOLUME 79.8 fl (80-96); MEAN PLT VOLUME 8.5 fl (7.5-11.1); MONO % 8.7 % (3.8-10.2); PLATELET COUNT 197 K/MM3 (134-434); RBC 5.79 M/mm3 (4.00-5.60); RDW 16.4 % (11.9-15.9); WHITE BLOOD COUNT 6.4 K/mm3 (4.0-10.0)
[2019-08-23 09:35] LABS: ALBUMIN 2.9 g/dl (3.4-5.0); ALK PHOS 74 U/L (45-117); BILIRUBIN,TOTAL 0.8 mg/dL (0.2-1); BLOOD UREA NITROGEN 17.7 mg/dL (7-18); CALCIUM 8.4 mg/dL (8.5-10.1); CHLORIDE 91 mmol/L (98-107); CREATININE 0.9 mg/dL (0.55-1.3); GLUCOSE,RANDOM 135 mg/dL (74-106); MAGNESIUM 2.1 mg/dL (1.8-2.4); PHOSPHOROUS 3.7 mg/dL (2.5-4.9); POTASSIUM 3.8 mmol/L (3.5-5.1); SGOT/AST 14 U/L (15-37); SGPT/ALT 17 U/L (13-61); SODIUM 142 mmol/L (136-145); TOT PROT 7.2 g/dl (6.4-8.2)
[2019-08-23 09:36] LABS: ANION GAP 6 MMOL/L (8-16); CO2 > 45 mmol/L (21-32)
--- NOTE | 2019-08-23 09:43 | PN ---
Progress Note, Physician History of Present Illness: Mental status improving, now on HFOT with 50% FiO2, Bipap overnight. No fevers recorded. Diuresed well with lasix and spironolactone with improvement in BP control. - Current Medication List Current Medications: Active Medications Albuterol Sulfate (Ventolin 0.083% Nebulizer Soln -) 1 amp NEB Q6H PRN PRN Reason: SHORT OF BREATH/WHEEZING Carvedilol (Coreg -) 25 mg PO BID [facility] Last Admin: 08/22/19 21:45 Dose: 25 mg Documented by: Chlorhexidine Gluconate (Hibiclens For Decolonization -) 1 applic TP HS [facility] Last Admin: 08/22/19 21:46 Dose: 1 applic Documented by: Enoxaparin Sodium (Lovenox -) 40 mg SQ DAILY [facility] Last Admin: 08/22/19 10:11 Dose: 40 mg Documented by: Furosemide (Lasix Injection -) 40 mg IVPUSH BID@0600,1400 [facility] Last Admin: 08/23/19 06:24 Dose: 40 mg Documented by: Lisinopril (Prinivil) 20 mg PO BID [facility] Last Admin: 08/22/19 21:46 Dose: 20 mg Documented by: Mupirocin (Bactroban Ointment (For Decolonization) -) 1 applic NS BID [facility] Stop: 08/26/19 09:59 Last Admin: 08/22/19 21:46 Dose: 1 applic Documented by: Spironolactone (Aldactone -) 25 mg PO BID [facility] Last Admin: 08/22/19 21:46 Dose: 25 mg Documented by: - Objective Vital Signs: Vital Signs Temperature 98.6 F 08/22/19 22:00 Pulse Rate 78 08/23/19 06:00 Respiratory Rate 23 H 08/23/19 06:00 Blood Pressure 145/78 08/23/19 06:00 O2 Sat by Pulse Oximetry (%) 94 L 08/23/19 08:30 Constitutional: Yes: No Distress, Calm Neck: Yes: Supple Cardiovascular: Yes: Regular Rate and Rhythm Respiratory: Yes: SOB, Other (HFO2) Gastrointestinal: Yes: Normal Bowel Sounds, Soft, Abdomen, Obese Edema: Yes Edema: LLE: Trace, RLE: Trace Integumentary: Yes: Venous Stasis Changes Labs: CBC, BMP 08/23/19 08:48 08/23/19 08:48 INR, PTT INR 1.17 (0.83-1.09) H 08/20/19 13:15 - ....Imaging EKG: Report Reviewed Problem List - Problems (1) Acute on chronic diastolic (congestive) heart failure Code(s): I50.33 - ACUTE ON CHRONIC DIASTOLIC (CONGESTIVE) HEART FAILURE (2) Acute on chronic respiratory failure with hypoxia and hypercapnia Code(s): J96.21 - ACUTE AND CHRONIC RESPIRATORY FAILURE WITH HYPOXIA; J96.22 - ACUTE AND CHRONIC RESPIRATORY FAILURE WITH HYPERCAPNIA (3) Hypertensive urgency Code(s): I16.0 - HYPERTENSIVE URGENCY (4) Morbid obesity with BMI of 50.0-59.9, adult Code(s): Z68.43 - BODY MASS INDEX (BMI) 50.0-59.9, ADULT (5) Obesity hypoventilation syndrome Code(s): E66.2 - MORBID (SEVERE) OBESITY WITH ALVEOLAR HYPOVENTILATION (6) Obstructive sleep apnea Code(s): G47.33 - OBSTRUCTIVE SLEEP APNEA (ADULT) (PEDIATRIC) Assessment/Plan 08/21/2019 Echo: Mild-mod cLVH with LVEF 58%, normal RV size and fxn 1. Acute on chronic hypoxic/hypercapnic respiratory failure 2. Acute on chronic class II-III [place] [employer] classification left ventricular failure related to diastolic left ventricular dysfunction 3. Coronary artery disease angina pectoris 4. Hypertensive cardiovascular disease with history of hypertensive urgency 5. Obstructive sleep apnea 6. Obesity hypoventilation syndrome with pulmonary hypertension 7. Morbid obesity PLAN: 1. Continue Coreg 25 bid and Lisinopril 20 bid dose with titration as tolerated 2. Continue IV diuresis and Aldactone 25 bid with close monitoring of renal function and electrolytes 3. BiPAP and HFO2, O2 to keep SpO2 88-92%, BD as needed per the critical care team 5. Eventual outpatient follow-up in our office post discharge 6. DVT prophylaxis
[2019-08-23] MEDS: ENOXAPARIN NA (PORCINE) 40 MG/0.4 ML DISP.SYRIN SQ SCH (09:55)
[2019-08-23] MEDS: SPIRONOLACTONE 25 MG TABLET PO SCH ×2 (09:55→22:57)
[2019-08-23] MEDS: LISINOPRIL 20 MG TABLET (FP) PO SCH ×2 (09:55→22:57)
[2019-08-23] MEDS: MUPIROCIN 2% TOPICAL OINTMENT FOR DECOLONIZATION NS SCH ×2 (09:56→22:57)
[2019-08-23] MEDS: CARVEDILOL 25 MG TABLET (FP) PO SCH ×2 (09:56→22:57)
--- NOTE | 2019-08-23 10:44 | PN ---
Teaching Attending Note Name of Resident: Digna Jorgensen ATTENDING PHYSICIAN STATEMENT I saw and evaluated the patient. I reviewed the resident's note and discussed the case with the resident. I agree with the resident's findings and plan as documented. SUBJECTIVE: Pt seen and examined in the ICU. Mental status continues to improve, on HFOT with 50% FiO2. No fevers recorded. Diuresing well with lasix yesterday. OBJECTIVE: Vital Signs Period Temp Pulse Resp BP Sys/Deluca Pulse Ox Last 24 Hr 97.6 F-98.7 F 78-95 15-23 92-145/53-110 93-95 Intake & Output 08/20/19 08/21/19 08/22/19 08/23/19 23:59 23:59 23:59 23:59 Intake Total 486 912 4593 Output Total 4250 3700 1250 Balance -3950 -3290 990 Weight 243.488 kg 233 kg 232.693 kg 231 kg Gen: more alert, awake Heart: RRR Lung: distant breath sounds Abd: soft, nontender Ext: + edema CBC, BMP 08/23/19 08:48 08/23/19 08:48 Active Medications Albuterol Sulfate (Ventolin 0.083% Nebulizer Soln -) 1 amp NEB Q6H PRN PRN Reason: SHORT OF BREATH/WHEEZING Carvedilol (Coreg -) 25 mg PO BID [facility] Last Admin: 08/23/19 09:56 Dose: 25 mg Documented by: Chlorhexidine Gluconate (Hibiclens For Decolonization -) 1 applic TP HS [facility] Last Admin: 08/22/19 21:46 Dose: 1 applic Documented by: Enoxaparin Sodium (Lovenox -) 40 mg SQ DAILY [facility] Last Admin: 08/23/19 09:55 Dose: 40 mg Documented by: Furosemide (Lasix Injection -) 40 mg IVPUSH BID@0600,1400 [facility] Last Admin: 08/23/19 06:24 Dose: 40 mg Documented by: Lisinopril (Prinivil) 20 mg PO BID [facility] Last Admin: 08/23/19 09:55 Dose: 20 mg Documented by: Mupirocin (Bactroban Ointment (For Decolonization) -) 1 applic NS BID [facility] Stop: 08/26/19 09:59 Last Admin: 08/23/19 09:56 Dose: 1 applic Documented by: Spironolactone (Aldactone -) 25 mg PO BID [facility] Last Admin: 08/23/19 09:55 Dose: 25 mg Documented by: ASSESSMENT AND PLAN: Acute on Chronic Hypoxic and Hypercapneic Respiratory Failure Acute on Chronic Diastolic Heart Failure Pulmonary HTN Morbid Obesity HITESH/OHS HTN - continue lasix, aldactone - monitor urine output, creatinine - replete lytes - received empiric antibiotics - O2 to keep SpO2 88-92% - inhaled bronchodilators - BiPAP as needed - DVT prophylaxis - can monitor on telemetry
--- NOTE | 2019-08-23 11:02 | PN ---
Problem List - Problems (1) Acute on chronic diastolic (congestive) heart failure Code(s): I50.33 - ACUTE ON CHRONIC DIASTOLIC (CONGESTIVE) HEART FAILURE (2) Acute on chronic respiratory failure with hypoxia and hypercapnia Code(s): J96.21 - ACUTE AND CHRONIC RESPIRATORY FAILURE WITH HYPOXIA; J96.22 - ACUTE AND CHRONIC RESPIRATORY FAILURE WITH HYPERCAPNIA (3) Hypertensive urgency Code(s): I16.0 - HYPERTENSIVE URGENCY (4) Morbid obesity with BMI of 50.0-59.9, adult Code(s): Z68.43 - BODY MASS INDEX (BMI) 50.0-59.9, ADULT (5) Obesity hypoventilation syndrome Code(s): E66.2 - MORBID (SEVERE) OBESITY WITH ALVEOLAR HYPOVENTILATION (6) Obstructive sleep apnea Code(s): G47.33 - OBSTRUCTIVE SLEEP APNEA (ADULT) (PEDIATRIC)
--- NOTE | 2019-08-23 14:28 | HOSP ---
Subjective - Review of Symptoms Events since last encounter: ACCEPTANCE NOTE Pt accepted for transfer from ICU to telemetry. He was seen and assessed at bedside on tele. Pt is awake and alert, in stable condition. Currently on high flow, satting in the 90's. Will cont to follow. Physical Examination Vital Signs: Vital Signs Temperature 98.1 F 08/23/19 14:00 Pulse Rate 86 08/23/19 14:00 Respiratory Rate 18 08/23/19 14:00 Blood Pressure 115/68 08/23/19 14:00 O2 Sat by Pulse Oximetry (%) 93 L 08/23/19 12:04 Labs: CBC, BMP 08/23/19 08:48 08/23/19 08:48 Visit type - Emergency Visit Emergency Visit: Yes ED Registration Date: 08/20/19 Care time: The patient presented to the Emergency Department on the above date and was hospitalized for further evaluation of their emergent condition. - New Patient This patient is new to me today: No - Critical Care Critical Care patient: No
[2019-08-23] MEDS: CHLORHEXIDINE GLUCONATE 4% CLEANSER FOR DECOLONIZATION TP SCH (22:57)
[2019-08-23] MEDS: ALBUTEROL SO4 0.083% IH SOL 2.5 MG/3 ML VIAL.NEB. NEB PRN (23:45)
[2019-08-24 07:12] LABS: BASO % 0.9 % (0-2.0); EOS % 0.9 % (0-4.5); HEMATOCRIT 45.7 % (35.4-49); HEMOGLOBIN 13.2 GM/dL (11.7-16.9); LYMPH % 15.8 % (8-40); MCH 23.2 pg (25.7-33.7); MCHC 28.9 g/dl (32.0-35.9); MEAN CELL VOLUME 80.3 fl (80-96); MEAN PLT VOLUME 8.3 fl (7.5-11.1); MONO % 10.5 % (3.8-10.2); NEUT % 71.9 % (42.8-82.8); PLATELET COUNT 190 K/MM3 (134-434); RBC 5.69 M/mm3 (4.00-5.60); RDW 15.9 % (11.9-15.9); WHITE BLOOD COUNT 5.1 K/mm3 (4.0-10.0)
[2019-08-24] MEDS: FUROSEMIDE 40 MG/4 ML INJECTABLE VIAL IVPUSH SCH ×2 (07:22→13:43)
[2019-08-24 07:34] LABS: ALBUMIN 2.7 g/dl (3.4-5.0); ALK PHOS 67 U/L (45-117); BILIRUBIN,TOTAL 1.1 mg/dL (0.2-1); BLOOD UREA NITROGEN 18.6 mg/dL (7-18); CALCIUM 8.3 mg/dL (8.5-10.1); CHLORIDE 90 mmol/L (98-107); CREATININE 0.8 mg/dL (0.55-1.3); GLUCOSE,RANDOM 108 mg/dL (74-106); MAGNESIUM 2.4 mg/dL (1.8-2.4); PHOSPHOROUS 3.7 mg/dL (2.5-4.9); POTASSIUM 3.9 mmol/L (3.5-5.1); SGOT/AST 11 U/L (15-37); SGPT/ALT 16 U/L (13-61); SODIUM 141 mmol/L (136-145)
[2019-08-24 07:36] LABS: ANION GAP 7 MMOL/L (8-16); CO2 > 45 mmol/L (21-32)
--- NOTE | 2019-08-24 07:48 | PN ---
Progress Note, Physician History of Present Illness: pulmonary alert,feeling better,sob improving on hfot,o2 sat 95% - Current Medication List Current Medications: Active Medications Albuterol Sulfate (Ventolin 0.083% Nebulizer Soln -) 1 amp NEB Q6H PRN PRN Reason: SHORT OF BREATH/WHEEZING Last Admin: 08/23/19 23:45 Dose: 1 amp Documented by: Carvedilol (Coreg -) 25 mg PO BID [facility] Enoxaparin Sodium (Lovenox -) 40 mg SQ DAILY [facility] Furosemide (Lasix Injection -) 40 mg IVPUSH BID@0600,1400 [facility] Last Admin: 08/24/19 07:22 Dose: 40 mg Documented by: Lisinopril (Prinivil) 20 mg PO BID [facility] Spironolactone (Aldactone -) 25 mg PO BID [facility] - Objective Vital Signs: Vital Signs Temperature 97.5 F L 08/24/19 02:00 Pulse Rate 70 08/24/19 05:27 Respiratory Rate 20 08/24/19 05:27 Blood Pressure 129/76 08/24/19 05:27 O2 Sat by Pulse Oximetry (%) 92 L 08/23/19 20:42 Constitutional: Yes: Calm, Obese Eyes: Yes: WNL HENT: Yes: WNL Neck: Yes: WNL Cardiovascular: Yes: Regular Rate and Rhythm, S1, S2 Respiratory: Yes: Diminished Gastrointestinal: Yes: Normal Bowel Sounds, Soft, Abdomen, Obese Extremities: Yes: WNL Edema: Yes Labs: CBC, BMP 08/24/19 06:40 08/24/19 06:40 INR, PTT INR 1.17 (0.83-1.09) H 08/20/19 13:15 Problem List - Problems (1) Acute and chronic respiratory failure Code(s): J96.20 - ACUTE AND CHR RESP FAILURE, UNSP W HYPOXIA OR HYPERCAPNIA Qualifiers: (2) Pulmonary vascular congestion Code(s): R09.89 - OTH SYMPTOMS AND SIGNS INVOLVING THE CIRC AND RESP SYSTEMS (3) Acute on chronic diastolic (congestive) heart failure Code(s): I50.33 - ACUTE ON CHRONIC DIASTOLIC (CONGESTIVE) HEART FAILURE (4) Acute on chronic respiratory failure with hypoxia and hypercapnia Code(s): J96.21 - ACUTE AND CHRONIC RESPIRATORY FAILURE WITH HYPOXIA; J96.22 - ACUTE AND CHRONIC RESPIRATORY FAILURE WITH HYPERCAPNIA (5) Respiratory distress Code(s): R06.03 - ACUTE RESPIRATORY DISTRESS (6) Morbid obesity with BMI of 50.0-59.9, adult Code(s): Z68.43 - BODY MASS INDEX (BMI) 50.0-59.9, ADULT (7) Obesity hypoventilation syndrome Code(s): E66.2 - MORBID (SEVERE) OBESITY WITH ALVEOLAR HYPOVENTILATION (8) Obstructive sleep apnea Code(s): G47.33 - OBSTRUCTIVE SLEEP APNEA (ADULT) (PEDIATRIC) Assessment/Plan ASSESSMENT AND PLAN: Acute on Chronic Hypoxic and Hypercapneic Respiratory Failure Acute on Chronic Diastolic Heart Failure Pulmonary HTN Morbid Obesity HITESH/OHS HTN - continue lasix, aldactone - monitor urine output, creatinine - replete lytes - received empiric antibiotics - O2 to keep SpO2 88-92% - inhaled bronchodilators - BiPAP as needed - DVT prophylaxis - abg - bariatric surgery evaluation DR BACH
[2019-08-24] MEDS: SPIRONOLACTONE 25 MG TABLET PO SCH ×2 (09:09→22:02)
[2019-08-24] MEDS: LISINOPRIL 20 MG TABLET (FP) PO SCH ×2 (09:09→22:02)
[2019-08-24] MEDS: ENOXAPARIN NA (PORCINE) 40 MG/0.4 ML DISP.SYRIN SQ SCH (09:10)
[2019-08-24] MEDS: CARVEDILOL 25 MG TABLET (FP) PO SCH ×2 (09:10→22:01)
[2019-08-24] MEDS ORDERED: MUPIROCIN 2% TOPICAL OINTMENT FOR DECOLONIZATION NS SCH (10:00)
--- NOTE | 2019-08-24 10:06 | PN ---
Progress Note (short form) - Note Progress Note: Transferred to [facility]; no acute cardiac events Vital Signs Temperature 98.4 F 08/24/19 09:49 Pulse Rate 83 08/24/19 09:49 Respiratory Rate 20 08/24/19 09:49 Blood Pressure 147/68 08/24/19 09:49 O2 Sat by Pulse Oximetry (%) 92 L 08/23/19 20:42 Cardiovascular: Yes: Regular Rate and Rhythm Respiratory: Yes: SOB, Other (HFO2) Gastrointestinal: Yes: Normal Bowel Sounds, Soft, Abdomen, Obese Edema: Yes Edema: LLE: Trace, RLE: Trace Integumentary: Yes: Venous Stasis Changes Labs: CBC, BMP 08/24/19 06:40 08/24/19 06:40 Active Medications Albuterol Sulfate (Ventolin 0.083% Nebulizer Soln -) 1 amp NEB Q6H PRN PRN Reason: SHORT OF BREATH/WHEEZING Last Admin: 08/23/19 23:45 Dose: 1 amp Documented by: Carvedilol (Coreg -) 25 mg PO BID [facility] Last Admin: 08/24/19 09:10 Dose: 25 mg Documented by: Enoxaparin Sodium (Lovenox -) 40 mg SQ DAILY [facility] Last Admin: 08/24/19 09:10 Dose: 40 mg Documented by: Furosemide (Lasix Injection -) 40 mg IVPUSH BID@0600,1400 [facility] Last Admin: 08/24/19 07:22 Dose: 40 mg Documented by: Lisinopril (Prinivil) 20 mg PO BID [facility] Last Admin: 08/24/19 09:09 Dose: 20 mg Documented by: Spironolactone (Aldactone -) 25 mg PO BID [facility] Last Admin: 08/24/19 09:09 Dose: 25 mg Documented by: - ....Imaging EKG: Report Reviewed Problem List - Problems (1) Acute on chronic diastolic (congestive) heart failure Code(s): I50.33 - ACUTE ON CHRONIC DIASTOLIC (CONGESTIVE) HEART FAILURE (2) Acute on chronic respiratory failure with hypoxia and hypercapnia Code(s): J96.21 - ACUTE AND CHRONIC RESPIRATORY FAILURE WITH HYPOXIA; J96.22 - ACUTE AND CHRONIC RESPIRATORY FAILURE WITH HYPERCAPNIA (3) Hypertensive urgency Code(s): I16.0 - HYPERTENSIVE URGENCY (4) Morbid obesity with BMI of 50.0-59.9, adult Code(s): Z68.43 - BODY MASS INDEX (BMI) 50.0-59.9, ADULT (5) Obesity hypoventilation syndrome Code(s): E66.2 - MORBID (SEVERE) OBESITY WITH ALVEOLAR HYPOVENTILATION (6) Obstructive sleep apnea Code(s): G47.33 - OBSTRUCTIVE SLEEP APNEA (ADULT) (PEDIATRIC) Assessment/Plan 08/21/2019 Echo: Mild-mod cLVH with LVEF 58%, normal RV size and fxn 1. Acute on chronic hypoxic/hypercapnic respiratory failure 2. Acute on chronic class II-III [place] [employer] classification left ventricular failure related to diastolic left ventricular dysfunction 3. Coronary artery disease angina pectoris 4. Hypertensive cardiovascular disease with history of hypertensive urgency 5. Obstructive sleep apnea 6. Obesity hypoventilation syndrome with pulmonary hypertension 7. Morbid obesity PLAN: Stable cardiacwise: same 1. Continue Coreg 25 bid and Lisinopril 20 bid dose with titration as tolerated 2. Continue IV diuresis and Aldactone 25 bid with close monitoring of renal function and electrolytes 3. Eventual outpatient follow-up in our office post discharge 4. DVT prophylaxis
--- NOTE | 2019-08-24 16:28 | PN ---
Physical Exam: SUBJECTIVE: Patient seen and examined Patient was examined at bed side. Patient did not endorse any acute events overnight. OBJECTIVE: Vital Signs Period Temp Pulse Resp BP Sys/Deluca Pulse Ox Last 24 Hr 97.5 F-98.4 F 70-85 18-20 112-147/55-76 91-95 GENERAL: The patient is awake, alert, and fully oriented, in no acute distress. HEAD: Normal with no signs of trauma. EYES: PERRL, extraocular movements intact, sclera anicteric, conjunctiva clear. No ptosis. ENT: Ears normal, nares patent, oropharynx clear without exudates, moist mucous membranes. NECK: Trachea midline, full range of motion, supple. LUNGS: Breath sounds equal, clear to auscultation bilaterally, no wheezes, no crackles, no accessory muscle use. HEART: Regular rate and rhythm, S1, S2 without murmur, rub or gallop. ABDOMEN: Soft, nontender, nondistended, normoactive bowel sounds, no guarding, no rebound, no hepatosplenomegaly, no masses. EXTREMITIES: 2+ pulses, warm, well-perfused, no edema. NEUROLOGICAL: Cranial nerves II through XII grossly intact. Normal speech, gait not observed. PSYCH: Normal mood, normal affect. SKIN: Warm, dry, normal turgor, no rashes or lesions noted Laboratory Results - last 24 hr 08/24/19 08/24/19 06:40 06:40 WBC 5.1 RBC 5.69 H Hgb 13.2 Hct 45.7 MCV 80.3 MCH 23.2 L MCHC 28.9 L RDW 15.9 Plt Count 190 MPV 8.3 Absolute Neuts (auto) 3.7 Neutrophils % 71.9 Lymphocytes % 15.8 D Monocytes % 10.5 H Eosinophils % 0.9 D Basophils % 0.9 Nucleated RBC % 0 Sodium 141 Potassium 3.9 Chloride 90 L Carbon Dioxide > 45 H Anion Gap 7 L BUN 18.6 H Creatinine 0.8 Est GFR (CKD-EPI)AfAm 119.88 Est GFR (CKD-EPI)NonAf 103.43 Random Glucose 108 H Calcium 8.3 L Phosphorus 3.7 Magnesium 2.4 Total Bilirubin 1.1 H AST 11 L ALT 16 Alkaline Phosphatase 67 Total Protein 7.0 Albumin 2.7 L Active Medications Generic Name Dose Route Start Last Admin Trade Name Freq PRN Reason Stop Dose Admin Albuterol Sulfate 1 amp 08/23/19 23:25 08/23/19 23:45 Ventolin 0.083% Nebulizer Soln - NEB 1 amp Q6H PRN Administration SHORT OF BREATH/WHEEZING Carvedilol 25 mg 08/24/19 10:00 08/24/19 09:10 Coreg - PO 25 mg BID [facility] Administration Enoxaparin Sodium 40 mg 08/24/19 10:00 08/24/19 09:10 Lovenox - SQ 40 mg DAILY [facility] Administration Furosemide 40 mg 08/24/19 06:00 08/24/19 13:43 Lasix Injection - IVPUSH 40 mg BID@0600,1400 [facility] Administration Lisinopril 20 mg 08/24/19 10:00 08/24/19 09:09 Prinivil PO 20 mg BID [facility] Administration Spironolactone 25 mg 08/24/19 10:00 08/24/19 09:09 Aldactone - PO 25 mg BID [facility] Administration ASSESSMENT/PLAN: Mr. ross is a 49M with PMHx morbid obesity, HITESH/OHS on CPAP, HTN, HFpEF, and chronic leg edema. The patient was admitted to telemetry for acute hypoxic hercapneic RF with CHF exacerbation, and HTN urgency after 3 days of increased SOB. The patient was found unresponsive only to sternal rub and a code was called. The patient was transfered to ICU and stabilized on BiPAP and lasix. Patient was then transferred back to telemetry. #Acute on chronic hypoxic and hypercarbic respiratory failure - obesity BiPAP at night Hi flow O2 during the day Daily blood gas outpatient bariatric surgery referral Continue IV Lasix Ventolin Pulmonary consulted - Dr. Verma #CHF exacerbation with preserved ejection fraction Cardiology consultation - Dr. Tamayo Continue home medications #Hypertension Continue home medications #HITESH BiPAP Visit type - Emergency Visit Emergency Visit: Yes ED Registration Date: 08/20/19 Care time: The patient presented to the Emergency Department on the above date and was hospitalized for further evaluation of their emergent condition. - New Patient This patient is new to me today: No - Critical Care Critical Care patient: No - Discharge Referral Referred to [facility] No ATTENDING PHYSICIAN STATEMENT I saw and evaluated the patient. I reviewed the resident's note and discussed the case with the resident. I agree with the resident's findings and plan as documented. SUBJECTIVE: OBJECTIVE: ASSESSMENT AND PLAN:
--- NOTE | 2019-08-24 17:39 | PN ---
Teaching Attending Note Name of Resident: Erasmo León ATTENDING PHYSICIAN STATEMENT I saw and evaluated the patient. I reviewed the resident's note and discussed the case with the resident. I agree with the resident's findings and plan as documented. SUBJECTIVE: Seen and examined at bedside on high flow nasal cannula. Patient alert and oriented x3 and talking in complete sentences. Bicarb remains highly elevated. Pending venous blood gas OBJECTIVE: Last Vital Signs Temp Pulse Resp BP Pulse Ox 98.2 F 79 20 123/58 L 98 08/24/19 13:49 08/24/19 13:49 08/24/19 13:49 08/24/19 13:49 08/24/19 15:45 PE: per resident note Labs/Imaging: reviewed Current Medications Generic Name Dose Route Start Last Admin Trade Name Freq PRN Reason Stop Dose Admin Albuterol Sulfate 1 amp 08/23/19 23:25 08/23/19 23:45 Ventolin 0.083% Nebulizer Soln - NEB 1 amp Q6H PRN Administration SHORT OF BREATH/WHEEZING Carvedilol 25 mg 08/24/19 10:00 08/24/19 09:10 Coreg - PO 25 mg BID [facility] Administration Enoxaparin Sodium 40 mg 08/24/19 10:00 08/24/19 09:10 Lovenox - SQ 40 mg DAILY [facility] Administration Furosemide 40 mg 08/24/19 06:00 08/24/19 13:43 Lasix Injection - IVPUSH 40 mg BID@0600,1400 [facility] Administration Lisinopril 20 mg 08/24/19 10:00 08/24/19 09:09 Prinivil PO 20 mg BID [facility] Administration Spironolactone 25 mg 08/24/19 10:00 08/24/19 09:09 Aldactone - PO 25 mg BID [facility] Administration ASSESSMENT AND PLAN: 49 y/o male with PMHx morbid obesity, HITESH/OHS on CPAP, HTN, HFpEF, and chronic leg edema who presented to [facility] after 2-3 days shortness of breath and being hypoxic to 50s at home and was admitted to telemetry for acute hypoxic/hypcapneic respiratory failure, CHF exacerbation, and hypertensive urgency. Patient refused BiPAP and became somnolent due to hypercarbia and was admitted to the ICU. In the ICU patient improved on BiPAP and extensive diuresis. Patient then downgraded back to telemetry #Acute on chronic hypoxic and hypercarbic respiratory failure Likely secondary to obesity hypoventilation syndrome Pulmonary on board: Appreciate recommendations BiPAP at night Daily blood gas Discussed the importance of weight loss with patient. Will consider outpatient bariatric surgery referral Continue IV Lasix Ventolin #Acute on chronic heart failure with preserved ejection fraction Cardiology on board, appreciate recommendations Continue carvedilol Continue Lasix Continue lisinopril Continue Aldactone #Hypertension Continue carvedilol, lisinopril, Spironolactone #Obstructive sleep apnea BiPAP at night
[2019-08-24] MEDS: ALBUTEROL SO4 0.083% IH SOL 2.5 MG/3 ML VIAL.NEB. NEB PRN (21:09)
[2019-08-24] MEDS ORDERED: CHLORHEXIDINE GLUCONATE 4% CLEANSER FOR DECOLONIZATION TP SCH (22:00)
[2019-08-25] MEDS: FUROSEMIDE 40 MG/4 ML INJECTABLE VIAL IVPUSH SCH ×2 (06:33→13:59)
[2019-08-25 06:51] LABS: BASO % 0.6 % (0-2.0); EOS % 0.9 % (0-4.5); HEMATOCRIT 47.5 % (35.4-49); HEMOGLOBIN 13.8 GM/dL (11.7-16.9); LYMPH % 17.2 % (8-40); MCH 23.3 pg (25.7-33.7); MEAN CELL VOLUME 80.4 fl (80-96); MEAN PLT VOLUME 8.6 fl (7.5-11.1); MONO % 10.7 % (3.8-10.2); NEUT % 70.6 % (42.8-82.8); PLATELET COUNT 180 K/MM3 (134-434); RBC 5.91 M/mm3 (4.00-5.60); RDW 16.1 % (11.9-15.9)
[2019-08-25 06:59] LABS: ALBUMIN 2.7 g/dl (3.4-5.0); ALK PHOS 69 U/L (45-117); BILIRUBIN,TOTAL 0.9 mg/dL (0.2-1); BLOOD UREA NITROGEN 21.7 mg/dL (7-18); CALCIUM 8.5 mg/dL (8.5-10.1); CHLORIDE 92 mmol/L (98-107); CREATININE 0.8 mg/dL (0.55-1.3); GLUCOSE,RANDOM 101 mg/dL (74-106); MAGNESIUM 2.4 mg/dL (1.8-2.4); PHOSPHOROUS 4.4 mg/dL (2.5-4.9); POTASSIUM 4.5 mmol/L (3.5-5.1); SGOT/AST 15 U/L (15-37); SGPT/ALT 16 U/L (13-61); SODIUM 139 mmol/L (136-145); TOT PROT 7.2 g/dl (6.4-8.2)
--- NOTE | 2019-08-25 07:05 | PN ---
Progress Note, Physician History of Present Illness: PULMONARY ALERT,COMFORTABLE,-SOB ON HFOT - Current Medication List Current Medications: Active Medications Albuterol Sulfate (Ventolin 0.083% Nebulizer Soln -) 1 amp NEB Q6H PRN PRN Reason: SHORT OF BREATH/WHEEZING Last Admin: 08/24/19 21:09 Dose: 1 amp Documented by: Carvedilol (Coreg -) 25 mg PO BID [facility] Last Admin: 08/24/19 22:01 Dose: 25 mg Documented by: Enoxaparin Sodium (Lovenox -) 40 mg SQ DAILY [facility] Last Admin: 08/24/19 09:10 Dose: 40 mg Documented by: Furosemide (Lasix Injection -) 40 mg IVPUSH BID@0600,1400 [facility] Last Admin: 08/25/19 06:33 Dose: 40 mg Documented by: Lisinopril (Prinivil) 20 mg PO BID [facility] Last Admin: 08/24/19 22:02 Dose: 20 mg Documented by: Spironolactone (Aldactone -) 25 mg PO BID [facility] Last Admin: 08/24/19 22:02 Dose: 25 mg Documented by: - Objective Vital Signs: Vital Signs Temperature 98.2 F 08/25/19 06:00 Pulse Rate 80 08/25/19 06:00 Respiratory Rate 20 08/25/19 06:00 Blood Pressure 129/73 08/25/19 06:00 O2 Sat by Pulse Oximetry (%) 98 08/25/19 05:00 Constitutional: Yes: Calm, Obese Eyes: Yes: WNL HENT: Yes: WNL Neck: Yes: WNL Cardiovascular: Yes: Regular Rate and Rhythm, S1, S2 Respiratory: Yes: Diminished Gastrointestinal: Yes: Soft, Abdomen, Obese Extremities: Yes: WNL Edema: Yes Labs: CBC, BMP Laboratory Tests 08/25/19 09:16 ABG pH 7.414 ABG pCO2 78.60 H* ABG pO2 83.2 ABG HCO3 49.2 H ABG O2 Sat (Measured) 95.8 O2 Delivery Device Hf-nc Oxygen Flow Rate 60 Problem List - Problems (1) Acute and chronic respiratory failure Code(s): J96.20 - ACUTE AND CHR RESP FAILURE, UNSP W HYPOXIA OR HYPERCAPNIA Qualifiers: (2) Pulmonary vascular congestion Code(s): R09.89 - OTH SYMPTOMS AND SIGNS INVOLVING THE CIRC AND RESP SYSTEMS (3) Acute on chronic diastolic (congestive) heart failure Code(s): I50.33 - ACUTE ON CHRONIC DIASTOLIC (CONGESTIVE) HEART FAILURE (4) Acute on chronic respiratory failure with hypoxia and hypercapnia Code(s): J96.21 - ACUTE AND CHRONIC RESPIRATORY FAILURE WITH HYPOXIA; J96.22 - ACUTE AND CHRONIC RESPIRATORY FAILURE WITH HYPERCAPNIA (5) Respiratory distress Code(s): R06.03 - ACUTE RESPIRATORY DISTRESS (6) Morbid obesity with BMI of 50.0-59.9, adult Code(s): Z68.43 - BODY MASS INDEX (BMI) 50.0-59.9, ADULT (7) Obesity hypoventilation syndrome Code(s): E66.2 - MORBID (SEVERE) OBESITY WITH ALVEOLAR HYPOVENTILATION (8) Obstructive sleep apnea Code(s): G47.33 - OBSTRUCTIVE SLEEP APNEA (ADULT) (PEDIATRIC) Assessment/Plan ASSESSMENT AND PLAN: Acute on Chronic Hypoxic and Hypercapneic Respiratory Failure improving Acute on Chronic Diastolic Heart Failure improving Pulmonary HTN Morbid Obesity HITESH/OHS HTN - continue lasix, aldactone - monitor urine output, creatinine - replete lytes - received empiric antibiotics - O2 to keep SpO2 88-92% - inhaled bronchodilators - BiPAP as needed - DVT prophylaxis - bariatric surgery evaluation DR BACH
[2019-08-25 07:06] LABS: ANION GAP 2 MMOL/L (8-16); CO2 > 45 mmol/L (21-32)
[2019-08-25] MEDS: SPIRONOLACTONE 25 MG TABLET PO SCH ×2 (09:26→21:08)
[2019-08-25] MEDS: LISINOPRIL 20 MG TABLET (FP) PO SCH ×2 (09:26→21:08)
[2019-08-25] MEDS: CARVEDILOL 25 MG TABLET (FP) PO SCH ×2 (09:26→21:09)
[2019-08-25] MEDS: ENOXAPARIN NA (PORCINE) 40 MG/0.4 ML DISP.SYRIN SQ SCH (09:26)
[2019-08-25 09:34] LABS: ARTERIAL BLD GAS O2 SATURATION 95.8 mmHg (95-98); ARTERIAL BLOOD GAS BASE EXCESS 19.6 mmol/L (-2-2); ARTERIAL BLOOD GAS PO2 83.2 mmHg (80-100); ARTERIAL BLOOD GAS pH 7.414 (7.350-7.450)
[2019-08-25 09:40] LABS: ALLENS TEST POSITIVE
--- NOTE | 2019-08-25 11:57 | PN ---
Progress Note (short form) - Note Progress Note: No acute cardiac events; being considered for bariatric surgery Vital Signs Temperature 97.9 F 08/25/19 10:00 Pulse Rate 80 08/25/19 10:00 Respiratory Rate 20 08/25/19 10:00 Blood Pressure 122/56 L 08/25/19 10:00 O2 Sat by Pulse Oximetry (%) 93 L 08/25/19 09:00 Cardiovascular: Yes: Regular Rate and Rhythm Respiratory: Yes: SOB, Other (HFO2) Gastrointestinal: Yes: Normal Bowel Sounds, Soft, Abdomen, Obese Edema: Yes Edema: LLE: Trace, RLE: Trace Integumentary: Yes: Venous Stasis Changes Labs: CBC, BMP 08/25/19 06:03 08/25/19 06:03 Active Medications Albuterol Sulfate (Ventolin 0.083% Nebulizer Soln -) 1 amp NEB Q6H PRN PRN Reason: SHORT OF BREATH/WHEEZING Last Admin: 08/23/19 23:45 Dose: 1 amp Documented by: Carvedilol (Coreg -) 25 mg PO BID [facility] Last Admin: 08/24/19 09:10 Dose: 25 mg Documented by: Enoxaparin Sodium (Lovenox -) 40 mg SQ DAILY [facility] Last Admin: 08/24/19 09:10 Dose: 40 mg Documented by: Furosemide (Lasix Injection -) 40 mg IVPUSH BID@0600,1400 [facility] Last Admin: 08/24/19 07:22 Dose: 40 mg Documented by: Lisinopril (Prinivil) 20 mg PO BID [facility] Last Admin: 08/24/19 09:09 Dose: 20 mg Documented by: Spironolactone (Aldactone -) 25 mg PO BID [facility] Last Admin: 08/24/19 09:09 Dose: 25 mg Documented by: - ....Imaging EKG: Report Reviewed Problem List - Problems (1) Acute on chronic diastolic (congestive) heart failure Code(s): I50.33 - ACUTE ON CHRONIC DIASTOLIC (CONGESTIVE) HEART FAILURE (2) Acute on chronic respiratory failure with hypoxia and hypercapnia Code(s): J96.21 - ACUTE AND CHRONIC RESPIRATORY FAILURE WITH HYPOXIA; J96.22 - ACUTE AND CHRONIC RESPIRATORY FAILURE WITH HYPERCAPNIA (3) Hypertensive urgency Code(s): I16.0 - HYPERTENSIVE URGENCY (4) Morbid obesity with BMI of 50.0-59.9, adult Code(s): Z68.43 - BODY MASS INDEX (BMI) 50.0-59.9, ADULT (5) Obesity hypoventilation syndrome Code(s): E66.2 - MORBID (SEVERE) OBESITY WITH ALVEOLAR HYPOVENTILATION (6) Obstructive sleep apnea Code(s): G47.33 - OBSTRUCTIVE SLEEP APNEA (ADULT) (PEDIATRIC) Assessment/Plan 08/21/2019 Echo: Mild-mod cLVH with LVEF 58%, normal RV size and fxn 1. Acute on chronic hypoxic/hypercapnic respiratory failure 2. Acute on chronic class II-III [place] [employer] classification left ventricular failure related to diastolic left ventricular dysfunction 3. Coronary artery disease angina pectoris 4. Hypertensive cardiovascular disease with history of hypertensive urgency 5. Obstructive sleep apnea 6. Obesity hypoventilation syndrome with pulmonary hypertension 7. Morbid obesity PLAN: Stable cardiacwise: same 1. Continue Coreg 25 bid and Lisinopril 20 bid dose with titration as tolerated 2. Continue IV diuresis and Aldactone 25 bid with close monitoring of renal function and electrolytes 3. Eventual outpatient follow-up in our office post discharge 4. DVT prophylaxis
[2019-08-25] MEDS: POLYETHYLENE GLYCOL 3350 119 GM BTL PO SCH (15:19)
--- NOTE | 2019-08-25 16:14 | PN ---
Progress Note (short form) - Note Progress Note: SUBJECTIVE: Seen and examined at bedside on high flow nasal cannula. Patient alert and oriented x3 and talking in complete sentences. PCO2 improved to ~80 OBJECTIVE: Last Vital Signs Temp Pulse Resp BP Pulse Ox 97.9 F 80 20 122/56 L 96 08/25/19 10:00 08/25/19 10:00 08/25/19 10:00 08/25/19 10:00 08/25/19 14:54 PE: GEN: sitting in bed, NAD HEENT: NC/AT TERESA RESP: CTAB CARDS: RRR, -MRG ABD: obese, soft, nt/nd +BS NEURO: A&OX3 Labs/Imaging: reviewed ASSESSMENT AND PLAN: 49 y/o male with PMHx morbid obesity, HITESH/OHS on CPAP, HTN, HFpEF, and chronic leg edema who presented to [facility] after 2-3 days shortness of breath and being hypoxic to 50s at home and was admitted to telemetry for acute hypoxic/hypcapneic respiratory failure, CHF exacerbation, and hypertensive urgency. Patient refused BiPAP and became somnolent due to hypercarbia and was admitted to the ICU. In the ICU patient improved on BiPAP and extensive diuresis. Patient then downgraded back to telemetry #Acute on chronic hypoxic and hypercarbic respiratory failure Likely secondary to obesity hypoventilation syndrome Pulmonary on board: Appreciate recommendations BiPAP at night Daily blood gas Discussed the importance of weight loss with patient. Will consider outpatient bariatric surgery referral. Pt does not have insurance which will greatly complicate issue Continue IV Lasix Ventolin #Acute on chronic heart failure with preserved ejection fraction Cardiology on board, appreciate recommendations Continue carvedilol Continue Lasix Continue lisinopril Continue Aldactone #Hypertension Continue carvedilol, lisinopril, Spironolactone #Obstructive sleep apnea BiPAP at night Visit type - Emergency Visit Emergency Visit: Yes ED Registration Date: 08/20/19 Care time: The patient presented to the Emergency Department on the above date and was hospitalized for further evaluation of their emergent condition. - New Patient This patient is new to me today: No - Critical Care Critical Care patient: No
[2019-08-26] MEDS: FUROSEMIDE 40 MG/4 ML INJECTABLE VIAL IVPUSH SCH ×2 (05:34→13:41)
--- NOTE | 2019-08-26 07:42 | PN ---
Progress Note, Physician History of Present Illness: pulmonary alert,comfortable on hfot,o2 sat 92% - Current Medication List Current Medications: Active Medications Albuterol Sulfate (Ventolin 0.083% Nebulizer Soln -) 1 amp NEB Q6H PRN PRN Reason: SHORT OF BREATH/WHEEZING Last Admin: 08/24/19 21:09 Dose: 1 amp Documented by: Carvedilol (Coreg -) 25 mg PO BID [facility] Last Admin: 08/25/19 21:09 Dose: 25 mg Documented by: Enoxaparin Sodium (Lovenox -) 40 mg SQ DAILY [facility] Last Admin: 08/25/19 09:26 Dose: 40 mg Documented by: Furosemide (Lasix Injection -) 40 mg IVPUSH BID@0600,1400 [facility] Last Admin: 08/26/19 05:34 Dose: 40 mg Documented by: Lisinopril (Prinivil) 20 mg PO BID [facility] Last Admin: 08/25/19 21:08 Dose: 20 mg Documented by: Polyethylene Glycol (Miralax (For Daily Use) -) 17 gm PO DAILY [facility] Last Admin: 08/25/19 15:19 Dose: 17 grams Documented by: Spironolactone (Aldactone -) 25 mg PO BID [facility] Last Admin: 08/25/19 21:08 Dose: 25 mg Documented by: - Objective Vital Signs: Vital Signs Temperature 97.7 F 08/26/19 05:46 Pulse Rate 87 08/26/19 05:46 Respiratory Rate 20 08/26/19 05:46 Blood Pressure 111/67 08/26/19 05:46 O2 Sat by Pulse Oximetry (%) 88 L 08/26/19 06:00 Constitutional: Yes: Calm, Obese Eyes: Yes: WNL HENT: Yes: WNL Neck: Yes: WNL Cardiovascular: Yes: Regular Rate and Rhythm, S1, S2 Respiratory: Yes: Diminished Gastrointestinal: Yes: Normal Bowel Sounds, Abdomen, Obese Extremities: Yes: WNL Edema: Yes Labs: CBC, BMP 08/25/19 06:0 Problem List - Problems (1) Acute and chronic respiratory failure Code(s): J96.20 - ACUTE AND CHR RESP FAILURE, UNSP W HYPOXIA OR HYPERCAPNIA Qualifiers: (2) Pulmonary vascular congestion Code(s): R09.89 - OTH SYMPTOMS AND SIGNS INVOLVING THE CIRC AND RESP SYSTEMS (3) Acute on chronic diastolic (congestive) heart failure Code(s): I50.33 - ACUTE ON CHRONIC DIASTOLIC (CONGESTIVE) HEART FAILURE (4) Acute on chronic respiratory failure with hypoxia and hypercapnia Code(s): J96.21 - ACUTE AND CHRONIC RESPIRATORY FAILURE WITH HYPOXIA; J96.22 - ACUTE AND CHRONIC RESPIRATORY FAILURE WITH HYPERCAPNIA (5) Respiratory distress Code(s): R06.03 - ACUTE RESPIRATORY DISTRESS (6) Morbid obesity with BMI of 50.0-59.9, adult Code(s): Z68.43 - BODY MASS INDEX (BMI) 50.0-59.9, ADULT (7) Obesity hypoventilation syndrome Code(s): E66.2 - MORBID (SEVERE) OBESITY WITH ALVEOLAR HYPOVENTILATION (8) Obstructive sleep apnea Code(s): G47.33 - OBSTRUCTIVE SLEEP APNEA (ADULT) (PEDIATRIC) Assessment/Plan ASSESSMENT AND PLAN: Acute on Chronic Hypoxic and Hypercapneic Respiratory Failure improving Acute on Chronic Diastolic Heart Failure improving Pulmonary HTN Morbid Obesity HITESH/OHS HTN HYPOXEMIA likely v/q mismatch,altelectasis ? PE - continue lasix, aldactone - monitor urine output, creatinine - replete lytes - received empiric antibiotics - O2 to keep SpO2 88-92% - inhaled bronchodilators - BiPAP as needed - DVT prophylaxis - bariatric surgery evaluation - d-dimer - incentive spirometer DR BACH
--- NOTE | 2019-08-26 09:08 | PN ---
Progress Note (short form) - Note Progress Note: No acute cardiac events; being considered for bariatric surgery Vital Signs Temperature 97.7 F 08/26/19 05:46 Pulse Rate 87 08/26/19 05:46 Respiratory Rate 20 08/26/19 05:46 Blood Pressure 111/67 08/26/19 05:46 O2 Sat by Pulse Oximetry (%) 88 L 08/26/19 06:00 Cardiovascular: Yes: Regular Rate and Rhythm Respiratory: Yes: SOB, Other (HFO2) Gastrointestinal: Yes: Normal Bowel Sounds, Soft, Abdomen, Obese Edema: Yes Edema: LLE: Trace, RLE: Trace Integumentary: Yes: Venous Stasis Changes Labs: CBC, BMP 08/25/19 06:03 08/25/19 06:03 Active Medications Albuterol Sulfate (Ventolin 0.083% Nebulizer Soln -) 1 amp NEB Q6H PRN PRN Reason: SHORT OF BREATH/WHEEZING Last Admin: 08/23/19 23:45 Dose: 1 amp Documented by: Carvedilol (Coreg -) 25 mg PO BID [facility] Last Admin: 08/24/19 09:10 Dose: 25 mg Documented by: Enoxaparin Sodium (Lovenox -) 40 mg SQ DAILY [facility] Last Admin: 08/24/19 09:10 Dose: 40 mg Documented by: Furosemide (Lasix Injection -) 40 mg IVPUSH BID@0600,1400 [facility] Last Admin: 08/24/19 07:22 Dose: 40 mg Documented by: Lisinopril (Prinivil) 20 mg PO BID [facility] Last Admin: 08/24/19 09:09 Dose: 20 mg Documented by: Spironolactone (Aldactone -) 25 mg PO BID [facility] Last Admin: 08/24/19 09:09 Dose: 25 mg Documented by: - ....Imaging EKG: Report Reviewed Problem List - Problems (1) Acute on chronic diastolic (congestive) heart failure Code(s): I50.33 - ACUTE ON CHRONIC DIASTOLIC (CONGESTIVE) HEART FAILURE (2) Acute on chronic respiratory failure with hypoxia and hypercapnia Code(s): J96.21 - ACUTE AND CHRONIC RESPIRATORY FAILURE WITH HYPOXIA; J96.22 - ACUTE AND CHRONIC RESPIRATORY FAILURE WITH HYPERCAPNIA (3) Hypertensive urgency Code(s): I16.0 - HYPERTENSIVE URGENCY (4) Morbid obesity with BMI of 50.0-59.9, adult Code(s): Z68.43 - BODY MASS INDEX (BMI) 50.0-59.9, ADULT (5) Obesity hypoventilation syndrome Code(s): E66.2 - MORBID (SEVERE) OBESITY WITH ALVEOLAR HYPOVENTILATION (6) Obstructive sleep apnea Code(s): G47.33 - OBSTRUCTIVE SLEEP APNEA (ADULT) (PEDIATRIC) Assessment/Plan 08/21/2019 Echo: Mild-mod cLVH with LVEF 58%, normal RV size and fxn 1. Acute on chronic hypoxic/hypercapnic respiratory failure 2. Acute on chronic class II-III [place] [employer] classification left ventricular failure related to diastolic left ventricular dysfunction 3. Coronary artery disease angina pectoris 4. Hypertensive cardiovascular disease with history of hypertensive urgency 5. Obstructive sleep apnea 6. Obesity hypoventilation syndrome with pulmonary hypertension 7. Morbid obesity PLAN: Stable cardiacwise: same 1. Continue Coreg 25 bid and Lisinopril 20 bid dose with titration as tolerated 2. Continue IV diuresis and Aldactone 25 bid with close monitoring of renal function and electrolytes 3. Eventual outpatient follow-up in our office post discharge 4. DVT prophylaxis
[2019-08-26] MEDS: SPIRONOLACTONE 25 MG TABLET PO SCH ×2 (09:40→21:34)
[2019-08-26] MEDS: LISINOPRIL 20 MG TABLET (FP) PO SCH ×2 (09:40→21:34)
[2019-08-26] MEDS: CARVEDILOL 25 MG TABLET (FP) PO SCH ×2 (09:40→21:34)
[2019-08-26] MEDS: ENOXAPARIN NA (PORCINE) 40 MG/0.4 ML DISP.SYRIN SQ SCH (09:40)
[2019-08-26] MEDS: POLYETHYLENE GLYCOL 3350 119 GM BTL PO SCH (10:00)
[2019-08-26 10:28] LABS: HEMATOCRIT 47.8 % (35.4-49); HEMOGLOBIN 13.9 GM/dL (11.7-16.9); MCH 23.1 pg (25.7-33.7); MEAN CELL VOLUME 79.6 fl (80-96); MEAN PLT VOLUME 8.5 fl (7.5-11.1); PLATELET COUNT 218 K/MM3 (134-434); RBC 6.01 M/mm3 (4.00-5.60); RDW 16.7 % (11.9-15.9); WHITE BLOOD COUNT 5.4 K/mm3 (4.0-10.0)
[2019-08-26 10:39] LABS: ARTERIAL BLD GAS O2 SATURATION 94.9 mmHg (95-98); ARTERIAL BLOOD GAS BASE EXCESS 17.5 mmol/L (-2-2); ARTERIAL BLOOD GAS PO2 75.6 mmHg (80-100); ARTERIAL BLOOD GAS pH 7.426 (7.350-7.450)
[2019-08-26 10:46] LABS: ALLENS TEST POSITIVE
[2019-08-26 10:50] LABS: CALCIUM 8.7 mg/dL (8.5-10.1); CHLORIDE 88 mmol/L (98-107); CREATININE 0.8 mg/dL (0.55-1.3); GLUCOSE,RANDOM 101 mg/dL (74-106); MAGNESIUM 2.4 mg/dL (1.8-2.4); PHOSPHOROUS 3.6 mg/dL (2.5-4.9); POTASSIUM 4.3 mmol/L (3.5-5.1); SODIUM 138 mmol/L (136-145)
[2019-08-26 10:56] LABS: ANION GAP 5 MMOL/L (8-16); CO2 > 45 mmol/L (21-32)
--- NOTE | 2019-08-26 13:53 | PN ---
Teaching Attending Note Name of Resident: Erasmo León ATTENDING PHYSICIAN STATEMENT I saw and evaluated the patient. I reviewed the resident's note and discussed the case with the resident. I agree with the resident's findings and plan as documented. SUBJECTIVE: Seen and examined at bedside on high flow nasal cannula. Patient remained hypoxic despite effective diuresis. Unable to perform CTA or VQ scan due to weights. D-dimer significantly elevated to approximately 3500. Will anticoagulate empirically for presumed pulmonary embolus. Given severe obesity will start with heparin drip and switch to Coumadin. Heme consulted OBJECTIVE: Last Vital Signs Temp Pulse Resp BP Pulse Ox 98.2 F 85 22 H 132/72 94 L 08/26/19 10:00 08/26/19 10:00 08/26/19 10:00 08/26/19 10:00 08/26/19 10:57 PE: GEN: sitting in bed, NAD HEENT: NC/AT TERESA RESP: CTAB CARDS: RRR, -MRG ABD: obese, soft, nt/nd +BS NEURO: A&OX3 Labs/Imaging: reviewed ASSESSMENT AND PLAN: 49 y/o male with PMHx morbid obesity, HITESH/OHS on CPAP, HTN, HFpEF, and chronic leg edema who presented to [facility] after 2-3 days shortness of breath and being hypoxic to 50s at home and was admitted to telemetry for acute hypoxic/hypcapneic respiratory failure, CHF exacerbation, and hypertensive urgency. Patient refused BiPAP and became somnolent due to hypercarbia and was admitted to the ICU. In the ICU patient improved on BiPAP and extensive diuresis. Patient then downgraded back to telemetry #Acute on chronic hypoxic and hypercarbic respiratory failure Likely secondary to PE, CHF, and obesity hypoventilation syndrome Pulmonary on board: Appreciate recommendations BiPAP at night Daily blood gas Discussed the importance of weight loss with patient. Will consider outpatient bariatric surgery referral. Pt does not have insurance which will greatly complicate issue Continue IV Lasix Ventolin #Elevated D-Dimer Given significant hypoxia greater than expected for CHF exacerbation or obesity hypoventilation syndrome, concern for PE. Patient is too obese to confirm with imaging at this time. Starting AC empirically for PE. Given severe obesity not a candidate for NOACs. Heparin drip Coumadin Hematology consult #Acute on chronic heart failure with preserved ejection fraction Cardiology on board, appreciate recommendations Continue carvedilol Continue Lasix Continue lisinopril Continue Aldactone #Hypertension Continue carvedilol, lisinopril, Spironolactone #Obstructive sleep apnea BiPAP at night
--- NOTE | 2019-08-26 15:01 | PN ---
Physical Exam: SUBJECTIVE: Patient seen and examined at bedside. No acute events. OBJECTIVE: Vital Signs Period Temp Pulse Resp BP Sys/Deluca Pulse Ox Last 24 Hr 97.7 F-99 F 82-87 20-22 111-132/67-72 88-94 GENERAL: NAD, on High Flow NC HEAD: Normal with no signs of trauma. EYES: EOMI Sclera Clear ENT: MMM LUNGS: CTAB HEART:RRR ABDOMEN: Obese NDNT EXTREMITIES: Stasis dermatitis, Varicose veins b/l. +Edema. b/l onychomycosis PSYCH: Normal mood, normal affect. Laboratory Results - last 24 hr 08/26/19 08/26/19 08/26/19 09:50 09:50 10:30 WBC 5.4 RBC 6.01 H Hgb 13.9 Hct 47.8 MCV 79.6 L MCH 23.1 L MCHC 29.0 L RDW 16.7 H Plt Count 218 D MPV 8.5 D-Dimer Anticoagulation Therapy No Result Required. Puncture Site Right radial Patient Temperature No Result Required. ABG pH 7.426 ABG pCO2 72.00 H* ABG pO2 75.6 L ABG HCO3 46.3 H ABG O2 Sat (Measured) 94.9 L ABG O2 Content No Result Required. ABG Base Excess 17.5 H Ramses Test Positive Patient On Oxygen Yes O2 Delivery Device Hfnc Oxygen Flow Rate 60 Vent Mode No Result Required. Vent Rate No Result Required. Mechanical Rate Vent PEEP No Result Required. Pressure Support Vent No Result Required. Sodium 138 Potassium 4.3 Chloride 88 L Carbon Dioxide > 45 H Anion Gap 5 L BUN 29.0 H Creatinine 0.8 Est GFR (CKD-EPI)AfAm 119.88 Est GFR (CKD-EPI)NonAf 103.43 Random Glucose 101 Calcium 8.7 Phosphorus 3.6 Magnesium 2.4 08/26/19 11:33 WBC RBC Hgb Hct MCV MCH MCHC RDW Plt Count MPV D-Dimer 3450 H Anticoagulation Therapy Puncture Site Patient Temperature ABG pH ABG pCO2 ABG pO2 ABG HCO3 ABG O2 Sat (Measured) ABG O2 Content ABG Base Excess Ramses Test Patient On Oxygen O2 Delivery Device Oxygen Flow Rate Vent Mode Vent Rate Mechanical Rate PEEP Pressure Support Vent Sodium Potassium Chloride Carbon Dioxide Anion Gap BUN Creatinine Est GFR (CKD-EPI)AfAm Est GFR (CKD-EPI)NonAf Random Glucose Calcium Phosphorus Magnesium Active Medications Generic Name Dose Route Start Last Admin Trade Name Latonya PRN Reason Stop Dose Admin Albuterol Sulfate 1 amp 08/23/19 23:25 08/24/19 21:09 Ventolin 0.083% Nebulizer Soln - NEB 1 amp Q6H PRN Administration SHORT OF BREATH/WHEEZING Apixaban 10 mg 08/26/19 18:00 Eliquis - PO 09/02/19 06:01 BID@0600,1800 [facility] Carvedilol 25 mg 08/24/19 10:00 08/26/19 09:40 Coreg - PO 25 mg BID [facility] Administration Furosemide 40 mg 08/24/19 06:00 08/26/19 13:41 Lasix Injection - IVPUSH 40 mg BID@0600,1400 [facility] Administration Lisinopril 20 mg 08/24/19 10:00 08/26/19 09:40 Prinivil PO 20 mg BID [facility] Administration Polyethylene Glycol 17 gm 08/25/19 13:45 08/25/19 15:19 Miralax (For Daily Use) - PO 17 grams DAILY [facility] Administration Spironolactone 25 mg 08/24/19 10:00 08/26/19 09:40 Aldactone - PO 25 mg BID [facility] Administration ASSESSMENT/PLAN: 49 AA Male h/o morbid obesity, HITESH/OHS on CPAP, HTN, HFpEF, chronic leg edema, presents with worsening SOB, and was found to be saturating in the 50s on RA with a BP of 211/106. #Acute on chronic hypoxic and hypercarbic respiratory failure Likely secondary to PE, CHF, and obesity hypoventilation syndrome Pulmonary Dr Verma on board-------> HYPOXEMIA likely v/q mismatch,altelectasis ? PE BiPAP HS Daily blood gas Continue IV Lasix Ventolin #Elevated D-Dimer -Cannot r/o Pulmonary Embolism, Cannot perform Ct scan in light of patient's large body habitus. Will empirically treat for PE with Heparin gtt. Not a candidate for NOAc therapy due to weight -Will bridge with coumadin. #HFpEF Cardiology on board Dr Tamayo-----> Coreg 25 bid and Lisinopril 20 bid dose with titration as tolerated. Continue IV diuresis and Aldactone 25 bid with close monitoring of renal function and electrolytes -BNP only 423 however may be artificially low obese patients. #HTN Continue carvedilol, lisinopril, Spironolactone #Morbid Obesity -Will consult Bariatric Surgery to evaluate patient in hospital as patient currently without health insurance and may be difficult to see patient on outside. -Will arrange for SW to speak with patient to see if possible to provide health insurance. #Obstructive sleep apnea BiPAP at night -STOP-BANG Score indicates patient is high risk for HITESH FEN No Fluids Mon Electrolytes Sod Controlled Diet DVT ppx Hep gtt Dispo Tele Visit type - Emergency Visit Emergency Visit: Yes ED Registration Date: 08/20/19 Care time: The patient presented to the Emergency Department on the above date and was hospitalized for further evaluation of their emergent condition. - New Patient This patient is new to me today: No - Critical Care Critical Care patient: No - Discharge Referral Referred to [facility] Med [facility] No ATTENDING PHYSICIAN STATEMENT I saw and evaluated the patient. I reviewed the resident's note and discussed the case with the resident. I agree with the resident's findings and plan as documented. SUBJECTIVE: OBJECTIVE: ASSESSMENT AND PLAN:
[2019-08-26] MEDS ORDERED: HEPARIN NA (PORCINE) 5,000 UNITS/ML 1ML VIAL IVPUSH PRN ×2 (15:06)
[2019-08-26] MEDS ORDERED: HEPARIN SOD,PORK IN 0.45% NACL 25,000 UNITS/500 ML INFUS.BAG IVPB SCH (15:15)
[2019-08-26] MEDS ORDERED: APIXABAN 5 MG TABLET PO SCH ×2 (18:00)
[2019-08-27] MEDS: FUROSEMIDE 40 MG/4 ML INJECTABLE VIAL IVPUSH SCH ×2 (06:37→15:11)
[2019-08-27 07:38] LABS: HEMOGLOBIN 13.3 GM/dL (11.7-16.9); MCH 23.2 pg (25.7-33.7); MEAN CELL VOLUME 79.9 fl (80-96); MEAN PLT VOLUME 8.8 fl (7.5-11.1); PLATELET COUNT 191 K/MM3 (134-434); RBC 5.75 M/mm3 (4.00-5.60); RDW 16.3 % (11.9-15.9); WHITE BLOOD COUNT 5.8 K/mm3 (4.0-10.0)
[2019-08-27 08:14] LABS: ALBUMIN 2.7 g/dl (3.4-5.0); BILIRUBIN,TOTAL 0.9 mg/dL (0.2-1); CALCIUM 8.4 mg/dL (8.5-10.1); MAGNESIUM 2.5 mg/dL (1.8-2.4); PHOSPHOROUS 3.9 mg/dL (2.5-4.9); POTASSIUM 4.6 mmol/L (3.5-5.1); TOT PROT 7.3 g/dl (6.4-8.2)
--- NOTE | 2019-08-27 09:24 | PN ---
Progress Note, Physician History of Present Illness: Remains on HFOT with 60% FiO2 with persistent hypoxia, Bipap overnight, can't r/o PE. No fevers recorded. Diuresed well with lasix and spironolactone with improvement in BP control. - Current Medication List Current Medications: Active Medications Albuterol Sulfate (Ventolin 0.083% Nebulizer Soln -) 1 amp NEB Q6H PRN PRN Reason: SHORT OF BREATH/WHEEZING Last Admin: 08/24/19 21:09 Dose: 1 amp Documented by: Carvedilol (Coreg -) 25 mg PO BID [facility] Last Admin: 08/26/19 21:34 Dose: 25 mg Documented by: Furosemide (Lasix Injection -) 40 mg IVPUSH BID@0600,1400 [facility] Last Admin: 08/27/19 06:37 Dose: 40 mg Documented by: Heparin Sodium (Porcine) (Heparin -) 1,000 unit IVPUSH PRN PRN PRN Reason: Heparin Heparin Sodium (Porcine) (Heparin -) 5,000 unit IVPUSH PRN PRN PRN Reason: Heparin Last Admin: 08/27/19 03:16 Dose: 5,000 unit Documented by: HEPARIN SOD,PORK IN 0.45% NACL (Heparin-1/2ns 25,000 Units/500) 25,000 units in 500 mls @ 20 mls/hr IVPB TITR [facility]; Protocol Last Titration: 08/27/19 03:16 Dose: 1,150 units/hr, 23 mls/hr Documented by: Lisinopril (Prinivil) 20 mg PO BID [facility] Last Admin: 08/26/19 21:34 Dose: 20 mg Documented by: Polyethylene Glycol (Miralax (For Daily Use) -) 17 gm PO DAILY [facility] Last Admin: 08/26/19 10:00 Dose: Not Given Documented by: Spironolactone (Aldactone -) 25 mg PO BID [facility] Last Admin: 08/26/19 21:34 Dose: 25 mg Documented by: Warfarin Sodium (Coumadin -) 5 mg PO DAILY@1800 [facility] - Objective Vital Signs: Vital Signs Temperature 98.7 F 08/27/19 06:00 Pulse Rate 77 08/27/19 06:00 Respiratory Rate 20 08/27/19 06:00 Blood Pressure 130/76 08/27/19 06:00 O2 Sat by Pulse Oximetry (%) 90 L 08/27/19 06:30 Constitutional: Yes: No Distress, Calm Neck: Yes: Supple Cardiovascular: Yes: Regular Rate and Rhythm Respiratory: Yes: Regular, Diminished, SOB, Other (HFOT) Gastrointestinal: Yes: Normal Bowel Sounds, Soft, Abdomen, Obese Edema: Yes Edema: LLE: Trace, RLE: Trace Labs: CBC, BMP 08/27/19 06:15 08/27/19 06:15 INR, PTT INR 1.17 (0.83-1.09) H 08/20/19 13:15 - ....Imaging EKG: Report Reviewed (Tele: NSR) Problem List - Problems (1) Acute on chronic diastolic (congestive) heart failure Code(s): I50.33 - ACUTE ON CHRONIC DIASTOLIC (CONGESTIVE) HEART FAILURE (2) Acute on chronic respiratory failure with hypoxia and hypercapnia Code(s): J96.21 - ACUTE AND CHRONIC RESPIRATORY FAILURE WITH HYPOXIA; J96.22 - ACUTE AND CHRONIC RESPIRATORY FAILURE WITH HYPERCAPNIA (3) Hypertensive urgency Code(s): I16.0 - HYPERTENSIVE URGENCY (4) Morbid obesity with BMI of 50.0-59.9, adult Code(s): Z68.43 - BODY MASS INDEX (BMI) 50.0-59.9, ADULT (5) Obesity hypoventilation syndrome Code(s): E66.2 - MORBID (SEVERE) OBESITY WITH ALVEOLAR HYPOVENTILATION (6) Obstructive sleep apnea Code(s): G47.33 - OBSTRUCTIVE SLEEP APNEA (ADULT) (PEDIATRIC) Assessment/Plan 08/21/2019 Echo: Mild-mod cLVH with LVEF 58%, normal RV size and fxn 1. Acute on chronic hypoxic/hypercapnic respiratory failure 2/2 atx, V/Q mismatch, can't r/o PE 2. Acute on chronic class II-III [place] [employer] classification left ventricular failure related to diastolic left ventricular dysfunction improving 3. Coronary artery disease angina pectoris 4. Hypertensive cardiovascular disease with history of hypertensive urgency 5. Obstructive sleep apnea 6. Obesity hypoventilation syndrome with pulmonary hypertension 7. Morbid obesity, bariatric surgery to be considered 8. Possible PE PLAN: 1. Continue Coreg 25 bid and Lisinopril 20 bid dose with titration as tolerated 2. Continue IV diuresis and Aldactone 25 bid with close monitoring of renal function and electrolytes 3. Eventual outpatient follow-up in our office post discharge 4. Heparin gtt->coumadin per INR for possible PE
[2019-08-27] MEDS: CARVEDILOL 25 MG TABLET (FP) PO SCH ×2 (10:02→21:12)
[2019-08-27] MEDS: POLYETHYLENE GLYCOL 3350 119 GM BTL PO SCH (10:02)
[2019-08-27] MEDS: SPIRONOLACTONE 25 MG TABLET PO SCH ×2 (10:02→21:12)
[2019-08-27] MEDS: LISINOPRIL 20 MG TABLET (FP) PO SCH ×2 (10:02→21:12)
[2019-08-27 12:42] LABS: INR 1.08 (0.83-1.09); PROTHROMBIN TIME (PATIENT) 12.8 SEC (9.7-13.0)
[2019-08-27 12:44] LABS: ARTERIAL BLOOD GAS BASE EXCESS 12.2 mmol/L (-2-2); ARTERIAL BLOOD GAS PO2 73.3 mmHg (80-100); ARTERIAL BLOOD GAS pH 7.384 (7.350-7.450)
--- NOTE | 2019-08-27 12:48 | PN ---
Progress Note (short form) - Note Progress Note: PULMONARY States breathing is improving. Remains on HFOT 55% Fio2. Vital Signs Period Temp Pulse Resp BP Sys/Deluca Pulse Ox Last 24 Hr 97.8 F-98.7 F 77-89 20-20 104-130/60-76 90-97 Intake & Output 08/24/19 08/25/19 08/26/19 08/27/19 23:59 23:59 23:59 23:59 Intake Total 990 750 510 Output Total 1300 2200 1200 700 Balance -1300 -1210 -450 -190 Weight 228.6 kg 224.5 kg Gen: NAD on HFOT Heart: RRR Lung: distant breath sounds Abd: soft, nontender Ext: edema improving CBC, BMP 08/27/19 06:15 08/27/19 06:15 Active Medications Albuterol Sulfate (Ventolin 0.083% Nebulizer Soln -) 1 amp NEB Q6H PRN PRN Reason: SHORT OF BREATH/WHEEZING Last Admin: 08/24/19 21:09 Dose: 1 amp Documented by: Carvedilol (Coreg -) 25 mg PO BID [facility] Last Admin: 08/27/19 10:02 Dose: 25 mg Documented by: Furosemide (Lasix Injection -) 40 mg IVPUSH BID@0600,1400 [facility] Last Admin: 08/27/19 06:37 Dose: 40 mg Documented by: Heparin Sodium (Porcine) (Heparin -) 1,000 unit IVPUSH PRN PRN PRN Reason: Heparin Last Admin: 08/27/19 11:21 Dose: 1,000 unit Documented by: Heparin Sodium (Porcine) (Heparin -) 5,000 unit IVPUSH PRN PRN PRN Reason: Heparin Last Admin: 08/27/19 03:16 Dose: 5,000 unit Documented by: HEPARIN SOD,PORK IN 0.45% NACL (Heparin-1/2ns 25,000 Units/500) 25,000 units in 500 mls @ 20 mls/hr IVPB TITR [facility]; Protocol Last Titration: 08/27/19 11:01 Dose: 1,250 units/hr, 25 mls/hr Documented by: Lisinopril (Prinivil) 20 mg PO BID [facility] Last Admin: 08/27/19 10:02 Dose: 20 mg Documented by: Polyethylene Glycol (Miralax (For Daily Use) -) 17 gm PO DAILY [facility] Last Admin: 08/27/19 10:02 Dose: 17 grams Documented by: Spironolactone (Aldactone -) 25 mg PO BID [facility] Last Admin: 08/27/19 10:02 Dose: 25 mg Documented by: Warfarin Sodium (Coumadin -) 5 mg PO DAILY@1800 [facility] A/P Acute on Chronic Hypoxic and Hypercapneic Respiratory Failure improving Acute on Chronic Diastolic Heart Failure improving Pulmonary HTN Morbid Obesity HITESH/OHS HTN - continue lasix, aldactone - monitor urine output, creatinine - replete lytes - received empiric antibiotics - taper HFOT to keep SpO2 88-92% - inhaled bronchodilators - BiPAP as needed - DVT prophylaxis
--- NOTE | 2019-08-27 13:24 | PN ---
Teaching Attending Note Name of Resident: Erasmo León ATTENDING PHYSICIAN STATEMENT I saw and evaluated the patient. I reviewed the resident's note and discussed the case with the resident. I agree with the resident's findings and plan as documented. SUBJECTIVE: Seen and examined at bedside on high flow nasal cannula. no complaints. Cont heparin drip and coumadin. Attempting to obtain insurance so care can progress OBJECTIVE: Last Vital Signs Temp Pulse Resp BP Pulse Ox 98.1 F 82 20 104/66 90 L 08/27/19 10:08/27/19 10:00 08/27/19 10:08/27/19 10:08/27/19 09:00 PE: GEN: sitting in bed, NAD HEENT: NC/AT TERESA RESP: CTAB CARDS: RRR, -MRG ABD: obese, soft, nt/nd +BS NEURO: A&OX3 Labs/Imaging: reviewed ASSESSMENT AND PLAN: 49 y/o male with PMHx morbid obesity, HITESH/OHS on CPAP, HTN, HFpEF, and chronic leg edema who presented to [facility] after 2-3 days shortness of breath and being hypoxic to 50s at home and was admitted to telemetry for acute hypoxic/hypcapneic respiratory failure, CHF exacerbation, and hypertensive urgency. Patient refused BiPAP and became somnolent due to hypercarbia and was admitted to the ICU. In the ICU patient improved on BiPAP and extensive diuresis. Patient then downgraded back to telemetry #Acute on chronic hypoxic and hypercarbic respiratory failure Likely secondary to PE, CHF, and obesity hypoventilation syndrome Pulmonary on board: Appreciate recommendations BiPAP at night Daily blood gas Discussed the importance of weight loss with patient. Will consider outpatient bariatric surgery referral. Pt does not have insurance which will greatly complicate issue Continue IV Lasix Ventolin #Elevated D-Dimer Given significant hypoxia greater than expected for CHF exacerbation or obesity hypoventilation syndrome, concern for PE. Patient is too obese to confirm with imaging at this time. Starting AC empirically for PE. Given severe obesity not a candidate for NOACs. Heparin drip Coumadin Hematology consult #Acute on chronic heart failure with preserved ejection fraction Cardiology on board, appreciate recommendations Continue carvedilol Continue Lasix Continue lisinopril Continue Aldactone #Hypertension Continue carvedilol, lisinopril, Spironolactone #Obstructive sleep apnea BiPAP at night
[2019-08-27 13:25] VITALS: BMI 60.1
[2019-08-27] MEDS ORDERED: DOCUSATE SODIUM 100 MG CAPSULE (FP) PO ONE (16:13)
--- NOTE | 2019-08-27 16:49 | PN ---
Physical Exam: SUBJECTIVE: Patient seen and examined OBJECTIVE: Vital Signs Period Temp Pulse Resp BP Sys/Deluca Pulse Ox Last 24 Hr 97.8 F-98.7 F 77-89 20-20 104-130/60-76 90-97 GENERAL: The patient is awake, alert, and fully oriented, in no acute distress. HEAD: Normal with no signs of trauma. EYES: PERRL, extraocular movements intact, sclera anicteric, conjunctiva clear. No ptosis. ENT: Ears normal, nares patent, oropharynx clear without exudates, moist mucous membranes. NECK: Trachea midline, full range of motion, supple. LUNGS: Breath sounds equal, clear to auscultation bilaterally, no wheezes, no crackles, no accessory muscle use. HEART: Regular rate and rhythm, S1, S2 without murmur, rub or gallop. ABDOMEN: Soft, nontender, nondistended, normoactive bowel sounds, no guarding, no rebound, no hepatosplenomegaly, no masses. EXTREMITIES: 2+ pulses, warm, well-perfused, no edema. NEUROLOGICAL: Cranial nerves II through XII grossly intact. Normal speech, gait not observed. PSYCH: Normal mood, normal affect. SKIN: Warm, dry, normal turgor, no rashes or lesions noted Laboratory Results - last 24 hr 08/26/19 08/27/19 08/27/19 19:15 01:00 06:15 WBC 5.8 RBC 5.75 H Hgb 13.3 Hct 46.0 MCV 79.9 L MCH 23.2 L MCHC 29.0 L RDW 16.3 H Plt Count 191 MPV 8.8 PT with INR INR PTT (Actin FS) 32.6 39.0 H Anticoagulation Therapy Puncture Site Patient Temperature ABG pH ABG pCO2 ABG pO2 ABG HCO3 ABG O2 Sat (Measured) ABG O2 Content ABG Base Excess Ramses Test Patient On Oxygen O2 Delivery Device Oxygen Flow Rate Vent Mode Vent Rate Mechanical Rate PEEP Pressure Support Vent Sodium Potassium Chloride Carbon Dioxide Anion Gap BUN Creatinine Est GFR (CKD-EPI)AfAm Est GFR (CKD-EPI)NonAf Random Glucose Calcium Phosphorus Magnesium Total Bilirubin AST ALT Alkaline Phosphatase Total Protein Albumin 08/27/19 08/27/19 08/27/19 06:15 10:05 10:05 WBC RBC Hgb Hct MCV MCH MCHC RDW Plt Count MPV PT with INR 12.80 INR 1.08 PTT (Actin FS) 44.6 H Anticoagulation Therapy Puncture Site Patient Temperature ABG pH ABG pCO2 ABG pO2 ABG HCO3 ABG O2 Sat (Measured) ABG O2 Content ABG Base Excess Ramses Test Patient On Oxygen O2 Delivery Device Oxygen Flow Rate Vent Mode Vent Rate Mechanical Rate PEEP Pressure Support Vent Sodium 138 Potassium 4.6 Chloride 90 L Carbon Dioxide 45 H Anion Gap 3 L BUN 37.0 H Creatinine 1.0 Est GFR (CKD-EPI)AfAm 100.55 Est GFR (CKD-EPI)NonAf 86.76 Random Glucose 86 Calcium 8.4 L Phosphorus 3.9 Magnesium 2.5 H Total Bilirubin 0.9 AST 11 L ALT 17 Alkaline Phosphatase 69 Total Protein 7.3 Albumin 2.7 L 08/27/19 12:10 WBC RBC Hgb Hct MCV MCH MCHC RDW Plt Count MPV PT with INR INR PTT (Actin FS) Anticoagulation Therapy No Result Required. Puncture Site Right radial Patient Temperature No Result Required. ABG pH 7.384 ABG pCO2 70.20 H* ABG pO2 73.3 L ABG HCO3 41.0 H ABG O2 Sat (Measured) 94.0 L ABG O2 Content No Result Required. ABG Base Excess 12.2 H Ramses Test No Result Required. Patient On Oxygen Yes O2 Delivery Device Hfnc Oxygen Flow Rate 55 Vent Mode No Result Required. Vent Rate No Result Required. Mechanical Rate No Result Required. PEEP No Result Required. Pressure Support Vent No Result Required. Sodium Potassium Chloride Carbon Dioxide Anion Gap BUN Creatinine Est GFR (CKD-EPI)AfAm Est GFR (CKD-EPI)NonAf Random Glucose Calcium Phosphorus Magnesium Total Bilirubin AST ALT Alkaline Phosphatase Total Protein Albumin Active Medications Generic Name Dose Route Start Last Admin Trade Name Freq PRN Reason Stop Dose Admin Albuterol Sulfate 1 amp 08/23/19 23:25 08/24/19 21:09 Ventolin 0.083% Nebulizer Soln - NEB 1 amp Q6H PRN Administration SHORT OF BREATH/WHEEZING Carvedilol 25 mg 08/24/19 10:00 08/27/19 10:02 Coreg - PO 25 mg BID [facility] Administration Furosemide 40 mg 08/24/19 06:00 08/27/19 15:11 Lasix Injection - IVPUSH 40 mg BID@0600,1400 [facility] Administration Heparin Sodium (Porcine) 1,000 unit 08/26/19 15:06 08/27/19 11:21 Heparin - IVPUSH 1,000 unit PRN PRN Administration Heparin Heparin Sodium (Porcine) 5,000 unit 08/26/19 15:06 08/27/19 03:16 Heparin - IVPUSH 5,000 unit PRN PRN Administration Heparin HEPARIN SOD,PORK IN 0.45% NACL 25,000 units in 500 mls @ 20 mls/hr 08/26/19 15:15 08/27/19 11:01 Heparin-1/2ns 25,000 Units/500 IVPB 1,250 units/hr TITR [facility] 25 mls/hr Titration Protocol 1,000 UNITS/HR Lisinopril 20 mg 08/24/19 10:00 08/27/19 10:02 Prinivil PO 20 mg BID [facility] Administration Polyethylene Glycol 17 gm 08/25/19 13:45 08/27/19 10:02 Miralax (For Daily Use) - PO 17 grams DAILY [facility] Administration Senna 1 tab 08/27/19 22:00 Senna - PO HS [facility] Spironolactone 25 mg 08/24/19 10:00 08/27/19 10:02 Aldactone - PO 25 mg BID [facility] Administration Warfarin Sodium 5 mg 08/27/19 18:00 Coumadin - PO DAILY@1800 [facility] ASSESSMENT/PLAN: Raul is a 49M w PMHx of morbid obesity (BMI 60.2), HFpEF, HITESH/OHS on CPAP, HTN, who presents to the hospital with SOB and satting at 50% O2 on room air. BP found to be 211/106 #Acute on chronic hypoxic and hypercarbic respiratory failure - Suspected to be secondary to body habitus - Reports that cardiology at [facility] attributes his RF to obesity - Patient is currently on HiFlow nasal O2 FIO2 50% satting at 90% - Patient currently on LASIX 40mg IV - Candidate for bariatric surgery - will need to speak to social work for insurance coverage #DVT prophylaxis - Per hemonc- Lovenox 60 BID 1 hour after stopping heparin and coumadin - duplex BL LE ordered - if positive then transition back to heparin bridge to coumadin #Elevated D-Dimer As per Hematology - D-Dimer levels not indicative of PE suspicion - CXR shows congestive changes - PE would show clear lung oquendo bilaterally - likely due to CHF, CO2 levels, and pH #Hypertension Monitoring on Tele - Monitoring BP - well controlled at this point - continuing home medications #Suspected covid - AB for Sars CoV test order Visit type - Emergency Visit Emergency Visit: Yes ED Registration Date: 08/20/19 Care time: The patient presented to the Emergency Department on the above date and was hospitalized for further evaluation of their emergent condition. - New Patient This patient is new to me today: No - Critical Care Critical Care patient: No - Discharge Referral Referred to [facility] Med P.C.: No ATTENDING PHYSICIAN STATEMENT I saw and evaluated the patient. I reviewed the resident's note and discussed the case with the resident. I agree with the resident's findings and plan as documented. SUBJECTIVE: OBJECTIVE: ASSESSMENT AND PLAN:
[2019-08-27] MEDS ORDERED: PT OWN MED DRAWER 7, Y5N ONE (17:30)
[2019-08-27] MEDS ORDERED: ENOXAPARIN NA (PORCINE) 60 MG/0.6 ML DISP.SYRIN SQ SCH (18:00)
[2019-08-27] MEDS ORDERED: WARFARIN NA 5 MG TABLET PO SCH (18:00)
--- NOTE | 2019-08-27 18:04 | CONSULT ---
Consultation: REQUESTING PROVIDER: Dr. Martinez CONSULT REQUEST: We have been asked to medically evaluate this patient for anticoagulation for suspected PE. HISTORY OF PRESENT ILLNESS: Pt. is a 49 y.o. M w/ PMHx. of Super x 5 MO(BMI 60), HITESH/OHS on CPAP, HTN, HFpEF, Chronic LE edema (w/ chronic skin changes) presents for shortness of breath. We have been called to assess for anticoagulation for suspected PE. Pt. is being treated for respiratory failure 2/2 CHF exacerbation with underlying HITESH/OHS. We have been unable to perform CTA or V/Q scan because of Pt.'s body habitus. Pt. had CXR significant for pulmonary congestion. 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 Pt. states that he does takes breaks during the da o get out and stretch. Pt. denies any history of coagulopathy in himself or family. Pt. denies smoking. Pt. states he had a clonoscopy in 1987 because of blood in his stool, results were only significant for hemorrhoids; he has not had one since. Pt. states he is being worked up for bariatric surgery. Pt. at this time denies any pain in his chest, difficulty brething, pain in his calfs, numbness/tingling or any other complaints. REVIEW OF SYSTEMS: As above PHYSICAL EXAMINATION Vital Signs - 24 hr 08/26/19 08/26/19 08/26/19 18:00 20:20 20:28 Temperature 98.7 F Pulse Rate 86 Respiratory 20 Rate Blood Pressure 125/70 O2 Sat by Pulse 94 L 97 Oximetry (%) 08/26/19 08/26/19 08/27/19 21:00 22:00 00:51 Temperature 98.7 F 97.8 F Pulse Rate 89 80 Respiratory 20 20 20 Rate Blood Pressure 127/60 115/74 O2 Sat by Pulse 95 Oximetry (%) 08/27/19 08/27/19 08/27/19 06:00 06:30 09:00 Temperature 98.7 F Pulse Rate 77 Respiratory 20 20 Rate Blood Pressure 130/76 O2 Sat by Pulse 90 L 90 L Oximetry (%) 08/27/19 08/27/19 10:00 14:00 Temperature 98.1 F 98.6 F Pulse Rate 82 82 Respiratory 20 Rate Blood Pressure 104/66 112/72 O2 Sat by Pulse Oximetry (%) GENERAL: Awake, alert, and fully oriented, in no acute distress. HEAD: Normal with no signs of trauma. EYES: Pupils equal, round and reactive to light, extraocular movements intact, sclera anicteric, conjunctiva clear. No lid lag. EARS, NOSE, THROAT: Ears normal, nares patent, oropharynx clear without exudates. Moist mucous membranes. NECK: Normal range of motion, supple without lymphadenopathy, JVD, or masses. LUNGS: Breath sounds equal, clear to auscultation bilaterally. No wheezes, and no crackles. No accessory muscle use. HEART: Regular rate and rhythm, normal S1 and S2 without murmur, rub or gallop. ABDOMEN: Soft, nontender, not distended, normoactive bowel sounds, no guarding, no rebound, no masses. No hepatomegaly or splenomegaly. MUSCULOSKELETAL: Normal range of motion at all joints. No bony deformities or tenderness. No CVA tenderness. UPPER EXTREMITIES: 2+ pulses, warm, well-perfused. No cyanosis. No clubbing. Cap refill <2 seconds. No peripheral edema. LOWER EXTREMITIES: 2+ pulses, warm, well-perfused. No calf tenderness. No peripheral edema. NEUROLOGICAL: Cranial nerves II-XII intact. Normal speech. Normal gait. PSYCHIATRIC: Cooperative. Good eye contact. Appropriate mood and affect. SKIN: Warm, dry, normal turgor, no rashes or lesions noted. Laboratory Results - last 24 hr 08/26/19 08/27/19 08/27/19 19:15 01:00 06:15 WBC 5.8 RBC 5.75 H Hgb 13.3 Hct 46.0 MCV 79.9 L MCH 23.2 L MCHC 29.0 L RDW 16.3 H Plt Count 191 MPV 8.8 PT with INR INR PTT (Actin FS) 32.6 39.0 H Anticoagulation Therapy Puncture Site Patient Temperature ABG pH ABG pCO2 ABG pO2 ABG HCO3 ABG O2 Sat (Measured) ABG O2 Content ABG Base Excess Ramses Test Patient On Oxygen O2 Delivery Device Oxygen Flow Rate Vent Mode Vent Rate Mechanical Rate PEEP Pressure Support Vent Sodium Potassium Chloride Carbon Dioxide Anion Gap BUN Creatinine Est GFR (CKD-EPI)AfAm Est GFR (CKD-EPI)NonAf Random Glucose Calcium Phosphorus Magnesium Total Bilirubin AST ALT Alkaline Phosphatase Total Protein Albumin 08/27/19 08/27/19 08/27/19 06:15 10:05 10:05 WBC RBC Hgb Hct MCV MCH MCHC RDW Plt Count MPV PT with INR 12.80 INR 1.08 PTT (Actin FS) 44.6 H Anticoagulation Therapy Puncture Site Patient Temperature ABG pH ABG pCO2 ABG pO2 ABG HCO3 ABG O2 Sat (Measured) ABG O2 Content ABG Base Excess Ramses Test Patient On Oxygen O2 Delivery Device Oxygen Flow Rate Vent Mode Vent Rate Mechanical Rate PEEP Pressure Support Vent Sodium 138 Potassium 4.6 Chloride 90 L Carbon Dioxide 45 H Anion Gap 3 L BUN 37.0 H Creatinine 1.0 Est GFR (CKD-EPI)AfAm 100.55 Est GFR (CKD-EPI)NonAf 86.76 Random Glucose 86 Calcium 8.4 L Phosphorus 3.9 Magnesium 2.5 H Total Bilirubin 0.9 AST 11 L ALT 17 Alkaline Phosphatase 69 Total Protein 7.3 Albumin 2.7 L 08/27/19 12:10 WBC RBC Hgb Hct MCV MCH MCHC RDW Plt Count MPV PT with INR INR PTT (Actin FS) Anticoagulation Therapy No Result Required. Puncture Site Right radial Patient Temperature No Result Required. ABG pH 7.384 ABG pCO2 70.20 H* ABG pO2 73.3 L ABG HCO3 41.0 H ABG O2 Sat (Measured) 94.0 L ABG O2 Content No Result Required. ABG Base Excess 12.2 H Ramses Test No Result Required. Patient On Oxygen Yes O2 Delivery Device Hfnc Oxygen Flow Rate 55 Vent Mode No Result Required. Vent Rate No Result Required. Mechanical Rate No Result Required. PEEP No Result Required. Pressure Support Vent No Result Required. Sodium Potassium Chloride Carbon Dioxide Anion Gap BUN Creatinine Est GFR (CKD-EPI)AfAm Est GFR (CKD-EPI)NonAf Random Glucose Calcium Phosphorus Magnesium Total Bilirubin AST ALT Alkaline Phosphatase Total Protein Albumin Active Medications Generic Name Dose Route Start Last Admin Trade Name Freq PRN Reason Stop Dose Admin Albuterol Sulfate 1 amp 08/23/19 23:25 08/24/19 21:09 Ventolin 0.083% Nebulizer Soln - NEB 1 amp Q6H PRN Administration SHORT OF BREATH/WHEEZING Carvedilol 25 mg 08/24/19 10:00 08/27/19 10:02 Coreg - PO 25 mg BID [facility] Administration Enoxaparin Sodium 60 mg 08/27/19 18:00 Lovenox - SQ Q12H [facility] Furosemide 40 mg 08/24/19 06:00 08/27/19 15:11 Lasix Injection - IVPUSH 40 mg BID@0600,1400 [facility] Administration Heparin Sodium (Porcine) 1,000 unit 08/26/19 15:06 08/27/19 11:21 Heparin - IVPUSH 1,000 unit PRN PRN Administration Heparin Heparin Sodium (Porcine) 5,000 unit 08/26/19 15:06 08/27/19 03:16 Heparin - IVPUSH 5,000 unit PRN PRN Administration Heparin HEPARIN SOD,PORK IN 0.45% NACL 25,000 units in 500 mls @ 20 mls/hr 08/26/19 15:15 08/27/19 11:01 Heparin-1/2ns 25,000 Units/500 IVPB 1,250 units/hr TITR [facility] 25 mls/hr Titration Protocol 1,000 UNITS/HR Lisinopril 20 mg 08/24/19 10:00 08/27/19 10:02 Prinivil PO 20 mg BID [facility] Administration Polyethylene Glycol 17 gm 08/25/19 13:45 08/27/19 10:02 Miralax (For Daily Use) - PO 17 grams DAILY [facility] Administration Senna 1 tab 08/27/19 22:00 Senna - PO HS [facility] Spironolactone 25 mg 08/24/19 10:00 08/27/19 10:02 Aldactone - PO 25 mg BID [facility] Administration Warfarin Sodium 5 mg 08/27/19 18:00 Coumadin - PO DAILY@1800 [facility] ASSESSMENT/PLAN: Pt. is a 49 y.o. M w/ PMHx. of Super x 5 MO(BMI 60), HITESH/OHS on CPAP, HTN, HFpEF, Chronic LE edema (w/ chronic skin changes) presents for shortness of breath. We have been called to assess for anticoagulation for suspected PE. #r/o PE f/u Coronavirus antibody testing as this may give more rationale and weight to suspected PE, especially if CXr shows resolution and Pt. still has significant O2 requirements Elevated D-dimer noted, however this may be due to comorbid condiditons c/w diuretics for CHF, as per Cardio f/u duplex of Lower extremities to r/o DVT stop Heparin gtt and Coumadin will start Lovenx 60mg BID as DVT Ppx. given Pt.s level of obesity. Lovenox has not been studied in Pt.s above 150 kg. Recommending 0.5mg/kg BID with anti-factor Xa monitoring 4 hours after administration or 60mg BID with consideration of anti-factor Xa monitoring. Case discussed with Pulmonology. Dispo: We will continue to follow the patient. Thank you for this consultative opportunity. Visit type - Emergency Visit Emergency Visit: Yes ED Registration Date: 08/20/19 Care time: The patient presented to the Emergency Department on the above date and was hospitalized for further evaluation of their emergent condition. - New Patient This patient is new to me today: Yes Date on this admission: 08/27/19 - Critical Care Critical Care patient: No ATTENDING PHYSICIAN STATEMENT I saw and evaluated the patient. I reviewed the resident's note and discussed the case with the resident. I agree with the resident's findings and plan as documented. SUBJECTIVE: OBJECTIVE: ASSESSMENT AND PLAN:
[2019-08-27] MEDS: ENOXAPARIN NA (PORCINE) 60 MG/0.6 ML DISP.SYRIN SQ SCH (18:43)
[2019-08-27] MEDS: SENNOSIDES 8.6MG TABLET (FP) PO SCH (21:12)
--- NOTE | 2019-08-28 05:15 | PN ---
Teaching Attending Note Name of Resident: Miles Rodriges ATTENDING PHYSICIAN STATEMENT I saw and evaluated the patient. I reviewed the resident's note and discussed the case with the resident. I agree with the resident's findings and plan as documented. ASSESSMENT AND PLAN: Pt. is a 49 y.o. M w/ PMHx. of morbid obesity, HITESH/OHS on CPAP, HTN, HFpEF, Chronic LE edema (w/ chronic skin changes) presents for shortness of breath. We have been consulted for anticoagulation for suspected PE. PAtient presents with shortness of breasth. CXR with congestive changes. Improving with diuresis Given CXR findings unlikely to have VTE in additionas cause of shortness of breath Unable to get V/Q or CTA due to morbid obesity Check duplex lower extremities ECho --mno rt. heart strain Discussed with pulmonary team aswell Consider DVT prophylaxis with lovenox 60mg SC bid
[2019-08-28] MEDS: FUROSEMIDE 40 MG/4 ML INJECTABLE VIAL IVPUSH SCH ×2 (06:07→14:39)
[2019-08-28] MEDS: ENOXAPARIN NA (PORCINE) 60 MG/0.6 ML DISP.SYRIN SQ SCH ×2 (06:07→18:14)
--- NOTE | 2019-08-28 06:47 | PN ---
Progress Note (short form) - Note Progress Note: Chief Complaint: Events noted, notes reviewed, resting in bed, remains on high flow oxygen therapy/HFOT via nasal cannula, reports dyspnea but clinically improved, denies any chest discomfort History of Present Illness: Seen and examined on telemetry. Events noted, notes reviewed, resting in bed, remains on high flow oxygen therapy/HFOT via nasal cannula, reports dyspnea but clinically improved, denies any chest discomfort Initiated on Lovenox therapy for DVT prophylaxis, no clinical indications for pulmonary thromboembolism/consensus Medications: Current Medications Generic Name Dose Route Start Last Admin Trade Name Freq PRN Reason Stop Dose Admin Albuterol Sulfate 1 amp 08/23/19 23:25 08/24/19 21:09 Ventolin 0.083% Nebulizer Soln - NEB 1 amp Q6H PRN Administration SHORT OF BREATH/WHEEZING Carvedilol 25 mg 08/24/19 10:00 08/27/19 21:12 Coreg - PO 25 mg BID EUNICE Administration Enoxaparin Sodium 60 mg 08/27/19 19:00 08/28/19 06:07 Lovenox - SQ 60 mg Q12H EUNICE Administration Furosemide 40 mg 08/24/19 06:00 08/28/19 06:07 Lasix Injection - IVPUSH 40 mg BID@0600,1400 EUNICE Administration Lisinopril 20 mg 08/24/19 10:00 08/27/19 21:12 Prinivil PO 20 mg BID EUNICE Administration Polyethylene Glycol 17 gm 08/25/19 13:45 08/27/19 10:02 Miralax (For Daily Use) - PO 17 grams DAILY EUNICE Administration Senna 1 tab 08/27/19 22:00 08/27/19 21:12 Senna - PO 1 tab HS EUNICE Administration Spironolactone 25 mg 08/24/19 10:00 08/27/19 21:12 Aldactone - PO 25 mg BID EUNICE Administration Review of Systems - Review of Systems Constitutional: denies: Fever or Chills Cardiovascular: As noted above Respiratory: denies: Cough or Sputum Production Gastrointestinal: denies: Nausea, Vomiting, Diarrhea, Constipation, Abdominal Pain Neurological: denies: Headaches Vital Signs: Last Vital Signs Temp Pulse Resp BP Pulse Ox 97.9 F 87 20 117/68 93 L 08/28/19 06:00 08/28/19 06:00 08/28/19 06:00 08/28/19 06:00 08/28/19 05:00 Intake & Output 08/25/19 08/26/19 08/27/19 08/28/19 23:59 23:59 23:59 23:59 Intake Total 990 750 810 24 Output Total 2200 1200 2400 350 Balance -1210 -450 -1590 -326 Weight 494 lb 15.004 oz 493 lb 13.367 oz Neck: Supple Negative JVD No Bruit Respiratory: Diminished breath sounds at the bases bilaterally Cardiovascular: S1 S2 Regular Rate and Rhythm Gastrointestinal: Soft Benign Normal Bowel Sounds Ext: 1-2+ Bilateral Edema, Chronic Venous Stasis Changes Labs: CBC, BMP 08/28/19 06:10 08/28/19 06:10 CBC, BMP 08/27/19 06:15 08/27/19 06:15 Hepatic Panel Total Bilirubin 0.9 mg/dL (0.2-1) 08/27/19 06:15 Direct Bilirubin 0.2 mg/dL (0.0-0.2) 08/20/19 13:15 AST 11 U/L (15-37) L 08/27/19 06:15 ALT 17 U/L (13-61) 08/27/19 06:15 Alkaline Phosphatase 69 U/L (45-117) 08/27/19 06:15 Albumin 2.7 g/dl (3.4-5.0) L 08/27/19 06:15 INR, PTT INR 1.08 (0.83-1.09) 08/27/19 10:05 ABG Results ABG pH 7.384 (7.350-7.450) 08/27/19 12:10 ABG HCO3 41.0 mmol/L (22-27) H 08/27/19 12:10 ABG O2 Sat (Measured) 94.0 mmHg (95-98) L 08/27/19 12:10 ABG O2 Content No Result Required. 08/27/19 12:10 ABG Base Excess 12.2 mmol/L (-2-2) H 08/27/19 12:10 Assessment/Plan ASSESSMENT: 1. Acute on chronic hypoxic/hypercapnic respiratory failure, clinically resolving/PTE is no longer a consideration as a differential diagnosis 2. Acute on chronic class II-III [place] [employer] classification left ventricular failure related to diastolic left ventricular dysfunction, clinically resolving 3. Coronary artery disease angina pectoris 4. Hypertensive cardiovascular disease with history of hypertensive urgency 5. Obstructive sleep apnea 6. Obesity hypoventilation syndrome with pulmonary hypertension 7. Morbid obesity- Eventual evaluation for possible bariatric surgery PLAN: 1. Continue Coreg 2. Continue Lisinopril and dose titration as needed and as tolerated 3. Continue IV Lasix therapy with close monitoring of renal function and electrolytes 4. Continue Aldactone therapy with close monitoring of renal function and electrolytes 5. Supplemental oxygen as per the primary team/pulmonary team 6. Eventual evaluation for possible bariatric surgery for management of the above-noted morbid obesity as noted above 7. Eventual outpatient follow-up in our office post discharge Stephen Gerber M.D.
[2019-08-28 07:35] LABS: HEMATOCRIT 46.5 % (35.4-49); HEMOGLOBIN 13.6 GM/dL (11.7-16.9); MCH 23.4 pg (25.7-33.7); MCHC 29.2 g/dl (32.0-35.9); MEAN CELL VOLUME 80.2 fl (80-96); MEAN PLT VOLUME 8.9 fl (7.5-11.1); PLATELET COUNT 185 K/MM3 (134-434); RDW 16.6 % (11.9-15.9); WHITE BLOOD COUNT 4.7 K/mm3 (4.0-10.0)
[2019-08-28 07:37] LABS: INR 1.09 (0.83-1.09); PROTHROMBIN TIME (PATIENT) 12.9 SEC (9.7-13.0)
[2019-08-28 07:40] LABS: ACTIVATED PTT 53.2 SECONDS (25.2-36.5)
[2019-08-28 07:55] LABS: ALBUMIN 2.8 g/dl (3.4-5.0); ALK PHOS 73 U/L (45-117); BILIRUBIN,TOTAL 0.8 mg/dL (0.2-1); BLOOD UREA NITROGEN 43.3 mg/dL (7-18); CALCIUM 8.7 mg/dL (8.5-10.1); CHLORIDE 90 mmol/L (98-107); CREATININE 1.1 mg/dL (0.55-1.3); GLUCOSE,RANDOM 92 mg/dL (74-106); MAGNESIUM 2.5 mg/dL (1.8-2.4); PHOSPHOROUS 4.7 mg/dL (2.5-4.9); POTASSIUM 4.7 mmol/L (3.5-5.1); SGOT/AST 11 U/L (15-37); SGPT/ALT 17 U/L (13-61); SODIUM 139 mmol/L (136-145); TOT PROT 7.4 g/dl (6.4-8.2)
[2019-08-28 08:01] LABS: ANION GAP 4 MMOL/L (8-16); CO2 > 45 mmol/L (21-32)
[2019-08-28] MEDS: SPIRONOLACTONE 25 MG TABLET PO SCH ×2 (09:39→21:57)
[2019-08-28] MEDS: CARVEDILOL 25 MG TABLET (FP) PO SCH ×2 (09:39→21:57)
[2019-08-28] MEDS: LISINOPRIL 20 MG TABLET (FP) PO SCH ×2 (09:39→21:57)
--- NOTE | 2019-08-28 10:10 | PN ---
Progress Note, Physician - Current Medication List Current Medications: Active Medications Albuterol Sulfate (Ventolin 0.083% Nebulizer Soln -) 1 amp NEB Q6H PRN PRN Reason: SHORT OF BREATH/WHEEZING Last Admin: 08/24/19 21:09 Dose: 1 amp Documented by: Carvedilol (Coreg -) 25 mg PO BID [facility] Last Admin: 08/28/19 09:39 Dose: 25 mg Documented by: Enoxaparin Sodium (Lovenox -) 60 mg SQ Q12H [facility] Last Admin: 08/28/19 06:07 Dose: 60 mg Documented by: Furosemide (Lasix Injection -) 40 mg IVPUSH BID@0600,1400 [facility] Last Admin: 08/28/19 06:07 Dose: 40 mg Documented by: Lisinopril (Prinivil) 20 mg PO BID [facility] Last Admin: 08/28/19 09:39 Dose: 20 mg Documented by: Polyethylene Glycol (Miralax (For Daily Use) -) 17 gm PO DAILY [facility] Last Admin: 08/27/19 10:02 Dose: 17 grams Documented by: Senna (Senna -) 1 tab PO HS [facility] Last Admin: 08/27/19 21:12 Dose: 1 tab Documented by: Spironolactone (Aldactone -) 25 mg PO BID [facility] Last Admin: 08/28/19 09:39 Dose: 25 mg Documented by: - Objective Vital Signs: Vital Signs Temperature 97.9 F 08/28/19 06:00 Pulse Rate 88 08/28/19 08:35 Respiratory Rate 20 08/28/19 06:00 Blood Pressure 117/68 08/28/19 06:00 O2 Sat by Pulse Oximetry (%) 93 L 08/28/19 08:35 Labs: CBC, BMP 08/28/19 06:10 08/28/19 06:10 INR, PTT INR 1.09 (0.83-1.09) 08/28/19 06:10 Problem List - Problems (1) Acute and chronic respiratory failure Code(s): J96.20 - ACUTE AND CHR RESP FAILURE, UNSP W HYPOXIA OR HYPERCAPNIA Qualifiers: (2) Pulmonary vascular congestion Code(s): R09.89 - OTH SYMPTOMS AND SIGNS INVOLVING THE CIRC AND RESP SYSTEMS (3) Acute on chronic diastolic (congestive) heart failure Code(s): I50.33 - ACUTE ON CHRONIC DIASTOLIC (CONGESTIVE) HEART FAILURE (4) Acute on chronic respiratory failure with hypoxia and hypercapnia Code(s): J96.21 - ACUTE AND CHRONIC RESPIRATORY FAILURE WITH HYPOXIA; J96.22 - ACUTE AND CHRONIC RESPIRATORY FAILURE WITH HYPERCAPNIA (5) Respiratory distress Code(s): R06.03 - ACUTE RESPIRATORY DISTRESS (6) Morbid obesity with BMI of 50.0-59.9, adult Code(s): Z68.43 - BODY MASS INDEX (BMI) 50.0-59.9, ADULT (7) Obesity hypoventilation syndrome Code(s): E66.2 - MORBID (SEVERE) OBESITY WITH ALVEOLAR HYPOVENTILATION (8) Obstructive sleep apnea Code(s): G47.33 - OBSTRUCTIVE SLEEP APNEA (ADULT) (PEDIATRIC) Assessment/Plan ASSESSMENT AND PLAN: Acute on Chronic Hypoxic and Hypercapneic Respiratory Failure improving Acute on Chronic Diastolic Heart Failure improving Pulmonary HTN Morbid Obesity HITESH/OHS HTN HYPOXEMIA likely v/q mismatch,altelectasis ? PE - continue lasix, aldactone - monitor urine output, creatinine - replete lytes - received empiric antibiotics - O2 to keep SpO2 88-92% - inhaled bronchodilators - BiPAP as needed - DVT prophylaxis - bariatric surgery evaluation - d-dimer - incentive spirometer DR BACH
[2019-08-28] MEDS: POLYETHYLENE GLYCOL 3350 119 GM BTL PO SCH (10:39)
--- NOTE | 2019-08-28 10:42 | PN ---
Physical Exam: SUBJECTIVE: Patient seen and examined OBJECTIVE: Vital Signs Period Temp Pulse Resp BP Sys/Deluca Pulse Ox Last 24 Hr 97.9 F-98.7 F 80-92 20-20 106-124/57-83 92-93 GENERAL: The patient is awake, alert, and fully oriented, in no acute distress. HEAD: Normal with no signs of trauma. EYES: PERRL, extraocular movements intact, sclera anicteric, conjunctiva clear. No ptosis. ENT: Ears normal, nares patent, oropharynx clear without exudates, moist mucous membranes. NECK: Trachea midline, full range of motion, supple. LUNGS: Breath sounds equal, clear to auscultation bilaterally, no wheezes, no crackles, no accessory muscle use. HEART: Regular rate and rhythm, S1, S2 without murmur, rub or gallop. ABDOMEN: Soft, nontender, nondistended, normoactive bowel sounds, no guarding, no rebound, no hepatosplenomegaly, no masses. EXTREMITIES: 2+ pulses, warm, well-perfused, no edema. NEUROLOGICAL: Cranial nerves II through XII grossly intact. Normal speech, gait not observed. PSYCH: Normal mood, normal affect. SKIN: Warm, dry, normal turgor, no rashes or lesions noted Laboratory Results - last 24 hr 08/27/19 08/27/19 08/27/19 10:05 10:05 12:10 WBC RBC Hgb Hct MCV MCH MCHC RDW Plt Count MPV PT with INR 12.80 INR 1.08 PTT (Actin FS) 44.6 H Anticoagulation Therapy No Result Required. Puncture Site Right radial Patient Temperature No Result Required. ABG pH 7.384 ABG pCO2 70.20 H* ABG pO2 73.3 L ABG HCO3 41.0 H ABG O2 Sat (Measured) 94.0 L ABG O2 Content No Result Required. ABG Base Excess 12.2 H Ramses Test No Result Required. Patient On Oxygen Yes O2 Delivery Device Hfnc Oxygen Flow Rate 55 Vent Mode No Result Required. Vent Rate No Result Required. Mechanical Rate No Result Required. PEEP No Result Required. Pressure Support Vent No Result Required. Sodium Potassium Chloride Carbon Dioxide Anion Gap BUN Creatinine Est GFR (CKD-EPI)AfAm Est GFR (CKD-EPI)NonAf Random Glucose Calcium Phosphorus Magnesium Total Bilirubin AST ALT Alkaline Phosphatase Total Protein Albumin SARS-CoV-2 Ab Interp 07/13/20 07/13/20 07/14/20 17:25 21:45 06:10 WBC 4.7 RBC 5.80 H Hgb 13.6 Hct 46.5 MCV 80.2 MCH 23.4 L MCHC 29.2 L RDW 16.6 H Plt Count 185 MPV 8.9 PT with INR INR PTT (Actin FS) 44.5 H Anticoagulation Therapy Puncture Site Patient Temperature ABG pH ABG pCO2 ABG pO2 ABG HCO3 ABG O2 Sat (Measured) ABG O2 Content ABG Base Excess Ramses Test Patient On Oxygen O2 Delivery Device Oxygen Flow Rate Vent Mode Vent Rate Mechanical Rate PEEP Pressure Support Vent Sodium Potassium Chloride Carbon Dioxide Anion Gap BUN Creatinine Est GFR (CKD-EPI)AfAm Est GFR (CKD-EPI)NonAf Random Glucose Calcium Phosphorus Magnesium Total Bilirubin AST ALT Alkaline Phosphatase Total Protein Albumin SARS-CoV-2 Ab Interp Non-reactive 08/28/19 08/28/19 06:10 06:10 WBC RBC Hgb Hct MCV MCH MCHC RDW Plt Count MPV PT with INR 12.90 INR 1.09 PTT (Actin FS) 53.2 H Anticoagulation Therapy Puncture Site Patient Temperature ABG pH ABG pCO2 ABG pO2 ABG HCO3 ABG O2 Sat (Measured) ABG O2 Content ABG Base Excess Ramses Test Patient On Oxygen O2 Delivery Device Oxygen Flow Rate Vent Mode Vent Rate Mechanical Rate PEEP Pressure Support Vent Sodium 139 Potassium 4.7 Chloride 90 L Carbon Dioxide > 45 H Anion Gap 4 L BUN 43.3 H Creatinine 1.1 Est GFR (CKD-EPI)AfAm 89.61 Est GFR (CKD-EPI)NonAf 77.32 Random Glucose 92 Calcium 8.7 Phosphorus 4.7 Magnesium 2.5 H Total Bilirubin 0.8 AST 11 L ALT 17 Alkaline Phosphatase 73 Total Protein 7.4 Albumin 2.8 L SARS-CoV-2 Ab Interp Active Medications Generic Name Dose Route Start Last Admin Trade Name Freq PRN Reason Stop Dose Admin Albuterol Sulfate 1 amp 08/23/19 23:25 08/24/19 21:09 Ventolin 0.083% Nebulizer Soln - NEB 1 amp Q6H PRN Administration SHORT OF BREATH/WHEEZING Carvedilol 25 mg 08/24/19 10:00 08/28/19 09:39 Coreg - PO 25 mg BID EUNICE Administration Enoxaparin Sodium 60 mg 08/27/19 19:00 08/28/19 06:07 Lovenox - SQ 60 mg Q12H EUNICE Administration Furosemide 40 mg 08/24/19 06:00 08/28/19 06:07 Lasix Injection - IVPUSH 40 mg BID@0600,1400 EUNICE Administration Lisinopril 20 mg 08/24/19 10:00 08/28/19 09:39 Prinivil PO 20 mg BID EUNICE Administration Polyethylene Glycol 17 gm 08/25/19 13:45 08/27/19 10:02 Miralax (For Daily Use) - PO 17 grams DAILY EUNICE Administration Senna 1 tab 08/27/19 22:00 08/27/19 21:12 Senna - PO 1 tab HS EUNICE Administration Spironolactone 25 mg 08/24/19 10:00 08/28/19 09:39 Aldactone - PO 25 mg BID EUNICE Administration ASSESSMENT/PLAN: ATTENDING PHYSICIAN STATEMENT I saw and evaluated the patient. I reviewed the resident's note and discussed the case with the resident. I agree with the resident's findings and plan as documented. SUBJECTIVE: OBJECTIVE: ASSESSMENT AND PLAN:
--- NOTE | 2019-08-28 11:20 | PN ---
Progress Note, Physician History of Present Illness: pulmonary alert,comfortable on HFOT,ambulating with PT. O2 SAT 94% ON 60% HFOT - Current Medication List Current Medications: Active Medications Albuterol Sulfate (Ventolin 0.083% Nebulizer Soln -) 1 amp NEB Q6H PRN PRN Reason: SHORT OF BREATH/WHEEZING Last Admin: 08/24/19 21:09 Dose: 1 amp Documented by: Carvedilol (Coreg -) 25 mg PO BID [facility] Last Admin: 08/28/19 09:39 Dose: 25 mg Documented by: Enoxaparin Sodium (Lovenox -) 60 mg SQ Q12H [facility] Last Admin: 08/28/19 06:07 Dose: 60 mg Documented by: Furosemide (Lasix Injection -) 40 mg IVPUSH BID@0600,1400 [facility] Last Admin: 08/28/19 06:07 Dose: 40 mg Documented by: Lisinopril (Prinivil) 20 mg PO BID [facility] Last Admin: 08/28/19 09:39 Dose: 20 mg Documented by: Polyethylene Glycol (Miralax (For Daily Use) -) 17 gm PO DAILY [facility] Last Admin: 08/27/19 10:02 Dose: 17 grams Documented by: Senna (Senna -) 1 tab PO HS [facility] Last Admin: 08/27/19 21:12 Dose: 1 tab Documented by: Spironolactone (Aldactone -) 25 mg PO BID [facility] Last Admin: 08/28/19 09:39 Dose: 25 mg Documented by: - Objective Vital Signs: Vital Signs Temperature 97.9 F 08/28/19 06:00 Pulse Rate 88 08/28/19 08:35 Respiratory Rate 08/28/19 06:00 Blood Pressure 117/68 08/28/19 06:00 O2 Sat by Pulse Oximetry (%) 93 L 08/28/19 08:35 Constitutional: Yes: Calm, Obese Eyes: Yes: WNL HENT: Yes: WNL Neck: Yes: WNL Cardiovascular: Yes: Regular Rate and Rhythm, S1, S2 Respiratory: Yes: Diminished Gastrointestinal: Yes: Normal Bowel Sounds, Abdomen, Obese Extremities: Yes: WNL Edema: Yes Labs: CBC, BMP 08/28/19 06:10 08/28/19 06:10 INR, PTT INR 1.09 (0.83-1.09) 08/28/19 06:10 Laboratory Tests 08/27/19 12:10 ABG pH 7.384 ABG pCO2 70.20 H* ABG pO2 73.3 L ABG HCO3 41.0 H Oxygen Flow Rate 55 Problem List - Problems (1) Acute and chronic respiratory failure Code(s): J96.20 - ACUTE AND CHR RESP FAILURE, UNSP W HYPOXIA OR HYPERCAPNIA Qualifiers: (2) Pulmonary vascular congestion Code(s): R09.89 - OTH SYMPTOMS AND SIGNS INVOLVING THE CIRC AND RESP SYSTEMS (3) Acute on chronic diastolic (congestive) heart failure Code(s): I50.33 - ACUTE ON CHRONIC DIASTOLIC (CONGESTIVE) HEART FAILURE (4) Acute on chronic respiratory failure with hypoxia and hypercapnia Code(s): J96.21 - ACUTE AND CHRONIC RESPIRATORY FAILURE WITH HYPOXIA; J96.22 - ACUTE AND CHRONIC RESPIRATORY FAILURE WITH HYPERCAPNIA (5) Respiratory distress Code(s): R06.03 - ACUTE RESPIRATORY DISTRESS (6) Morbid obesity with BMI of 50.0-59.9, adult Code(s): Z68.43 - BODY MASS INDEX (BMI) 50.0-59.9, ADULT (7) Obesity hypoventilation syndrome Code(s): E66.2 - MORBID (SEVERE) OBESITY WITH ALVEOLAR HYPOVENTILATION (8) Obstructive sleep apnea Code(s): G47.33 - OBSTRUCTIVE SLEEP APNEA (ADULT) (PEDIATRIC) Assessment/Plan ASSESSMENT AND PLAN: Acute on Chronic Hypoxic and Hypercapneic Respiratory Failure improving Acute on Chronic Diastolic Heart Failure improving Pulmonary HTN Morbid Obesity HITESH/OHS HTN HYPOXEMIA likely v/q mismatch,altelectasis ? PE - continue lasix, aldactone - monitor urine output, creatinine - replete lytes - received empiric antibiotics - O2 to keep SpO2 88-92% - inhaled bronchodilators - BiPAP as needed - DVT prophylaxis - bariatric surgery evaluation - Lovenox for dvt prophylaxis 60bid - incentive spirometer DR BACH
--- NOTE | 2019-08-28 15:26 | PN ---
Physical Exam: SUBJECTIVE: Patient seen and examined Patient was examined at bedside - denies fevers chills N/V/D - patient denies acute overnight events OBJECTIVE: Vital Signs Period Temp Pulse Resp BP Sys/Deluca Pulse Ox Last 24 Hr 97.8 F-98.7 F 80-94 20-20 106-124/57-83 92-96 GENERAL: The patient is awake, alert, and fully oriented, in no acute distress. HEAD: Normal with no signs of trauma. NECK: Trachea midline, full range of motion, supple. LUNGS: Breath sounds equal, clear to auscultation bilaterally HEART: Regular rate and rhythm, S1, S2 without murmur, rub or gallop. EXTREMITIES: 2+ pulses, warm, well-perfused, +1 edema BL PSYCH: Normal mood, normal affect. Laboratory Results - last 24 hr 08/27/19 08/27/19 08/28/19 17:25 21:45 06:10 WBC 4.7 RBC 5.80 H Hgb 13.6 Hct 46.5 MCV 80.2 MCH 23.4 L MCHC 29.2 L RDW 16.6 H Plt Count 185 MPV 8.9 PT with INR INR PTT (Actin FS) 44.5 H Sodium Potassium Chloride Carbon Dioxide Anion Gap BUN Creatinine Est GFR (CKD-EPI)AfAm Est GFR (CKD-EPI)NonAf Random Glucose Calcium Phosphorus Magnesium Total Bilirubin AST ALT Alkaline Phosphatase Total Protein Albumin SARS-CoV-2 Ab Interp Non-reactive 08/28/19 08/28/19 06:10 06:10 WBC RBC Hgb Hct MCV MCH MCHC RDW Plt Count MPV PT with INR 12.90 INR 1.09 PTT (Actin FS) 53.2 H Sodium 139 Potassium 4.7 Chloride 90 L Carbon Dioxide > 45 H Anion Gap 4 L BUN 43.3 H Creatinine 1.1 Est GFR (CKD-EPI)AfAm 89.61 Est GFR (CKD-EPI)NonAf 77.32 Random Glucose 92 Calcium 8.7 Phosphorus 4.7 Magnesium 2.5 H Total Bilirubin 0.8 AST 11 L ALT 17 Alkaline Phosphatase 73 Total Protein 7.4 Albumin 2.8 L SARS-CoV-2 Ab Interp Active Medications Generic Name Dose Route Start Last Admin Trade Name Freq PRN Reason Stop Dose Admin Albuterol Sulfate 1 amp 08/23/19 23:25 08/24/19 21:09 Ventolin 0.083% Nebulizer Soln - NEB 1 amp Q6H PRN Administration SHORT OF BREATH/WHEEZING Carvedilol 25 mg 08/24/19 10:00 08/28/19 09:39 Coreg - PO 25 mg BID EUNICE Administration Enoxaparin Sodium 60 mg 08/27/19 19:00 08/28/19 06:07 Lovenox - SQ 60 mg Q12H EUNICE Administration Furosemide 40 mg 08/24/19 06:00 08/28/19 14:39 Lasix Injection - IVPUSH 40 mg BID@0600,1400 EUNICE Administration Lisinopril 20 mg 08/24/19 10:00 08/28/19 09:39 Prinivil PO 20 mg BID EUNICE Administration Polyethylene Glycol 17 gm 08/25/19 13:45 08/28/19 10:39 Miralax (For Daily Use) - PO 17 grams DAILY EUNICE Administration Senna 1 tab 08/27/19 22:00 08/27/19 21:12 Senna - PO 1 tab HS EUNICE Administration Spironolactone 25 mg 08/24/19 10:00 08/28/19 09:39 Aldactone - PO 25 mg BID EUNICE Administration ASSESSMENT/PLAN: Raul is a 49M w PMHx of morbid obesity (BMI 60.2), HFpEF, HITESH/OHS on CPAP, HTN, who presents to the hospital with SOB and satting at 50% O2 on room air. BP found to be 211/106 #Acute on chronic hypoxic and hypercarbic respiratory failure - Suspected to be secondary to body habitus - Reports that cardiology at [facility] attributes his RF to obesity - Patient is currently on HiFlow nasal O2 FIO2 50% satting at 90% - Patient currently on LASIX 40mg IV - Candidate for bariatric surgery - will need to speak to social work for insurance coverage #DVT prophylaxis -Duplex of LE negative for DVT - Per hemonc- Lovenox 60 BID indefinitely #Hypertension Monitoring on Tele - Monitoring BP - well controlled at this point - continuing home medications #Suspected covid - AB for Sars CoV NEGATIVE Visit type - Emergency Visit Emergency Visit: Yes ED Registration Date: 08/20/19 Care time: The patient presented to the Emergency Department on the above date and was hospitalized for further evaluation of their emergent condition. - New Patient This patient is new to me today: No - Critical Care Critical Care patient: No - Discharge Referral Referred to [facility] Med P.C.: No ATTENDING PHYSICIAN STATEMENT I saw and evaluated the patient. I reviewed the resident's note and discussed the case with the resident. I agree with the resident's findings and plan as documented. SUBJECTIVE: OBJECTIVE: ASSESSMENT AND PLAN:
--- NOTE | 2019-08-28 16:15 | PN ---
Teaching Attending Note Name of Resident: Erasmo León ATTENDING PHYSICIAN STATEMENT I saw and evaluated the patient. I reviewed the resident's note and discussed the case with the resident. I agree with the resident's findings and plan as documented. SUBJECTIVE: Feeling well, comfortable on high flow O2. No fever/chills/CP/cough/sputum. OBJECTIVE: Afebrile, Hemodynamically Stable on HFOT - SpO2 93% on FiO2 60%. Desaturates to 80s on NC. Last Vital Signs Temp Pulse Resp BP Pulse Ox 98.6 F 87 20 112/67 92 L 08/28/19 14:00 08/28/19 14:00 08/28/19 14:00 08/28/19 14:08/28/19 12:18 HEENT - Atraumatic, Normocephalic. Heart - S1, S2, RRR Lungs - distant breath sounds Abdomen - High BMI. Soft, non-tender. Bowel Sounds normal. Extremities - Edema, chronic venous stasis skin changes Neuro - AAO x 3. Tone/Power normal all extremities. Laboratory Results - last 24 hr 08/27/19 08/27/19 08/28/19 17:25 21:45 06:10 WBC 4.7 RBC 5.80 H Hgb 13.6 Hct 46.5 MCV 80.2 MCH 23.4 L MCHC 29.2 L RDW 16.6 H Plt Count 185 MPV 8.9 PT with INR INR PTT (Actin FS) 44.5 H Sodium Potassium Chloride Carbon Dioxide Anion Gap BUN Creatinine Est GFR (CKD-EPI)AfAm Est GFR (CKD-EPI)NonAf Random Glucose Calcium Phosphorus Magnesium Total Bilirubin AST ALT Alkaline Phosphatase Total Protein Albumin SARS-CoV-2 Ab Interp Non-reactive 08/28/19 08/28/19 06:10 06:10 WBC RBC Hgb Hct MCV MCH MCHC RDW Plt Count MPV PT with INR 12.90 INR 1.09 PTT (Actin FS) 53.2 H Sodium 139 Potassium 4.7 Chloride 90 L Carbon Dioxide > 45 H Anion Gap 4 L BUN 43.3 H Creatinine 1.1 Est GFR (CKD-EPI)AfAm 89.61 Est GFR (CKD-EPI)NonAf 77.32 Random Glucose 92 Calcium 8.7 Phosphorus 4.7 Magnesium 2.5 H Total Bilirubin 0.8 AST 11 L ALT 17 Alkaline Phosphatase 73 Total Protein 7.4 Albumin 2.8 L SARS-CoV-2 Ab Interp Current Medications Generic Name Dose Route Start Last Admin Trade Name Freq PRN Reason Stop Dose Admin Albuterol Sulfate 1 amp 08/23/19 23:25 08/24/19 21:09 Ventolin 0.083% Nebulizer Soln - NEB 1 amp Q6H PRN Administration SHORT OF BREATH/WHEEZING Carvedilol 25 mg 08/24/19 10:00 08/28/19 09:39 Coreg - PO 25 mg BID EUNICE Administration Enoxaparin Sodium 60 mg 08/27/19 19:00 08/28/19 06:07 Lovenox - SQ 60 mg Q12H EUNICE Administration Furosemide 40 mg 08/24/19 06:00 08/28/19 14:39 Lasix Injection - IVPUSH 40 mg BID@0600,1400 EUNICE Administration Lisinopril 20 mg 08/24/19 10:00 08/28/19 09:39 Prinivil PO 20 mg BID EUNICE Administration Polyethylene Glycol 17 gm 08/25/19 13:45 08/28/19 10:39 Miralax (For Daily Use) - PO 17 grams DAILY EUNICE Administration Senna 1 tab 08/27/19 22:00 08/27/19 21:12 Senna - PO 1 tab HS EUNICE Administration Spironolactone 25 mg 08/24/19 10:00 08/28/19 09:39 Aldactone - PO 25 mg BID EUNICE Administration Home Medications Medication Instructions Recorded Furosemide [Lasix -] 40 mg PO BID 12/06/18 Ferrous Sulfate [Feosol] 325 mg PO BIDWM 30 Days #60 ud 03/21/19 Carvedilol 25 mg PO BID 08/20/19 Lisinopril 10 mg PO DAILY 08/20/19 ASSESSMENT AND PLAN: 49 year old male with history of morbid obesity, HITESH/OHS on CPAP, HTN, HFpEF, and chronic LE edema, presented with 2-3 day history of shortness of breath and hypoxia. 1. Acute on Chronic Hypoxic and Hypercapneic Respiratory Failure secondary to Acute on Chronic Diastolic CHF, OHS/HITESH, Pulmonary HTN, +/- possible PE Requiring BiPAP at night, maintained on HFO2 during day - continue to wean O2 requirements. Elevated DDIMER COVID negative. Continue IV Lasix diuresis, Coreg, Lisinopril, Aldactone. Cardiology and Pulmonary following. Unable to obtain PE study at [facility] due to bod habitus. Seen by Hematology - recommends Lovenox 60mg BID SQ for ?DVT/PE Px. Not a candidate for NOACs due to obesity apparently. 2. HTN - Continue Carvedilol, Lisinopril, Spironolactone 3. Morbid Obesity - will benefit from referral for Bariatric Surgery. DVT Px - Lovenox SQ
[2019-08-28] MEDS: SENNOSIDES 8.6MG TABLET (FP) PO SCH (21:57)
[2019-08-29] MEDS: ENOXAPARIN NA (PORCINE) 60 MG/0.6 ML DISP.SYRIN SQ SCH ×2 (06:41→18:06)
[2019-08-29] MEDS: FUROSEMIDE 40 MG/4 ML INJECTABLE VIAL IVPUSH SCH ×2 (06:41→13:19)
[2019-08-29 06:42] LABS: BASO % 0.8 % (0-2.0); EOS % 1.4 % (0-4.5); HEMATOCRIT 45.9 % (35.4-49); HEMOGLOBIN 13.5 GM/dL (11.7-16.9); LYMPH % 18.7 % (8-40); MCH 23.5 pg (25.7-33.7); MCHC 29.4 g/dl (32.0-35.9); MEAN CELL VOLUME 79.8 fl (80-96); MEAN PLT VOLUME 8.7 fl (7.5-11.1); MONO % 8.9 % (3.8-10.2); NEUT % 70.2 % (42.8-82.8); PLATELET COUNT 177 K/MM3 (134-434); RBC 5.76 M/mm3 (4.00-5.60); RDW 16.3 % (11.9-15.9); WHITE BLOOD COUNT 4.9 K/mm3 (4.0-10.0)
[2019-08-29 07:08] LABS: ALBUMIN 2.9 g/dl (3.4-5.0); ALK PHOS 73 U/L (45-117); ANION GAP 1 MMOL/L (8-16); BILIRUBIN,TOTAL 0.8 mg/dL (0.2-1); BLOOD UREA NITROGEN 45.4 mg/dL (7-18); CALCIUM 8.9 mg/dL (8.5-10.1); CHLORIDE 91 mmol/L (98-107); CO2 > 45 mmol/L (21-32); CREATININE 0.9 mg/dL (0.55-1.3); GLUCOSE,RANDOM 101 mg/dL (74-106); MAGNESIUM 2.6 mg/dL (1.8-2.4); PHOSPHOROUS 4.4 mg/dL (2.5-4.9); POTASSIUM 4.7 mmol/L (3.5-5.1); SGOT/AST 12 U/L (15-37); SGPT/ALT 17 U/L (13-61); SODIUM 137 mmol/L (136-145); TOT PROT 7.4 g/dl (6.4-8.2)
[2019-08-29] MEDS: CARVEDILOL 25 MG TABLET (FP) PO SCH ×2 (09:01→21:23)
[2019-08-29] MEDS: POLYETHYLENE GLYCOL 3350 119 GM BTL PO SCH (09:01)
[2019-08-29] MEDS: SPIRONOLACTONE 25 MG TABLET PO SCH ×2 (09:01→21:23)
[2019-08-29] MEDS: LISINOPRIL 20 MG TABLET (FP) PO SCH ×2 (09:01→21:23)
--- NOTE | 2019-08-29 09:39 | PN ---
Progress Note, Physician History of Present Illness: Hypoxia improved now on NC, Bipap overnight, can't r/o PE. No fevers recorded. Diuresed well with lasix and spironolactone with improvement in BP control. - Current Medication List Current Medications: Active Medications Albuterol Sulfate (Ventolin 0.083% Nebulizer Soln -) 1 amp NEB Q6H PRN PRN Reason: SHORT OF BREATH/WHEEZING Last Admin: 08/24/19 21:09 Dose: 1 amp Documented by: Carvedilol (Coreg -) 25 mg PO BID [facility] Last Admin: 08/29/19 09:01 Dose: 25 mg Documented by: Enoxaparin Sodium (Lovenox -) 60 mg SQ Q12H [facility] Last Admin: 08/29/19 06:41 Dose: 60 mg Documented by: Furosemide (Lasix Injection -) 40 mg IVPUSH BID@0600,1400 [facility] Last Admin: 08/29/19 06:41 Dose: 40 mg Documented by: Lisinopril (Prinivil) 20 mg PO BID [facility] Last Admin: 08/29/19 09:01 Dose: 20 mg Documented by: Polyethylene Glycol (Miralax (For Daily Use) -) 17 gm PO DAILY [facility] Last Admin: 08/29/19 09:01 Dose: 17 grams Documented by: Senna (Senna -) 1 tab PO HS [facility] Last Admin: 08/28/19 21:57 Dose: 1 tab Documented by: Spironolactone (Aldactone -) 25 mg PO BID [facility] Last Admin: 08/29/19 09:01 Dose: 25 mg Documented by: - Objective Vital Signs: Vital Signs Temperature 97.6 F 08/29/19 08:06 Pulse Rate 91 H 08/29/19 08:06 Respiratory Rate 20 08/29/19 08:12 Blood Pressure 132/90 08/29/19 08:06 O2 Sat by Pulse Oximetry (%) 94 L 08/29/19 08:12 Constitutional: Yes: No Distress, Calm Neck: Yes: Supple Cardiovascular: Yes: Regular Rate and Rhythm Respiratory: Yes: Regular, Diminished, On Nasal O2, SOB Gastrointestinal: Yes: Normal Bowel Sounds, Soft, Abdomen, Obese Edema: Yes Edema: LLE: Trace, RLE: Trace Integumentary: Yes: Venous Stasis Changes Labs: CBC, BMP 08/29/19 05:58 07/15/20 05:58 INR, PTT INR 1.09 (0.83-1.09) 08/28/19 06:10 - ....Imaging EKG: Report Reviewed Problem List - Problems (1) Acute on chronic diastolic (congestive) heart failure Code(s): I50.33 - ACUTE ON CHRONIC DIASTOLIC (CONGESTIVE) HEART FAILURE (2) Acute on chronic respiratory failure with hypoxia and hypercapnia Code(s): J96.21 - ACUTE AND CHRONIC RESPIRATORY FAILURE WITH HYPOXIA; J96.22 - ACUTE AND CHRONIC RESPIRATORY FAILURE WITH HYPERCAPNIA (3) Hypertensive urgency Code(s): I16.0 - HYPERTENSIVE URGENCY (4) Morbid obesity with BMI of 50.0-59.9, adult Code(s): Z68.43 - BODY MASS INDEX (BMI) 50.0-59.9, ADULT (5) Obesity hypoventilation syndrome Code(s): E66.2 - MORBID (SEVERE) OBESITY WITH ALVEOLAR HYPOVENTILATION (6) Obstructive sleep apnea Code(s): G47.33 - OBSTRUCTIVE SLEEP APNEA (ADULT) (PEDIATRIC) Assessment/Plan 08/21/2019 Echo: Mild-mod cLVH with LVEF 58%, normal RV size and fxn 1. Acute on chronic hypoxic/hypercapnic respiratory failure resolving 2. Acute on chronic class II-III [place] [employer] classification left ventricular failure related to diastolic left ventricular dysfunction improving 3. Coronary artery disease angina pectoris 4. Hypertensive cardiovascular disease with history of hypertensive urgency 5. Obstructive sleep apnea 6. Obesity hypoventilation syndrome with pulmonary hypertension 7. Morbid obesity, bariatric surgery to be considered PLAN: 1. Continue Coreg 25 bid and Lisinopril 20 bid dose with titration as tolerated 2. Continue IV diuresis and Aldactone 25 bid with close monitoring of renal function and electrolytes 3. Eventual outpatient follow-up in our office post discharge 4. Lovenox 60 bid for ?DVT/PE Px. Not a candidate for NOACs due to obesity apparently, Bipap nightly, wean FIO2 as tolerated
--- NOTE | 2019-08-29 10:47 | PN ---
Progress Note, Physician History of Present Illness: PULMONARY ALERT,COMFORTABLE ,DYSPNEA IMPROVING ON NASAL 5LO2 - Current Medication List Current Medications: Active Medications Albuterol Sulfate (Ventolin 0.083% Nebulizer Soln -) 1 amp NEB Q6H PRN PRN Reason: SHORT OF BREATH/WHEEZING Last Admin: 08/24/19 21:09 Dose: 1 amp Documented by: Carvedilol (Coreg -) 25 mg PO BID [facility] Last Admin: 08/29/19 09:01 Dose: 25 mg Documented by: Enoxaparin Sodium (Lovenox -) 60 mg SQ Q12H [facility] Last Admin: 08/29/19 06:41 Dose: 60 mg Documented by: Furosemide (Lasix Injection -) 40 mg IVPUSH BID@0600,1400 [facility] Last Admin: 08/29/19 06:41 Dose: 40 mg Documented by: Lisinopril (Prinivil) 20 mg PO BID [facility] Last Admin: 08/29/19 09:01 Dose: 20 mg Documented by: Polyethylene Glycol (Miralax (For Daily Use) -) 17 gm PO DAILY [facility] Last Admin: 08/29/19 09:01 Dose: 17 grams Documented by: Senna (Senna -) 1 tab PO HS [facility] Last Admin: 08/28/19 21:57 Dose: 1 tab Documented by: Spironolactone (Aldactone -) 25 mg PO BID [facility] Last Admin: 08/29/19 09:01 Dose: 25 mg Documented by: - Objective Vital Signs: Vital Signs Temperature 97.6 F 08/29/19 08:06 Pulse Rate 91 H 08/29/19 08:06 Respiratory Rate 20 08/29/19 08:12 Blood Pressure 132/90 08/29/19 08:06 O2 Sat by Pulse Oximetry (%) 94 L 08/29/19 08:12 Constitutional: Yes: Calm, Obese Eyes: Yes: WNL HENT: Yes: WNL Neck: Yes: WNL Cardiovascular: Yes: Regular Rate and Rhythm, S1, S2 Respiratory: Yes: Diminished Gastrointestinal: Yes: Normal Bowel Sounds, Abdomen, Obese Extremities: Yes: WNL Edema: Yes Labs: CBC, BMP 08/29/19 05:58 08/29/19 05:58 INR, PTT INR 1.09 (0.83-1.09) 08/28/19 06:10 Problem List - Problems (1) Acute and chronic respiratory failure Code(s): J96.20 - ACUTE AND CHR RESP FAILURE, UNSP W HYPOXIA OR HYPERCAPNIA Qualifiers: (2) Pulmonary vascular congestion Code(s): R09.89 - OTH SYMPTOMS AND SIGNS INVOLVING THE CIRC AND RESP SYSTEMS (3) Acute on chronic diastolic (congestive) heart failure Code(s): I50.33 - ACUTE ON CHRONIC DIASTOLIC (CONGESTIVE) HEART FAILURE (4) Acute on chronic respiratory failure with hypoxia and hypercapnia Code(s): J96.21 - ACUTE AND CHRONIC RESPIRATORY FAILURE WITH HYPOXIA; J96.22 - ACUTE AND CHRONIC RESPIRATORY FAILURE WITH HYPERCAPNIA (5) Respiratory distress Code(s): R06.03 - ACUTE RESPIRATORY DISTRESS (6) Morbid obesity with BMI of 50.0-59.9, adult Code(s): Z68.43 - BODY MASS INDEX (BMI) 50.0-59.9, ADULT (7) Obesity hypoventilation syndrome Code(s): E66.2 - MORBID (SEVERE) OBESITY WITH ALVEOLAR HYPOVENTILATION (8) Obstructive sleep apnea Code(s): G47.33 - OBSTRUCTIVE SLEEP APNEA (ADULT) (PEDIATRIC) Assessment/Plan Problem List - Problems (1) Acute and chronic respiratory failure Code(s): J96.20 - ACUTE AND CHR RESP FAILURE, UNSP W HYPOXIA OR HYPERCAPNIA Qualifiers: (2) Pulmonary vascular congestion Code(s): R09.89 - OTH SYMPTOMS AND SIGNS INVOLVING THE CIRC AND RESP SYSTEMS (3) Acute on chronic diastolic (congestive) heart failure Code(s): I50.33 - ACUTE ON CHRONIC DIASTOLIC (CONGESTIVE) HEART FAILURE (4) Acute on chronic respiratory failure with hypoxia and hypercapnia Code(s): J96.21 - ACUTE AND CHRONIC RESPIRATORY FAILURE WITH HYPOXIA; J96.22 - ACUTE AND CHRONIC RESPIRATORY FAILURE WITH HYPERCAPNIA (5) Respiratory distress Code(s): R06.03 - ACUTE RESPIRATORY DISTRESS (6) Morbid obesity with BMI of 50.0-59.9, adult Code(s): Z68.43 - BODY MASS INDEX (BMI) 50.0-59.9, ADULT (7) Obesity hypoventilation syndrome Code(s): E66.2 - MORBID (SEVERE) OBESITY WITH ALVEOLAR HYPOVENTILATION (8) Obstructive sleep apnea Code(s): G47.33 - OBSTRUCTIVE SLEEP APNEA (ADULT) (PEDIATRIC) Assessment/Plan ASSESSMENT AND PLAN: Acute on Chronic Hypoxic and Hypercapneic Respiratory Failure improving Acute on Chronic Diastolic Heart Failure improving Pulmonary HTN Morbid Obesity HITESH/OHS HTN HYPOXEMIA IMPROVING - continue lasix, aldactone - monitor urine output, creatinine - replete lytes - received empiric antibiotics - O2 to keep SpO2 88-92% - inhaled bronchodilators - BiPAP at night and as needed - DVT prophylaxis - bariatric surgery evaluation - Lovenox for dvt prophylaxis 60bid - incentive spirometer DR BACH
--- NOTE | 2019-08-29 14:14 | PN ---
Teaching Attending Note Name of Resident: Erasmo León ATTENDING PHYSICIAN STATEMENT I saw and evaluated the patient. I reviewed the resident's note and discussed the case with the resident. I agree with the resident's findings and plan as documented. SUBJECTIVE: Feeling better, comfortable on NC. No fever/chills/CP/cough/sputum. Ambulating. OBJECTIVE: Afebrile, Hemodynamically Stable. SpO2 92-95% on 4L via NC. Last Vital Signs Temp Pulse Resp BP Pulse Ox 97.6 F 91 H 20 132/90 96 08/29/19 08:06 08/29/19 08:06 08/29/19 08:12 08/29/19 08:06 08/29/19 12:16 Heart - S1, S2, RRR Lungs - distant breath sounds, few basal crackles. Abdomen - High BMI. Soft, non-tender. Bowel Sounds normal. Extremities - Edema, chronic venous stasis skin changes Neuro - AAO x 3. Tone/Power normal all extremities. Laboratory Results - last 24 hr 08/29/19 08/29/19 08/29/19 05:58 05:58 05:58 WBC 4.9 RBC 5.76 H Hgb 13.5 Hct 45.9 MCV 79.8 L MCH 23.5 L MCHC 29.4 L RDW 16.3 H Plt Count 177 MPV 8.7 Absolute Neuts (auto) 3.4 Neutrophils % 70.2 Lymphocytes % 18.7 Monocytes % 8.9 Eosinophils % 1.4 Basophils % 0.8 Nucleated RBC % 0 PTT (Actin FS) 32.5 Sodium 137 Potassium 4.7 Chloride 91 L Carbon Dioxide > 45 H Anion Gap 1 L BUN 45.4 H Creatinine 0.9 Est GFR (CKD-EPI)AfAm 114.21 Est GFR (CKD-EPI)NonAf 98.54 Random Glucose 101 Calcium 8.9 Phosphorus 4.4 Magnesium 2.6 H Total Bilirubin 0.8 AST 12 L ALT 17 Alkaline Phosphatase 73 Total Protein 7.4 Albumin 2.9 L Current Medications Generic Name Dose Route Start Last Admin Trade Name Freq PRN Reason Stop Dose Admin Albuterol Sulfate 1 amp 08/23/19 23:25 08/24/19 21:09 Ventolin 0.083% Nebulizer Soln - NEB 1 amp Q6H PRN Administration SHORT OF BREATH/WHEEZING Carvedilol 25 mg 08/24/19 10:00 08/29/19 09:01 Coreg - PO 25 mg BID [facility] Administration Enoxaparin Sodium 60 mg 08/27/19 19:00 08/29/19 06:41 Lovenox - SQ 60 mg Q12H [facility] Administration Furosemide 40 mg 08/24/19 06:00 08/29/19 13:19 Lasix Injection - IVPUSH 40 mg BID@0600,1400 [facility] Administration Lisinopril 20 mg 08/24/19 10:00 08/29/19 09:01 Prinivil PO 20 mg BID [facility] Administration Polyethylene Glycol 17 gm 08/25/19 13:45 08/29/19 09:01 Miralax (For Daily Use) - PO 17 grams DAILY [facility] Administration Senna 1 tab 08/27/19 22:00 08/28/19 21:57 Senna - PO 1 tab HS [facility] Administration Spironolactone 25 mg 08/24/19 10:00 08/29/19 09:01 Aldactone - PO 25 mg BID [facility] Administration Home Medications Medication Instructions Recorded Furosemide [Lasix -] 40 mg PO BID 12/06/18 Ferrous Sulfate [Feosol] 325 mg PO BIDWM 30 Days #60 ud 03/21/19 Carvedilol 25 mg PO BID 08/20/19 Lisinopril 10 mg PO DAILY 08/20/19 ASSESSMENT AND PLAN: 49 year old male with history of morbid obesity, HITESH/OHS on CPAP, HTN, HFpEF, and chronic LE edema, presented with 2-3 day history of shortness of breath and hypoxia. 1. Acute on Chronic Hypoxic and Hypercapneic Respiratory Failure secondary to Acute on Chronic Diastolic CHF, OHS/HITESH, Pulmonary HTN, +/- possible PE Requiring BiPAP at night, now titrated down to 4L via NC. For pre/post measurements. Target SpO2 88-92% as per Pulm. Elevated DDIMER COVID negative. Continue IV Lasix diuresis, Coreg, Lisinopril, Aldactone. Cardiology and Pulmonary following. Unable to obtain PE study at [facility] due to body habitus. Seen by Hematology - recommends Lovenox 60mg BID SQ for ?DVT/PE Px. Not a candidate for NOACs due to obesity apparently. Will discuss this further with Hematology. 2. HTN - Continue Carvedilol, Lisinopril, Spironolactone 3. Morbid Obesity - will benefit from referral for Bariatric Surgery. 4. Microcytosis - Hx of REJI, Iron Sat 10%, normally on Ferrous Sulfate. Will resume. DVT Px - Lovenox SQ
--- NOTE | 2019-08-29 15:10 | PN ---
Physical Exam: SUBJECTIVE: Patient seen and examined Patient was examined at bedside current O2 sat at 93% on nasal canula 4 L- denies fevers chills N/V/D - patient denies acute overnight events OBJECTIVE: Vital Signs Period Temp Pulse Resp BP Sys/Deluca Pulse Ox Last 24 Hr 97.6 F-98.5 F 76-91 20-20 121-133/53-90 92-96 GENERAL: The patient is awake, alert, and fully oriented, in no acute distress. HEAD: Normal with no signs of trauma. NECK: Trachea midline, full range of motion, supple. LUNGS: Breath sounds equal, clear to auscultation bilaterally HEART: Regular rate and rhythm, S1, S2 without murmur, rub or gallop. EXTREMITIES: 2+ pulses, warm, well-perfused, +1 edema BL PSYCH: Normal mood, normal affect. Laboratory Results - last 24 hr 08/29/19 08/29/19 08/29/19 05:58 05:58 05:58 WBC 4.9 RBC 5.76 H Hgb 13.5 Hct 45.9 MCV 79.8 L MCH 23.5 L MCHC 29.4 L RDW 16.3 H Plt Count 177 MPV 8.7 Absolute Neuts (auto) 3.4 Neutrophils % 70.2 Lymphocytes % 18.7 Monocytes % 8.9 Eosinophils % 1.4 Basophils % 0.8 Nucleated RBC % 0 PTT (Actin FS) 32.5 Sodium 137 Potassium 4.7 Chloride 91 L Carbon Dioxide > 45 H Anion Gap 1 L BUN 45.4 H Creatinine 0.9 Est GFR (CKD-EPI)AfAm 114.21 Est GFR (CKD-EPI)NonAf 98.54 Random Glucose 101 Calcium 8.9 Phosphorus 4.4 Magnesium 2.6 H Total Bilirubin 0.8 AST 12 L ALT 17 Alkaline Phosphatase 73 Total Protein 7.4 Albumin 2.9 L Active Medications Generic Name Dose Route Start Last Admin Trade Name Freq PRN Reason Stop Dose Admin Albuterol Sulfate 1 amp 08/23/19 23:25 08/24/19 21:09 Ventolin 0.083% Nebulizer Soln - NEB 1 amp Q6H PRN Administration SHORT OF BREATH/WHEEZING Carvedilol 25 mg 08/24/19 10:00 08/29/19 09:01 Coreg - PO 25 mg BID [facility] Administration Enoxaparin Sodium 60 mg 08/27/19 19:00 08/29/19 06:41 Lovenox - SQ 60 mg Q12H [facility] Administration Ferrous Sulfate 325 mg 08/29/19 17:30 Feosol - PO BIDWM [facility] Furosemide 40 mg 08/24/19 06:00 08/29/19 13:19 Lasix Injection - IVPUSH 40 mg BID@0600,1400 [facility] Administration Lisinopril 20 mg 08/24/19 10:00 08/29/19 09:01 Prinivil PO 20 mg BID [facility] Administration Polyethylene Glycol 17 gm 08/25/19 13:45 08/29/19 09:01 Miralax (For Daily Use) - PO 17 grams DAILY [facility] Administration Senna 1 tab 08/27/19 22:00 08/28/19 21:57 Senna - PO 1 tab HS [facility] Administration Spironolactone 25 mg 08/24/19 10:00 08/29/19 09:01 Aldactone - PO 25 mg BID [facility] Administration ASSESSMENT/PLAN: Raul is a 49M w PMHx of morbid obesity (BMI 60.2), HFpEF, HITESH/OHS on CPAP, HTN, who presents to the hospital with SOB and satting at 50% O2 on room air. BP found to be 211/106 #Acute on chronic hypoxic and hypercarbic respiratory failure - patient off HiFlow O2 FiO2 of 50% and currently on 4L of NC. Patient reports being able to get out of bed and walk to bathroom - Patient currently on LASIX 40mg IV - Candidate for bariatric surgery - will need to speak to social work for insurance coverage - working with social work for home O2 #DVT prophylaxis - Per hemonc- Lovenox 60 BID indefinitely #Hypertension Monitoring on Tele - Monitoring BP - well controlled at this point - continuing home medications #Suspected covid - AB for Sars CoV NEGATIVE Visit type - Emergency Visit Emergency Visit: Yes ED Registration Date: 08/20/19 Care time: The patient presented to the Emergency Department on the above date and was hospitalized for further evaluation of their emergent condition. - New Patient This patient is new to me today: No - Critical Care Critical Care patient: No - Discharge Referral Referred to [facility] Med [facility] No ATTENDING PHYSICIAN STATEMENT I saw and evaluated the patient. I reviewed the resident's note and discussed the case with the resident. I agree with the resident's findings and plan as documented. SUBJECTIVE: OBJECTIVE: ASSESSMENT AND PLAN:
[2019-08-29] MEDS: FERROUS SO4 325 MG TABLET (FP) PO SCH (18:05)
[2019-08-29] MEDS: SENNOSIDES 8.6MG TABLET (FP) PO SCH (21:25)
[2019-08-30] MEDS: FUROSEMIDE 40 MG/4 ML INJECTABLE VIAL IVPUSH SCH (06:35)
[2019-08-30] MEDS: ENOXAPARIN NA (PORCINE) 60 MG/0.6 ML DISP.SYRIN SQ SCH ×2 (06:38→18:50)
[2019-08-30 07:38] LABS: HEMATOCRIT 46.3 % (35.4-49); HEMOGLOBIN 13.6 GM/dL (11.7-16.9); MCH 23.9 pg (25.7-33.7); MCHC 29.5 g/dl (32.0-35.9); MEAN PLT VOLUME 9.4 fl (7.5-11.1); PLATELET COUNT 173 K/MM3 (134-434); RBC 5.72 M/mm3 (4.00-5.60); RDW 16.4 % (11.9-15.9); WHITE BLOOD COUNT 5.6 K/mm3 (4.0-10.0)
--- NOTE | 2019-08-30 09:24 | PN ---
Progress Note, Physician History of Present Illness: Hypoxia improved now on NC, Bipap overnight, can't r/o PE. No fevers recorded. Diuresed well with lasix and spironolactone with improvement in BP control. - Current Medication List Current Medications: Active Medications Albuterol Sulfate (Ventolin 0.083% Nebulizer Soln -) 1 amp NEB Q6H PRN PRN Reason: SHORT OF BREATH/WHEEZING Last Admin: 08/24/19 21:09 Dose: 1 amp Documented by: Carvedilol (Coreg -) 25 mg PO BID [facility] Last Admin: 08/29/19 21:23 Dose: 25 mg Documented by: Enoxaparin Sodium (Lovenox -) 60 mg SQ Q12H [facility] Last Admin: 08/30/19 06:38 Dose: 60 mg Documented by: Ferrous Sulfate (Feosol -) 325 mg PO BIDWM [facility] Last Admin: 08/29/19 18:05 Dose: 325 mg Documented by: Furosemide (Lasix Injection -) 40 mg IVPUSH BID@0600,1400 [facility] Last Admin: 08/30/19 06:35 Dose: 40 mg Documented by: Lisinopril (Prinivil) 20 mg PO BID [facility] Last Admin: 08/29/19 21:23 Dose: 20 mg Documented by: Polyethylene Glycol (Miralax (For Daily Use) -) 17 gm PO DAILY [facility] Last Admin: 08/29/19 09:01 Dose: 17 grams Documented by: Senna (Senna -) 1 tab PO HS [facility] Last Admin: 08/29/19 21:25 Dose: 1 tab Documented by: Spironolactone (Aldactone -) 25 mg PO BID [facility] Last Admin: 08/29/19 21:23 Dose: 25 mg Documented by: - Objective Vital Signs: Vital Signs Temperature 98.1 F 08/30/19 06:00 Pulse Rate 81 08/30/19 06:00 Respiratory Rate 20 08/30/19 06:00 Blood Pressure 128/74 08/30/19 06:00 O2 Sat by Pulse Oximetry (%) 94 L 08/30/19 08:35 Constitutional: Yes: No Distress, Calm Neck: Yes: Supple Cardiovascular: Yes: Regular Rate and Rhythm Respiratory: Yes: Regular, Diminished, On Nasal O2 Gastrointestinal: Yes: Normal Bowel Sounds, Soft, Abdomen, Obese Edema: Yes Edema: LLE: Trace, RLE: Trace Integumentary: Yes: Venous Stasis Changes Labs: CBC, BMP 08/30/19 06:30 08/29/19 05:58 INR, PTT INR 1.09 (0.83-1.09) 08/28/19 06:10 Problem List - Problems (1) Acute on chronic diastolic (congestive) heart failure Code(s): I50.33 - ACUTE ON CHRONIC DIASTOLIC (CONGESTIVE) HEART FAILURE (2) Acute on chronic respiratory failure with hypoxia and hypercapnia Code(s): J96.21 - ACUTE AND CHRONIC RESPIRATORY FAILURE WITH HYPOXIA; J96.22 - ACUTE AND CHRONIC RESPIRATORY FAILURE WITH HYPERCAPNIA (3) Hypertensive urgency Code(s): I16.0 - HYPERTENSIVE URGENCY (4) Morbid obesity with BMI of 50.0-59.9, adult Code(s): Z68.43 - BODY MASS INDEX (BMI) 50.0-59.9, ADULT (5) Obesity hypoventilation syndrome Code(s): E66.2 - MORBID (SEVERE) OBESITY WITH ALVEOLAR HYPOVENTILATION (6) Obstructive sleep apnea Code(s): G47.33 - OBSTRUCTIVE SLEEP APNEA (ADULT) (PEDIATRIC) Assessment/Plan 08/21/2019 Echo: Mild-mod cLVH with LVEF 58%, normal RV size and fxn 1. Acute on chronic hypoxic/hypercapnic respiratory failure resolving 2. Acute on chronic diastolic failure improving 3. Coronary artery disease angina pectoris 4. Hypertensive cardiovascular disease with history of hypertensive urgency 5. Obstructive sleep apnea 6. Obesity hypoventilation syndrome with pulmonary hypertension 7. Morbid obesity, bariatric surgery to be considered PLAN: 1. Continue Coreg 25 bid and Lisinopril 20 bid dose with titration as tolerated 2. Resume Lasix 40 po bid and Aldactone 25 bid with close monitoring of diuretic response, renal function and electrolytes 3. Eventual outpatient follow-up in our office post discharge 4. Lovenox 60 bid for ?DVT/PE Px. Not a candidate for NOACs due to obesity appa rently, Bipap nightly, wean FIO2 as tolerated
[2019-08-30] MEDS: CARVEDILOL 25 MG TABLET (FP) PO SCH ×2 (10:37→22:04)
[2019-08-30] MEDS: POLYETHYLENE GLYCOL 3350 119 GM BTL PO SCH (10:37)
[2019-08-30] MEDS: SPIRONOLACTONE 25 MG TABLET PO SCH ×2 (10:37→22:04)
[2019-08-30] MEDS: LISINOPRIL 20 MG TABLET (FP) PO SCH ×2 (10:37→22:04)
[2019-08-30] MEDS: FERROUS SO4 325 MG TABLET (FP) PO SCH ×2 (10:37→17:46)
[2019-08-30 11:20] LABS: ALBUMIN 3.1 g/dl (3.4-5.0); BILIRUBIN,TOTAL 0.8 mg/dL (0.2-1); BLOOD UREA NITROGEN 44.8 mg/dL (7-18); POTASSIUM 4.7 mmol/L (3.5-5.1)
--- NOTE | 2019-08-30 12:06 | PN ---
Progress Note (short form) - Note Progress Note: PULMONARY States breathing is improving. Saturating well on nasal cannula. Vital Signs Period Temp Pulse Resp BP Sys/Deluca Pulse Ox Last 24 Hr 98.1 F-98.3 F 81-88 20-20 107-133/59-88 93-96 Gen: NAD on HFOT Heart: RRR Lung: distant breath sounds Abd: soft, nontender Ext: edema improving CBC, BMP 08/30/19 06:30 08/30/19 09:40 Active Medications Albuterol Sulfate (Ventolin 0.083% Nebulizer Soln -) 1 amp NEB Q6H PRN PRN Reason: SHORT OF BREATH/WHEEZING Last Admin: 08/24/19 21:09 Dose: 1 amp Documented by: Carvedilol (Coreg -) 25 mg PO BID [facility] Last Admin: 08/30/19 10:37 Dose: 25 mg Documented by: Enoxaparin Sodium (Lovenox -) 60 mg SQ Q12H [facility] Last Admin: 08/30/19 06:38 Dose: 60 mg Documented by: Ferrous Sulfate (Feosol -) 325 mg PO BIDWM [facility] Last Admin: 08/30/19 10:37 Dose: 325 mg Documented by: Furosemide (Lasix Injection -) 40 mg IVPUSH BID@0600,1400 [facility] Stop: 08/30/19 23:59 Last Admin: 08/30/19 06:35 Dose: 40 mg Documented by: Furosemide (Lasix -) 40 mg PO BID@0600,1400 [facility] Lisinopril (Prinivil) 20 mg PO BID [facility] Last Admin: 08/30/19 10:37 Dose: 20 mg Documented by: Polyethylene Glycol (Miralax (For Daily Use) -) 17 gm PO DAILY [facility] Last Admin: 08/30/19 10:37 Dose: Not Given Documented by: Senna (Senna -) 1 tab PO HS [facility] Last Admin: 08/29/19 21:25 Dose: 1 tab Documented by: Spironolactone (Aldactone -) 25 mg PO BID [facility] Last Admin: 08/30/19 10:37 Dose: 25 mg Documented by: A/P Acute on Chronic Hypoxic and Hypercapneic Respiratory Failure improving Acute on Chronic Diastolic Heart Failure improving Pulmonary HTN Morbid Obesity HITESH/OHS HTN - continue lasix, aldactone - monitor urine output, creatinine - replete lytes - received empiric antibiotics - O2 to keep SpO2 88-92% - inhaled bronchodilators - BiPAP as needed - DVT prophylaxis - will need home O2
--- NOTE | 2019-08-30 13:19 | PN ---
Teaching Attending Note Name of Resident: Erasmo León ATTENDING PHYSICIAN STATEMENT I saw and evaluated the patient. I reviewed the resident's note and discussed the case with the resident. I agree with the resident's findings and plan as documented. SUBJECTIVE: Feeling better, comfortable on NC. No fever/chills/CP/cough/sputum. Ambulating. OBJECTIVE: Afebrile, Hemodynamically Stable. SpO2 94% on 4L via NC. Last Vital Signs Temp Pulse Resp BP Pulse Ox 98.2 F 98 H 20 130/88 95 08/30/19 10:00 08/30/19 11:30 08/30/19 10:00 08/30/19 10:08/30/19 11:30 Heart - S1, S2, RRR Lungs - distant breath sounds, few basal crackles. Abdomen - High BMI. Soft, non-tender. Bowel Sounds normal. Extremities - Edema, chronic venous stasis skin changes Neuro - AAO x 3. Tone/Power normal all extremities. Laboratory Results - last 24 hr 08/30/19 08/30/19 08/30/19 06:30 09:40 09:40 WBC 5.6 RBC 5.72 H Hgb 13.6 Hct 46.3 MCV 81.0 MCH 23.9 L MCHC 29.5 L RDW 16.4 H Plt Count 173 MPV 9.4 PTT (Actin FS) 38.3 H Sodium 135 L Potassium 4.7 Chloride 90 L Carbon Dioxide 38 H Anion Gap 7 L BUN 44.8 H Creatinine 1.0 Est GFR (CKD-EPI)AfAm 100.55 Est GFR (CKD-EPI)NonAf 86.76 Random Glucose 81 Calcium 9.0 Total Bilirubin 0.8 AST 18 ALT 20 Alkaline Phosphatase 80 Total Protein 8.0 Albumin 3.1 L Current Medications Generic Name Dose Route Start Last Admin Trade Name Freq PRN Reason Stop Dose Admin Albuterol Sulfate 1 amp 08/23/19 23:25 08/24/19 21:09 Ventolin 0.083% Nebulizer Soln - NEB 1 amp Q6H PRN Administration SHORT OF BREATH/WHEEZING Carvedilol 25 mg 08/24/19 10:00 08/30/19 10:37 Coreg - PO 25 mg BID EUNICE Administration Enoxaparin Sodium 60 mg 08/27/19 19:00 08/30/19 06:38 Lovenox - SQ 60 mg Q12H EUNICE Administration Ferrous Sulfate 325 mg 08/29/19 17:30 08/30/19 10:37 Feosol - PO 325 mg BIDWM EUNICE Administration Furosemide 40 mg 08/31/19 06:00 Lasix - PO BIDLASIX EUNICE Lisinopril 20 mg 08/24/19 10:00 08/30/19 10:37 Prinivil PO 20 mg BID EUNICE Administration Polyethylene Glycol 17 gm 08/25/19 13:45 08/30/19 10:37 Miralax (For Daily Use) - PO Not Given DAILY EUNICE Senna 1 tab 08/27/19 22:00 08/29/19 21:25 Senna - PO 1 tab HS EUNICE Administration Spironolactone 25 mg 08/24/19 10:00 08/30/19 10:37 Aldactone - PO 25 mg BID EUNICE Administration Home Medications Medication Instructions Recorded Furosemide [Lasix -] 40 mg PO BID 12/06/18 Ferrous Sulfate [Feosol] 325 mg PO BIDWM 30 Days #60 ud 03/21/19 Carvedilol 25 mg PO BID 08/20/19 Lisinopril 10 mg PO DAILY 08/20/19 ASSESSMENT AND PLAN: 49 year old male with history of morbid obesity, HITESH/OHS on CPAP, HTN, HFpEF, and chronic LE edema, presented with 2-3 day history of shortness of breath and hypoxia. 1. Acute on Chronic Hypoxic and Hypercapneic Respiratory Failure secondary to Acute on Chronic Diastolic CHF, OHS/HITESH, Pulmonary HTN, +/- possible PE Requiring BiPAP at night, now titrated down to 4L via NC during daytime. For pr e/post measurements. Target SpO2 88-92% as per Pulm. Attempt to wean down/off O2. Elevated DDIMER COVID negative. IV Lasix transitioned to PO. Continue Coreg, Lisinopril, Aldactone. Cardiology and Pulmonary following. Unable to obtain PE study at [facility] due to body habitus. Seen by Hematology - recommends Lovenox 60mg BID SQ for ?DVT/PE Px. Not a candidate for NOACs due to obesity apparently. 2. HTN - Continue Carvedilol, Lisinopril, Spironolactone 3. Morbid Obesity - will benefit from referral for Bariatric Surgery. 4. Microcytosis - Hx of REJI, Iron Sat 10%, normally on Ferrous Sulfate. Resumed. DVT Px - Lovenox SQ Dispo - pending ability to wean off O2 and/or ability to secure Home O2.
--- NOTE | 2019-08-30 14:46 | PN ---
Physical Exam: SUBJECTIVE: Patient seen and examined Mr. Carter was seen back on HiFlow O2 because of complaints of irritation of NC against his ears. he also reports that the NC would fall out during sleep. Patient would desaturate to the 80's during sleep. Patient was placed back on NC O2 and saturating in low 90's. Will be seen by physical therapy and respiratory for pre and post. OBJECTIVE: Vital Signs Period Temp Pulse Resp BP Sys/Deluca Pulse Ox Last 24 Hr 97.8 F-98.3 F 80-98 20-20 107-131/59-88 93-95 GENERAL: The patient is awake, alert, and fully oriented, in no acute distress. HEAD: Normal with no signs of trauma. EYES: PERRL, extraocular movements intact, sclera anicteric, conjunctiva clear. No ptosis. ENT: Ears normal, nares patent, oropharynx clear without exudates, moist mucous membranes. NECK: Trachea midline, full range of motion, supple. LUNGS: Breath sounds equal, clear to auscultation bilaterally, no wheezes, no crackles, no accessory muscle use. HEART: Regular rate and rhythm, S1, S2 without murmur, rub or gallop. ABDOMEN: Soft, nontender, nondistended, normoactive bowel sounds, no guarding, no rebound, no hepatosplenomegaly, no masses. EXTREMITIES: 2+ pulses, warm, well-perfused, no edema. NEUROLOGICAL: Cranial nerves II through XII grossly intact. Normal speech, gait not observed. PSYCH: Normal mood, normal affect. SKIN: Warm, dry, normal turgor, no rashes or lesions noted Laboratory Results - last 24 hr 08/30/19 08/30/19 08/30/19 06:30 09:40 09:40 WBC 5.6 RBC 5.72 H Hgb 13.6 Hct 46.3 MCV 81.0 MCH 23.9 L MCHC 29.5 L RDW 16.4 H Plt Count 173 MPV 9.4 PTT (Actin FS) 38.3 H Sodium 135 L Potassium 4.7 Chloride 90 L Carbon Dioxide 38 H Anion Gap 7 L BUN 44.8 H Creatinine 1.0 Est GFR (CKD-EPI)AfAm 100.55 Est GFR (CKD-EPI)NonAf 86.76 Random Glucose 81 Calcium 9.0 Total Bilirubin 0.8 AST 18 ALT 20 Alkaline Phosphatase 80 Total Protein 8.0 Albumin 3.1 L Active Medications Generic Name Dose Route Start Last Admin Trade Name Freq PRN Reason Stop Dose Admin Albuterol Sulfate 1 amp 08/23/19 23:25 08/24/19 21:09 Ventolin 0.083% Nebulizer Soln - NEB 1 amp Q6H PRN Administration SHORT OF BREATH/WHEEZING Carvedilol 25 mg 08/24/19 10:00 08/30/19 10:37 Coreg - PO 25 mg BID EUNICE Administration Enoxaparin Sodium 60 mg 08/27/19 19:00 08/30/19 06:38 Lovenox - SQ 60 mg Q12H EUNICE Administration Ferrous Sulfate 325 mg 08/29/19 17:30 08/30/19 10:37 Feosol - PO 325 mg BIDWM EUNICE Administration Furosemide 40 mg 08/31/19 06:00 Lasix - PO BIDLASIX EUNICE Lisinopril 20 mg 08/24/19 10:00 08/30/19 10:37 Prinivil PO 20 mg BID EUNICE Administration Polyethylene Glycol 17 gm 08/25/19 13:45 08/30/19 10:37 Miralax (For Daily Use) - PO Not Given DAILY EUNICE Senna 1 tab 08/27/19 22:00 08/29/19 21:25 Senna - PO 1 tab HS EUNICE Administration Spironolactone 25 mg 08/24/19 10:00 08/30/19 10:37 Aldactone - PO 25 mg BID EUNICE Administration ASSESSMENT/PLAN: Raul is a 49M w PMHx of morbid obesity (BMI 60.2), HFpEF, HITESH/OHS on CPAP, HTN, who presents to the hospital with SOB and satting at 50% O2 on room air. #Acute on chronic hypoxic and hypercarbic respiratory failure - patient off HiFlow O2 FiO2 last night and currently on 4L of NC. - Patient currently on LASIX 40mg IV - Candidate for bariatric surgery - will need to speak to social work for insurance coverage - working with social work for home O2 - waiting for physical therapy to okay for Pre-post respiratory then DC on home o2 - Cardiology and pulmonology on board #DVT prophylaxis - Per hemonc- Lovenox 60 BID indefinitely #Hypertension Monitoring on Tele - Monitoring BP - well controlled at this point - continuing home medications #Suspected covid - AB for Sars CoV NEGATIVE Visit type - Emergency Visit Emergency Visit: Yes ED Registration Date: 08/20/19 Care time: The patient presented to the Emergency Department on the above date and was hospitalized for further evaluation of their emergent condition. - New Patient This patient is new to me today: No - Critical Care Critical Care patient: No - Discharge Referral Referred to [facility] No ATTENDING PHYSICIAN STATEMENT I saw and evaluated the patient. I reviewed the resident's note and discussed the case with the resident. I agree with the resident's findings and plan as documented. SUBJECTIVE: OBJECTIVE: ASSESSMENT AND PLAN:
[2019-08-30] MEDS: ALBUTEROL SO4 0.083% IH SOL 2.5 MG/3 ML VIAL.NEB. NEB PRN (20:41)
[2019-08-30] MEDS: SENNOSIDES 8.6MG TABLET (FP) PO SCH ×2 (22:04→22:06)
[2019-08-31] MEDS: FUROSEMIDE 40 MG TABLET (FP) PO SCH ×2 (05:54→14:05)
[2019-08-31] MEDS: ENOXAPARIN NA (PORCINE) 60 MG/0.6 ML DISP.SYRIN SQ SCH ×2 (06:40→18:03)
[2019-08-31] MEDS: FERROUS SO4 325 MG TABLET (FP) PO SCH ×2 (07:58→18:03)
[2019-08-31 08:18] LABS: HEMATOCRIT 46.4 % (35.4-49); HEMOGLOBIN 13.8 GM/dL (11.7-16.9); MCH 23.9 pg (25.7-33.7); MCHC 29.9 g/dl (32.0-35.9); MEAN CELL VOLUME 80.1 fl (80-96); MEAN PLT VOLUME 9.9 fl (7.5-11.1); PLATELET COUNT 175 K/MM3 (134-434); RBC 5.79 M/mm3 (4.00-5.60); RDW 16.1 % (11.9-15.9); WHITE BLOOD COUNT 4.4 K/mm3 (4.0-10.0)
[2019-08-31 08:48] LABS: BLOOD UREA NITROGEN 41.9 mg/dL (7-18); CALCIUM 9.2 mg/dL (8.5-10.1); MAGNESIUM 2.6 mg/dL (1.8-2.4); PHOSPHOROUS 4.2 mg/dL (2.5-4.9); POTASSIUM 5.2 mmol/L (3.5-5.1)
--- NOTE | 2019-08-31 09:41 | PN ---
Progress Note (short form) - Note Progress Note: No cardiac events Vital Signs Temperature 98.2 F 08/31/19 08:30 Pulse Rate 81 08/31/19 08:30 Respiratory Rate 20 08/31/19 08:30 Blood Pressure 121/71 08/31/19 08:30 O2 Sat by Pulse Oximetry (%) 91 L 08/31/19 08:30 Cardiovascular: Yes: Regular Rate and Rhythm Respiratory: Yes: Regular, Diminished, On Nasal O2 Gastrointestinal: Yes: Normal Bowel Sounds, Soft, Abdomen, Obese Edema: Yes Edema: LLE: Trace, RLE: Trace Integumentary: Yes: Venous Stasis Changes Labs: CBC, BMP 08/31/19 06:10 08/31/19 06:10 Active Medications Albuterol Sulfate (Ventolin 0.083% Nebulizer Soln -) 1 amp NEB Q6H PRN PRN Reason: SHORT OF BREATH/WHEEZING Last Admin: 08/30/19 20:41 Dose: 1 amp Documented by: Carvedilol (Coreg -) 25 mg PO BID [facility] Last Admin: 08/30/19 22:04 Dose: 25 mg Documented by: Enoxaparin Sodium (Lovenox -) 60 mg SQ Q12H [facility] Last Admin: 08/31/19 06:40 Dose: 60 mg Documented by: Ferrous Sulfate (Feosol -) 325 mg PO BIDWM [facility] Last Admin: 08/31/19 07:58 Dose: 325 mg Documented by: Furosemide (Lasix -) 40 mg PO BIDLASIX [facility] Last Admin: 08/31/19 05:54 Dose: 40 mg Documented by: Lisinopril (Prinivil) 20 mg PO BID [facility] Last Admin: 08/30/19 22:04 Dose: 20 mg Documented by: Polyethylene Glycol (Miralax (For Daily Use) -) 17 gm PO DAILY [facility] Last Admin: 08/30/19 10:37 Dose: Not Given Documented by: Senna (Senna -) 1 tab PO HS [facility] Last Admin: 08/30/19 22:06 Dose: Not Given Documented by: Spironolactone (Aldactone -) 25 mg PO BID [facility] Last Admin: 08/30/19 22:04 Dose: 25 mg Documented by: Problem List - Problems (1) Acute on chronic diastolic (congestive) heart failure Code(s): I50.33 - ACUTE ON CHRONIC DIASTOLIC (CONGESTIVE) HEART FAILURE (2) Acute on chronic respiratory failure with hypoxia and hypercapnia Code(s): J96.21 - ACUTE AND CHRONIC RESPIRATORY FAILURE WITH HYPOXIA; J96.22 - ACUTE AND CHRONIC RESPIRATORY FAILURE WITH HYPERCAPNIA (3) Hypertensive urgency Code(s): I16.0 - HYPERTENSIVE URGENCY (4) Morbid obesity with BMI of 50.0-59.9, adult Code(s): Z68.43 - BODY MASS INDEX (BMI) 50.0-59.9, ADULT (5) Obesity hypoventilation syndrome Code(s): E66.2 - MORBID (SEVERE) OBESITY WITH ALVEOLAR HYPOVENTILATION (6) Obstructive sleep apnea Code(s): G47.33 - OBSTRUCTIVE SLEEP APNEA (ADULT) (PEDIATRIC) Assessment/Plan 08/21/2019 Echo: Mild-mod cLVH with LVEF 58%, normal RV size and fxn 1. Acute on chronic hypoxic/hypercapnic respiratory failure resolving 2. Acute on chronic diastolic failure improving 3. Coronary artery disease angina pectoris 4. Hypertensive cardiovascular disease with history of hypertensive urgency 5. Obstructive sleep apnea 6. Obesity hypoventilation syndrome with pulmonary hypertension 7. Morbid obesity, bariatric surgery to be considered PLAN: Same: 1. Continue Coreg 25 bid and Lisinopril 20 bid dose with titration as tolerated 2. Resume Lasix 40 po bid and Aldactone 25 bid with close monitoring of diuretic response, renal function and electrolytes 3. Eventual outpatient follow-up in our office post discharge 4. Lovenox 60 bid for ?DVT/PE Px. Not a candidate for NOACs due to obesity apparently, Bipap nightly, wean FIO2 as tolerated
[2019-08-31] MEDS: LISINOPRIL 20 MG TABLET (FP) PO SCH ×2 (09:50→21:12)
[2019-08-31] MEDS: SPIRONOLACTONE 25 MG TABLET PO SCH ×2 (09:50→21:12)
[2019-08-31] MEDS: CARVEDILOL 25 MG TABLET (FP) PO SCH ×2 (09:50→21:11)
[2019-08-31] MEDS: POLYETHYLENE GLYCOL 3350 119 GM BTL PO SCH (09:52)
--- NOTE | 2019-08-31 10:29 | PN ---
Progress Note, Physician History of Present Illness: PULMONARY ALERT,FEELING BETTER,SOB IMPROVING,AMBULATING WITH PT - Current Medication List Current Medications: Active Medications Albuterol Sulfate (Ventolin 0.083% Nebulizer Soln -) 1 amp NEB Q6H PRN PRN Reason: SHORT OF BREATH/WHEEZING Last Admin: 08/30/19 20:41 Dose: 1 amp Documented by: Carvedilol (Coreg -) 25 mg PO BID [facility] Last Admin: 08/31/19 09:50 Dose: 25 mg Documented by: Enoxaparin Sodium (Lovenox -) 60 mg SQ Q12H [facility] Last Admin: 08/31/19 06:40 Dose: 60 mg Documented by: Ferrous Sulfate (Feosol -) 325 mg PO BIDWM [facility] Last Admin: 08/31/19 07:58 Dose: 325 mg Documented by: Furosemide (Lasix -) 40 mg PO BIDLASIX [facility] Last Admin: 08/31/19 05:54 Dose: 40 mg Documented by: Lisinopril (Prinivil) 20 mg PO BID [facility] Last Admin: 08/31/19 09:50 Dose: 20 mg Documented by: Polyethylene Glycol (Miralax (For Daily Use) -) 17 gm PO DAILY [facility] Last Admin: 08/31/19 09:52 Dose: Not Given Documented by: Senna (Senna -) 1 tab PO HS [facility] Last Admin: 08/30/19 22:06 Dose: Not Given Documented by: Spironolactone (Aldactone -) 25 mg PO BID [facility] Last Admin: 08/31/19 09:50 Dose: 25 mg Documented by: - Objective Vital Signs: Vital Signs Temperature 98.2 F 08/31/19 08:30 Pulse Rate 81 08/31/19 08:30 Respiratory Rate 20 08/31/19 08:30 Blood Pressure 121/71 08/31/19 08:30 O2 Sat by Pulse Oximetry (%) 91 L 08/31/19 08:30 Constitutional: Yes: Calm, Obese Eyes: Yes: WNL HENT: Yes: WNL Neck: Yes: WNL Cardiovascular: Yes: Regular Rate and Rhythm, S1, S2 Respiratory: Yes: Diminished Gastrointestinal: Yes: Normal Bowel Sounds, Soft Extremities: Yes: WNL Peripheral Pulses WNL: Yes Labs: CBC, BMP 08/31/19 06:10 08/31/19 06:10 INR, PTT INR 1.09 (0.83-1.09) 08/28/19 06:10 Problem List - Problems (1) Acute and chronic respiratory failure Code(s): J96.20 - ACUTE AND CHR RESP FAILURE, UNSP W HYPOXIA OR HYPERCAPNIA Qualifiers: (2) Pulmonary vascular congestion Code(s): R09.89 - OTH SYMPTOMS AND SIGNS INVOLVING THE CIRC AND RESP SYSTEMS (3) Acute on chronic diastolic (congestive) heart failure Code(s): I50.33 - ACUTE ON CHRONIC DIASTOLIC (CONGESTIVE) HEART FAILURE (4) Acute on chronic respiratory failure with hypoxia and hypercapnia Code(s): J96.21 - ACUTE AND CHRONIC RESPIRATORY FAILURE WITH HYPOXIA; J96.22 - ACUTE AND CHRONIC RESPIRATORY FAILURE WITH HYPERCAPNIA (5) Respiratory distress Code(s): R06.03 - ACUTE RESPIRATORY DISTRESS (6) Morbid obesity with BMI of 50.0-59.9, adult Code(s): Z68.43 - BODY MASS INDEX (BMI) 50.0-59.9, ADULT (7) Obesity hypoventilation syndrome Code(s): E66.2 - MORBID (SEVERE) OBESITY WITH ALVEOLAR HYPOVENTILATION (8) Obstructive sleep apnea Code(s): G47.33 - OBSTRUCTIVE SLEEP APNEA (ADULT) (PEDIATRIC) Assessment/Plan Problem List - Problems (1) Acute and chronic respiratory failure Code(s): J96.20 - ACUTE AND CHR RESP FAILURE, UNSP W HYPOXIA OR HYPERCAPNIA Qualifiers: (2) Pulmonary vascular congestion Code(s): R09.89 - OTH SYMPTOMS AND SIGNS INVOLVING THE CIRC AND RESP SYSTEMS (3) Acute on chronic diastolic (congestive) heart failure Code(s): I50.33 - ACUTE ON CHRONIC DIASTOLIC (CONGESTIVE) HEART FAILURE (4) Acute on chronic respiratory failure with hypoxia and hypercapnia Code(s): J96.21 - ACUTE AND CHRONIC RESPIRATORY FAILURE WITH HYPOXIA; J96.22 - ACUTE AND CHRONIC RESPIRATORY FAILURE WITH HYPERCAPNIA (5) Respiratory distress Code(s): R06.03 - ACUTE RESPIRATORY DISTRESS (6) Morbid obesity with BMI of 50.0-59.9, adult Code(s): Z68.43 - BODY MASS INDEX (BMI) 50.0-59.9, ADULT (7) Obesity hypoventilation syndrome Code(s): E66.2 - MORBID (SEVERE) OBESITY WITH ALVEOLAR HYPOVENTILATION (8) Obstructive sleep apnea Code(s): G47.33 - OBSTRUCTIVE SLEEP APNEA (ADULT) (PEDIATRIC) Assessment/Plan ASSESSMENT AND PLAN: Acute on Chronic Hypoxic and Hypercapneic Respiratory Failure improving Acute on Chronic Diastolic Heart Failure improving Pulmonary HTN Morbid Obesity HITESH/OHS HTN HYPOXEMIA IMPROVING - lasix, aldactone - monitor urine output, creatinine - O2 to keep SpO2 88-92% - inhaled bronchodilators - BiPAP at night and as needed - DVT prophylaxis - Lovenox for dvt prophylaxis 60bid - incentive spirometer - home bipap DR BACH
--- NOTE | 2019-08-31 13:51 | PN ---
Teaching Attending Note Name of Resident: Erasmo León ATTENDING PHYSICIAN STATEMENT I saw and evaluated the patient. I reviewed the resident's note and discussed the case with the resident. I agree with the resident's findings and plan as documented. SUBJECTIVE: Feeling better, comfortable on NC. No fever/chills/CP/cough/sputum. Ambulating. OBJECTIVE: Afebrile, Hemodynamically Stable. SpO2 91% on 4L via NC. Last Vital Signs Temp Pulse Resp BP Pulse Ox 98.2 F 81 20 121/71 91 L 08/31/19 08:30 08/31/19 08:30 08/31/19 08:30 08/31/19 08:30 08/31/19 08:30 Heart - S1, S2, RRR Lungs - distant breath sounds Abdomen - High BMI. Soft, non-tender. Bowel Sounds normal. Extremities - Edema, chronic venous stasis skin changes Neuro - AAO x 3. Tone/Power normal all extremities. Laboratory Results - last 24 hr 08/31/19 08/31/19 06:10 06:10 WBC 4.4 RBC 5.79 H Hgb 13.8 Hct 46.4 MCV 80.1 MCH 23.9 L MCHC 29.9 L RDW 16.1 H Plt Count 175 MPV 9.9 Sodium 137 Potassium 5.2 H Chloride 92 L Carbon Dioxide 41 H Anion Gap 5 L BUN 41.9 H Creatinine 1.0 Est GFR (CKD-EPI)AfAm 100.55 Est GFR (CKD-EPI)NonAf 86.76 Random Glucose 96 Calcium 9.2 Phosphorus 4.2 Magnesium 2.6 H Current Medications Generic Name Dose Route Start Last Admin Trade Name Freq PRN Reason Stop Dose Admin Albuterol Sulfate 1 amp 08/23/19 23:25 08/30/19 20:41 Ventolin 0.083% Nebulizer Soln - NEB 1 amp Q6H PRN Administration SHORT OF BREATH/WHEEZING Carvedilol 25 mg 08/24/19 10:00 08/31/19 09:50 Coreg - PO 25 mg BID EUNICE Administration Enoxaparin Sodium 60 mg 08/27/19 19:00 08/31/19 06:40 Lovenox - SQ 60 mg Q12H EUNICE Administration Ferrous Sulfate 325 mg 08/29/19 17:30 08/31/19 07:58 Feosol - PO 325 mg BIDWM EUNICE Administration Furosemide 40 mg 08/31/19 06:00 08/31/19 05:54 Lasix - PO 40 mg BIDLASIX EUNICE Administration Lisinopril 20 mg 08/24/19 10:00 08/31/19 09:50 Prinivil PO 20 mg BID EUNICE Administration Polyethylene Glycol 17 gm 08/25/19 13:45 08/31/19 09:52 Miralax (For Daily Use) - PO Not Given DAILY EUNICE Senna 1 tab 08/27/19 22:00 08/30/19 22:06 Senna - PO Not Given HS EUNICE Spironolactone 25 mg 08/24/19 10:00 08/31/19 09:50 Aldactone - PO 25 mg BID EUNICE Administration Home Medications Medication Instructions Recorded Furosemide [Lasix -] 40 mg PO BID 12/06/18 Ferrous Sulfate [Feosol] 325 mg PO BIDWM 30 Days #60 ud 03/21/19 Carvedilol 25 mg PO BID 08/20/19 Lisinopril 10 mg PO DAILY 08/20/19 ASSESSMENT AND PLAN: 49 year old male with history of morbid obesity, HITESH/OHS on CPAP, HTN, HFpEF, and chronic LE edema, presented with 2-3 day history of shortness of breath and hypoxia. 1. Acute on Chronic Hypoxic and Hypercapneic Respiratory Failure secondary to Acute on Chronic Diastolic CHF, OHS/HITESH, Pulmonary HTN, +/- possible PE Requiring BiPAP at night, now titrated down to 4L via NC during daytime. Target SpO2 88-92% as per Pulm. COVID negative. IV Lasix transitioned to PO. Continue Coreg, Lisinopril, Aldactone. Cardiology and Pulmonary following. Elevated DDIMER, unable to obtain PE study at [facility] due to body habitus. Seen by Hematology - recommends Lovenox 60mg BID SQ for DVT/PE Px. Not a candidate for NOACs due to obesity apparently. Discussed with Dr. Mantilla - recommends Lovenox for several months at least. 2. HTN - Continue Carvedilol, Lisinopril, Spironolactone 3. Morbid Obesity - will benefit from referral for Bariatric Surgery. 4. Microcytosis - Hx of REJI, Iron Sat 10%, normally on Ferrous Sulfate. Resumed. 5. Hyperkalemia - K 5.2, will repeat. DVT Px - Lovenox SQ Medically stable for discharge pending repeat K levels. Will be sent on Home O2. As per Case Management, he will cover the costs of home O2 and can be set up for O2 on discharge today.
[2019-08-31 13:56] LABS: BLOOD UREA NITROGEN 40.9 mg/dL (7-18); POTASSIUM 4.8 mmol/L (3.5-5.1)
--- NOTE | 2019-08-31 15:53 | DS ---
Physical Exam: SUBJECTIVE: Patient seen and examined Patient was seen at bedside. Patient denies any acute overnight events. Patient was seen on 4 L of nasal canula. Patient was cleared by respiratory therapy and physical therapy and cleared for discharged. PATIENT WAS AGREED THAT HE MUST PURCHASE HOME O2. OBJECTIVE: Vital Signs Period Temp Pulse Resp BP Sys/Deluca Pulse Ox Last 24 Hr 97.5 F-98.5 F 67-95 20-20 119-153/44-71 91-100 PHYSICAL EXAM GENERAL: The patient is awake, alert, and fully oriented, in no acute distress. HEAD: Normal with no signs of trauma. EYES: PERRL, extraocular movements intact, sclera anicteric, conjunctiva clear. ENT: Ears normal, nares patent, oropharynx clear without exudates, moist mucous membranes. NECK: Trachea midline, full range of motion, supple. LUNGS: Breath sounds equal, clear to auscultation bilaterally, no wheezes, no crackles, no accessory muscle use. HEART: Regular rate and rhythm, S1, S2 without murmur, rub or gallop. ABDOMEN: Soft, nontender, nondistended, normoactive bowel sounds, no guarding, no rebound, no hepatosplenomegaly, no masses. EXTREMITIES: 2+ pulses, warm, well-perfused, no edema. NEUROLOGICAL: Cranial nerves II through XII grossly intact. Normal speech, gait not observed. PSYCH: Normal mood, normal affect. SKIN: Warm, dry, normal turgor, no rashes or lesions noted. LABS Laboratory Results - last 24 hr 08/31/19 08/31/19 08/31/19 06:10 06:10 12:59 WBC 4.4 RBC 5.79 H Hgb 13.8 Hct 46.4 MCV 80.1 MCH 23.9 L MCHC 29.9 L RDW 16.1 H Plt Count 175 MPV 9.9 Sodium 137 136 Potassium 5.2 H 4.8 Chloride 92 L 92 L Carbon Dioxide 41 H 42 H Anion Gap 5 L 3 L BUN 41.9 H 40.9 H Creatinine 1.0 1.0 Est GFR (CKD-EPI)AfAm 100.55 100.55 Est GFR (CKD-EPI)NonAf 86.76 86.76 Random Glucose 96 110 H Calcium 9.2 9.0 Phosphorus 4.2 Magnesium 2.6 H HOSPITAL COURSE: Date of Admission:08/20/19 Raul is a 49M w a h/o morbid obesity, HITESH/OHS on CPAP, HTN, HFpEF, chronic leg edema, presents with worsening SOB, and was reported to have saturated around 50% on room air at home. The patient was admitted for acute on chronic hypoxic and hypercapneic respiratory failure. During the patients hospital course the patient was admitted to the ICU and placed on BiPAP and somnolent but arousable. The patient was placed on HiFlow o2 and lasix then transferred to telemetry and continued on HiFlow O2 with an FiO2 of 50%. The patient's o2 levels improved from 80's to 90's on Hiflow and was weaned down to 5 L of nasal canula and extensive diuresis. VBG lab values and blood pressures were monitored and improved. ECHO showed preserved ejection fraction of 58% with mild to moderate concentric LVH and normal bilateral atrial and ventricular size and function. The patient was evaluated by respiratory therapy and physical therapy and was verified for discharge. The patient had agreed that he must purchase home O2 to continue medical treatment at home and continue home medication adherence. Date of Discharge: 08/31/19 Minutes to complete discharge: 40 Discharge Summary Problems reviewed: Yes Reason For Visit: HEART FAILURE Current Active Problems CHF (congestive heart failure) (Chronic) Condition: Good - Instructions Diet, Activity, Other Instructions: YOUR VISIT: You were admitted to the hospital for trouble breathing and low oxygen levels. While you were in the hospital, we evaluated you with lab work, blood work, imaging including x-rays and echocardiogram. The x rays of your chest showed fluid in your lungs, which was likely the cause of your symptoms. We found that your symptoms were also caused by excessive weight. You were treated with blood pressure medication, oxygen and incentive spirometry. You were also tested for COVID-19 antibodies and you were found to be negative. During you hospital course, you were started on oxygen supplementation, which you will need to continue at home until your mold washer can reassess you. You also agreed to PURCHASE home oxygen for yourself at home. Therefore, please ensure that you continue using the oxygen as needed. MEDICATIONS: Please START Spironolactone 25 mg twice a day Please START Lisinopril 20mg twice a day, which we have increased from your home dose of 10 mg lisinopril Please START using Albuterol Sulfate inhaler as needed Please START taking Lovenox 60mg twice a day until you are reassessed by your primary care physician. Please START using oxygen 4-5 Liters at home, which you have agreed to purchase Please continue taking your home medications as prescribed FOLLOW UP: Follow up with the mold washer (Dr. Verma) within 1 week to follow up for a blood test. It is important that you are closely monitored for your oxygen levels. Follow up with your primary care physician (Dr. Villegas) within 1 week to follow up with your medication regimen. Follow up with your home and school visitor ([facility] - ) within 1 week for evaluation for bariatric surgery Follow up with your park recreation manager/oncologist (Dr. Mantilla) within 1 week to follow up with your blood work ADDITIONAL INSTRUCTIONS: You are being discharged home. You have agreed to follow up with the pharmacy and purchase home oxygen at your own expense. Please return to the Emergency Department if you are experiencing worsening pain, fevers, chills, shortness of breath, or chest pain or if you are experiencing any worsening, new, or concerning symptoms. Referrals: Harvey Verma MD [Staff Physician] - 1 Week Annalee Nix MD [Staff Physician] - 1 Week Jai Villegas MD [Non Staff, Medical] - 1 Week Abimbola Tamayo MD [Staff Physician] - 1 Week Disposition: HOME - Home Medications Comprehensive Discharge Medication List: Ambulatory Orders Furosemide [Lasix -] 40 mg PO BID 12/06/18 Ferrous Sulfate [Feosol] 325 mg PO BIDWM 30 Days #60 ud 03/21/19 Carvedilol 25 mg PO BID 08/20/19 Albuterol Sulfate Inhaler - [Ventolin HFA Inhaler -] 1 puff IH Q4H #1 inhaler 08/31/19 Enoxaparin [Lovenox -] 60 mg SQ BID #60 disp.syrin 08/31/19 Lisinopril 20 mg PO BID #60 tablet 08/31/19 Spironolactone 25 mg PO BID #60 tablet 08/31/19 This patient is new to me today: No Emergency Visit: Yes ED Registration Date: 08/20/19 Care time: The patient presented to the Emergency Department on the above date and was hospitalized for further evaluation of their emergent condition. Critical Care patient: No - Discharge Referral Referred to [facility] No ATTENDING PHYSICIAN STATEMENT I saw and evaluated the patient. I reviewed the resident's note and discussed the case with the resident. I agree with the resident's findings and plan as documented. SUBJECTIVE: OBJECTIVE: ASSESSMENT AND PLAN:
--- NOTE | 2019-08-31 17:54 | PN ---
Physical Exam: SUBJECTIVE: Patient seen and examined. Pt. denies any acute complaints. OBJECTIVE: Vital Signs Period Temp Pulse Resp BP Sys/Deluca Pulse Ox Last 24 Hr 97.5 F-98.5 F 67-95 20-20 119-143/44-71 91-100 GENERAL: Awake, alert, and fully oriented, in no acute distress. HEAD: Normal with no signs of trauma. EYES: Extraocular movements intact, sclera anicteric, conjunctiva clear. EARS, NOSE, THROAT: Moist mucous membranes. LUNGS: Breath sounds equal, clear to auscultation bilaterally anteriorly. No whe ezes, and no crackles. No accessory muscle use. HEART: Regular rate and rhythm, normal S1 and S2 without murmur, rub or gallop. ABDOMEN: Soft, nontender, morbidly obese, not distended, normoactive bowel sounds, no guarding, no rebound, no masses. UPPER EXTREMITIES:warm, well-perfused. LOWER EXTREMITIES: 2+ dorsal pedal pulses, warm, well-perfused. No calf tenderness. No peripheral edema. NEUROLOGICAL: No focal deficits, normal speech, gait not assessed PSYCHIATRIC: Cooperative. Good eye contact. Appropriate mood and affect. SKIN: Warm, dry,chronic skin changes in lower extremities Laboratory Results - last 24 hr 08/31/19 08/31/19 08/31/19 06:10 06:10 12:59 WBC 4.4 RBC 5.79 H Hgb 13.8 Hct 46.4 MCV 80.1 MCH 23.9 L MCHC 29.9 L RDW 16.1 H Plt Count 175 MPV 9.9 Sodium 137 136 Potassium 5.2 H 4.8 Chloride 92 L 92 L Carbon Dioxide 41 H 42 H Anion Gap 5 L 3 L BUN 41.9 H 40.9 H Creatinine 1.0 1.0 Est GFR (CKD-EPI)AfAm 100.55 100.55 Est GFR (CKD-EPI)NonAf 86.76 86.76 Random Glucose 96 110 H Calcium 9.2 9.0 Phosphorus 4.2 Magnesium 2.6 H Active Medications Generic Name Dose Route Start Last Admin Trade Name Freq PRN Reason Stop Dose Admin Albuterol Sulfate 1 amp 08/23/19 23:25 08/30/19 20:41 Ventolin 0.083% Nebulizer Soln - NEB 1 amp Q6H PRN Administration SHORT OF BREATH/WHEEZING Carvedilol 25 mg 08/24/19 10:00 08/31/19 09:50 Coreg - PO 25 mg BID EUNICE Administration Enoxaparin Sodium 60 mg 08/27/19 19:00 08/31/19 06:40 Lovenox - SQ 60 mg Q12H EUNICE Administration Ferrous Sulfate 325 mg 08/29/19 17:30 08/31/19 07:58 Feosol - PO 325 mg BIDWM EUNICE Administration Furosemide 40 mg 08/31/19 06:00 08/31/19 14:05 Lasix - PO 40 mg BIDLASIX EUNICE Administration Lisinopril 20 mg 08/24/19 10:00 08/31/19 09:50 Prinivil PO 20 mg BID EUNICE Administration Polyethylene Glycol 17 gm 08/25/19 13:45 08/31/19 09:52 Miralax (For Daily Use) - PO Not Given DAILY EUNICE Senna 1 tab 08/27/19 22:00 08/30/19 22:06 Senna - PO Not Given HS EUNICE Spironolactone 25 mg 08/24/19 10:00 08/31/19 09:50 Aldactone - PO 25 mg BID EUNICE Administration ASSESSMENT/PLAN: Pt. is a 49 y.o. M w/ PMHx. of Super x 5 MO(BMI 60), HITESH/OHS on CPAP, HTN, HFpEF, Chronic LE edema (w/ chronic skin changes) presents for shortness of breath. We have been called to assess for anticoagulation for suspected PE. #r/o PE f/u Coronavirus antibody testing as this may give more rationale and weight to suspected PE, especially if CXr shows resolution and Pt. still has significant O2 requirements Elevated D-dimer noted, however this may be due to comorbid condiditons c/w diuretics for CHF, as per Cardio f/u duplex of Lower extremities to r/o DVT Heparin gtt and Coumadin stopped c/w Lovenx 60mg BID as DVT Ppx. given Pt.s level of obesity, f/u anti-Factor Xa level Pt. will continue with Lovenox for 1 month after discharge Case discussed with Pulmonology. Visit type - Emergency Visit Emergency Visit: Yes ED Registration Date: 08/20/19 Care time: The patient presented to the Emergency Department on the above date and was hospitalized for further evaluation of their emergent condition. - New Patient This patient is new to me today: No - Critical Care Critical Care patient: No - Discharge Referral Referred to [facility] No ATTENDING PHYSICIAN STATEMENT I saw and evaluated the patient. I reviewed the resident's note and discussed the case with the resident. I agree with the resident's findings and plan as documented. SUBJECTIVE: OBJECTIVE: ASSESSMENT AND PLAN:
[2019-08-31] MEDS: SENNOSIDES 8.6MG TABLET (FP) PO SCH (21:17)
[2019-09-01] MEDS: ENOXAPARIN NA (PORCINE) 60 MG/0.6 ML DISP.SYRIN SQ SCH ×2 (06:25→18:11)
[2019-09-01] MEDS: FUROSEMIDE 40 MG TABLET (FP) PO SCH ×2 (06:25→14:07)
--- NOTE | 2019-09-01 06:33 | PN ---
Progress Note (short form) - Note Progress Note: Chief Complaint: Events noted, notes reviewed, resting in bed, currently utilizing a nasal cannula, reports dyspnea but clinically improved, denies any chest discomfort History of Present Illness: Seen and examined on telemetry. Events noted, notes reviewed, resting in bed, currently utilizing a nasal cannula, reports dyspnea but clinically improved, denies any chest discomfort As noted in the prior note initiated on Lovenox therapy for DVT prophylaxis, no clinical indications for pulmonary thromboembolism/consensus Medications: Current Medications Generic Name Dose Route Start Last Admin Trade Name Latonya PRN Reason Stop Dose Admin Carvedilol 25 mg 08/24/19 10:00 09/01/19 09:55 Coreg - PO 25 mg BID EUNICE Administration Enoxaparin Sodium 60 mg 08/27/19 19:00 09/01/19 06:25 Lovenox - SQ 60 mg Q12H EUNICE Administration Ferrous Sulfate 325 mg 08/29/19 17:30 09/01/19 09:55 Feosol - PO 325 mg BIDWM EUNICE Administration Furosemide 40 mg 08/31/19 06:00 09/01/19 06:25 Lasix - PO 40 mg BIDLASIX EUNICE Administration Lisinopril 20 mg 08/24/19 10:00 09/01/19 09:55 Prinivil PO 20 mg BID EUNICE Administration Polyethylene Glycol 17 gm 08/25/19 13:45 09/01/19 09:56 Miralax (For Daily Use) - PO Not Given DAILY EUNICE Senna 1 tab 08/27/19 22:00 08/31/19 21:17 Senna - PO Not Given HS EUNICE Spironolactone 25 mg 08/24/19 10:00 09/01/19 09:55 Aldactone - PO 25 mg BID EUNICE Administration Review of Systems - Review of Systems Constitutional: denies: Fever or Chills Cardiovascular: As noted above Respiratory: denies: Cough or Sputum Production Gastrointestinal: denies: Nausea, Vomiting, Diarrhea, Constipation, Abdominal Pain Neurological: denies: Headaches Vital Signs: Last Vital Signs Temp Pulse Resp BP Pulse Ox 97.8 F 80 20 119/50 L 97 09/01/19 06:17 09/01/19 06:17 09/01/19 06:17 09/01/19 06:17 09/01/19 06:17 Intake & Output 07/1508/30/19 08/31/19 09/01/19 23:59 23:59 23:59 23:59 Intake Total 2140 510 300 Output Total 2400 3375 1300 Balance -926 -2710 -1000 Weight 498 lb 2 oz 499 lb 8 oz 494 lb 15.004 oz 497 lb 6.72 oz Neck: Supple Negative JVD No Bruit Respiratory: Diminished breath sounds at the bases bilaterally Cardiovascular: S1 S2 Regular Rate and Rhythm Gastrointestinal: Soft Benign Normal Bowel Sounds Ext: 1-2+ Bilateral Edema, Chronic Venous Stasis Changes Labs: CBC, BMP 08/31/19 06:10 08/31/19 12:59 Hepatic Panel Total Bilirubin 0.8 mg/dL (0.2-1) 08/30/19 09:40 Direct Bilirubin 0.2 mg/dL (0.0-0.2) 08/20/19 13:15 AST 18 U/L (15-37) 08/30/19 09:40 ALT 20 U/L (13-61) 08/30/19 09:40 Alkaline Phosphatase 80 U/L (45-117) 08/30/19 09:40 Albumin 3.1 g/dl (3.4-5.0) L 08/30/19 09:40 INR, PTT INR 1.09 (0.83-1.09) 08/28/19 06:10 Assessment/Plan ASSESSMENT: 1. Acute on chronic hypoxic/hypercapnic respiratory failure, clinically resolving/PTE is no longer a consideration as a differential diagnosis 2. Acute on chronic class II-III [place] [employer] classification left ventricular failure related to diastolic left ventricular dysfunction, clinically resolving 3. Coronary artery disease angina pectoris 4. Hypertensive cardiovascular disease with history of hypertensive urgency 5. Obstructive sleep apnea 6. Obesity hypoventilation syndrome with pulmonary hypertension 7. Morbid obesity- Eventual evaluation for possible bariatric surgery PLAN: 1. Continue Coreg 2. Continue Lisinopril and dose titration as needed and as tolerated 3. Continue PO Lasix therapy with close monitoring of renal function and electrolytes 4. Continue Aldactone therapy with close monitoring of renal function and electr olytes 5. Supplemental oxygen as per the primary team/pulmonary team 6. Eventual evaluation for possible bariatric surgery for management of the above-noted morbid obesity as noted above 7. Eventual outpatient follow-up in our office post discharge Stephen Gerber M.D.
[2019-09-01] MEDS: FERROUS SO4 325 MG TABLET (FP) PO SCH ×2 (09:55→18:11)
[2019-09-01] MEDS: CARVEDILOL 25 MG TABLET (FP) PO SCH ×2 (09:55→22:16)
[2019-09-01] MEDS: LISINOPRIL 20 MG TABLET (FP) PO SCH ×2 (09:55→22:16)
[2019-09-01] MEDS: SPIRONOLACTONE 25 MG TABLET PO SCH ×2 (09:55→22:16)
[2019-09-01] MEDS: POLYETHYLENE GLYCOL 3350 119 GM BTL PO SCH (09:56)
--- NOTE | 2019-09-01 15:41 | PN ---
Progress Note (short form) - Note Progress Note: Reports feeling better overall. Has not used HFOT x 2 days. Less SOB. No acute events overnight. Intake & Output 08/29/19 08/30/19 08/31/19 09/01/19 23:59 23:59 23:59 23:59 Intake Total 2140 510 300 10 Output Total 2400 3375 1300 Balance -260 -2865 -1000 10 Weight 498 lb 2 oz 499 lb 8 oz 494 lb 15.004 oz 497 lb 6.72 oz Last Vital Signs Temp Pulse Resp BP Pulse Ox 98.4 F 82 18 103/73 92 L 09/01/19 14:02 09/01/19 14:02 09/01/19 14:02 09/01/19 14:02 09/01/19 14:02 Active Medications Carvedilol (Coreg -) 25 mg PO BID [facility] Last Admin: 09/01/19 09:55 Dose: 25 mg Documented by: Enoxaparin Sodium (Lovenox -) 60 mg SQ Q12H [facility] Last Admin: 09/01/19 06:25 Dose: 60 mg Documented by: Ferrous Sulfate (Feosol -) 325 mg PO BIDWM [facility] Last Admin: 09/01/19 09:55 Dose: 325 mg Documented by: Furosemide (Lasix -) 40 mg PO BIDLASIX [facility] Last Admin: 09/01/19 14:07 Dose: 40 mg Documented by: Lisinopril (Prinivil) 20 mg PO BID [facility] Last Admin: 09/01/19 09:55 Dose: 20 mg Documented by: Polyethylene Glycol (Miralax (For Daily Use) -) 17 gm PO DAILY [facility] Last Admin: 09/01/19 09:56 Dose: Not Given Documented by: Senna (Senna -) 1 tab PO HS [facility] Last Admin: 08/31/19 21:17 Dose: Not Given Documented by: Spironolactone (Aldactone -) 25 mg PO BID [facility] Last Admin: 09/01/19 09:55 Dose: 25 mg Documented by: Constitutional: Yes: NAD, Obese Eyes: Yes: WNL HENT: Yes: WNL Neck: Yes: WNL Cardiovascular: Yes: Regular Rate and Rhythm, S1, S2 Respiratory: Yes: Diminished Gastrointestinal: Yes: Normal Bowel Sounds, Soft Extremities: Yes: WNL Peripheral Pulses WNL: Yes Labs: Laboratory Results - last 24 hr 08/31/19 11:21 Heparin Anti-Xa Level 0.3 Problem List - Problems (1) Acute and chronic respiratory failure Code(s): J96.20 - ACUTE AND CHR RESP FAILURE, UNSP W HYPOXIA OR HYPERCAPNIA Qualifiers: (2) Pulmonary vascular congestion Code(s): R09.89 - OTH SYMPTOMS AND SIGNS INVOLVING THE CIRC AND RESP SYSTEMS (3) Acute on chronic diastolic (congestive) heart failure Code(s): I50.33 - ACUTE ON CHRONIC DIASTOLIC (CONGESTIVE) HEART FAILURE (4) Acute on chronic respiratory failure with hypoxia and hypercapnia Code(s): J96.21 - ACUTE AND CHRONIC RESPIRATORY FAILURE WITH HYPOXIA; J96.22 - ACUTE AND CHRONIC RESPIRATORY FAILURE WITH HYPERCAPNIA (5) Respiratory distress Code(s): R06.03 - ACUTE RESPIRATORY DISTRESS (6) Morbid obesity with BMI of 50.0-59.9, adult Code(s): Z68.43 - BODY MASS INDEX (BMI) 50.0-59.9, ADULT (7) Obesity hypoventilation syndrome Code(s): E66.2 - MORBID (SEVERE) OBESITY WITH ALVEOLAR HYPOVENTILATION (8) Obstructive sleep apnea Code(s): G47.33 - OBSTRUCTIVE SLEEP APNEA (ADULT) (PEDIATRIC) Assessment/Plan Acute on Chronic Hypoxic and Hypercapneic Respiratory Failure improving Acute on Chronic Diastolic Heart Failure improving Pulmonary HTN Morbid Obesity HITESH/OHS HTN HYPOXEMIA IMPROVING - lasix, aldactone - monitor urine output, creatinine - O2 to keep SpO2 88-92% - inhaled bronchodilators - DVT prophylaxis - Lovenox for dvt prophylaxis 60bid - Incentive spirometer - Will need new sleep workup as he reports his home device is no longer functional Dr Peters
--- NOTE | 2019-09-01 16:13 | PN ---
Teaching Attending Note Name of Resident: Darron Cat ATTENDING PHYSICIAN STATEMENT I saw and evaluated the patient. I reviewed the resident's note and discussed the case with the resident. I agree with the resident's findings and plan as documented. SUBJECTIVE: Feeling better, comfortable on NC, no need for HFO2 for several days. No fever/chills/CP/cough/sputum. Ambulating well. OBJECTIVE: Afebrile, Hemodynamically Stable. SpO2 92% on 4L via NC. Last Vital Signs Temp Pulse Resp BP Pulse Ox 98.4 F 82 18 103/73 92 L 09/01/19 14:02 09/01/19 14:02 09/01/19 14:02 09/01/19 14:02 09/01/19 14:02 Heart - S1, S2, RRR Lungs - distant breath sounds Abdomen - High BMI. Soft, non-tender. Bowel Sounds normal. Extremities - Edema, chronic venous stasis skin changes Neuro - AAO x 3. Tone/Power normal all extremities. Laboratory Results - last 24 hr 08/31/19 11:21 Heparin Anti-Xa Level 0.3 Current Medications Generic Name Dose Route Start Last Admin Trade Name Freq PRN Reason Stop Dose Admin Carvedilol 25 mg 08/24/19 10:00 09/01/19 09:55 Coreg - PO 25 mg BID EUNICE Administration Enoxaparin Sodium 60 mg 08/27/19 19:00 09/01/19 06:25 Lovenox - SQ 60 mg Q12H EUNICE Administration Ferrous Sulfate 325 mg 08/29/19 17:30 09/01/19 09:55 Feosol - PO 325 mg BIDWM EUNICE Administration Furosemide 40 mg 08/31/19 06:00 09/01/19 14:07 Lasix - PO 40 mg BIDLASIX EUNICE Administration Lisinopril 20 mg 08/24/19 10:00 09/01/19 09:55 Prinivil PO 20 mg BID EUNICE Administration Polyethylene Glycol 17 gm 08/25/19 13:45 09/01/19 09:56 Miralax (For Daily Use) - PO Not Given DAILY EUNICE Senna 1 tab 08/27/19 22:00 08/31/19 21:17 Senna - PO Not Given HS EUNICE Spironolactone 25 mg 08/24/19 10:00 09/01/19 09:55 Aldactone - PO 25 mg BID EUNICE Administration Home Medications Medication Instructions Recorded Furosemide [Lasix -] 40 mg PO BID 12/06/18 Ferrous Sulfate [Feosol] 325 mg PO BIDWM 30 Days #60 ud 03/21/19 Carvedilol 25 mg PO BID 08/20/19 Albuterol Sulfate Inhaler - 1 puff IH Q4H #1 inhaler 08/31/19 [Ventolin HFA Inhaler -] Enoxaparin [Lovenox -] 60 mg SQ BID #60 disp.syrin 08/31/19 Lisinopril 20 mg PO BID #60 tablet 08/31/19 Spironolactone 25 mg PO BID #60 tablet 08/31/19 ASSESSMENT AND PLAN: 49 year old male with history of morbid obesity, HITESH/OHS on CPAP, HTN, HFpEF, and chronic LE edema, presented with 2-3 day history of shortness of breath and hypoxia. 1. Acute on Chronic Hypoxic and Hypercapneic Respiratory Failure secondary to Acute on Chronic Diastolic CHF, OHS/HITESH, Pulmonary HTN, +/- possible PE Requiring BiPAP at night, now titrated down to 4L via NC during daytime. Target SpO2 88-92% as per Pulm. COVID negative. IV Lasix transitioned to PO - for DC on oral lasix 40mg BID. Continue Coreg, Lisinopril, Aldactone. Cardiology and Pulmonary following. Elevated DDIMER, unable to obtain PE study at [facility] due to body habitus. Seen by Hematology - recommends Lovenox 60mg BID SQ for DVT/PE Px. Not a candidate for NOACs due to obesity apparently. Discussed with Dr. Mantilla - recommends Lovenox for several months at least. 2. HTN - Continue Carvedilol, Lisinopril, Spironolactone 3. Morbid Obesity - will benefit from referral for Bariatric Surgery. 4. Microcytosis - Hx of REJI, Iron Sat 10%, normally on Ferrous Sulfate. Resumed. 5. Hyperkalemia - resolved. DVT Px - Lovenox SQ Medically stable for discharge pending repeat K levels. Will be sent on Home O2. As per Case Management, he will cover the costs of home O2 and can be set up for O2 on discharge today.
--- NOTE | 2019-09-01 19:44 | PN ---
Physical Exam: SUBJECTIVE: Patient seen and examined OBJECTIVE: Vital Signs Period Temp Pulse Resp BP Sys/Deluca Pulse Ox Last 24 Hr 97.8 F-98.4 F 69-88 18-20 103-144/50-73 91-97 GENERAL: The patient is awake, alert, and fully oriented, in no acute distress. On NC EYES: PERRL, extraocular movements intact, No ptosis. ENT: moist mucous membranes. NECK: Trachea midline, full range of motion, supple. LUNGS: Breath sounds equal, clear to auscultation bilaterally, no wheezes, no crackles, HEART: Regular rate and rhythm, S1, S2 without murmur, rub or gallop. ABDOMEN: Soft, nontender, nondistended, normoactive bowel sounds, no guarding, no rebound, no hepatosplenomegaly, no masses. EXTREMITIES: 2+ pulses, warm, well-perfused, no edema. PSYCH: Normal mood, normal affect. Laboratory Results - last 24 hr 08/31/19 11:21 Heparin Anti-Xa Level 0.3 Active Medications Generic Name Dose Route Start Last Admin Trade Name Joshuaq PRN Reason Stop Dose Admin Carvedilol 25 mg 08/24/19 10:00 09/01/19 09:55 Coreg - PO 25 mg BID EUNICE Administration Enoxaparin Sodium 60 mg 08/27/19 19:00 09/01/19 18:11 Lovenox - SQ 60 mg Q12H EUNICE Administration Ferrous Sulfate 325 mg 08/29/19 17:30 09/01/19 18:11 Feosol - PO 325 mg BIDWM EUNICE Administration Furosemide 40 mg 08/31/19 06:00 09/01/19 14:07 Lasix - PO 40 mg BIDLASIX EUNICE Administration Lisinopril 20 mg 08/24/19 10:00 09/01/19 09:55 Prinivil PO 20 mg BID EUNICE Administration Polyethylene Glycol 17 gm 08/25/19 13:45 09/01/19 09:56 Miralax (For Daily Use) - PO Not Given DAILY EUNICE Senna 1 tab 08/27/19 22:00 08/31/19 21:17 Senna - PO Not Given HS EUNICE Spironolactone 25 mg 08/24/19 10:00 09/01/19 09:55 Aldactone - PO 25 mg BID EUNICE Administration ASSESSMENT/PLAN: Raul is a 49M w PMHx of morbid obesity (BMI 60.2), HFpEF, HITESH/OHS on CPAP, HTN, who presents to the hospital with SOB and satting at 50% O2 on room air. #Acute on chronic hypoxic and hypercarbic respiratory failure #DVT prophylaxis - Per hemonc- Lovenox 60 BID indefinitely #Hypertension Monitoring on Tele - Monitoring BP - well controlled at this point - continuing home medications #Suspected covid - AB for Sars CoV NEGATIVE Patient was discharged yesterday after discussing with him his option, he agreed to pay for his own oxygen and medication as he does not have insurance. However however pt chose to stay. SW and CM spoke to patient and he was amenable to discharge today after agreeing to purchase his own medication and oxygen, howeve r, yet again after discharge, patient is refusing to leave as he does not want to pay for the medication anymore. Pt is appealing his d/c. Visit type - Emergency Visit Emergency Visit: Yes ED Registration Date: 08/20/19 Care time: The patient presented to the Emergency Department on the above date and was hospitalized for further evaluation of their emergent condition. - New Patient This patient is new to me today: Yes Date on this admission: 09/01/19 - Critical Care Critical Care patient: No - Discharge Referral Referred to [facility] Med P.C.: No ATTENDING PHYSICIAN STATEMENT I saw and evaluated the patient. I reviewed the resident's note and discussed the case with the resident. I agree with the resident's findings and plan as documented. SUBJECTIVE: OBJECTIVE: ASSESSMENT AND PLAN:
[2019-09-01] MEDS: SENNOSIDES 8.6MG TABLET (FP) PO SCH ×2 (22:16→22:21)
[2019-09-02] MEDS: FUROSEMIDE 40 MG TABLET (FP) PO SCH ×2 (06:04→14:17)
[2019-09-02] MEDS: ENOXAPARIN NA (PORCINE) 60 MG/0.6 ML DISP.SYRIN SQ SCH ×2 (06:04→18:11)
--- NOTE | 2019-09-02 06:56 | PN ---
Progress Note (short form) - Note Progress Note: Chief Complaint: Events noted, notes reviewed, resting in bed, currently utilizing a nasal cannula, reports dyspnea but clinically improved, denies any chest discomfort History of Present Illness: Seen and examined on telemetry. Events noted, notes reviewed, resting in bed, currently utilizing a nasal cannula, reports dyspnea but clinically improved, denies any chest discomfort Medications: Current Medications Generic Name Dose Route Start Last Admin Trade Name Freq PRN Reason Stop Dose Admin Carvedilol 25 mg 08/24/19 10:00 09/01/19 22:16 Coreg - PO 25 mg BID EUNICE Administration Enoxaparin Sodium 60 mg 08/27/19 19:00 09/02/19 06:04 Lovenox - SQ 60 mg Q12H EUNICE Administration Ferrous Sulfate 325 mg 08/29/19 17:30 09/01/19 18:11 Feosol - PO 325 mg BIDWM EUNICE Administration Furosemide 40 mg 08/31/19 06:00 09/02/19 06:04 Lasix - PO 40 mg BIDLASIX EUNIEC Administration Lisinopril 20 mg 08/24/19 10:00 09/01/19 22:16 Prinivil PO 20 mg BID EUNICE Administration Polyethylene Glycol 17 gm 08/25/19 13:45 09/01/19 09:56 Miralax (For Daily Use) - PO Not Given DAILY EUNICE Senna 1 tab 08/27/19 22:00 09/01/19 22:21 Senna - PO Not Given HS EUNICE Spironolactone 25 mg 08/24/19 10:00 09/01/19 22:16 Aldactone - PO 25 mg BID EUNICE Administration Review of Systems - Review of Systems Constitutional: denies: Fever or Chills Cardiovascular: As noted above Respiratory: denies: Cough or Sputum Production Gastrointestinal: denies: Nausea, Vomiting, Diarrhea, Constipation, Abdominal Pain Neurological: denies: Headaches Vital Signs: Last Vital Signs Temp Pulse Resp BP Pulse Ox 98.4 F 86 18 102/72 91 L 09/01/19 17:18 09/02/19 06:48 09/02/19 06:48 09/02/19 06:48 09/01/19 22:00 Intake & Output 08/30/19 08/31/19 09/01/19 09/02/19 23:59 23:59 23:59 23:59 Intake Total 755 335 7651 Output Total 7269 5134 900 Balance -2865 -1000 1670 -900 Weight 499 lb 8 oz 494 lb 15.004 oz 497 lb 6.72 oz 497 lb 2.278 oz Neck: Supple Negative JVD No Bruit Respiratory: Diminished breath sounds at the bases bilaterally Cardiovascular: S1 S2 Regular Rate and Rhythm Gastrointestinal: Soft Benign Normal Bowel Sounds Ext: 1-2+ Bilateral Edema, Chronic Venous Stasis Changes Labs: CBC, BMP 08/31/19 06:10 08/31/19 12:59 Hepatic Panel Total Bilirubin 0.8 mg/dL (0.2-1) 08/30/19 09:40 Direct Bilirubin 0.2 mg/dL (0.0-0.2) 08/20/19 13:15 AST 18 U/L (15-37) 08/30/19 09:40 ALT 20 U/L (13-61) 08/30/19 09:40 Alkaline Phosphatase 80 U/L (45-117) 08/30/19 09:40 Albumin 3.1 g/dl (3.4-5.0) L 08/30/19 09:40 INR, PTT INR 1.09 (0.83-1.09) 08/28/19 06:10 Assessment/Plan ASSESSMENT: 1. Acute on chronic hypoxic/hypercapnic respiratory failure, clinically resolved/PTE is no longer a consideration as a differential diagnosis 2. Acute on chronic class II-III [place] [employer] classification left ventricular failure related to diastolic left ventricular dysfunction, clinically resolved 3. Coronary artery disease angina pectoris 4. Hypertensive cardiovascular disease with history of hypertensive urgency 5. Obstructive sleep apnea 6. Obesity hypoventilation syndrome with pulmonary hypertension 7. Morbid obesity- Eventual evaluation for possible bariatric surgery PLAN: 1. Continue Coreg 2. Continue Lisinopril and dose titration as needed and as tolerated 3. Continue PO Lasix therapy with close monitoring of renal function and electrolytes 4. Continue Aldactone therapy with close monitoring of renal function and electrolytes 5. Supplemental oxygen as per the primary team/pulmonary team 6. Eventual evaluation for possible bariatric surgery for management of the above-noted morbid obesity- Outpatient evaluation 7. Eventual outpatient follow-up in our office post discharge Stephen Gerber M.D.
[2019-09-02] MEDS: FERROUS SO4 325 MG TABLET (FP) PO SCH ×2 (08:20→17:05)
[2019-09-02] MEDS: POLYETHYLENE GLYCOL 3350 119 GM BTL PO SCH (09:15)
[2019-09-02] MEDS: CARVEDILOL 25 MG TABLET (FP) PO SCH ×2 (09:15→21:24)
[2019-09-02] MEDS: LISINOPRIL 20 MG TABLET (FP) PO SCH ×2 (09:15→21:24)
[2019-09-02] MEDS: SPIRONOLACTONE 25 MG TABLET PO SCH ×2 (09:15→21:24)
--- NOTE | 2019-09-02 14:10 | PN ---
Progress Note (short form) - Note Progress Note: SUBJECTIVE: Feeling better, comfortable on NC, no need for HFO2/BiPAP for several days. No fever/chills/CP/cough/sputum. Ambulating well. OBJECTIVE: Afebrile, Hemodynamically Stable. SpO2 94% on 4L via NC. Last Vital Signs Temp Pulse Resp BP Pulse Ox 97.6 F 81 20 138/75 94 L 09/02/19 10:00 09/02/19 12:43 09/02/19 10:00 09/02/19 10:00 09/02/19 12:43 Heart - S1, S2, RRR Lungs - distant breath sounds Abdomen - High BMI. Soft, non-tender. Bowel Sounds normal. Extremities - Edema, chronic venous stasis skin changes Neuro - AAO x 3. Tone/Power normal all extremities. Laboratory Results - last 24 hr 08/31/19 11:21 Heparin Anti-Xa Level 0.3 Current Medications Generic Name Dose Route Start Last Admin Trade Name Freq PRN Reason Stop Dose Admin Carvedilol 25 mg 08/24/19 10:00 09/02/19 09:15 Coreg - PO 25 mg BID EUNICE Administration Enoxaparin Sodium 60 mg 08/27/19 19:00 09/02/19 06:04 Lovenox - SQ 60 mg Q12H EUNICE Administration Ferrous Sulfate 325 mg 08/29/19 17:30 09/02/19 08:20 Feosol - PO 325 mg BIDWM EUNICE Administration Furosemide 40 mg 08/31/19 06:00 09/02/19 06:04 Lasix - PO 40 mg BIDLASIX EUNICE Administration Lisinopril 20 mg 08/24/19 10:00 09/02/19 09:15 Prinivil PO 20 mg BID EUNICE Administration Polyethylene Glycol 17 gm 08/25/19 13:45 09/02/19 09:15 Miralax (For Daily Use) - PO Not Given DAILY EUNICE Senna 1 tab 08/27/19 22:00 09/01/19 22:21 Senna - PO Not Given HS EUNICE Spironolactone 25 mg 08/24/19 10:00 09/02/19 09:15 Aldactone - PO 25 mg BID EUNICE Administration Home Medications Medication Instructions Recorded Furosemide [Lasix -] 40 mg PO BID 12/06/18 Ferrous Sulfate [Feosol] 325 mg PO BIDWM 30 Days #60 ud 03/21/19 Carvedilol 25 mg PO BID 08/20/19 Albuterol Sulfate Inhaler - 1 puff IH Q4H #1 inhaler 08/31/19 [Ventolin HFA Inhaler -] Enoxaparin [Lovenox -] 60 mg SQ BID #60 disp.syrin 08/31/19 Lisinopril 20 mg PO BID #60 tablet 08/31/19 Spironolactone 25 mg PO BID #60 tablet 08/31/19 ASSESSMENT AND PLAN: 49 year old male with history of morbid obesity, HITESH/OHS on CPAP, HTN, HFpEF, and chronic LE edema, presented with 2-3 day history of shortness of breath and hypoxia. 1. Acute on Chronic Hypoxic and Hypercapneic Respiratory Failure secondary to Acute on Chronic Diastolic CHF, OHS/HITESH, Pulmonary HTN, +/- possible PE Requiring BiPAP at night, now titrated down to 4L via NC during daytime. Target SpO2 88-92% as per Pulm. COVID negative. IV Lasix transitioned to PO - for DC on oral lasix 40mg BID. Continue Coreg, Lisinopril, Aldactone. Cardiology and Pulmonary following. Elevated DDIMER, unable to obtain PE study at [facility] due to body habitus. Seen by Hematology - recommends Lovenox 60mg BID SQ for DVT/PE Px. Not a candidate for NOACs due to obesity apparently. Discussed with Dr. Mantilla - recommends Lovenox for several months at least. 2. HTN - Continue Carvedilol, Lisinopril, Spironolactone 3. Morbid Obesity - will benefit from referral for Bariatric Surgery. 4. Microcytosis - Hx of REJI, Iron Sat 10%, normally on Ferrous Sulfate. Resumed. 5. Hyperkalemia - resolved. DVT Px - Lovenox SQ Medically stable for discharge pending repeat K levels. Will be sent on Home O2. As per Case Management, he will cover the costs of home O2 and can be set up for O2 on discharge. His discharge was held up yesterday as he is now having issues affording the Lovenox recommended by Hematology. Visit type - Emergency Visit Emergency Visit: Yes ED Registration Date: 08/20/19 Care time: The patient presented to the Emergency Department on the above date and was hospitalized for further evaluation of their emergent condition. - New Patient This patient is new to me today: No - Critical Care Critical Care patient: No - Discharge Referral Referred to [facility] Med P.C.: No
--- NOTE | 2019-09-02 14:23 | PN ---
Progress Note (short form) - Note Progress Note: Reports feeling better overall. Overall less SOB. No acute events overnight. Intake & Output 08/30/19 08/31/19 09/01/19 09/02/19 23:59 23:59 23:59 23:59 Intake Total 406 463 4207 Output Total 3375 1300 900 Balance -2865 -1000 1670 -900 Weight 499 lb 8 oz 494 lb 15.004 oz 497 lb 6.72 oz 497 lb 2.278 oz Last Vital Signs Temp Pulse Resp BP Pulse Ox 97.6 F 81 20 138/75 94 L 09/02/19 10:00 09/02/19 12:43 09/02/19 10:00 09/02/19 10:00 09/02/19 12:43 Active Medications Carvedilol (Coreg -) 25 mg PO BID [facility] Last Admin: 09/02/19 09:15 Dose: 25 mg Documented by: Enoxaparin Sodium (Lovenox -) 60 mg SQ Q12H [facility] Last Admin: 09/02/19 06:04 Dose: 60 mg Documented by: Ferrous Sulfate (Feosol -) 325 mg PO BIDWM [facility] Last Admin: 09/02/19 08:20 Dose: 325 mg Documented by: Furosemide (Lasix -) 40 mg PO BIDLASIX [facility] Last Admin: 09/02/19 14:17 Dose: 40 mg Documented by: Lisinopril (Prinivil) 20 mg PO BID [facility] Last Admin: 09/02/19 09:15 Dose: 20 mg Documented by: Polyethylene Glycol (Miralax (For Daily Use) -) 17 gm PO DAILY [facility] Last Admin: 09/02/19 09:15 Dose: Not Given Documented by: Senna (Senna -) 1 tab PO HS [facility] Last Admin: 09/01/19 22:21 Dose: Not Given Documented by: Spironolactone (Aldactone -) 25 mg PO BID [facility] Last Admin: 09/02/19 09:15 Dose: 25 mg Documented by: Constitutional: Yes: NAD, Obese Eyes: Yes: WNL HENT: Yes: WNL Neck: Yes: WNL Cardiovascular: Yes: Regular Rate and Rhythm, S1, S2 Respiratory: Yes: Diminished Gastrointestinal: Yes: Normal Bowel Sounds, Soft Extremities: Yes: WNL Peripheral Pulses WNL: Yes Labs: Laboratory Results - last 24 hr 08/31/19 11:21 Heparin Anti-Xa Level 0.3 Problem List - Problems (1) Acute and chronic respiratory failure Code(s): J96.20 - ACUTE AND CHR RESP FAILURE, UNSP W HYPOXIA OR HYPERCAPNIA Qualifiers: (2) Pulmonary vascular congestion Code(s): R09.89 - OTH SYMPTOMS AND SIGNS INVOLVING THE CIRC AND RESP SYSTEMS (3) Acute on chronic diastolic (congestive) heart failure Code(s): I50.33 - ACUTE ON CHRONIC DIASTOLIC (CONGESTIVE) HEART FAILURE (4) Acute on chronic respiratory failure with hypoxia and hypercapnia Code(s): J96.21 - ACUTE AND CHRONIC RESPIRATORY FAILURE WITH HYPOXIA; J96.22 - ACUTE AND CHRONIC RESPIRATORY FAILURE WITH HYPERCAPNIA (5) Respiratory distress Code(s): R06.03 - ACUTE RESPIRATORY DISTRESS (6) Morbid obesity with BMI of 50.0-59.9, adult Code(s): Z68.43 - BODY MASS INDEX (BMI) 50.0-59.9, ADULT (7) Obesity hypoventilation syndrome Code(s): E66.2 - MORBID (SEVERE) OBESITY WITH ALVEOLAR HYPOVENTILATION (8) Obstructive sleep apnea Code(s): G47.33 - OBSTRUCTIVE SLEEP APNEA (ADULT) (PEDIATRIC) Assessment/Plan Acute on Chronic Hypoxic and Hypercapneic Respiratory Failure improving Acute on Chronic Diastolic Heart Failure improving Pulmonary HTN Morbid Obesity HITESH/OHS HTN HYPOXEMIA IMPROVING - lasix, aldactone - monitor urine output, creatinine - O2 to keep SpO2 88-92% - inhaled bronchodilators - DVT prophylaxis - Lovenox for dvt prophylaxis 60bid - Incentive spirometer - Will need new sleep workup as he reports his home device is no longer functional Dr Peters
[2019-09-02] MEDS: SENNOSIDES 8.6MG TABLET (FP) PO SCH (21:27)
[2019-09-03] MEDS: FUROSEMIDE 40 MG TABLET (FP) PO SCH (06:22)
[2019-09-03] MEDS: ENOXAPARIN NA (PORCINE) 60 MG/0.6 ML DISP.SYRIN SQ SCH (06:22)
[2019-09-03] MEDS: CARVEDILOL 25 MG TABLET (FP) PO SCH (09:27)
[2019-09-03] MEDS: SPIRONOLACTONE 25 MG TABLET PO SCH (09:27)
[2019-09-03] MEDS: LISINOPRIL 20 MG TABLET (FP) PO SCH (09:27)
[2019-09-03] MEDS: FERROUS SO4 325 MG TABLET (FP) PO SCH (09:27)
--- NOTE | 2019-09-03 09:39 | PN ---
Progress Note, Physician History of Present Illness: Resting in bed, currently utilizing a nasal cannula, reports dyspnea but clinically improved, denies any chest discomfort. - Current Medication List Current Medications: Active Medications Carvedilol (Coreg -) 25 mg PO BID [facility] Last Admin: 09/03/19 09:27 Dose: 25 mg Documented by: Enoxaparin Sodium (Lovenox -) 60 mg SQ Q12H [facility] Last Admin: 09/03/19 06:22 Dose: 60 mg Documented by: Ferrous Sulfate (Feosol -) 325 mg PO BIDWM [facility] Last Admin: 09/03/19 09:27 Dose: 325 mg Documented by: Furosemide (Lasix -) 40 mg PO BIDLASIX [facility] Last Admin: 09/03/19 06:22 Dose: 40 mg Documented by: Lisinopril (Prinivil) 20 mg PO BID [facility] Last Admin: 09/03/19 09:27 Dose: 20 mg Documented by: Polyethylene Glycol (Miralax (For Daily Use) -) 17 gm PO DAILY [facility] Last Admin: 09/02/19 09:15 Dose: Not Given Documented by: Senna (Senna -) 1 tab PO HS [facility] Last Admin: 09/02/19 21:27 Dose: Not Given Documented by: Spironolactone (Aldactone -) 25 mg PO BID [facility] Last Admin: 09/03/19 09:27 Dose: 25 mg Documented by: - Objective Vital Signs: Vital Signs Temperature 97.7 F 09/03/19 03:31 Pulse Rate 78 09/03/19 03:31 Respiratory Rate 20 09/03/19 03:31 Blood Pressure 107/60 09/03/19 03:31 O2 Sat by Pulse Oximetry (%) 91 L 09/03/19 03:31 Constitutional: Yes: No Distress, Calm Neck: Yes: Supple Cardiovascular: Yes: Regular Rate and Rhythm Respiratory: Yes: Diminished, On Nasal O2, SOB Gastrointestinal: Yes: Normal Bowel Sounds, Soft, Abdomen, Obese Edema: Yes Edema: LLE: Trace, RLE: Trace Integumentary: Yes: Venous Stasis Changes Labs: CBC, BMP 08/31/19 06:10 08/31/19 12:59 INR, PTT INR 1.09 (0.83-1.09) 08/28/19 06:10 Problem List - Problems (1) Acute on chronic diastolic (congestive) heart failure Code(s): I50.33 - ACUTE ON CHRONIC DIASTOLIC (CONGESTIVE) HEART FAILURE (2) Acute on chronic respiratory failure with hypoxia and hypercapnia Code(s): J96.21 - ACUTE AND CHRONIC RESPIRATORY FAILURE WITH HYPOXIA; J96.22 - ACUTE AND CHRONIC RESPIRATORY FAILURE WITH HYPERCAPNIA (3) Hypertensive urgency Code(s): I16.0 - HYPERTENSIVE URGENCY (4) Morbid obesity with BMI of 50.0-59.9, adult Code(s): Z68.43 - BODY MASS INDEX (BMI) 50.0-59.9, ADULT (5) Obesity hypoventilation syndrome Code(s): E66.2 - MORBID (SEVERE) OBESITY WITH ALVEOLAR HYPOVENTILATION (6) Obstructive sleep apnea Code(s): G47.33 - OBSTRUCTIVE SLEEP APNEA (ADULT) (PEDIATRIC) Assessment/Plan 08/21/2019 Echo: Mild-mod cLVH with LVEF 58%, normal RV size and fxn 1. Acute on chronic hypoxic/hypercapnic respiratory failure resolving 2. Acute on chronic diastolic failure resolved 3. Coronary artery disease angina pectoris 4. Hypertensive cardiovascular disease with history of hypertensive urgency 5. Obstructive sleep apnea 6. Obesity hypoventilation syndrome with pulmonary hypertension 7. Morbid obesity, bariatric surgery to be considered PLAN: 1. Continue Coreg 25 bid and Lisinopril 20 bid dose with titration as tolerated 2. Continue Lasix 40 po bid and Aldactone 25 bid with close monitoring of diuretic response, renal function and electrolytes 3. Eventual outpatient follow-up in our office post discharge 4. Lovenox 60 bid for ?DVT/PE Px. Not a candidate for NOACs due to obesity apparently, Bipap nightly, wean FIO2 as tolerated 5. D/c planning
[2019-09-03 10:56] VITALS: BP 99/56; PULSE 88; TEMP 97.8
--- NOTE | 2019-09-03 13:37 | PN ---
Teaching Attending Note Name of Resident: Erasmo León ATTENDING PHYSICIAN STATEMENT I saw and evaluated the patient. I reviewed the resident's note and discussed the case with the resident. I agree with the resident's findings and plan as documented. SUBJECTIVE: Feeling better, comfortable on NC, no need for HFO2/BiPAP for several days. No fever/chills/CP/cough/sputum. Ambulating well. OBJECTIVE: Afebrile, Hemodynamically Stable. SpO2 91% on 4L via NC. Last Vital Signs Temp Pulse Resp BP Pulse Ox 97.8 F 88 20 99/56 L 91 L 09/03/19 10:00 09/03/19 10:00 09/03/19 10:00 09/03/19 10:00 09/03/19 10:00 Heart - S1, S2, RRR Lungs - distant breath sounds Abdomen - High BMI. Soft, non-tender. Bowel Sounds normal. Extremities - Edema, chronic venous stasis skin changes Neuro - AAO x 3. Tone/Power normal all extremities. Discharge Medications Medication Instructions Recorded Furosemide [Lasix -] 40 mg PO BID 12/06/18 Ferrous Sulfate [Feosol] 325 mg PO BIDWM 30 Days #60 ud 03/21/19 Carvedilol 25 mg PO BID 08/20/19 Albuterol Sulfate Inhaler - 1 puff IH Q4H #1 inhaler 08/31/19 [Ventolin HFA Inhaler -] Enoxaparin [Lovenox -] 60 mg SQ BID #60 disp.syrin 08/31/19 Lisinopril 20 mg PO BID #60 tablet 08/31/19 Spironolactone 25 mg PO BID #60 tablet 08/31/19 ASSESSMENT AND PLAN: 49 year old male with history of morbid obesity, HITESH/OHS on CPAP, HTN, HFpEF, and chronic LE edema, presented with 2-3 day history of shortness of breath and hypoxia. 1. Acute on Chronic Hypoxic and Hypercapneic Respiratory Failure secondary to Acute on Chronic Diastolic CHF, OHS/HITESH, Pulmonary HTN, +/- possible PE Requiring BiPAP at night, now titrated down to 4L via NC during daytime. Target SpO2 88-92% as per Pulm. COVID negative. IV Lasix transitioned to PO - for DC on oral lasix 40mg BID. Continue Coreg, Lisinopril, Aldactone. Cardiology and Pulmonary following. Elevated DDIMER, unable to obtain PE study at [facility] due to body habitus. Seen by Hematology - recommends Lovenox 60mg BID SQ for DVT/PE Px. Not a candidate for NOACs due to obesity apparently. Discussed with Dr. Mantilla - recommends Lovenox for several months at least. 2. HTN - Continue Carvedilol, Lisinopril, Spironolactone 3. Morbid Obesity - will benefit from referral for Bariatric Surgery. 4. Microcytosis - Hx of REJI, Iron Sat 10%, normally on Ferrous Sulfate. Resumed. 5. Hyperkalemia - resolved. DVT Px - Lovenox SQ Medically stable for discharge pending repeat K levels. Will be sent on Home O2. As per Case Management, he will cover the costs of home O2 and can be set up for O2 on discharge.
--- NOTE | 2019-09-03 14:09 | PN ---
Progress Note (short form) - Note Progress Note: Reports feeling better overall. Overall less SOB. No acute events overnight. Intake & Output 08/31/19 09/01/19 09/02/19 09/03/19 23:59 23:59 23:59 23:59 Intake Total 300 1670 640 200 Output Total 1300 1850 750 Balance -1000 1670 -1210 -550 Weight 494 lb 15.004 oz 497 lb 6.72 oz 497 lb 2.278 oz 494 lb 15.004 oz Last Vital Signs Temp Pulse Resp BP Pulse Ox 97.8 F 88 20 99/56 L 91 L 09/03/19 10:00 09/03/19 10:00 09/03/19 10:00 09/03/19 10:00 09/03/19 10:00 Constitutional: Yes: NAD, Obese Eyes: Yes: WNL HENT: Yes: WNL Neck: Yes: WNL Cardiovascular: Yes: Regular Rate and Rhythm, S1, S2 Respiratory: Yes: Diminished Gastrointestinal: Yes: Normal Bowel Sounds, Soft Extremities: Yes: WNL Peripheral Pulses WNL: Yes Labs: Problem List - Problems (1) Acute and chronic respiratory failure Code(s): J96.20 - ACUTE AND CHR RESP FAILURE, UNSP W HYPOXIA OR HYPERCAPNIA Qualifiers: (2) Pulmonary vascular congestion Code(s): R09.89 - OTH SYMPTOMS AND SIGNS INVOLVING THE CIRC AND RESP SYSTEMS (3) Acute on chronic diastolic (congestive) heart failure Code(s): I50.33 - ACUTE ON CHRONIC DIASTOLIC (CONGESTIVE) HEART FAILURE (4) Acute on chronic respiratory failure with hypoxia and hypercapnia Code(s): J96.21 - ACUTE AND CHRONIC RESPIRATORY FAILURE WITH HYPOXIA; J96.22 - ACUTE AND CHRONIC RESPIRATORY FAILURE WITH HYPERCAPNIA (5) Respiratory distress Code(s): R06.03 - ACUTE RESPIRATORY DISTRESS (6) Morbid obesity with BMI of 50.0-59.9, adult Code(s): Z68.43 - BODY MASS INDEX (BMI) 50.0-59.9, ADULT (7) Obesity hypoventilation syndrome Code(s): E66.2 - MORBID (SEVERE) OBESITY WITH ALVEOLAR HYPOVENTILATION (8) Obstructive sleep apnea Code(s): G47.33 - OBSTRUCTIVE SLEEP APNEA (ADULT) (PEDIATRIC) Assessment/Plan Acute on Chronic Hypoxic and Hypercapneic Respiratory Failure improving Acute on Chronic Diastolic Heart Failure improving Pulmonary HTN Morbid Obesity HITESH/OHS HTN HYPOXEMIA IMPROVING - lasix, aldactone - inhaled bronchodilators - DVT prophylaxis - Will need new sleep workup as he reports his home device is no longer functional (has insurance issues as well) - DC planning Dr Peters
--- NOTE | 2019-09-03 16:52 | PN ---
Progress Note (short form) - Note Progress Note: Patient had already been discharged. Is currently here due to financial constraints and has agreed to go home today.
== END 2019-09-03 12:12 | disposition home or self-care (01) | DRG 194 ==
LOC: JER 12:28 → JERBED 15:53 → J4S 21:38 → JICU 08-21 07:58 → J4W 08-23 14:07
PROVIDERS: ADMIT Internal Medicine
DX: I11.0 Hypertensive heart disease with heart failure (principal); J96.21 Acute and chronic respiratory failure with hypoxia; G47.33 Obstructive sleep apnea (adult) (pediatric); I50.33 Acute on chronic diastolic (congestive) heart failure; E66.01 Morbid (severe) obesity due to excess calories; Z68.44 Body mass index [BMI] 60.0-69.9, adult; I27.20 Pulmonary hypertension, unspecified; J96.22 Acute and chronic respiratory failure with hypercapnia; I25.119 Atherosclerotic heart disease of native coronary artery with unspecified angina pectoris; J98.11 Atelectasis; I16.0 Hypertensive urgency; E87.5 Hyperkalemia; Z59.9 Problem related to housing and economic circumstances, unspecified; M19.90 Unspecified osteoarthritis, unspecified site; R60.9 Edema, unspecified
CPT/HCPCS: 36415; 36600; 71045-TC-FY; 80048; 80053; 81003; 82248; 82550; 82728; 82803; 82962; 83605; 83615; 83735; 83880; 84100; 84484; 85025; 85027; 85379; 85520; 85610; 85730; 86140; 86769; 87086; 93005; 93010; 93306-TC; 93970-TC; 94010; 94640; 94660; 94761; 97116-GP; 97162-GP; 99291; J1644; U0003

== ENCOUNTER 2020-06-09 09:49 | Inpatient (IN) | payer OTHER ==
[2020-06-09 11:10] LABS: BASO % 0.7 % (0-2.0); EOS % 0.4 % (0-4.5); HEMATOCRIT 46.3 % (35.4-49); HEMOGLOBIN 14.3 GM/dL (11.7-16.9); MCH 24.6 pg (25.7-33.7); MEAN CELL VOLUME 79.5 fl (80-96); MEAN PLT VOLUME 9.1 fl (7.5-11.1); MONO % 7.9 % (3.8-10.2); PLATELET COUNT 190 K/MM3 (134-434); RBC 5.82 M/mm3 (4.00-5.60); RDW 17.7 % (11.9-15.9); VENOUS BASE EXCESS 2.3 mmol/L (-2-2); VENOUS O2 SATURATION 63.9 % (70-80); VENOUS PH 7.271 (7.310-7.410); WHITE BLOOD COUNT 8.1 K/mm3 (4.0-10.0)
[2020-06-09 11:12] LABS: VENOUS PCO2 70.3 mmHg (38-52)
[2020-06-09 11:33] LABS: CHLORIDE 102 mmol/L (98-107); SODIUM 131 mmol/L (136-145)
[2020-06-09 11:36] LABS: CALCIUM 8.2 mg/dL (8.5-10.1)
[2020-06-09 11:37] LABS: BLOOD UREA NITROGEN 13.5 mg/dL (7-18); CO2 37 mmol/L (21-32); GLUCOSE,RANDOM 84 mg/dL (74-106)
[2020-06-09 11:40] LABS: INR 1.2 (0.83-1.09); PROTHROMBIN TIME (PATIENT) 14.7 SEC (9.7-13.0)
[2020-06-09 11:42] LABS: BILIRUBIN,TOTAL 0.7 mg/dL (0.2-1); TOT PROT 8.7 g/dl (6.4-8.2)
[2020-06-09 11:43] LABS: ACTIVATED PTT 31.5 SECONDS (25.2-36.5); ALK PHOS 88 U/L (45-117)
[2020-06-09 11:45] LABS: N-TERMINAL BNP 965.3 pg/ml (5-125)
[2020-06-09 11:51] LABS: ANION GAP -8 MMOL/L (8-16); SGOT/AST 91 U/L (15-37); SGPT/ALT 26 U/L (13-61)
[2020-06-09 13:25] LABS: ARTERIAL BLD GAS O2 SATURATION 93.4 mmHg (95-98); ARTERIAL BLOOD GAS PO2 84.1 mmHg (80-100); ARTERIAL BLOOD GAS pH 7.215 (7.350-7.450)
[2020-06-09] MEDS ORDERED: FUROSEMIDE 40 MG/4 ML INJECTABLE VIAL IVPUSH ONE (13:41)
[2020-06-09] MEDS ORDERED: FUROSEMIDE 40 MG/4 ML INJECTABLE VIAL ONE (13:42)
[2020-06-09 15:26] LABS: ARTERIAL BLD GAS O2 SATURATION 94.2 mmHg (95-98); ARTERIAL BLOOD GAS BASE EXCESS -0.8 mmol/L (-2-2); ARTERIAL BLOOD GAS PO2 78.7 mmHg (80-100); ARTERIAL BLOOD GAS pH 7.298 (7.350-7.450)
[2020-06-10 01:28] LABS: ARTERIAL BLD GAS O2 SATURATION 95.9 mmHg (95-98); ARTERIAL BLOOD GAS BASE EXCESS 1.9 mmol/L (-2-2); ARTERIAL BLOOD GAS PO2 107.7 mmHg (80-100)
[2020-06-10 01:37] LABS: ALLENS TEST POSITIVE
[2020-06-10 01:39] LABS: ARTERIAL BLOOD GAS pH 7.142 (7.350-7.450)
[2020-06-10 04:40] LABS: ARTERIAL BLD GAS O2 SATURATION 88.7 mmHg (95-98)
[2020-06-10 04:45] LABS: ALLENS TEST POSITIVE
[2020-06-10 04:46] LABS: VENT MODE S/T; VENT RATE 18
[2020-06-10 04:47] LABS: ARTERIAL BLOOD GAS pH 7.117 (7.350-7.450)
[2020-06-10 06:59] LABS: ALLENS TEST POSITIVE; ARTERIAL BLD GAS O2 SATURATION 85.5 mmHg (95-98); ARTERIAL BLOOD GAS BASE EXCESS 4.9 mmol/L (-2-2)
[2020-06-10 07:00] LABS: VENT MODE S/T; VENT RATE 22
[2020-06-10 07:20] LABS: BASO % 0.4 % (0-2.0); EOS % 0.1 % (0-4.5); HEMATOCRIT 46.7 % (35.4-49); LYMPH % 9.1 % (8-40); MCH 24.7 pg (25.7-33.7); MCHC 29.9 g/dl (32.0-35.9); MEAN CELL VOLUME 82.5 fl (80-96); MEAN PLT VOLUME 9.3 fl (7.5-11.1); MONO % 7.5 % (3.8-10.2); NEUT % 82.9 % (42.8-82.8); PLATELET COUNT 164 K/MM3 (134-434); RBC 5.66 M/mm3 (4.00-5.60); RDW 17.9 % (11.9-15.9); WHITE BLOOD COUNT 7.4 K/mm3 (4.0-10.0)
[2020-06-10 07:40] LABS: ALBUMIN 2.8 g/dl (3.4-5.0); BLOOD UREA NITROGEN 14.8 mg/dL (7-18); CALCIUM 8.5 mg/dL (8.5-10.1); MAGNESIUM 2.3 mg/dL (1.8-2.4)
[2020-06-10 07:43] LABS: CREATININE 0.8 mg/dL (0.55-1.3); PHOSPHOROUS 5.1 mg/dL (2.5-4.9)
[2020-06-10 07:44] LABS: BILIRUBIN,TOTAL 0.5 mg/dL (0.2-1); TOT PROT 7.4 g/dl (6.4-8.2)
[2020-06-10] MEDS ORDERED: FUROSEMIDE 40 MG/4 ML INJECTABLE VIAL IVPUSH ONE (14:23)
[2020-06-10] MEDS: CEFTRIAXONE 2 GM in DEXTROSE 5%-WATER 2 GM/50 ML BAG IVPB SCH (14:41)
[2020-06-10] MEDS: AZITHROMYCIN IVPB 500 MG/250 ML BAG IVPB SCH (14:41)
[2020-06-10] MEDS ORDERED: CEFTRIAXONE 2 GM/100 ML BAG IVPB ONE (14:44)
[2020-06-10] MEDS ORDERED: AZITHROMYCIN IVPB 500 MG/250 ML BAG IVPB ONE (14:45)
[2020-06-10] MEDS ORDERED: FUROSEMIDE 40 MG/4 ML INJECTABLE VIAL ONE (14:45)
[2020-06-10 15:02] LABS: EPI CELLS 8 /uL (0-25.1); HYALINE CASTS 2 /uL (0-3.1); PH,URINE 5.5 (5.0-8.0); URINE APPEARANCE CLEAR; URINE BACTERIA 193 /uL (0-1359); URINE BILIRUBIN 1+ (NEGATIVE); URINE COLOR DK YELLOW; URINE GLUCOSE (UA) NEGATIVE (NEGATIVE); URINE KETONE NEGATIVE (NEGATIVE); URINE LEUK ESTERASE NEGATIVE (NEGATIVE); URINE NITRITE NEGATIVE (NEGATIVE); URINE PROTEIN 3+ (NEGATIVE); URINE RBC 7 /uL (0-23.9); URINE WBC 12 /uL (0-25.8)
[2020-06-10 15:10] LABS: COCAINE, UR NEGATIVE ng/ml (CUTOFF=300); OPIATES, URI NEGATIVE ng/ml (CUTOFF=300)
[2020-06-10 15:11] LABS: METHADONE, UR NEGATIVE ng/ml (CUTOFF=300); PHENCYCLIDINE,URINE NEGATIVE ng/ml (CUTOFF=25); URINE AMPHETAMINES NEGATIVE ng/ml (CUTOFF=500); URINE BARBITURATES NEGATIVE ng/ml (CUTOFF=200); URINE BENZODIAZEPINES NEGATIVE ng/ml (CUTOFF=200)
[2020-06-10] MEDS: ENOXAPARIN NA (PORCINE) 40 MG/0.4 ML DISP.SYRIN SQ SCH ×3 (21:00→22:13)
[2020-06-10] MEDS: LISINOPRIL 20 MG TABLET PO SCH ×3 (21:00→22:12)
[2020-06-10] MEDS ORDERED: CHLORHEXIDINE GLUCONATE 4% CLEANSER FOR DECOLONIZATION TP SCH (22:00)
[2020-06-10] MEDS: MUPIROCIN 2% TOPICAL OINTMENT FOR DECOLONIZATION NS SCH ×2 (22:12)
[2020-06-11 06:22] LABS: ARTERIAL BLD GAS O2 SATURATION 87.3 mmHg (95-98); ARTERIAL BLOOD GAS BASE EXCESS 11.7 mmol/L (-2-2); ARTERIAL BLOOD GAS PO2 63.2 mmHg (80-100); ARTERIAL BLOOD GAS pH 7.268 (7.350-7.450)
[2020-06-11 06:28] LABS: ALLENS TEST POSITIVE; VENT MODE S/T; VENT RATE 22
[2020-06-11 07:42] LABS: BASO % 0.3 % (0-2.0); EOS % 0.2 % (0-4.5); HEMOGLOBIN 13.7 GM/dL (11.7-16.9); LYMPH % 12.2 % (8-40); MCH 24.5 pg (25.7-33.7); MCHC 29.8 g/dl (32.0-35.9); MEAN CELL VOLUME 82.2 fl (80-96); MEAN PLT VOLUME 9.3 fl (7.5-11.1); MONO % 8.4 % (3.8-10.2); NEUT % 78.9 % (42.8-82.8); PLATELET COUNT 152 K/MM3 (134-434); RBC 5.59 M/mm3 (4.00-5.60); RDW 17.7 % (11.9-15.9); WHITE BLOOD COUNT 7.1 K/mm3 (4.0-10.0)
[2020-06-11 08:06] LABS: ALBUMIN 2.6 g/dl (3.4-5.0); BLOOD UREA NITROGEN 15.1 mg/dL (7-18)
[2020-06-11 08:08] LABS: BILIRUBIN,TOTAL 0.7 mg/dL (0.2-1); TOT PROT 7.1 g/dl (6.4-8.2)
[2020-06-11 08:09] LABS: CALCIUM 8.7 mg/dL (8.5-10.1); CREATININE 0.7 mg/dL (0.55-1.3)
[2020-06-11 08:10] LABS: MAGNESIUM 2.4 mg/dL (1.8-2.4); PHOSPHOROUS 3.3 mg/dL (2.5-4.9)
[2020-06-11] MEDS: AZITHROMYCIN IVPB 500 MG/250 ML BAG IVPB SCH (10:15)
[2020-06-11] MEDS: CEFTRIAXONE 2 GM in DEXTROSE 5%-WATER 2 GM/50 ML BAG IVPB SCH (10:17)
[2020-06-11] MEDS: ENOXAPARIN NA (PORCINE) 40 MG/0.4 ML DISP.SYRIN SQ SCH ×2 (10:17→21:33)
[2020-06-11] MEDS: LISINOPRIL 20 MG TABLET PO SCH (10:17)
[2020-06-11] MEDS: MUPIROCIN 2% TOPICAL OINTMENT FOR DECOLONIZATION NS SCH (10:24)
[2020-06-11] MEDS ORDERED: FUROSEMIDE 40 MG/4 ML INJECTABLE VIAL IVPUSH SCH (14:00)
[2020-06-11] MEDS: VALSARTAN 160 MG TABLET PO SCH (16:30)
[2020-06-11 18:09] LABS: FREE KAPPA,SERUM 31.4 mg/L (3.3-19.4)
[2020-06-11] MEDS: CARVEDILOL 25 MG TABLET (FP) PO SCH (21:33)
[2020-06-11] MEDS ORDERED: CARVEDILOL 25 MG TABLET (FP) PO SCH (22:00)
[2020-06-12] MEDS: FUROSEMIDE 40 MG/4 ML INJECTABLE VIAL IVPUSH SCH ×2 (06:23→13:52)
[2020-06-12 08:54] LABS: BASO % 0.6 % (0-2.0); EOS % 0.7 % (0-4.5); HEMATOCRIT 45.9 % (35.4-49); HEMOGLOBIN 13.9 GM/dL (11.7-16.9); LYMPH % 14.4 % (8-40); MCH 24.1 pg (25.7-33.7); MCHC 30.2 g/dl (32.0-35.9); MEAN CELL VOLUME 79.9 fl (80-96); MEAN PLT VOLUME 8.6 fl (7.5-11.1); MONO % 7.7 % (3.8-10.2); NEUT % 76.6 % (42.8-82.8); PLATELET COUNT 188 K/MM3 (134-434); RBC 5.75 M/mm3 (4.00-5.60); RDW 16.9 % (11.9-15.9); WHITE BLOOD COUNT 6.3 K/mm3 (4.0-10.0)
[2020-06-12 09:14] LABS: BLOOD UREA NITROGEN 15.4 mg/dL (7-18); CALCIUM 8.3 mg/dL (8.5-10.1); MAGNESIUM 2.2 mg/dL (1.8-2.4)
[2020-06-12 09:17] LABS: CREATININE 0.7 mg/dL (0.55-1.3); PHOSPHOROUS 3.1 mg/dL (2.5-4.9)
[2020-06-12] MEDS: VALSARTAN 160 MG TABLET PO SCH (09:34)
[2020-06-12] MEDS: ENOXAPARIN NA (PORCINE) 40 MG/0.4 ML DISP.SYRIN SQ SCH ×2 (09:35→21:47)
[2020-06-12] MEDS: CARVEDILOL 25 MG TABLET (FP) PO SCH ×2 (09:35→21:47)
[2020-06-12] MEDS: SPIRONOLACTONE 25 MG TABLET PO SCH (09:35)
[2020-06-12] MEDS: AZITHROMYCIN IVPB 500 MG/250 ML BAG IVPB SCH (09:40)
[2020-06-12] MEDS ORDERED: CEFTRIAXONE 2 GM in DEXTROSE 5%-WATER 2 GM/50 ML BAG IVPB SCH (10:00)
[2020-06-12] MEDS ORDERED: DEXTROSE 5%-WATER 100 ML IVPB ONE (11:19)
[2020-06-12 14:30] LABS: ARTERIAL BLD GAS O2 SATURATION 89.2 mmHg (95-98); ARTERIAL BLOOD GAS BASE EXCESS 10.4 mmol/L (-2-2); ARTERIAL BLOOD GAS PO2 59.7 mmHg (80-100); ARTERIAL BLOOD GAS pH 7.371 (7.350-7.450)
[2020-06-12 14:39] LABS: ALLENS TEST POSITIVE
[2020-06-13] MEDS: FUROSEMIDE 40 MG/4 ML INJECTABLE VIAL IVPUSH SCH ×2 (06:12→13:41)
[2020-06-13 07:58] LABS: HEMOGLOBIN 13.3 GM/dL (11.7-16.9); MCH 24.3 pg (25.7-33.7); MCHC 30.3 g/dl (32.0-35.9); MEAN CELL VOLUME 80.3 fl (80-96); MEAN PLT VOLUME 9.2 fl (7.5-11.1); PLATELET COUNT 181 K/MM3 (134-434); RBC 5.47 M/mm3 (4.00-5.60); RDW 17.1 % (11.9-15.9); WHITE BLOOD COUNT 5.4 K/mm3 (4.0-10.0)
[2020-06-13 08:20] LABS: ALBUMIN 2.7 g/dl (3.4-5.0); BLOOD UREA NITROGEN 19.2 mg/dL (7-18); CALCIUM 8.1 mg/dL (8.5-10.1)
[2020-06-13 08:23] LABS: CREATININE 0.7 mg/dL (0.55-1.3)
[2020-06-13 08:24] LABS: BILIRUBIN,TOTAL 0.8 mg/dL (0.2-1)
[2020-06-13] MEDS ORDERED: DEXTROSE 5%-WATER 100 ML IVPB ONE (09:14)
[2020-06-13] MEDS: VALSARTAN 160 MG TABLET PO SCH (09:24)
[2020-06-13] MEDS: CARVEDILOL 25 MG TABLET (FP) PO SCH ×2 (09:24→21:34)
[2020-06-13] MEDS: SPIRONOLACTONE 25 MG TABLET PO SCH (09:24)
[2020-06-13] MEDS: CEFTRIAXONE 2 GM in DEXTROSE 5%-WATER 2 GM/100 ML BAG IVPB SCH (09:25)
[2020-06-13] MEDS: ENOXAPARIN NA (PORCINE) 40 MG/0.4 ML DISP.SYRIN SQ SCH ×2 (09:26→21:34)
[2020-06-13] MEDS: AZITHROMYCIN IVPB 500 MG/250 ML BAG IVPB SCH (09:26)
[2020-06-13 20:07] LABS: TOTAL PROTEIN, URINE 357.4 mg/dL (Not Estab.)
[2020-06-14] MEDS: FUROSEMIDE 40 MG/4 ML INJECTABLE VIAL IVPUSH SCH ×2 (05:41→14:30)
[2020-06-14 07:33] LABS: CALCIUM 8.5 mg/dL (8.5-10.1)
[2020-06-14 07:37] LABS: CREATININE 0.8 mg/dL (0.55-1.3)
[2020-06-14] MEDS ORDERED: DEXTROSE 5%-WATER 100 ML IVPB ONE (09:01)
[2020-06-14] MEDS: VALSARTAN 160 MG TABLET PO SCH (09:19)
[2020-06-14] MEDS: CEFTRIAXONE 2 GM in DEXTROSE 5%-WATER 2 GM/100 ML BAG IVPB SCH (09:19)
[2020-06-14] MEDS: SPIRONOLACTONE 25 MG TABLET PO SCH (09:19)
[2020-06-14] MEDS: CARVEDILOL 25 MG TABLET (FP) PO SCH ×2 (09:19→21:32)
[2020-06-14] MEDS: ENOXAPARIN NA (PORCINE) 40 MG/0.4 ML DISP.SYRIN SQ SCH ×2 (09:19→21:32)
[2020-06-14] MEDS: AZITHROMYCIN IVPB 500 MG/250 ML BAG IVPB SCH (09:58)
[2020-06-14] MEDS: IBUPROFEN 600 MG TABLET (FP) PO SCH (21:39)
[2020-06-15] MEDS: FUROSEMIDE 40 MG/4 ML INJECTABLE VIAL IVPUSH SCH (06:15)
[2020-06-15] MEDS: IBUPROFEN 600 MG TABLET (FP) PO SCH ×3 (06:16→21:46)
[2020-06-15 06:56] LABS: BLOOD UREA NITROGEN 31.1 mg/dL (7-18); CALCIUM 8.5 mg/dL (8.5-10.1)
[2020-06-15 06:57] LABS: MAGNESIUM 2.4 mg/dL (1.8-2.4)
[2020-06-15 07:00] LABS: CREATININE 1.1 mg/dL (0.55-1.3); PHOSPHOROUS 4.1 mg/dL (2.5-4.9)
[2020-06-15] MEDS: CARVEDILOL 25 MG TABLET (FP) PO SCH ×2 (09:26→21:36)
[2020-06-15] MEDS: ENOXAPARIN NA (PORCINE) 40 MG/0.4 ML DISP.SYRIN SQ SCH ×2 (09:26→21:36)
[2020-06-15] MEDS: SPIRONOLACTONE 25 MG TABLET PO SCH (09:26)
[2020-06-15] MEDS: VALSARTAN 160 MG TABLET PO SCH (09:26)
[2020-06-15 14:06] VITALS: BMI 59.6
[2020-06-16] MEDS: IBUPROFEN 600 MG TABLET (FP) PO SCH ×2 (06:25→14:43)
[2020-06-16 08:04] LABS: BLOOD UREA NITROGEN 32.8 mg/dL (7-18); CALCIUM 8.5 mg/dL (8.5-10.1)
[2020-06-16 08:05] LABS: MAGNESIUM 2.5 mg/dL (1.8-2.4)
[2020-06-16 08:08] LABS: CREATININE 0.9 mg/dL (0.55-1.3); PHOSPHOROUS 3.5 mg/dL (2.5-4.9)
[2020-06-16] MEDS: ENOXAPARIN NA (PORCINE) 40 MG/0.4 ML DISP.SYRIN SQ SCH (09:51)
[2020-06-16] MEDS: VALSARTAN 160 MG TABLET PO SCH (09:51)
[2020-06-16] MEDS: CARVEDILOL 25 MG TABLET (FP) PO SCH (09:51)
[2020-06-16] MEDS: SPIRONOLACTONE 25 MG TABLET PO SCH (09:51)
[2020-06-16] MEDS ORDERED: FUROSEMIDE 40 MG TABLET (FP) PO SCH (14:00)
[2020-06-16 18:28] VITALS: PULSE 82
[2020-06-16 19:03] VITALS: BP 160/81; TEMP 97.7
== END 2020-06-16 21:00 | disposition short-term general hospital (02) | DRG 133 ==
LOC: JER 09:49 → JERBED 15:13 → UNDOADMIN 15:13 → JICU 06-10 17:30 → J4S 06-11 17:44
PROVIDERS: ADMIT Internal Medicine; ATTEND Internal Medicine
DX: J96.21 Acute and chronic respiratory failure with hypoxia (principal); J96.22 Acute and chronic respiratory failure with hypercapnia; G47.33 Obstructive sleep apnea (adult) (pediatric); I16.0 Hypertensive urgency; I25.119 Atherosclerotic heart disease of native coronary artery with unspecified angina pectoris; I26.99 Other pulmonary embolism without acute cor pulmonale; J18.9 Pneumonia, unspecified organism; I50.33 Acute on chronic diastolic (congestive) heart failure; E66.01 Morbid (severe) obesity due to excess calories; Z68.42 Body mass index [BMI] 45.0-49.9, adult; I27.20 Pulmonary hypertension, unspecified; I11.0 Hypertensive heart disease with heart failure
CPT/HCPCS: 36415; 36600; 71045-TC-FY; 80048; 80053; 80061; 80307; 81003; 82784; 82803; 82962; 83036; 83721; 83735; 83880; 83883; 84100; 84132; 84155; 84156; 84157; 84165; 84443; 84484; 85025; 85027; 85379; 85610; 85730; 93005; 93010; 93306-TC; 93970-TC; 94010; 94660; 97116-GP; 97161-GP; 99291; C9803; U0003; U0005

== ENCOUNTER 2020-12-01 12:45 | Inpatient (IN) | payer OTHER ==
[2020-12-01 12:56] VITALS: BMI 54.8
[2020-12-01 13:38] LABS: BASO % 0.6 % (0-2.0); EOS % 0.7 % (0-4.5); HEMATOCRIT 47.7 % (35.4-49); HEMOGLOBIN 14.5 GM/dL (11.7-16.9); LYMPH % 16.1 % (8-40); MCH 24.4 pg (25.7-33.7); MCHC 30.4 g/dl (32.0-35.9); MEAN CELL VOLUME 80.2 fl (80-96); MEAN PLT VOLUME 8.7 fl (7.5-11.1); MONO % 8.3 % (3.8-10.2); NEUT % 74.3 % (42.8-82.8); PLATELET COUNT 225 10^3/uL (134-434); RBC 5.95 M/mm3 (4.00-5.60); RDW 16.9 % (11.9-15.9); WHITE BLOOD COUNT 5.6 K/mm3 (4.0-10.0)
[2020-12-01 13:47] LABS: CHLORIDE 102 mmol/L (98-107); SODIUM 142 mmol/L (136-145)
[2020-12-01 13:49] LABS: ALBUMIN 3.1 g/dl (3.4-5.0); ANION GAP 4 MMOL/L (8-16); CALCIUM 8.1 mg/dL (8.5-10.1); CO2 36 mmol/L (21-32); GLUCOSE,RANDOM 94 mg/dL (74-106); INR 1.06 (0.83-1.09); MAGNESIUM 2.2 mg/dL (1.8-2.4); PROTHROMBIN TIME (PATIENT) 12.4 SEC (9.7-13.0)
[2020-12-01 13:52] LABS: ACTIVATED PTT 30.3 SECONDS (25.2-36.5)
[2020-12-01 13:53] LABS: CREATININE 0.9 mg/dL (0.55-1.3); PHOSPHOROUS 3.2 mg/dL (2.5-4.9); SGOT/AST 14 U/L (15-37); SGPT/ALT 22 U/L (13-61)
[2020-12-01 13:55] LABS: ALK PHOS 84 U/L (45-117); BILIRUBIN,TOTAL 0.4 mg/dL (0.2-1); TOT PROT 8.1 g/dl (6.4-8.2)
[2020-12-01 13:57] LABS: N-TERMINAL BNP 614.4 pg/ml (5-125)
[2020-12-01 13:59] LABS: VENOUS BASE EXCESS 6.7 mmol/L (-2-2); VENOUS O2 SATURATION 58.3 % (70-80); VENOUS PH 7.286 (7.310-7.410)
[2020-12-01 14:01] LABS: VENOUS PCO2 79.4 mmHg (38-52)
[2020-12-01] MEDS ORDERED: FUROSEMIDE 40 MG TABLET (FP) PO SCH (16:45)
[2020-12-01] MEDS ORDERED: FUROSEMIDE 40 MG TABLET (FP) ONE (17:22)
[2020-12-01 17:45] LABS: ARTERIAL BLD GAS O2 SATURATION 96.4 % (95-98); ARTERIAL BLOOD GAS BASE EXCESS 4.4 mmol/L (-2-2); ARTERIAL BLOOD GAS PO2 102.4 mmHg (80-100); ARTERIAL BLOOD GAS pH 7.241 (7.350-7.450)
[2020-12-01 17:46] LABS: ALLENS TEST POSITIVE
[2020-12-01 17:47] LABS: VENT RATE 12
[2020-12-01 22:35] LABS: ARTERIAL BLD GAS O2 SATURATION 92.3 % (95-98); ARTERIAL BLOOD GAS BASE EXCESS 2.5 mmol/L (-2-2); ARTERIAL BLOOD GAS PO2 79.9 mmHg (80-100)
[2020-12-01 22:53] LABS: ALLENS TEST POSITIVE
[2020-12-01 22:54] LABS: VENT MODE S/T; VENT RATE 12
[2020-12-01 22:55] LABS: ARTERIAL BLOOD GAS pH 7.197 (7.350-7.450)
[2020-12-01] MEDS ORDERED: HEPARIN NA (PORCINE) 5,000 UNITS/ML 1ML VIAL ONE (23:17)
[2020-12-01] MEDS: HEPARIN NA (PORCINE) 5,000 UNITS/ML 1ML VIAL SQ SCH (23:22)
[2020-12-01] MEDS: CARVEDILOL 25 MG TABLET (FP) PO SCH (23:22)
[2020-12-02 00:36] LABS: ARTERIAL BLD GAS O2 SATURATION 97.6 % (95-98); ARTERIAL BLOOD GAS BASE EXCESS 6.8 mmol/L (-2-2); ARTERIAL BLOOD GAS PO2 111.1 mmHg (80-100); ARTERIAL BLOOD GAS pH 7.325 (7.350-7.450)
[2020-12-02 00:38] LABS: ALLENS TEST POSITIVE; VENT MODE S/T; VENT RATE 20
[2020-12-02] MEDS: FUROSEMIDE 40 MG TABLET (FP) PO SCH ×2 (07:01→13:21)
[2020-12-02] MEDS: HEPARIN NA (PORCINE) 5,000 UNITS/ML 1ML VIAL SQ SCH ×3 (07:01→21:29)
[2020-12-02 07:12] LABS: ARTERIAL BLD GAS O2 SATURATION 90.6 % (95-98); ARTERIAL BLOOD GAS BASE EXCESS 9.6 mmol/L (-2-2); ARTERIAL BLOOD GAS PO2 59.5 mmHg (80-100); ARTERIAL BLOOD GAS pH 7.419 (7.350-7.450)
[2020-12-02 07:14] LABS: ALLENS TEST POSITIVE; VENT MODE PSV; VENT RATE 20
[2020-12-02] MEDS ORDERED: PT OWN MED DRAWER 7, Y5N ONE (07:50)
[2020-12-02 08:17] LABS: HEMATOCRIT 43.4 % (35.4-49); HEMOGLOBIN 13.3 GM/dL (11.7-16.9); MCH 24.4 pg (25.7-33.7); MCHC 30.5 g/dl (32.0-35.9); MEAN CELL VOLUME 79.8 fl (80-96); MEAN PLT VOLUME 8.6 fl (7.5-11.1); PLATELET COUNT 194 10^3/uL (134-434); RBC 5.44 M/mm3 (4.00-5.60); RDW 16.2 % (11.9-15.9); WHITE BLOOD COUNT 5.7 K/mm3 (4.0-10.0)
[2020-12-02 08:56] LABS: ALBUMIN 2.5 g/dl (3.4-5.0); BLOOD UREA NITROGEN 14.7 mg/dL (7-18); MAGNESIUM 2.1 mg/dL (1.8-2.4)
[2020-12-02 08:58] LABS: CREATININE 0.7 mg/dL (0.55-1.3)
[2020-12-02 09:00] LABS: BILIRUBIN,TOTAL 0.6 mg/dL (0.2-1); TOT PROT 6.8 g/dl (6.4-8.2)
[2020-12-02] MEDS: LISINOPRIL 20 MG TABLET PO SCH (09:55)
[2020-12-02] MEDS: CARVEDILOL 25 MG TABLET (FP) PO SCH ×2 (09:55→21:28)
[2020-12-02] MEDS: ALBUTEROL SO4 2.5/IPRATROPIUM 0.5 INH SOL 3 ML VIAL.NEB. NEB SCH ×2 (16:00→21:26)
[2020-12-03] MEDS: HEPARIN NA (PORCINE) 5,000 UNITS/ML 1ML VIAL SQ SCH ×3 (06:39→21:20)
[2020-12-03] MEDS: FUROSEMIDE 40 MG TABLET (FP) PO SCH ×2 (06:40→15:59)
[2020-12-03 07:58] LABS: HEMATOCRIT 43.1 % (35.4-49); MCHC 30.1 g/dl (32.0-35.9); MEAN CELL VOLUME 79.6 fl (80-96); MEAN PLT VOLUME 8.7 fl (7.5-11.1); PLATELET COUNT 194 10^3/uL (134-434); RBC 5.42 M/mm3 (4.00-5.60); RDW 16.8 % (11.9-15.9); WHITE BLOOD COUNT 5.2 K/mm3 (4.0-10.0)
[2020-12-03 08:14] LABS: ALBUMIN 2.5 g/dl (3.4-5.0); BLOOD UREA NITROGEN 12.4 mg/dL (7-18); CALCIUM 8.1 mg/dL (8.5-10.1); MAGNESIUM 2.2 mg/dL (1.8-2.4)
[2020-12-03 08:17] LABS: CREATININE 0.7 mg/dL (0.55-1.3)
[2020-12-03 08:19] LABS: BILIRUBIN,TOTAL 0.7 mg/dL (0.2-1)
[2020-12-03 08:22] LABS: TOT PROT 6.4 g/dl (6.4-8.2)
[2020-12-03] MEDS: ALBUTEROL SO4 2.5/IPRATROPIUM 0.5 INH SOL 3 ML VIAL.NEB. NEB SCH ×4 (09:37→20:08)
[2020-12-03] MEDS: CARVEDILOL 25 MG TABLET (FP) PO SCH ×2 (10:35→21:20)
[2020-12-03] MEDS: LISINOPRIL 20 MG TABLET PO SCH (10:36)
[2020-12-04] MEDS: FUROSEMIDE 40 MG TABLET (FP) PO SCH ×4 (06:00→14:37)
[2020-12-04] MEDS: HEPARIN NA (PORCINE) 5,000 UNITS/ML 1ML VIAL SQ SCH ×3 (06:29→21:25)
[2020-12-04] MEDS: ALBUTEROL SO4 2.5/IPRATROPIUM 0.5 INH SOL 3 ML VIAL.NEB. NEB SCH ×4 (07:20→20:32)
[2020-12-04 07:22] LABS: HEMATOCRIT 43.5 % (35.4-49); MEAN CELL VOLUME 80.1 fl (80-96); MEAN PLT VOLUME 8.8 fl (7.5-11.1); PLATELET COUNT 193 10^3/uL (134-434); RBC 5.44 M/mm3 (4.00-5.60); RDW 16.7 % (11.9-15.9); WHITE BLOOD COUNT 4.6 K/mm3 (4.0-10.0)
[2020-12-04 08:09] LABS: CALCIUM 8.1 mg/dL (8.5-10.1)
[2020-12-04 08:10] LABS: ALBUMIN 2.4 g/dl (3.4-5.0); BLOOD UREA NITROGEN 13.5 mg/dL (7-18)
[2020-12-04 08:13] LABS: CREATININE 0.6 mg/dL (0.55-1.3)
[2020-12-04 08:15] LABS: BILIRUBIN,TOTAL 0.7 mg/dL (0.2-1); TOT PROT 6.4 g/dl (6.4-8.2)
[2020-12-04] MEDS: LISINOPRIL 20 MG TABLET PO SCH (09:04)
[2020-12-04] MEDS: CARVEDILOL 25 MG TABLET (FP) PO SCH ×2 (09:04→21:25)
[2020-12-05 05:22] VITALS: BP 134/78; TEMP 98.6
[2020-12-05] MEDS: HEPARIN NA (PORCINE) 5,000 UNITS/ML 1ML VIAL SQ SCH (06:19)
[2020-12-05] MEDS: FUROSEMIDE 40 MG TABLET (FP) PO SCH (06:19)
[2020-12-05] MEDS: ALBUTEROL SO4 2.5/IPRATROPIUM 0.5 INH SOL 3 ML VIAL.NEB. NEB SCH ×2 (08:17→11:01)
[2020-12-05 09:30] VITALS: PULSE 87
[2020-12-05] MEDS: LISINOPRIL 20 MG TABLET PO SCH (10:30)
[2020-12-05] MEDS: CARVEDILOL 25 MG TABLET (FP) PO SCH (10:30)
== END 2020-12-05 12:13 | disposition home or self-care (01) | DRG 133 ==
LOC: JER 12:45 → JERBED 13:26 → J4W 12-02 01:26
PROVIDERS: ATTEND Student in an Organized Health Care Education/Training Program
DX: J96.22 Acute and chronic respiratory failure with hypercapnia (principal); I11.0 Hypertensive heart disease with heart failure; I50.33 Acute on chronic diastolic (congestive) heart failure; G47.33 Obstructive sleep apnea (adult) (pediatric); E66.01 Morbid (severe) obesity due to excess calories; Z68.43 Body mass index [BMI] 50.0-59.9, adult; E87.2 Acidosis; J96.21 Acute and chronic respiratory failure with hypoxia; R00.0 Tachycardia, unspecified; I27.20 Pulmonary hypertension, unspecified
CPT/HCPCS: 36415; 36600; 71045-TC-FY; 80053; 82550; 82803; 83735; 83880; 84100; 84484; 85025; 85027; 85379; 85610; 85730; 87804; 93005; 93010; 93970-TC; 94640; 94660; 94761; 99285-25; C9803; J1644; U0003; U0005

== ENCOUNTER 2022-08-09 07:31 | Inpatient (IN) | payer OTHER ==
[2022-08-09 08:42] LABS: VENOUS BASE EXCESS 8.5 mmol/L (-2-2); VENOUS O2 SATURATION 62.4 % (70-80); VENOUS PH 7.317 (7.310-7.410)
[2022-08-09 08:44] LABS: VENOUS PCO2 75.8 mmHg (38-52)
[2022-08-09 08:55] LABS: INR 1.19 (0.83-1.09); PROTHROMBIN TIME (PATIENT) 13.8 SEC (9.7-13.0)
[2022-08-09 08:58] LABS: ACTIVATED PTT 32.7 SECONDS (25.2-36.5)
[2022-08-09 09:02] LABS: POTASSIUM 3.6 mmol/L (3.5-5.1)
[2022-08-09 09:03] LABS: CALCIUM 8.5 mg/dL (8.5-10.1)
[2022-08-09 09:04] LABS: ALBUMIN 3.1 g/dl (3.4-5.0); BLOOD UREA NITROGEN 12.8 mg/dL (7-18)
[2022-08-09 09:07] LABS: CREATININE 0.8 mg/dL (0.55-1.3)
[2022-08-09 09:09] LABS: BILIRUBIN,TOTAL 0.5 mg/dL (0.2-1); TOT PROT 7.5 g/dl (6.4-8.2)
[2022-08-09 09:12] LABS: N-TERMINAL BNP 238.5 pg/ml (5-125)
[2022-08-09] MEDS ORDERED: FUROSEMIDE 40 MG/4 ML INJECTABLE VIAL IVPUSH ONE (09:20)
[2022-08-09 09:42] LABS: BASO % 0.6 % (0-2.0); EOS % 0.3 % (0-4.5); HEMATOCRIT 41.9 % (35.4-49); HEMOGLOBIN 12.5 GM/dL (11.7-16.9); LYMPH % 11.8 % (8-40); MCHC 29.9 g/dl (32.0-35.9); MEAN CELL VOLUME 76.9 fl (80-96); MEAN PLT VOLUME 8.3 fl (7.5-11.1); MONO % 8.1 % (3.8-10.2); NEUT % 79.2 % (42.8-82.8); PLATELET COUNT 207 10^3/uL (134-434); RBC 5.44 M/mm3 (4.00-5.60); RDW 15.7 % (11.9-15.9); WHITE BLOOD COUNT 7.6 K/mm3 (4.0-10.0)
[2022-08-09] MEDS ORDERED: FUROSEMIDE 40 MG/4 ML INJECTABLE VIAL ONE ×2 (09:42→14:40)
[2022-08-09] MEDS: FUROSEMIDE 40 MG/4 ML INJECTABLE VIAL IVPUSH SCH (14:46)
[2022-08-09] MEDS: HEPARIN NA (PORCINE) 5,000 UNITS/ML 1ML VIAL SQ SCH (22:29)
[2022-08-09] MEDS: CARVEDILOL 25 MG TABLET (FP) PO SCH (22:29)
[2022-08-09 23:45] VITALS: BMI 64.1
[2022-08-10] MEDS: FUROSEMIDE 40 MG/4 ML INJECTABLE VIAL IVPUSH SCH ×2 (06:19→14:39)
[2022-08-10 08:12] LABS: BASO % 0.4 % (0-2.0); EOS % 0.3 % (0-4.5); HEMATOCRIT 40.7 % (35.4-49); HEMOGLOBIN 11.9 GM/dL (11.7-16.9); LYMPH % 11.8 % (8-40); MCH 23.1 pg (25.7-33.7); MCHC 29.2 g/dl (32.0-35.9); MEAN CELL VOLUME 79.1 fl (80-96); MEAN PLT VOLUME 9.4 fl (7.5-11.1); MONO % 7.1 % (3.8-10.2); NEUT % 80.4 % (42.8-82.8); PLATELET COUNT 214 10^3/uL (134-434); RBC 5.15 M/mm3 (4.00-5.60); RDW 15.8 % (11.9-15.9); WHITE BLOOD COUNT 7.5 K/mm3 (4.0-10.0)
[2022-08-10 08:35] LABS: POTASSIUM 3.5 mmol/L (3.5-5.1)
[2022-08-10 08:38] LABS: BLOOD UREA NITROGEN 13.4 mg/dL (7-18); CALCIUM 8.3 mg/dL (8.5-10.1)
[2022-08-10 08:41] LABS: CREATININE 0.6 mg/dL (0.55-1.3)
[2022-08-10] MEDS: CARVEDILOL 25 MG TABLET (FP) PO SCH ×2 (09:48→21:49)
[2022-08-10] MEDS: HEPARIN NA (PORCINE) 5,000 UNITS/ML 1ML VIAL SQ SCH (09:48)
[2022-08-10] MEDS ORDERED: LISINOPRIL 20 MG TABLET PO SCH (10:00)
[2022-08-10] MEDS ORDERED: LISINOPRIL 20 MG TABLET PO ONE (11:30)
[2022-08-10] MEDS ORDERED: ENOXAPARIN NA (PORCINE) 40 MG/0.4 ML DISP.SYRIN SQ SCH (15:15)
[2022-08-10] MEDS: ENOXAPARIN NA (PORCINE) 60 MG/0.6 ML DISP.SYRIN SQ SCH ×2 (16:18→21:49)
[2022-08-11] MEDS: FUROSEMIDE 40 MG/4 ML INJECTABLE VIAL IVPUSH SCH ×2 (05:53→14:30)
[2022-08-11 07:43] LABS: POTASSIUM 3.7 mmol/L (3.5-5.1)
[2022-08-11 07:44] LABS: CALCIUM 8.1 mg/dL (8.5-10.1)
[2022-08-11 07:45] LABS: BLOOD UREA NITROGEN 16.6 mg/dL (7-18); MAGNESIUM 2.1 mg/dL (1.8-2.4)
[2022-08-11 07:47] LABS: CREATININE 0.7 mg/dL (0.55-1.3); PHOSPHOROUS 3.7 mg/dL (2.5-4.9)
[2022-08-11] MEDS: CARVEDILOL 25 MG TABLET (FP) PO SCH ×2 (10:16→21:53)
[2022-08-11] MEDS: ENOXAPARIN NA (PORCINE) 60 MG/0.6 ML DISP.SYRIN SQ SCH ×2 (10:17→21:53)
[2022-08-11] MEDS: LISINOPRIL 20 MG TABLET PO SCH (10:17)
[2022-08-12] MEDS: FUROSEMIDE 40 MG/4 ML INJECTABLE VIAL IVPUSH SCH ×2 (05:36→14:56)
[2022-08-12 09:18] LABS: BLOOD UREA NITROGEN 21.1 mg/dL (7-18); CALCIUM 8.6 mg/dL (8.5-10.1); CREATININE 0.9 mg/dL (0.55-1.3); MAGNESIUM 2.2 mg/dL (1.8-2.4); PHOSPHOROUS 3.7 mg/dL (2.5-4.9)
[2022-08-12] MEDS: ENOXAPARIN NA (PORCINE) 60 MG/0.6 ML DISP.SYRIN SQ SCH ×2 (10:04→21:07)
[2022-08-12] MEDS: LISINOPRIL 20 MG TABLET PO SCH (10:04)
[2022-08-12] MEDS: CARVEDILOL 25 MG TABLET (FP) PO SCH ×2 (10:04→21:07)
[2022-08-13] MEDS: FUROSEMIDE 40 MG/4 ML INJECTABLE VIAL IVPUSH SCH ×2 (06:22→13:41)
[2022-08-13 08:02] LABS: POTASSIUM 4.3 mmol/L (3.5-5.1)
[2022-08-13 08:09] LABS: BLOOD UREA NITROGEN 26.3 mg/dL (7-18); CALCIUM 8.7 mg/dL (8.5-10.1); MAGNESIUM 2.2 mg/dL (1.8-2.4)
[2022-08-13 08:12] LABS: CREATININE 0.9 mg/dL (0.55-1.3); PHOSPHOROUS 4.5 mg/dL (2.5-4.9)
[2022-08-13] MEDS: LISINOPRIL 20 MG TABLET PO SCH (09:54)
[2022-08-13] MEDS: ENOXAPARIN NA (PORCINE) 60 MG/0.6 ML DISP.SYRIN SQ SCH ×2 (09:54→21:16)
[2022-08-13] MEDS: CARVEDILOL 25 MG TABLET (FP) PO SCH ×2 (09:54→21:16)
[2022-08-14] MEDS: FUROSEMIDE 40 MG/4 ML INJECTABLE VIAL IVPUSH SCH ×2 (06:24→14:29)
[2022-08-14 07:49] LABS: POTASSIUM 3.8 mmol/L (3.5-5.1)
[2022-08-14 07:54] LABS: CALCIUM 8.9 mg/dL (8.5-10.1)
[2022-08-14 07:55] LABS: BLOOD UREA NITROGEN 24.2 mg/dL (7-18); MAGNESIUM 2.2 mg/dL (1.8-2.4)
[2022-08-14 07:58] LABS: CREATININE 0.9 mg/dL (0.55-1.3); PHOSPHOROUS 4.1 mg/dL (2.5-4.9)
[2022-08-14] MEDS: CARVEDILOL 25 MG TABLET (FP) PO SCH ×2 (09:55→22:19)
[2022-08-14] MEDS: LISINOPRIL 20 MG TABLET PO SCH (09:56)
[2022-08-14] MEDS: ENOXAPARIN NA (PORCINE) 60 MG/0.6 ML DISP.SYRIN SQ SCH ×2 (09:56→22:19)
[2022-08-15] MEDS: FUROSEMIDE 40 MG/4 ML INJECTABLE VIAL IVPUSH SCH ×2 (06:36→13:55)
[2022-08-15 08:46] LABS: BASO % 0.4 % (0-2.0); EOS % 0.9 % (0-4.5); HEMOGLOBIN 12.7 GM/dL (11.7-16.9); LYMPH % 16.8 % (8-40); MCH 23.3 pg (25.7-33.7); MCHC 30.3 g/dl (32.0-35.9); MEAN CELL VOLUME 76.8 fl (80-96); MEAN PLT VOLUME 8.7 fl (7.5-11.1); MONO % 8.2 % (3.8-10.2); NEUT % 73.7 % (42.8-82.8); PLATELET COUNT 220 10^3/uL (134-434); RBC 5.47 M/mm3 (4.00-5.60); RDW 15.6 % (11.9-15.9); WHITE BLOOD COUNT 4.9 K/mm3 (4.0-10.0)
[2022-08-15 09:42] LABS: POTASSIUM 4.3 mmol/L (3.5-5.1)
[2022-08-15 09:56] LABS: CALCIUM 8.9 mg/dL (8.5-10.1)
[2022-08-15 09:57] LABS: CREATININE 0.9 mg/dL (0.55-1.3); MAGNESIUM 2.2 mg/dL (1.8-2.4); PHOSPHOROUS 4.6 mg/dL (2.5-4.9)
[2022-08-15] MEDS: ENOXAPARIN NA (PORCINE) 60 MG/0.6 ML DISP.SYRIN SQ SCH ×2 (10:03→21:46)
[2022-08-15] MEDS: CARVEDILOL 25 MG TABLET (FP) PO SCH ×2 (10:03→21:46)
[2022-08-15] MEDS: LISINOPRIL 20 MG TABLET PO SCH (10:03)
[2022-08-16] MEDS: FUROSEMIDE 40 MG/4 ML INJECTABLE VIAL IVPUSH SCH ×2 (06:31→14:40)
[2022-08-16 07:13] LABS: BASO % 0.6 % (0-2.0); EOS % 1.6 % (0-4.5); HEMATOCRIT 41.4 % (35.4-49); HEMOGLOBIN 12.1 GM/dL (11.7-16.9); LYMPH % 24.1 % (8-40); MCH 23.1 pg (25.7-33.7); MCHC 29.3 g/dl (32.0-35.9); MEAN CELL VOLUME 78.7 fl (80-96); MEAN PLT VOLUME 9.3 fl (7.5-11.1); MONO % 7.7 % (3.8-10.2); PLATELET COUNT 223 10^3/uL (134-434); RBC 5.25 M/mm3 (4.00-5.60); RDW 15.3 % (11.9-15.9); WHITE BLOOD COUNT 4.8 K/mm3 (4.0-10.0)
[2022-08-16 07:45] LABS: CALCIUM 9.2 mg/dL (8.5-10.1)
[2022-08-16 07:46] LABS: ALBUMIN 2.9 g/dl (3.4-5.0); BLOOD UREA NITROGEN 34.9 mg/dL (7-18); MAGNESIUM 2.2 mg/dL (1.8-2.4)
[2022-08-16 07:49] LABS: PHOSPHOROUS 4.7 mg/dL (2.5-4.9)
[2022-08-16 07:50] LABS: BILIRUBIN,TOTAL 0.6 mg/dL (0.2-1); TOT PROT 7.1 g/dl (6.4-8.2)
[2022-08-16 09:29] VITALS: RESP 20
[2022-08-16] MEDS: ENOXAPARIN NA (PORCINE) 60 MG/0.6 ML DISP.SYRIN SQ SCH (09:32)
[2022-08-16] MEDS: CARVEDILOL 25 MG TABLET (FP) PO SCH (09:32)
[2022-08-16] MEDS: LISINOPRIL 20 MG TABLET PO SCH (09:32)
[2022-08-16 10:07] LABS: ARTERIAL BLD GAS O2 SATURATION 91.2 % (95-98); ARTERIAL BLOOD GAS BASE EXCESS 14.2 mmol/L (-2-2); ARTERIAL BLOOD GAS PO2 60.9 mmHg (80-100); ARTERIAL BLOOD GAS pH 7.429 (7.350-7.450)
[2022-08-16 10:09] LABS: ALLENS TEST POSITIVE
[2022-08-16 14:56] VITALS: BP 125/73; TEMP 98.1
[2022-08-16 15:24] VITALS: PULSE 95
== END 2022-08-16 18:22 | disposition home or self-care (01) | DRG 133 ==
LOC: JER 07:31 → JERBED 09:16 → J4W 21:38
PROVIDERS: ADMIT Internal Medicine; ATTEND Internal Medicine
DX: J96.21 Acute and chronic respiratory failure with hypoxia (principal); I50.33 Acute on chronic diastolic (congestive) heart failure; E66.2 Morbid (severe) obesity with alveolar hypoventilation; Z68.44 Body mass index [BMI] 60.0-69.9, adult; I11.0 Hypertensive heart disease with heart failure; J96.22 Acute and chronic respiratory failure with hypercapnia
CPT/HCPCS: 0241U-QW; 36415; 36600; 71045-TC-FY; 80048; 80053; 80061; 82550; 82803; 83605; 83735; 83880; 84100; 84484; 85025; 85610; 85730; 93005; 93010; 93306-TC; 94010; 94660; 94761; 97116-GP; 97162-GP; 99285-25; J1644

== ENCOUNTER 2022-11-29 11:45 | Inpatient (IN) | payer OTHER ==
[2022-11-29 13:12] LABS: VENOUS BASE EXCESS 6.2 mmol/L (-2-2); VENOUS O2 SATURATION 97.8 % (70-80); VENOUS PH 7.25 (7.310-7.410)
[2022-11-29 13:14] LABS: VENOUS PCO2 85.6 mmHg (38-52)
[2022-11-29] MEDS ORDERED: ENOXAPARIN NA (PORCINE) 120 MG/0.8 ML DISP.SYRIN SQ SCH (13:15)
[2022-11-29] MEDS ORDERED: ENOXAPARIN NA (PORCINE) 100 MG/1 ML DISP.SYRIN SQ ONE (13:19)
[2022-11-29] MEDS ORDERED: ENOXAPARIN NA (PORCINE) 60 MG/0.6 ML DISP.SYRIN SQ ONE (13:19)
[2022-11-29 13:25] LABS: BASO % 0.9 % (0-2.0); EOS % 0.4 % (0-4.5); HEMOGLOBIN 12.6 GM/dL (11.7-16.9); LYMPH % 15.5 % (8-40); MCHC 29.3 g/dl (32.0-35.9); MEAN CELL VOLUME 78.2 fl (80-96); MEAN PLT VOLUME 8.6 fl (7.5-11.1); MONO % 7.2 % (3.8-10.2); PLATELET COUNT 271 10^3/uL (134-434); RDW 16.3 % (11.9-15.9); WHITE BLOOD COUNT 9.5 K/mm3 (4.0-10.0)
[2022-11-29 13:34] LABS: INR 1.28 (0.83-1.09); PROTHROMBIN TIME (PATIENT) 14.8 SEC (9.7-13.0)
[2022-11-29 13:37] LABS: ACTIVATED PTT 33.5 SECONDS (25.2-36.5)
[2022-11-29] MEDS ORDERED: ENOXAPARIN NA (PORCINE) 80 MG/0.8 ML DISP.SYRIN SQ SCH (13:39)
[2022-11-29 13:43] LABS: POTASSIUM 3.6 mmol/L (3.5-5.1)
[2022-11-29 13:45] LABS: BLOOD UREA NITROGEN 18.6 mg/dL (7-18); CALCIUM 8.4 mg/dL (8.5-10.1)
[2022-11-29 13:48] LABS: CREATININE 0.9 mg/dL (0.55-1.3)
[2022-11-29 13:50] LABS: BILIRUBIN,TOTAL 0.4 mg/dL (0.2-1); TOT PROT 7.6 g/dl (6.4-8.2)
[2022-11-29] MEDS ORDERED: FUROSEMIDE 40 MG/4 ML INJECTABLE VIAL IVPUSH ONE (14:20)
[2022-11-29] MEDS ORDERED: FUROSEMIDE 40 MG/4 ML INJECTABLE VIAL ONE ×2 (14:24→18:48)
[2022-11-29] MEDS ORDERED: ALBUTEROL SO4 2.5/IPRATROPIUM 0.5 INH SOL 3 ML VIAL.NEB. NEB SCH (16:45)
[2022-11-29 17:25] LABS: ARTERIAL BLD GAS O2 SATURATION 91.7 % (95-98); ARTERIAL BLOOD GAS BASE EXCESS 6.5 mmol/L (-2-2); ARTERIAL BLOOD GAS PO2 80.9 mmHg (80-100)
[2022-11-29 17:28] LABS: ALLENS TEST POSITIVE; VENT MODE S/T; VENT RATE 12
[2022-11-29 17:36] LABS: ARTERIAL BLOOD GAS pH 7.171 (7.350-7.450)
[2022-11-29] MEDS ORDERED: FUROSEMIDE 40 MG/4 ML INJECTABLE VIAL IVPB ONE (18:11)
[2022-11-29 19:51] LABS: ALLENS TEST POSITIVE; ARTERIAL BLD GAS O2 SATURATION 91.8 % (95-98); ARTERIAL BLOOD GAS BASE EXCESS 7.2 mmol/L (-2-2); ARTERIAL BLOOD GAS pH 7.235 (7.350-7.450)
[2022-11-29 19:52] LABS: VENT MODE S/T; VENT RATE 12
[2022-11-29] MEDS ORDERED: ALBUTEROL SO4 2.5/IPRATROPIUM 0.5 INH SOL 3 ML VIAL.NEB. NEB ONE (20:30)
[2022-11-29] MEDS: ALBUTEROL SO4 2.5/IPRATROPIUM 0.5 INH SOL 3 ML VIAL.NEB. NEB SCH ×2 (20:51→23:50)
[2022-11-30 00:29] LABS: ARTERIAL BLOOD GAS BASE EXCESS 7.9 mmol/L (-2-2); ARTERIAL BLOOD GAS PO2 73.4 mmHg (80-100); ARTERIAL BLOOD GAS pH 7.239 (7.350-7.450)
[2022-11-30 00:32] LABS: ALLENS TEST POSITIVE
[2022-11-30 00:33] LABS: VENT MODE S/T
[2022-11-30 00:34] LABS: VENT RATE 16
[2022-11-30] MEDS: CHLORHEXIDINE GLUCONATE 4% CLEANSER FOR DECOLONIZATION TP SCH ×2 (00:37→21:18)
[2022-11-30] MEDS: CARVEDILOL 25 MG TABLET (FP) PO SCH ×3 (00:37→21:16)
[2022-11-30] MEDS: MUPIROCIN 2% TOPICAL OINTMENT FOR DECOLONIZATION NS SCH ×3 (00:37→21:18)
[2022-11-30] MEDS: HEPARIN NA (PORCINE) 5,000 UNITS/ML 1ML VIAL SQ SCH ×4 (00:37→21:18)
[2022-11-30] MEDS: ALBUTEROL SO4 2.5/IPRATROPIUM 0.5 INH SOL 3 ML VIAL.NEB. NEB SCH ×5 (03:06→20:49)
[2022-11-30 05:38] LABS: ALLENS TEST POSITIVE; ARTERIAL BLD GAS O2 SATURATION 85.1 % (95-98); ARTERIAL BLOOD GAS BASE EXCESS 8.8 mmol/L (-2-2); ARTERIAL BLOOD GAS PO2 61.2 mmHg (80-100); ARTERIAL BLOOD GAS pH 7.233 (7.350-7.450)
[2022-11-30 05:39] LABS: VENT RATE 20
[2022-11-30] MEDS: FUROSEMIDE 40 MG/4 ML INJECTABLE VIAL IVPUSH SCH ×2 (06:17→15:36)
[2022-11-30 07:39] LABS: BASO % 0.5 % (0-2.0); EOS % 0.4 % (0-4.5); HEMATOCRIT 41.2 % (35.4-49); LYMPH % 13.9 % (8-40); MCHC 29.2 g/dl (32.0-35.9); MEAN CELL VOLUME 78.7 fl (80-96); MEAN PLT VOLUME 8.3 fl (7.5-11.1); NEUT % 78.2 % (42.8-82.8); PLATELET COUNT 256 10^3/uL (134-434); RBC 5.24 M/mm3 (4.00-5.60); RDW 16.3 % (11.9-15.9); WHITE BLOOD COUNT 7.1 K/mm3 (4.0-10.0)
[2022-11-30 07:53] LABS: POTASSIUM 3.5 mmol/L (3.5-5.1)
[2022-11-30 07:55] LABS: ALBUMIN 2.7 g/dl (3.4-5.0); BLOOD UREA NITROGEN 14.9 mg/dL (7-18); CALCIUM 7.7 mg/dL (8.5-10.1); MAGNESIUM 2.1 mg/dL (1.8-2.4)
[2022-11-30 07:58] LABS: CREATININE 0.7 mg/dL (0.55-1.3); PHOSPHOROUS 4.6 mg/dL (2.5-4.9)
[2022-11-30 08:00] LABS: BILIRUBIN,TOTAL 0.4 mg/dL (0.2-1); TOT PROT 6.9 g/dl (6.4-8.2)
[2022-11-30 09:17] LABS: ARTERIAL BLD GAS O2 SATURATION 92.8 % (95-98); ARTERIAL BLOOD GAS BASE EXCESS 10.4 mmol/L (-2-2); ARTERIAL BLOOD GAS PO2 73.8 mmHg (80-100); ARTERIAL BLOOD GAS pH 7.313 (7.350-7.450)
[2022-11-30 09:18] LABS: ALLENS TEST POSITIVE
[2022-11-30 09:19] LABS: VENT MODE S/T; VENT RATE 20
[2022-11-30] MEDS: LISINOPRIL 20 MG TABLET PO SCH (09:37)
[2022-11-30] MEDS ORDERED: FLU VACCINE (FLULAVAL) PF 60 MCG/0.5 ML SYRINGE 2023-2024 IM ONE (10:00)
[2022-11-30] MEDS ORDERED: ENOXAPARIN NA (PORCINE) 40 MG/0.4 ML DISP.SYRIN SQ SCH (10:00)
[2022-11-30] MEDS ORDERED: PATIENT'S OWN MEDICATION (NON-FORMULARY) (Lisinopril [Lisinopril] 40 MG Tablet) PO SCH (10:00)
[2022-11-30] MEDS ORDERED: FUROSEMIDE 40 MG/4 ML INJECTABLE VIAL IVPUSH SCH ×2 (10:00→17:00)
[2022-11-30 16:31] LABS: ARTERIAL BLD GAS O2 SATURATION 88.6 % (95-98); ARTERIAL BLOOD GAS BASE EXCESS 13.4 mmol/L (-2-2); ARTERIAL BLOOD GAS PO2 61.8 mmHg (80-100)
[2022-11-30 16:36] LABS: ALLENS TEST POSITIVE
[2022-12-01] MEDS: ALBUTEROL SO4 2.5/IPRATROPIUM 0.5 INH SOL 3 ML VIAL.NEB. NEB SCH ×6 (00:19→20:58)
[2022-12-01] MEDS: FUROSEMIDE 40 MG/4 ML INJECTABLE VIAL IVPUSH SCH ×2 (05:35→17:14)
[2022-12-01] MEDS: HEPARIN NA (PORCINE) 5,000 UNITS/ML 1ML VIAL SQ SCH ×3 (06:10→21:28)
[2022-12-01 08:09] LABS: HEMOGLOBIN 12.2 GM/dL (11.7-16.9); MCH 23.9 pg (25.7-33.7); MCHC 31.1 g/dl (32.0-35.9); MEAN CELL VOLUME 76.9 fl (80-96); MEAN PLT VOLUME 8.3 fl (7.5-11.1); PLATELET COUNT 235 10^3/uL (134-434); RBC 5.08 M/mm3 (4.00-5.60); RDW 16.2 % (11.9-15.9); WHITE BLOOD COUNT 6.5 K/mm3 (4.0-10.0)
[2022-12-01 08:17] LABS: POTASSIUM 3.5 mmol/L (3.5-5.1)
[2022-12-01 08:21] LABS: ALBUMIN 2.6 g/dl (3.4-5.0)
[2022-12-01 08:22] LABS: BLOOD UREA NITROGEN 18.1 mg/dL (7-18); CALCIUM 7.5 mg/dL (8.5-10.1)
[2022-12-01 08:25] LABS: CREATININE 0.8 mg/dL (0.55-1.3); PHOSPHOROUS 3.7 mg/dL (2.5-4.9)
[2022-12-01 08:27] LABS: BILIRUBIN,TOTAL 0.6 mg/dL (0.2-1); TOT PROT 6.7 g/dl (6.4-8.2)
[2022-12-01] MEDS: CARVEDILOL 25 MG TABLET (FP) PO SCH ×2 (09:57→21:29)
[2022-12-01] MEDS: LISINOPRIL 20 MG TABLET PO SCH (09:57)
[2022-12-01] MEDS: MUPIROCIN 2% TOPICAL OINTMENT FOR DECOLONIZATION NS SCH ×2 (17:14→21:30)
[2022-12-01] MEDS: CHLORHEXIDINE GLUCONATE 4% CLEANSER FOR DECOLONIZATION TP SCH (21:30)
[2022-12-02] MEDS: ALBUTEROL SO4 2.5/IPRATROPIUM 0.5 INH SOL 3 ML VIAL.NEB. NEB SCH ×7 (00:05→23:23)
[2022-12-02] MEDS: FUROSEMIDE 40 MG/4 ML INJECTABLE VIAL IVPUSH SCH ×2 (06:37→14:32)
[2022-12-02] MEDS: HEPARIN NA (PORCINE) 5,000 UNITS/ML 1ML VIAL SQ SCH ×3 (06:37→21:51)
[2022-12-02 07:30] LABS: BASO % 0.6 % (0-2.0); HEMATOCRIT 38.7 % (35.4-49); HEMOGLOBIN 11.5 GM/dL (11.7-16.9); LYMPH % 15.8 % (8-40); MCH 23.3 pg (25.7-33.7); MCHC 29.8 g/dl (32.0-35.9); MEAN CELL VOLUME 78.3 fl (80-96); MEAN PLT VOLUME 8.4 fl (7.5-11.1); MONO % 7.6 % (3.8-10.2); PLATELET COUNT 268 10^3/uL (134-434); RBC 4.94 M/mm3 (4.00-5.60); RDW 15.7 % (11.9-15.9); WHITE BLOOD COUNT 6.3 K/mm3 (4.0-10.0)
[2022-12-02 07:51] LABS: POTASSIUM 3.6 mmol/L (3.5-5.1)
[2022-12-02 07:56] LABS: ALBUMIN 2.6 g/dl (3.4-5.0); CALCIUM 7.7 mg/dL (8.5-10.1)
[2022-12-02 07:57] LABS: BLOOD UREA NITROGEN 20.6 mg/dL (7-18)
[2022-12-02 08:00] LABS: CREATININE 0.9 mg/dL (0.55-1.3)
[2022-12-02 08:01] LABS: BILIRUBIN,TOTAL 0.8 mg/dL (0.2-1); TOT PROT 6.6 g/dl (6.4-8.2)
[2022-12-02] MEDS: CARVEDILOL 25 MG TABLET (FP) PO SCH ×2 (12:11→21:51)
[2022-12-02] MEDS: MUPIROCIN 2% TOPICAL OINTMENT FOR DECOLONIZATION NS SCH ×2 (12:12→21:51)
[2022-12-02] MEDS: LISINOPRIL 20 MG TABLET PO SCH (12:12)
[2022-12-02] MEDS: CHLORHEXIDINE GLUCONATE 4% CLEANSER FOR DECOLONIZATION TP SCH (21:51)
[2022-12-03] MEDS: ALBUTEROL SO4 2.5/IPRATROPIUM 0.5 INH SOL 3 ML VIAL.NEB. NEB SCH ×5 (04:04→20:40)
[2022-12-03] MEDS: HEPARIN NA (PORCINE) 5,000 UNITS/ML 1ML VIAL SQ SCH ×3 (06:47→22:10)
[2022-12-03] MEDS: FUROSEMIDE 40 MG/4 ML INJECTABLE VIAL IVPUSH SCH ×2 (06:47→14:54)
[2022-12-03 06:49] LABS: HEMATOCRIT 41.4 % (35.4-49); HEMOGLOBIN 12.3 GM/dL (11.7-16.9); MCH 23.1 pg (25.7-33.7); MCHC 29.8 g/dl (32.0-35.9); MEAN CELL VOLUME 77.5 fl (80-96); MEAN PLT VOLUME 8.3 fl (7.5-11.1); PLATELET COUNT 273 10^3/uL (134-434); RBC 5.35 M/mm3 (4.00-5.60); RDW 15.9 % (11.9-15.9); WHITE BLOOD COUNT 4.9 K/mm3 (4.0-10.0)
[2022-12-03 07:08] LABS: POTASSIUM 3.5 mmol/L (3.5-5.1)
[2022-12-03 07:11] LABS: ALBUMIN 2.8 g/dl (3.4-5.0); BLOOD UREA NITROGEN 19.4 mg/dL (7-18); CALCIUM 7.9 mg/dL (8.5-10.1)
[2022-12-03 07:14] LABS: CREATININE 0.7 mg/dL (0.55-1.3)
[2022-12-03 07:16] LABS: BILIRUBIN,TOTAL 0.8 mg/dL (0.2-1); TOT PROT 7.1 g/dl (6.4-8.2)
[2022-12-03] MEDS ORDERED: LISINOPRIL 20 MG TABLET PO SCH (10:00)
[2022-12-03] MEDS ORDERED: CARVEDILOL 25 MG TABLET (FP) PO SCH (10:00)
[2022-12-03] MEDS: CARVEDILOL 25 MG TABLET (FP) PO SCH ×2 (11:58→22:10)
[2022-12-03] MEDS: LISINOPRIL 20 MG TABLET PO SCH (11:59)
[2022-12-03] MEDS ORDERED: ALBUTEROL SO4 2.5/IPRATROPIUM 0.5 INH SOL 3 ML VIAL.NEB. NEB SCH (12:00)
[2022-12-03] MEDS ORDERED: FUROSEMIDE 40 MG/4 ML INJECTABLE VIAL IVPUSH SCH (14:00)
[2022-12-03] MEDS ORDERED: HEPARIN NA (PORCINE) 5,000 UNITS/ML 1ML VIAL SQ SCH (14:00)
[2022-12-04] MEDS: ALBUTEROL SO4 2.5/IPRATROPIUM 0.5 INH SOL 3 ML VIAL.NEB. NEB SCH ×6 (00:30→21:30)
[2022-12-04] MEDS: HEPARIN NA (PORCINE) 5,000 UNITS/ML 1ML VIAL SQ SCH ×3 (06:25→21:56)
[2022-12-04] MEDS: FUROSEMIDE 40 MG/4 ML INJECTABLE VIAL IVPUSH SCH ×2 (06:27→15:24)
[2022-12-04] MEDS: CARVEDILOL 25 MG TABLET (FP) PO SCH ×2 (10:11→21:56)
[2022-12-04] MEDS: LISINOPRIL 20 MG TABLET PO SCH ×2 (10:11→10:13)
[2022-12-04 13:48] VITALS: BMI 60.3
[2022-12-05] MEDS: ALBUTEROL SO4 2.5/IPRATROPIUM 0.5 INH SOL 3 ML VIAL.NEB. NEB SCH ×6 (00:02→20:47)
[2022-12-05] MEDS ORDERED: FUROSEMIDE 40 MG TABLET (FP) PO SCH (06:00)
[2022-12-05] MEDS: HEPARIN NA (PORCINE) 5,000 UNITS/ML 1ML VIAL SQ SCH ×3 (07:01→21:28)
[2022-12-05] MEDS ORDERED: FUROSEMIDE 40 MG/4 ML INJECTABLE VIAL IVPUSH ONE (11:00)
[2022-12-05] MEDS: CARVEDILOL 25 MG TABLET (FP) PO SCH ×2 (12:01→21:28)
[2022-12-05] MEDS: IBUPROFEN 600 MG TABLET (FP) PO PRN (12:01)
[2022-12-05 12:33] LABS: POTASSIUM 3.5 mmol/L (3.5-5.1)
[2022-12-05 12:35] LABS: ALBUMIN 2.9 g/dl (3.4-5.0); BLOOD UREA NITROGEN 25.3 mg/dL (7-18); CALCIUM 8.3 mg/dL (8.5-10.1); MAGNESIUM 2.1 mg/dL (1.8-2.4)
[2022-12-05 12:38] LABS: CREATININE 0.8 mg/dL (0.55-1.3)
[2022-12-05 12:40] LABS: BILIRUBIN,TOTAL 0.6 mg/dL (0.2-1); TOT PROT 7.5 g/dl (6.4-8.2)
[2022-12-05 13:08] LABS: BASO % 0.6 % (0-2.0); EOS % 1.1 % (0-4.5); LYMPH % 22.5 % (8-40); MCH 23.5 pg (25.7-33.7); MCHC 30.9 g/dl (32.0-35.9); MEAN PLT VOLUME 8.1 fl (7.5-11.1); MONO % 8.5 % (3.8-10.2); NEUT % 67.3 % (42.8-82.8); PLATELET COUNT 247 10^3/uL (134-434); RDW 16.4 % (11.9-15.9)
[2022-12-05 13:09] LABS: HEMATOCRIT 42.1 % (35.4-49); RBC 5.54 M/mm3 (4.00-5.60); WHITE BLOOD COUNT 4.7 K/mm3 (4.0-10.0)
[2022-12-05] MEDS: LISINOPRIL 20 MG TABLET PO SCH (13:49)
[2022-12-05] MEDS: FUROSEMIDE 40 MG TABLET (FP) PO SCH (14:32)
[2022-12-06] MEDS: ALBUTEROL SO4 2.5/IPRATROPIUM 0.5 INH SOL 3 ML VIAL.NEB. NEB SCH ×5 (00:32→16:54)
[2022-12-06] MEDS: HEPARIN NA (PORCINE) 5,000 UNITS/ML 1ML VIAL SQ SCH ×2 (06:08→14:45)
[2022-12-06] MEDS: FUROSEMIDE 40 MG TABLET (FP) PO SCH ×2 (06:08→14:45)
[2022-12-06] MEDS: IBUPROFEN 600 MG TABLET (FP) PO PRN (06:16)
[2022-12-06 09:50] LABS: BASO % 0.8 % (0-2.0); EOS % 1.3 % (0-4.5); HEMATOCRIT 41.9 % (35.4-49); HEMOGLOBIN 12.9 GM/dL (11.7-16.9); LYMPH % 21.2 % (8-40); MCH 23.5 pg (25.7-33.7); MCHC 30.9 g/dl (32.0-35.9); MEAN CELL VOLUME 76.1 fl (80-96); MEAN PLT VOLUME 8.4 fl (7.5-11.1); MONO % 5.9 % (3.8-10.2); NEUT % 70.8 % (42.8-82.8); PLATELET COUNT 246 10^3/uL (134-434); RDW 16.3 % (11.9-15.9); WHITE BLOOD COUNT 4.6 K/mm3 (4.0-10.0)
[2022-12-06 10:12] LABS: POTASSIUM 3.8 mmol/L (3.5-5.1)
[2022-12-06 10:19] LABS: ALBUMIN 2.9 g/dl (3.4-5.0); BLOOD UREA NITROGEN 25.3 mg/dL (7-18); CALCIUM 8.5 mg/dL (8.5-10.1)
[2022-12-06 10:20] LABS: MAGNESIUM 2.1 mg/dL (1.8-2.4)
[2022-12-06 10:22] LABS: CREATININE 0.8 mg/dL (0.55-1.3)
[2022-12-06 10:23] LABS: BILIRUBIN,TOTAL 0.9 mg/dL (0.2-1)
[2022-12-06 10:24] LABS: TOT PROT 7.5 g/dl (6.4-8.2)
[2022-12-06] MEDS: CARVEDILOL 25 MG TABLET (FP) PO SCH (10:59)
[2022-12-06] MEDS: LISINOPRIL 20 MG TABLET PO SCH (10:59)
[2022-12-06 14:59] VITALS: BP 125/68; PULSE 83; RESP 18; TEMP 98.4
== END 2022-12-06 18:32 | disposition home or self-care (01) | DRG 194 ==
LOC: JER 11:45 → JERBED 15:49 → JICU 21:53 → J4W 12-02 22:20 → J8W 12-03 18:39
PROVIDERS: ADMIT Internal Medicine; ATTEND Nurse Practitioner Acute Care
DX: I11.0 Hypertensive heart disease with heart failure (principal); E66.01 Morbid (severe) obesity due to excess calories; J96.22 Acute and chronic respiratory failure with hypercapnia; Z68.44 Body mass index [BMI] 60.0-69.9, adult; G47.33 Obstructive sleep apnea (adult) (pediatric); I50.33 Acute on chronic diastolic (congestive) heart failure; E87.20 Acidosis, unspecified; R41.82 Altered mental status, unspecified; J44.9 Chronic obstructive pulmonary disease, unspecified; E78.5 Hyperlipidemia, unspecified; R60.0 Localized edema
CPT/HCPCS: 0241U-QW; 36415; 36600; 71045-TC-FY; 80053; 82803; 83036; 83735; 83880; 84100; 84443; 84484; 85025; 85027; 85610; 85730; 86850; 86900; 86901; 90686; 93005; 93010; 94640; 94660; 94761; 97116-GP; 99285-25; G0008; J1644